=== PATIENT | female | born 1960 | race Caucasian/White ===

== ENCOUNTER 2017-03-15 13:16 | Observation (INO) | payer MEDICAID, SELFPAY ==
[2017-03-15 13:22] VITALS: BP 117/65; PULSE 110; RESP 16; TEMP 36.6; O2SAT 97; BMI 25.0
[2017-03-15 15:52] LABS: Amphetamine/Metha Screen,Urine Negative ng/mL (<1000); Barbiturates Screen,Urine Negative ng/mL (<200); Benzodiazepines Screen,Urine Positive ng/mL (200); Cannabinoid Screen,Urine Negative ng/mL (<50); Cocaine Screen,Urine Negative ng/g (<300); Methadone Screen,Urine Negative ng/mL (<300); Opiate Screen,Urine Negative ng/mL (<300); Phencyclidine Screen,Urine Negative ng/mL (<25)
--- NOTE | 2017-03-15 16:00 | HMH.EDAMS ---
ED Disposition Clinical Impression: Suicidal ideation Overdose Qualifiers: Encounter type: initial encounter Injury intent: intentional self-harm Qualified Code(s): T50.902A - Poisoning by unspecified drugs, medicaments and biological substances, intentional self-harm, initial encounter Disposition: Admitted As Inpatient Condition on Discharge: Fair Time of Disposition: 16:00 - Critical Care Critical Care Time: No Attestation: On 03/15/17, the high probability of a clinically significant, sudden or life threatening deterioration of the following system(s) required my full and direct attention, intervention and personal management. The time I documented below is in addition to time spent performing reported procedures but includes the following listed in this critical care notation. Medical Decision Making - Medical Records Medical records reviewed: Yes: I reviewed the patient's medical records. Vital Signs: 03/15/17 13:22 03/15/17 18:49 03/15/17 19:58 Temperature 97.9 F 97.9 F Temperature Source Oral Oral Pulse Rate 68 Pulse Rate [Right Radial] 110 H Respiratory Rate 16 16 Blood Pressure 118/72 Blood Pressure [Right Arm] 117/65 Blood Pressure Mean [Right Arm] 82 Blood Pressure Source Automatic Cuff Blood Pressure Source [Right Arm] Automatic Cuff Blood Pressure Position Supine Blood Pressure Position [Right Arm] Sitting 02 Sat by Pulse Oximetry 97 Oxygen Delivery Method Room Air Room Air 03/15/17 20:00 Temperature 97.7 F Temperature Source Oral Pulse Rate Pulse Rate [Right Radial] 82 Respiratory Rate 20 Blood Pressure Blood Pressure [Right Arm] 125/66 Blood Pressure Mean [Right Arm] 85 Blood Pressure Source Blood Pressure Source [Right Arm] Automatic Cuff Blood Pressure Position Blood Pressure Position [Right Arm] Sitting 02 Sat by Pulse Oximetry 99 Oxygen Delivery Method Room Air - Lab Data Lab results reviewed: Yes: I reviewed the patient's lab results. Lab Results 03/15/17 10:40: Urine Opiates Screen Negative, Ur Barbituates Screen Negative, Ur Phencyclidine Scrn Negative, Ur Amphetamines Screen Negative, U Methamphetamines Scrn Negative, U Benzodiazepines Scrn Positive H, Urine Cocaine Screen Negative, U Marijuana (THC) Screen Negative 03/15/17 13:40: WBC 8.2, RBC 4.66, Hgb 14.2, Hct 43.3, MCV 92.8, MCH 30.5, MCHC 32.8, RDW 13.1, Plt Count 228, MPV 8.9, Neut % (Auto) 58.1, Lymph % (Auto) 33.7, [place] % (Auto) 6.6, Eos % (Auto) 0.9, Baso % (Auto) 0.7, Neut # (Auto) 4.8, Lymph # (Auto) 2.8, [place] # (Auto) 0.6, Eos # (Auto) 0.1, Baso # (Auto) 0.1 03/15/17 13:40: Sodium 144, Potassium 3.8, Chloride 105, Carbon Dioxide 31, Anion Gap 11.8, BUN 18, Creatinine 0.83, Estimated Creat Clear 80, Estimated GFR 71, Est GFR ( Amer) 85, Glucose 98, Calcium 9.3, Total Bilirubin 0.5, AST 22, ALT 19, Alkaline Phosphatase 66, Total Protein 7.8, Albumin 3.6, Globulin 4.2 H, Albumin/Globulin Ratio 0.9 L, TSH 2.06, Salicylates 6.2, Acetaminophen 0 L Result diagrams: 03/15/17 13:40 03/15/17 13:40 Orders (Tests/Meds): ED MEDICATIONS Generic Name Dose Route Start Last Admin Trade Name Freq PRN Reason Stop Dose Admin Nicotine 21 mg 03/16/17 02:27 03/16/17 02:28 Nicoderm 21mg/24hr Patch TD 04/15/17 02:26 21 mg DAILYP PRN Administration Nicotine Cravings Discontinued Medications Generic Name Dose Route Start Last Admin Trade Name Freq PRN Reason Stop Dose Admin Diphenhydramine HCl 50 mg 03/15/17 16:42 03/15/17 16:42 Benadryl 50mg/1ml Vial IV 03/15/17 16:43 50 mg ONCE ONE Administration Sodium Chloride 1,000 mls @ 999 mls/hr 03/15/17 15:45 03/15/17 15:59 Sod Chloride 0.9% 1000ml Bag IV 03/15/17 16:45 999 mls/hr .Q1H1M JENNIFER Administration Lactated Ringer's 1,000 mls @ 125 mls/hr 03/15/17 17:30 Lactated Ringer's 1000 Ml Bag IV 04/14/17 17:29 .Q8H JENNIFER - Physician Consults Physician Consulted: Dr. Moreau Time:
[2017-03-15 16:24] LABS: Basophils # 0.1 K/mm3 (0-0.2); Basophils % 0.7 % (0.1-2.0); Eosinophils # 0.1 K/mm3 (0.0-0.4); Eosinophils % 0.9 % (0.1-12.0); Hematocrit 43.3 % (37.0-47.0); Hemoglobin 14.2 g/dL (12.2-16.2); Lymphocytes # 2.8 K/mm3 (0.7-4.5); Lymphocytes % 33.7 K/mm3 (10-50); Mean Corpuscular HGB Conc 32.8 g/dL (31.8-35.4); Mean Corpuscular Hemoglobin 30.5 pg (27.0-31.2); Mean Corpuscular Volume 92.8 fl (81-99); Mean Platelet Volume 8.9 fl (7.4-10.4); Monocytes # 0.6 K/mm3 (0.1-1.0); Monocytes % 6.6 % (1.7-9.3); Neutrophils # 4.8 K/mm3 (1.8-7.8); Neutrophils % 58.1 % (37.0-80.0); Platelet Count 228 K/mm3 (142-424); Red Blood Count 4.66 M/mm3 (4.20-5.40); Red Cell Distribution Width 13.1 % (11.5-17.5); White Blood Count 8.2 K/mm3 (4.8-10.8)
[2017-03-15 16:47] LABS: Alanine Aminotransferase 19 U/L (12-78); Albumin Level 3.6 gm/dL (3.4-5.0); Albumin/Globulin Ratio 0.9 (1.1-1.8); Alkaline Phosphatase 66 U/L (46-116); Anion Gap 11.8 mEq/L (5-15); Aspartate Amino Transferase 22 U/L (15-37); Bilirubin,Total 0.5 mg/dL (0.2-1.0); Blood Urea Nitrogen 18 mg/dL (7-18); Calcium 9.3 mg/dL (8.5-10.1); Carbon Dioxide 31 mmol/L (21.0-32.0); Chloride 105 mmol/L (98-107); Creatinine Clearance Estimated 80 mL/min (0-300); Creatinine,Serum 0.83 mg/dL (0.55-1.02); Estimated Glomerular Filt Rate 71 ml/min (>60); GFR (African American) 85 ML/MIN (>60); Globulin 4.2 gm/dl (1.3-3.2); Glucose 98 mg/dL (74-106); Potassium 3.8 mmoL/L (3.5-5.1); Salicylate 6.2 mg/dL (2.8-20.0); Sodium 144 mmol/L (136-145); Thyroid Stimulating Hormone 2.06 uIU/ml (0.358-3.740); Total Protein,Serum 7.8 gm/dL (6.4-8.2)
[2017-03-15 16:50] LABS: Acetaminophen 0 ug/mL (10-30)
[2017-03-15 18:49] VITALS: BP 118/72; PULSE 68; RESP 16; TEMP 36.6
--- NOTE | 2017-03-15 19:53 | PC.NURSE ---
Admitted for suicidal ideation and attempt. Currently states that she has no plan or want to harm herself at this moment.
[2017-03-15 20:00] VITALS: BP 125/66; PULSE 82; RESP 20; TEMP 36.5; O2SAT 99; BMI 23.6
[2017-03-15 20:36] VITALS: BMI 23.6
[2017-03-15 20:55] LABS: Microscopic, Urine URINE MICROSCOPIC (MICROSCOPIC)
[2017-03-15 21:31] LABS: Appearance,Urine CLEAR (Clear); Bilirubin,Urine Negative (Negative); Blood, Urine TRACE-I (Negative); Color,Urine YELLOW (Yellow); Glucose,Urine (UA) Negative (Negative); Ketones,Urine Negative (Negative); Leukocyte Esterase,Urine 3+ (Negative); Nitrate,Urine Negative (Negative); PH,Urine 6.5 (5.0-8.5); Protein,Urine Negative (Negative); Specific Gravity, Urine <= 1.005 (1.005-1.030); Urobilinogen,Urine 0.2 EU/dl (0.2)
[2017-03-15 21:55] LABS: Amphetamine/Metha Screen,Urine Negative ng/mL (<1000); Barbiturates Screen,Urine Negative ng/mL (<200); Benzodiazepines Screen,Urine Positive ng/mL (200); Cannabinoid Screen,Urine Negative ng/mL (<50); Cocaine Screen,Urine Negative ng/g (<300); Methadone Screen,Urine Negative ng/mL (<300); Opiate Screen,Urine Negative ng/mL (<300); Phencyclidine Screen,Urine Negative ng/mL (<25)
[2017-03-15 22:36] LABS: Bacteria,Urine Trace /lpf; Trichomonas,Urine 2+ /lpf; WBC,Urine 20-50 #/hpf (0-3)
[2017-03-16 03:53] VITALS: BP 109/68; PULSE 82; RESP 20; TEMP 36.5; O2SAT 98
--- NOTE | 2017-03-16 06:42 | PC.NURSE ---
Dr. Moreau up to see patient and requesting for one on one employee to step out of the room. Employee did so and Dr. Moreau shut the door to speak with patient and her daughter.
--- NOTE | 2017-03-16 07:29 | P.CONPHA_ITS ---
[facility] Pharmacy VTE Monitoring - Patient Demographics Admission date: 03/15/17 Report Date: 03/16/17 Time: 07:29 Allergies/Adverse Reactions: Patient Allergies No Known Allergies Allergy (Unverified 01/25/17 15:17) Height: 1.65 m Weight: 64.495 kg Patient Problems: Current Active Problems Overdose (Acute) Suicidal ideation (Acute) - VTE Risk Labs: VTE Related Lab Results Hgb 14.2 g/dL (12.2-16.2) 03/15/17 13:40 Hct 43.3 % (37.0-47.0) 03/15/17 13:40 Plt Count 228 K/mm3 (142-424) 03/15/17 13:40 BUN 18 mg/dL (7-18) 03/15/17 13:40 Creatinine 0.83 mg/dL (0.55-1.02) 03/15/17 13:40 Estimated Creat Clear 80 mL/min (0-300) 03/15/17 13:40 Was VTE Risk Assessment Performed: Yes VTE Risk Level: Very Low Risk Clinical Trial Participant: No - Prophylaxis VTE Prophylaxis Ordered?: Yes Types of VTE Prophylaxis: TEDS Knee High
--- NOTE | 2017-03-16 11:33 | CARE MANAGER ---
Spoke with patient, patient states that she has an appointment with her therapist at [facility] today at 1pm, she states that she in no way wants or intends to harm herself. Patient states that her medicines were being changed and she feels that is the cause of some of her feelings of wanting to harm herself. Her daughter is in the room as well and she feels that she is fine to go home and she has no problems with it as well. This information was forwarded to Dr. Moreau and he states that he will discharge the patient today.
--- NOTE | 2017-03-16 11:43 | CARE MANAGER ---
ADD: Called and spoke with Estela at [facility] and she verified that the patient does indeed have an appointment today. I also informed Estela that patient may be running a little late as she is waiting for discharge paperwork from Dr. Moreau.
--- NOTE | 2017-03-16 11:54 | HMH.HPDC ---
General - General Admission date: 03/15/17 Discharge date: 03/16/17 *Admission Date: 03/15/17 *Chief complaint: depression *History of present illness: this wf who is well known to me presents to ed with disease case manager rn with depression and mistaking her meds -his is a 56-year-old female patient brought to the emergency room by her social science teacher, Gisele, with concerns of her being suicidal and overdose. Patient is currently in a Suboxone clinic, and the social science teacher noticed large amounts of Suboxone missing from her pill container. Patient has told the social science teacher on 3 separate times earlier today that she wants to commit suicide, by taking the large overdose. Patient is known with multiple psychiatric conditions. MD complaint: altered mental status, confusion [facility] History I have reviewed the patient's past medical history: Yes Medical History: Reports:: Hyperlipidemia, Hypertension Denies:: Cancer, Diabetes Mellitus Type 1, Diabetes Mellitus Type 2, Internal Pacemaker, MRSA Other Surgeries: No: Pacemaker Amputation: No Fractures: No - *Social History Educational Level: Attended High School Smoking Status: Current every day smoker Tobacco Type: cigarettes Alcohol Intake: never Substance Use Type: denies use Occupational Status: disabled Housing: apartment - Psychiatric History Expresses thoughts of harming self/others: None Suicide Plan Description: No Plan Pschychiatric History:: Reports:: Suicide Attempt Review of Systems - Review of Systems Review of systems:: pertinent systems reviewed and negative unless documented below - Constitutional Denies fever(s) - Eyes Denies change in vision - ENT Denies throat swelling - *Cardiovascular Denies chest pain at rest - *Respiratory Denies chest congestion - *Gastrointestinal Denies abdominal pain - *Musculoskeletal Denies joint pain, Denies joint swelling - Integumentary/Breasts Denies rash - *Neurologic Denies dizziness, Denies seizure-like activity - Psychiatric Reports anxiety, Reports depression, Reports thoughts of hurting/killing yourself, Denies hearing things others do not hear, Denies sensing things others do not sense, Denies memory loss, Denies paranoia, Denies seeing things others do not see Exam Vital signs and Labs for Last 24 Hours: Temp Pulse Resp BP Pulse Ox 97.7 F 82 20 109/68 98 03/16/17 03:53 03/16/17 03:53 03/16/17 03:53 03/16/17 03:53 03/16/17 03:53 Laboratory Results - last 24 hr 03/15/17 20:45: Urine Color Yellow, Urine Appearance Clear, Urine pH 6.5, Ur Specific [place] <= 1.005, Urine Protein Negative, Urine Glucose (UA) Negative, Urine Ketones Negative, Urine Blood Trace-i, Urine Nitrate Negative, Urine Bilirubin Negative, Urine Urobilinogen 0.2, Ur Leukocyte Esterase 3+ A, Urine RBC None, Urine WBC 20-50, Ur Squamous Epith Cells 5-10, Urine Bacteria Trace, Urine Trichomonas 2+ 03/15/17 20:45: Urine Opiates Screen Negative, Ur Barbituates Screen Negative, Ur Phencyclidine Scrn Negative, Ur Amphetamines Screen Negative, U Methamphetamines Scrn Negative, U Benzodiazepines Scrn Positive H, Urine Cocaine Screen Negative, U Marijuana (THC) Screen Negative I & O for Last 24 hours: Intake & Output 03/13/17 03/14/17 03/15/17 03/16/17 11:59 11:59 11:59 11:59 Output Total 250 / 250 Balance -250 / -250 Weight 142 lb 3 oz - Constitutional no acute distress - *Routine HEENT Exam Head: Present: normocephalic Eye: Present: EOMI, PERRL. Absent: conjunctival icterus ENT: Present: mucous membranes dry - *Routine Neck Exam Present: supple. Absent: carotid bruit - *Routine Respiratory Exam Present: CTA bilaterally - *Routine Cardiovascular Exam Present: RRR, murmur. Absent: JVD - *Routine Abdominal Exam Present: soft - *Routine Extremities Exam Present: full ROM. Absent: calf tenderness - *Routine Skin Exam Present: intact - *Routine Neurological Exam Present: a
--- NOTE | 2017-03-16 12:50 | PC.NURSE ---
Pt has been stable this shift, no complaints voiced to nurse. Pt has had daughter at bedside entire shift and she drove patient home after discharge. Pt was emotional early this morning after speaking with Dr. Moreau regarding discharge, but stated that she was ready to go home. Pt was very anxious to leave, but discharge orders were just put in a few minutes ago. Pt was given all education/paperwork prior to discharge. Pt stated that she would follow up with [facility] care and with Dr. Moreau per her discussion with Dr. Moreau this morning. Both IV sites were discontinued and pt tolerated well.
== END 2017-03-16 12:48 | disposition home or self-care (01) ==
LOC: ER 16:15 → 2ND 20:43
PROVIDERS: Admitting Provider Emergency Medicine; Emergency Provider Emergency Medicine; Family Provider Emergency Medicine; PCP Emergency Medicine; Visit Provider Emergency Medicine
DX: T40.4X2A Poisoning by other synthetic narcotics, intentional self-harm, initial encounter (principal); R41.82 Altered mental status, unspecified; F32.9 Major depressive disorder, single episode, unspecified; N39.0 Urinary tract infection, site not specified; A59.09 Other urogenital trichomoniasis; F17.210 Nicotine dependence, cigarettes, uncomplicated; I10 Essential (primary) hypertension; Y92.9 Unspecified place or not applicable
CPT/HCPCS: 80053; 80305; 80329; 81001; 84443; 85025; 87086; 96365; 96375; 99281; G0378

== ENCOUNTER → 2017-12-19 17:56 | Outpatient (CLI) | payer MEDICAID, SELFPAY ==
[2017-12-26 11:13] LABS: Gabapentin,Urine 427.8 ug/mL (.)
== END ==
PROVIDERS: Visit Provider Nurse Practitioner Family
DX: Z02.83 Encounter for blood-alcohol and blood-drug test (principal)
CPT/HCPCS: 80307

== ENCOUNTER → 2018-06-09 09:16 | Outpatient (CLI) | payer MEDICAID, SELFPAY ==
--- NOTE | 2018-06-09 09:32 | XR_ITS ---
XR hip LT 2-3V w/pelvis HISTORY: ITS.REASON: left hip pain ORDERING PHYSICIAN: Fer Moreau MD PATIENT AGE: 58 years COMPARISON: None FINDINGS: No fracture or dislocation is evident. No significant degenerative change. No lytic or blastic change. Unremarkable soft tissues IMPRESSION: Negative hip
--- NOTE | 2018-06-09 09:32 | XR_ITS ---
XR knee RT 2V HISTORY: ITS.REASON: knee pain ORDERING PHYSICIAN: Fer Moreau MD PATIENT AGE: 58 years COMPARISON: None FINDINGS: There is slight decrease in the joint space medially and laterally with minimal chondrocalcinosis laterally. No fracture or dislocation. IMPRESSION: Minimal osteoarthritic change
--- NOTE | 2018-06-09 09:32 | XR_ITS ---
XR scoliosis survey CLINICAL INDICATION: ITS.REASON: back pain ORDERING PHYSICIAN: Fer Moreau MD PATIENT AGE: 58 years Comparison: None FINDINGS: There is mild lower thoracic curvature convex right measuring 9 degrees. Lumbar curvature convex left is present which measures 11 degrees. No obvious congenital anomalies. There is degenerative disc disease with facet arthritic change at L4-L5. IMPRESSION: Thoracic and lumbar scoliosis as described above
== END ==
PROVIDERS: PCP Emergency Medicine; Visit Provider Emergency Medicine
DX: M25.561 Pain in right knee (principal); M54.9 Dorsalgia, unspecified; M25.552 Pain in left hip
CPT/HCPCS: 72081; 73502; 73560

== ENCOUNTER → 2018-06-23 16:05 | Outpatient (CLI) | payer MEDICAID, SELFPAY ==
--- NOTE | 2018-06-23 16:17 | MR_ITS ---
MR lumbar spine wo con, MR 3-d myelogram/MRCP HISTORY: Low back pain X 1 year or longer. Bilateral leg pain, numbness, tingling and burning. Bilateral leg swelling as well. ITS.REASON: back pain ORDERING PHYSICIAN: Fer Moreau MD PATIENT AGE: 58 years Comparison: MRI 08/15/14. TECHNIQUE: Standard multiplanar multiecho sequences are performed without contrast. 3-D MIP and myelographic images are also rendered and reviewed FINDINGS: Mild lumbar scoliosis convex left. This is slightly increased compared to the previous exam with cough angle measuring 11 degrees previously measuring 6 degrees spinal cord ends at the L1 level. T11-T12: Mild degenerative disc disease T12-L1: Unremarkable. L1-L2: Unremarkable. L2-L3: Mild changes disease with mild disc desiccation. Mild facet and ligamentum flavum hypertrophy with mild bilateral lateral foraminal narrowing. Type II endplate changes. L3-L4: Minimal bulging disc with mild facet and ligamentum flavum hypertrophy with bilateral lateral recess and foraminal narrowing L4-L5: Mild anterolisthesis of L4 on L5 of 3 mm with mild bulging discs along with facet and ligamentum flavum hypertrophy with bilateral lateral recess and moderate bilateral foraminal narrowing At L5-S1: Bulging disc slightly eccentric to the left with facet and ligamentum flavum hypertrophy with moderate severe left foraminal narrowing. No extruded herniated disc. No canal stenosis and no significant change compared to the previous exam. IMPRESSION: 1. Multilevel lumbar spondylosis with degenerative disc disease, bulging disc, and facet and ligamentum flavum hypertrophy with bilateral lateral recess and foraminal narrowing. Please see above for detailed descriptions at each level. Overall not significantly changed . 3. No canal stenosis or disc herniation
== END ==
PROVIDERS: PCP Emergency Medicine; Visit Provider Emergency Medicine
DX: M54.9 Dorsalgia, unspecified (principal)
CPT/HCPCS: 72148; 76376

== ENCOUNTER → 2019-02-14 12:51 | Outpatient (CLI) | payer OTHER, SELFPAY ==
--- NOTE | 2019-02-14 12:51 | MR_ITS ---
PROCEDURE: MR LUMBAR SPINE WO CON CLINICAL INDICATION: back pain Low back pain with bilateral leg pain numbness and tingling left worse than right TECHNIQUE: Standard multiplanar multiecho sequences are performed without contrast. 3-D MIP and myelographic images are also rendered and reviewed FINDINGS: There is normal alignment. The spinal cord ends at the L1-L2 level. Multilevel degenerative disc disease with lumbar spondylosis with facet and ligamentum hypertrophy once again noted. T11-T12: Mild degenerative disc disease. T12-L1: Unremarkable L1-L2: Mild facet ligamentum hypertrophy. L2-L3: Minimal bulging disc with facet ligamentum hypertrophy. L3-L4: Bulging disc with mild facet ligamentum hypertrophy with mild bilateral foraminal narrowing. L4-5: Mild concentric bulging disc. Minimal anterolisthesis of L4. There is mild amount of fluid in the facet joints. Mild facet ligamentum hypertrophy with mild bilateral lateral recess and foraminal narrowing. L5-S1: Mild facet and ligamentum hypertrophy with mild bilateral foraminal narrowing left greater than right. No extruded herniated disc. No significant change compared to the previous exam. IMPRESSION: Mild multilevel lumbar spondylosis as detailed above. No disc herniation or canal stenosis and no significant change Dictated by: Amado Madrigal MD 02/15/2019 11:41 Electronically signed by Amado Madrigal MD in [place] 02/15/2019 11:41
== END ==
PROVIDERS: PCP Emergency Medicine; Visit Provider Emergency Medicine
DX: M54.16 Radiculopathy, lumbar region (principal)
CPT/HCPCS: 72148; 76376

== ENCOUNTER 2019-03-07 12:01 | Outpatient (RCR) | payer OTHER, SELFPAY | END 2019-03-07 13:00 | disposition home or self-care (01) | LOC: PT 12:01 | PROVIDERS: PCP Emergency Medicine; Visit Provider Emergency Medicine | DX: M54.16 Radiculopathy, lumbar region (principal); M41.9 Scoliosis, unspecified; M53.86 Other specified dorsopathies, lumbar region | CPT/HCPCS: 97542 ==

== ENCOUNTER → 2019-12-11 15:46 | Outpatient (CLI) | payer OTHER, SELFPAY ==
--- NOTE | 2019-12-11 15:46 | MM_ITS ---
PROCEDURE: MM DIG SCREENING MAMM BI W/CAD Digital Breast Tomosynthesis Included CLINICAL INDICATION: screening There is a history of breast cancer patient's mother diagnosed after menopause and the patient's maternal aunt. COMPARISON: MG DMSB DIG MAMM-SCREEN ALISHA from 01/02/2014 TECHNIQUE: Standard CC and MLO images and 3D Tomosynthesis was obtained. R2 CAD reviewed. FINDINGS: Mild to moderate scattered fibroglandular densities are seen throughout both breasts. There are few benign-appearing calcifications in each breast. There is no suspicious lesion in either breast and no suspicious microcalcifications. IMPRESSION: Fibrofatty parenchyma with no suspicious lesions seen BI-RAD Category: 2 Benign Finding(s) FOLLOW-UP: 1YR 1 Year Follow-up (A letter has been sent to the patient regarding results of the study.) Dictated by: Dr. Tevin Kelley MD 12/16/2019 08:56 Dr. Tevin Kelley MD in [place] 12/16/2019 08:56
== END ==
PROVIDERS: PCP Emergency Medicine; Visit Provider Emergency Medicine
DX: Z12.31 Encounter for screening mammogram for malignant neoplasm of breast (principal)
CPT/HCPCS: 77063; 77067

== ENCOUNTER 2020-09-12 12:02 | Emergency (ER) | payer OTHER, SELFPAY ==
[2020-09-12 12:03] VITALS: BP 143/83; PULSE 84; RESP 16; TEMP 37.3; O2SAT 98; BMI 24.3
--- NOTE | 2020-09-12 12:13 | HMH.EDGENADL ---
ED Disposition Clinical Impression: Disc disorder of cervical region, Cervical radiculopathy Disposition: Home, Self-Care Condition on Discharge: Good Instructions: DI for Neck Pain, DI for Herniated Disc, Degenerative Disc Disease, Herniated Disc Additional Instructions: Please take [id number] ibuprofen and/or acetaminophen as instructed on the medication packages. Follow-up with your primary care physician in about 5 to 7 days if your symptoms do not improve. I suspect that your symptoms are secondary to cervical radiculopathy and you may need an MRI to determine the cause of this. Please discuss this with your primary care physician. Return to the emergency department if you worsen in any way. Prescriptions: predniSONE [Prednisone 50mg Tab] 50 mg PO DAILY #5 tab Transmission Status: Pending to [facility] Referrals: Fer Moreau MD [Primary Care Provider] - - Critical Care Critical Care Time: No Attestation: On , the high probability of a clinically significant, sudden or life threatening deterioration of the following system(s) required my full and direct attention, intervention and personal management. The time I documented below is in addition to time spent performing reported procedures but includes the following listed in this critical care notation. Medical Decision Making - Medical Records Medical records reviewed: Yes: I reviewed the patient's medical records. - Pablo Inquiry Pt receiving controlled substance: No Medical Decision Narrative: As stated earlier, the patient presents to the emergency department with a several day history of neck pain associated with left-sided shoulder and back pain. On physical examination this pain is reproducible with palpation as well as movement of the neck. The patient denies any symptoms consistent with coronary artery related symptoms such as chest pain and or shortness of breath and or any other anginal equivalent. The patient left upper extremity is neurovascularly intact. There is no bony point tenderness. I do not feel that the patient requires laboratory and/or imaging work-up in the emergency department since her pain seems to be secondary to cervical radiculopathy. I have advised the patient to follow-up with her primary care physician to discuss the possibility of the need for an MRI. Meanwhile, the patient will be prescribed some steroids with instructions to take [id number] Tylenol and or ibuprofen. General Adult HPI - General Chief complaint: Neck Pain/Injury Stated complaint: shoulder and left arm pain, no accident Time Seen by Provider: 09/12/20 12:13 Source of Information: Patient - History of Present Illness HPI narrative: The patient presents to the emergency department complaining of neck pain associated with left shoulder and back pain. She states that this has been ongoing for several days but she does not recall the exact time of onset. She states that it is worse when she moves her neck and or arm. She also states that when she moves her neck she hears cracking and popping. Patient denies any neuro deficits. She denies any chest pain. She denies any shortness of breath. Severity scale (1-10): 6 Relieving factors: none Exacerbating factors: movement - Related Data Home Medications Medication Instructions Recorded Confirmed buprenorphine 8 mg-naloxone 2 mg 1 tab SUBLINGUAL BID tab 03/18/17 09/02/20 sublingual tablet Fluticasone Propionate [Flonase 2 spr NS DAILY 09/08/17 09/02/20 50mcg nasal spray 16gm] Previous Rx's Medication Instructions Recorded Nebulizer [Aeroeclipse] 1 each MC QID #1 each 10/31/18 fluticasone furoate 100 See Rx Instructions .ROUTE 01/10/20 mcg-vilanterol 25 mcg/dose .COMPLEX #60 each inhalation powder diclofenac sodium 1 % topical gel 4 g TOPICAL QID #100 g 02/05/20 ipratropium 20 mcg-albuterol 100 1 puff INHALATION Q4H PRN #4 g 04/02/20 mcg/actuation mist for inhalati
[2020-09-12 12:34] VITALS: BP 120/74; PULSE 68; RESP 16; TEMP 37.2; O2SAT 98
== END 2020-09-12 12:35 | disposition home or self-care (01) ==
LOC: ER 12:30
PROVIDERS: Emergency Provider Emergency Medicine; PCP Emergency Medicine
DX: M54.12 Radiculopathy, cervical region (principal); M50.90 Cervical disc disorder, unspecified, unspecified cervical region; F41.8 Other specified anxiety disorders; F17.210 Nicotine dependence, cigarettes, uncomplicated
CPT/HCPCS: 99281

== ENCOUNTER → 2020-10-01 10:27 | Outpatient (CLI) | payer OTHER, SELFPAY ==
--- NOTE | 2020-10-01 10:34 | XR_ITS ---
PROCEDURE: XR SHOULDER LT MIN 2V CLINICAL INDICATION: left shoulder pain COMPARISON: No exams were available for comparison FINDINGS: No fracture or dislocation. No lytic or blastic change. There is normal mineralization. There are minimal osteoarthritic changes of the glenohumeral joint. No significant subacromial stenosis Other findings:None. IMPRESSION: Minimal osteoarthritis of the glenohumeral joint. Dictated by: Amado Madrigal MD 10/01/2020 12:32 Amado Madrigal MD in [place] 10/01/2020 12:32
== END ==
PROVIDERS: PCP Emergency Medicine; Visit Provider Orthopaedic Surgery
DX: M25.512 Pain in left shoulder (principal)
CPT/HCPCS: 73030

== ENCOUNTER 2020-10-03 11:25 | Outpatient (RCR) | payer OTHER, SELFPAY | END 2020-10-03 12:47 | disposition home or self-care (01) | LOC: OT 11:25 | PROVIDERS: Visit Provider Orthopaedic Surgery | DX: M75.02 Adhesive capsulitis of left shoulder (principal) | CPT/HCPCS: 97763 ==

== ENCOUNTER → 2020-12-02 09:48 | Outpatient (CLI) | payer OTHER, SELFPAY ==
--- NOTE | 2020-12-02 09:50 | XR_ITS ---
PROCEDURE INFORMATION: Exam: XR Left Foot Complete; Alignment Exam date and time: 12/02/2020 9:50 AM Age: 60 years old Clinical indication: Pain; Foot; Left TECHNIQUE: Imaging protocol: XR Left foot. Views: 3 or more views. COMPARISON: CR (KNEE AP, KNEE, KNEE AP) 06/09/2018 9:57 AM FINDINGS: Bones/joints: Mild pes planus. Calcaneal spurs are present. Mild degenerative changes of the 1st 2nd and 3rd tarsometatarsal joints. Degenerative changes of the 1st metatarsophalangeal joint. There is no evidence of acute fracture. There is no evidence of joint malalignment or dislocation. Soft tissues: Normal. IMPRESSION: 1. Mild pes planus. 2. Calcaneal spurs are present. 3. Mild degenerative changes of the 1st 2nd and 3rd tarsometatarsal joints. 4. Degenerative changes of the 1st metatarsophalangeal joint. 5. No evidence of acute fracture. 6. No evidence of acute dislocation.
--- NOTE | 2020-12-02 09:50 | XR_ITS ---
PROCEDURE INFORMATION: Exam: XR Right Foot Complete; Alignment Exam date and time: 12/02/2020 9:50 AM Age: 60 years old Clinical indication: Pain; Foot; Right TECHNIQUE: Imaging protocol: XR Right foot. Views: 3 or more views. COMPARISON: CR XR KNEE RT 3V 03/30/2019 9:13 PM FINDINGS: Bones/joints: Mild pes planus. Calcaneal spurs are noted. There is no evidence of acute fracture. There is no evidence of joint malalignment or dislocation. Mild degenerative changes of the 1st 2nd and 3rd tarsometatarsal joints. Soft tissues: No soft tissue swelling. IMPRESSION: 1. Mild pes planus. 2. Calcaneal spurs are noted. 3. No evidence of acute fracture. 4. No evidence of acute dislocation. 5. Mild degenerative changes of the 1st 2nd and 3rd tarsometatarsal joints.
== END ==
PROVIDERS: PCP Emergency Medicine; Visit Provider Podiatrist
DX: M79.672 Pain in left foot (principal); M79.671 Pain in right foot
CPT/HCPCS: 73630

== ENCOUNTER 2020-12-08 14:00 | Outpatient (RCR) | payer OTHER, SELFPAY ==
--- NOTE | 2020-11-21 14:01 | HMH.OTOPEV ---
OT Inpatient Evaluation Rehab OT Outpatient Eval Start: 11/21/20 13:36 Freq: Status: Active Protocol: Document 11/21/20 13:37 LOVELYLUIS (Rec: 11/21/20 13:54 LOVELYLUIS [id number]) Electronically Signed By Nneka Beavers OT 11/21/20 13:37 Outpatient Therapy Subjective History Subjective History 60 year old female referred to skilled OP OT services for L shoulder pain from frozen shoulder. Patient verbalize having pain in the L shoulder for the past 6-8 months with minimal relief. Patient previously recieved her 2nd cortisone shot from ortho on . f/u with ortho in the next few weeks. Chief Complaint Pain,Weakness,Decreased [employer] Strength Symptom Type Ache Symptoms Relieved By Heat Symptoms Aggravated By Physical Activity Prior Functional Limitations None Current Functional Limitations Reaching,Lifting,Recreation Activity Symptom Description Constant and Continuous Level of pain today (0-10) 7 Pain scale - at its best (0-10) 7 Pain scale - at its worst (0-10) 9 Shoulder/Elbow Eval Shoulder Objective Measurements Shoulder ROM Left Shoulder Abduction Active Range of 85 Motion (degrees) Shoulder Flexion Active Range of Motion 80 (degrees) Query Text: Shoulder External Rotation Active Range 40 of Motion (degrees) Shoulder Internal Rotation Active Range 50 of Motion (degrees) pain with active ROM shoulder exam left standard Shoulder MMT Shoulder Abduction Strength Grade 3- Fair- Shoulder Extension Strength Grade 3- Fair- Shoulder Flexion Strength Grade 3- Fair- Shoulder Horizontal Abduction Strength 3- Fair- Grade Shoulder Horizontal Adduction Strength 3- Fair- Grade Infraspinatus/Teres Minor Strength Grade 3- Fair- Shoulder External Rotation Strength 3- Fair- Grade Shoulder Internal Rotation Strength 3- Fair- Grade Elbow Objective Measurements OT Outpatient Assessment Impairments Problems/Impairments Impaired Range of Motion, Impaired Strength,Impaired Endurance,Subjective C/O Pain Prognosis Rehab Potential Good Clinical Impression Consistent with Diagnosis Yes Short Term Goals Number of Weeks 2 Increase Ra
== END 2020-12-08 14:05 | disposition home or self-care (01) ==
LOC: OT 14:00
PROVIDERS: PCP Emergency Medicine; Visit Provider Orthopaedic Surgery
DX: M75.02 Adhesive capsulitis of left shoulder (principal)
CPT/HCPCS: 97014; 97110; 97140; 97165; 97530; G0283

== ENCOUNTER → 2021-02-03 11:51 | Outpatient (CLI) | payer OTHER, SELFPAY | PROVIDERS: PCP Emergency Medicine; Visit Provider Nurse Practitioner | DX: Z20.822 Contact with and (suspected) exposure to COVID-19 (principal) | CPT/HCPCS: C9803; U0003; U0005 ==

== ENCOUNTER 2021-02-03 11:56 | Emergency (ER) | payer OTHER, SELFPAY ==
[2021-02-03 12:24] VITALS: BP 121/67; PULSE 75; RESP 16; TEMP 37.1; O2SAT 97; BMI 25.3
[2021-02-03 13:21] VITALS: PULSE 75; RESP 16; TEMP 37.1; O2SAT 97; BMI 25.3
--- NOTE | 2021-02-03 13:28 | HMH.EDUTC ---
[facility] [place] Disposition Clinical Impression: COPD exacerbation Disposition: Home, Self-Care Condition on Discharge: Good Instructions: Preventing the Spread of Coronavirus Discharge Instructions, DI for COVID-19 (Suspected or Confirmed ), DI for Chronic Obstructive Pulmonary Disease Additional Instructions: Drink plenty of fluids. Take tylenol or ibuprofen for pain or fever. Take the medications as directed. Follow up with your regular doctor. GO TO THE ER FOR ANY WORSENING SYMPTOMS Quarantine until you know the results of your covid-19 test. If it is positive, the health department should call you and give you further instructions about your length of Quarantine and other things. Notify your school or workplace of your results and follow their instructions regarding return to work/school. The cough medication (promethazine dm) will make you drowsy, so don't drive or operate heavy machinery after taking it. Prescriptions: Promethazine/Dextromethorphan [Promethazine-Dm Syrup] 5 ml PO Q6HP PRN #240 ml PRN Reason: Cough Transmission Status: Pending to [facility] Amoxicillin/Potassium Clav [Augmentin 875-125 Tablet] 1 tab PO Q12H 10 Days #20 tab Transmission Status: Pending to [facility] predniSONE [Deltasone 10mg tablet] 10 mg PO DAILY 9 Days #21 tab Transmission Status: Pending to [facility] guaiFENesin [Mucinex 600mg tablet] 1 - 2 tab PO BIDP PRN #30 tab PRN Reason: Congestion Transmission Status: Pending to [facility] Referrals: Fer Moreau MD [Primary Care Provider] - Time of Disposition: 14:10 Medical Decision Making - Medical Records Medical records reviewed: No: I reviewed the patient's medical records. - Pablo Inquiry Pt receiving controlled substance: No Vital Signs: 02/03/21 12:24 02/03/21 13:21 Temperature 98.7 F 98.7 F Temperature Source Oral Oral Pulse Rate [Left Radial] 75 75 Respiratory Rate 16 16 Blood Pressure [Right Arm] 121/67 Blood Pressure Mean [Right Arm] 85 02 Sat by Pulse Oximetry 97 97 Oxygen Delivery Method Room Air - Lab Data Lab results reviewed: Yes: I reviewed the patient's lab results. Lab Results 02/03/21 13:22: Strep Scn Rapid Clinic Negative Orders (Tests/Meds): ORDERS Category Date Time Status Strep Screen Confirmation Routine Micro 02/03/21 13:22 Received - Radiology Data #1 Image(s): Chest Image Reviewed: Yes I reviewed the patient's radiology image, Yes I discussed the image results w/the radiologist Preliminary Findings: Normal/NAD, No Infiltrates Seen PROCEDURE: XR CHEST 2V CLINICAL HISTORY: cough, congestion COMPARISON: CR XR CHEST 2V from 07/16/2020 CR XR CHEST PORTABLE from 09/17/2020 FINDINGS: The cardiomediastinal silhouette and pulmonary vascularity are within normal limits. The lungs are clear without infiltrates, suspicious nodules, or pleural effusions. Subchondral cystic changes involve the distal clavicle on the left unchanged.. IMPRESSION: No acute findings. Dictated by: Amado Madrigal MD 02/03/2021 11:42 Amado Madrigal MD in [place] 02/03/2021 11:42 [facility] [place] HPI - General Stated complaint: congestion,vomiting,diarrhea Time Seen by Provider: 02/03/21 13:28 Mode of Arrival: Ambulatory Source of Information: Patient Limitations: No Limitations Description of Symptoms (Recalled from Triage Doc. by RN): pt tested this am at [facility] for covid. pt states she came here bc she wanted ABX. pt c/o RODRIGUEZ, n/v/d, fever and stomach ache. HEENT Symptoms (Recalled from RN notes): Yes (RODRIGUEZ) Resp Symptoms (Recalled from RN notes): No Skin Symptoms (Recalled from RN notes): No MS Symptoms (Recalled from RN notes): No Functional Status (Recalled from RN notes): wnl - History of Present Illness Provider Complaint: She states that for the past 3 days she has felt bad, had a cough and chest tightness and felt mildly short of breath. She has not been vaccinated against covid-19.
[2021-02-03 13:37] LABS: UTC Strep Screen (Rapid) Negative (Negative)
--- NOTE | 2021-02-03 13:41 | XR_ITS ---
PROCEDURE: XR CHEST 2V CLINICAL HISTORY: cough, congestion COMPARISON: CR XR CHEST 2V from 03/30/2019 FINDINGS: The cardiomediastinal silhouette and pulmonary vascularity are within normal limits. The lungs are clear without infiltrates, suspicious nodules, or pleural effusions. Lumbar scoliosis convex left. IMPRESSION: No acute findings. Dictated by: Amado Madrigal MD 02/03/2021 13:54 Amado Madrigal MD in [place] 02/03/2021 13:54
[2021-02-03 14:43] VITALS: BP 121/67; PULSE 75; RESP 16; TEMP 37.1
== END 2021-02-03 14:48 | disposition home or self-care (01) ==
PROVIDERS: Emergency Provider Nurse Practitioner Family; PCP Emergency Medicine
DX: J44.1 Chronic obstructive pulmonary disease with (acute) exacerbation (principal); F41.8 Other specified anxiety disorders; E78.5 Hyperlipidemia, unspecified; F17.210 Nicotine dependence, cigarettes, uncomplicated
CPT/HCPCS: 71046; 87880; 99202; G0463

== ENCOUNTER → 2021-03-30 16:00 | Outpatient (CLI) | payer OTHER, SELFPAY ==
[2021-03-30 18:56] LABS: Basophils # 0.1 K/mm3 (0-0.2); Basophils % 1.6 % (0.1-2.0); Eosinophils # 0.1 K/mm3 (0.0-0.4); Eosinophils % 1.1 % (0.1-12.0); Hematocrit 44.6 % (37.0-47.0); Hemoglobin 14.4 g/dL (12.2-16.2); Lymphocytes # 1.8 K/mm3 (0.7-4.5); Lymphocytes % 27.6 % (10-50); Mean Corpuscular HGB Conc 32.4 g/dL (31.8-35.4); Mean Corpuscular Hemoglobin 31.2 pg (27.0-31.2); Mean Corpuscular Volume 96.5 fl (81-99); Mean Platelet Volume 9.7 fl (7.4-10.4); Monocytes # 0.2 K/mm3 (0.1-1.0); Monocytes % 3.6 % (1.7-9.3); Neutrophils # 4.4 K/mm3 (1.8-7.8); Neutrophils % 66.1 % (37.0-80.0); Platelet Count 290 K/mm3 (142-424); Red Blood Count 4.62 M/mm3 (4.20-5.40); Red Cell Distribution Width 13.4 % (11.5-17.5); White Blood Count 6.7 K/mm3 (4.8-10.8)
[2021-03-30 19:47] LABS: Alanine Aminotransferase 19 U/L (12-78); Albumin Level 4.7 g/dl (3.5-5.0); Albumin/Globulin Ratio 1.7 (1.1-1.8); Alkaline Phosphatase 70 U/L (38-126); Anion Gap 10.9 mEq/L (5-15); Aspartate Amino Transferase 31 U/L (14-36); Bilirubin,Total 0.5 mg/dl (0.2-1.3); Blood Urea Nitrogen 16 mg/dl (7-17); Calcium 9.6 mg/dl (8.4-10.2); Carbon Dioxide 29 mmol/L (22.0-30.0); Chloride 103 mmol/L (98-107); Chol/HDL Ratio 3.3 (1-3.5); Cholesterol 194 mg/dl (140-200); Estimated Glomerular Filt Rate 73 ml/min (>60); GFR (African American) 88 ML/MIN (>60); Globulin 2.8 g/dL (1.3-3.2); Glucose 81 mg/dl (74-100); HDL Cholesterol 59 mg/dl (40-60); Potassium 4.9 mmoL/L (3.5-5.1); Sodium 138 mmol/L (136-145); Total Protein,Serum 7.5 g/dl (6.3-8.2); Triglycerides 99 mg/dl (30-150); VLDL Cholesterol 20 mg/dL (0-40)
[2021-03-30 19:50] LABS: Hemoglobin A1C 5.3 % (4.0-6.0)
[2021-03-30 19:57] LABS: Direct LDL Cholesterol 97.76 mg/dL (100-129)
[2021-03-30 20:17] LABS: Thyroid Stimulating Hormone 2.57 uIU/mL (0.465-4.68)
[2021-03-30 20:21] LABS: 25-OH Vitamin D, Total < 12.8 ng/mL (30-100)
[2021-03-30 20:36] LABS: Vitamin B12 468 pg/mL (239-931)
[2021-03-30 21:13] LABS: Erythrocyte Sedimentation Rate 15 mm/hr (0-30)
== END ==
PROVIDERS: Visit Provider Emergency Medicine
DX: Z00.00 Encounter for general adult medical examination without abnormal findings (principal); Z79.899 Other long term (current) drug therapy; E55.9 Vitamin D deficiency, unspecified
CPT/HCPCS: 80053; 80061; 82306; 82607; 83036; 84443; 85025; 85651

== ENCOUNTER → 2021-04-07 13:02 | Outpatient (CLI) | payer OTHER, SELFPAY ==
--- NOTE | 2021-04-07 13:24 | US_ITS ---
FINAL REPORT CLINICAL HISTORY: Skin changes, tobacco use, HTN, RIGHT SORE ON TOP OF FOOT X 4 MONTHS FINDINGS: ANKLE-BRACHIAL PRESSURE INDICES Pressure indices are as follows: RIGHT LOWER EXTREMITY: Ankle-brachial pressure index: 0.93 Comments: Borderline LEFT LOWER EXTREMITY: Ankle-brachial pressure index: 0.90 Comments: Borderline CONCLUSION: Borderline bilateral ABIs. Reviewed, Interpreted and Dictated by Albino Key III, MD Transcribed by Jen Ernandez Authenticated by Albino Key III, MD on 04/07/2021 04:09:17 [facility]
== END ==
PROVIDERS: PCP Emergency Medicine; Visit Provider Podiatrist
DX: R09.89 Other specified symptoms and signs involving the circulatory and respiratory systems (principal)
CPT/HCPCS: 93923

== ENCOUNTER 2021-07-10 22:31 | Outpatient (CLI) | payer OTHER, SELFPAY ==
[2021-07-10 22:39] VITALS: BMI 26.6
== END 2021-07-10 22:41 | disposition home or self-care (01) ==
LOC: COVID.OUT 22:32
PROVIDERS: PCP Emergency Medicine; Visit Provider Emergency Medicine
DX: Z20.822 Contact with and (suspected) exposure to COVID-19 (principal)
CPT/HCPCS: C9803; U0003; U0005

== ENCOUNTER → 2021-07-13 14:03 | Outpatient (CLI) | payer OTHER, SELFPAY ==
[2021-07-13 13:26] LABS: Coronavirus 19, PCR Not Detected (NotDetected); Influenza A, PCR Not Detected (NotDetected); Influenza B, PCR Not Detected (NotDetected)
== END ==
PROVIDERS: PCP Emergency Medicine; Visit Provider Emergency Medicine
DX: Z20.822 Contact with and (suspected) exposure to COVID-19 (principal); R51.9 Headache, unspecified
CPT/HCPCS: C9803; U0003; U0005

== ENCOUNTER → 2021-09-29 14:29 | Outpatient (CLI) | payer OTHER, SELFPAY ==
--- NOTE | 2021-09-29 14:30 | MR_ITS ---
FINAL REPORT CLINICAL HISTORY: Lower Back Pain lower back pain painful when standing/walking / and laying pt stated bilateral feet numbness and pain x 2 years no recent injury /truama COMPARISON: February 14, 2019 FINDINGS: Multiplanar MR imaging of the lumbar spine was performed without contrast. On the sagittal T2-weighted images, there is abnormal decreased signal throughout the lumbar discs. There is a grade 1 spondylolisthesis of L4 on L5 that is probably degenerative. L1-2: There is no significant canal stenosis or neural foraminal narrowing. L2-3: There is a mild diffuse disc bulge. There is mild bilateral neural foraminal narrowing. L3-4: There is a moderate diffuse disc bulge. There is bilateral facet hypertrophy. There is moderate to high-grade bilateral neural foraminal narrowing. L4-5: There is a moderate diffuse disc bulge. There is bilateral facet hypertrophy. There is right a posterolateral disc protrusion. There is moderate to high-grade right neural foraminal narrowing L5-S1: There is a mild diffuse disc bulge. There is mild bilateral neural foraminal narrowing. IMPRESSION: Multilevel changes of degenerative disc disease with neural foraminal compromise most evident bilateral L3-4 in on the right at L4-5. Reviewed, Interpreted and Dictated by Tyson Douglas MD Transcribed by Gita Ventura Authenticated and [facility]
== END ==
PROVIDERS: PCP Emergency Medicine; Visit Provider Emergency Medicine
DX: M54.50 Low back pain, unspecified (principal)
CPT/HCPCS: 72148; 76376

== ENCOUNTER → 2021-10-07 10:52 | Outpatient (POV) | payer OTHER, SELFPAY ==
[2021-10-07 11:08] VITALS: BP 135/76; PULSE 89; RESP 20; TEMP 36.4; O2SAT 99; BMI 25.0
--- NOTE | 2021-10-07 14:02 | EXP.PAIN.SOA ---
PFSH PFSH Medical History COPD (chronic obstructive pulmonary disease) History of back pain Hypertension Osteoarthritis Skin cancer Social History Smoking Status: Current every day smoker tobacco type: cigarettes packs per day: 1 quit status: considering quitting second hand exposure: No alcohol intake: never substance use type: former substance user current occupational status: other housing: apartment current occupational exposures/hazards: No caffeine: Yes
--- NOTE | 2021-10-07 17:19 | EXP.PAIN.OV ---
HPI Data of Consult Patient: new to practice Consult date: 10/07/21 Requesting Physician: Sandi Posada APRN Primary Care Provider: Fer Moreau MD Consult Narrative Reason for consult: Low back pain, bilateral leg pain, neck pain History of present illness: Ms. Pineda is a 61 year old female who presents today as a new patient. She is a referral from Daniel levin. Patient states she has 10 out of 10 pain in her low back that radiates into her bilateral extremities as well as neck pain and neuropathy in her feet. Patient describes this as a aching, throbbing sensation that is worse with increased activity. Patient denies any trauma or injury to the site. She states this has been an issue for years. Patient states she is in constant pain that is affecting her activities of daily living. She has been seeing Dr. Crews for her neuropathy of her feet. Patient has saw physical therapy which provides minimal relief of her symptoms. Patient continues to do at home exercises and stretching for longer than 6 weeks with minimal improvement of her symptoms. She has already consulted with a neuro surgeon who stated she was not a candidate for surgery. She is currently prescribed gabapentin 800 mg 4 times a day and clonazepam 1 mg twice a day by Dr. Moreau. Patient denies any side effects from this medications. She states these medications do help manage her pain. She is also on Suboxone therapy by Rianna Tovar. And she is prescribed phentermine 37.5 mg daily by Daniel levin. Her Pablo is [phone]. Its been reviewed and appropriate. CC: Sandi Posada APRN [facility] Medical History COPD (chronic obstructive pulmonary disease) History of back pain Hypertension Osteoarthritis Skin cancer Social History Smoking Status: Current every day smoker tobacco type: cigarettes packs per day: 1 quit status: considering quitting second hand exposure: No alcohol intake: never substance use type: former substance user current occupational status: other housing: apartment current occupational exposures/hazards: No caffeine: Yes Review of Systems Review of Systems Review of systems:: pertinent systems reviewed and negative unless documented below Review of systems (narrative): Review of Systems: General: No recent weight changes, no fever, no sleep disturbances Respiratory: No cough, no shortness of air, no recurring pulmonary infections Cardiovascular/peripheral vascular: No chest pain, no palpitations, no edema, no shortness of breath Gastrointestinal: No new onset incontinence, normal bowel movements reported Genitourinary: No new onset incontinence Musculoskeletal: Low back pain, bilateral leg pain, neck pain Psychiatric: [Normal mood/affect] Neurological: [Denies weakness in extremities], [denies balance issues] Meds Home Medications and Allergies Home Medications Medication Instructions Recorded Confirmed Type buprenorphine 8 mg-naloxone 2 mg 1 tab sublingual BID Supplement 03/18/17 10/07/21 History sublingual tablet gabapentin 800 mg tablet 800 mg PO QID Pain #120 tabs 07/13/21 10/07/21 Rx carvedilol 3.125 mg tablet See Rx Instructions .Route 10/07/21 10/07/21 History .COMPLEX htn cholecalciferol (vitamin D3) 25 25 mcg PO DAILY . 10/07/21 10/07/21 History mcg (1,000 unit) capsule clonazepam 1 mg tablet 1 mg PO DAILY . 10/07/21 10/07/21 History ergocalciferol (vitamin D2) 1,250 1,250 mcg PO WEEKLY . 10/07/21 10/07/21 History mcg (50,000 unit) capsule ipratropium 20 mcg-albuterol 100 See Rx Instructions .Route 10/07/21 10/07/21 History mcg/actuation mist for inhalation .COMPLEX . (Combivent Respimat) lisinopril 20 See Rx Instructions .Route 10/07/21 10/07/21 History mg-hydrochlorothiazide 25 mg tablet .COMPLEX htn phentermine 37.5 mg tablet 37.5 mg PO DAILY . 10/07/21 10/07/21 H
== END ==
PROVIDERS: PCP Emergency Medicine; Visit Provider Nurse Practitioner Family
DX: M51.16 Intervertebral disc disorders with radiculopathy, lumbar region (principal); M24.28 Disorder of ligament, vertebrae; M48.00 Spinal stenosis, site unspecified; G95.19 Other vascular myelopathies
CPT/HCPCS: 99202; G0463

== ENCOUNTER → 2021-11-04 11:07 | Outpatient (POV) | payer OTHER, SELFPAY ==
[2021-11-04 11:53] VITALS: BP 152/74; PULSE 92; RESP 18; TEMP 35.6; O2SAT 95; BMI 25.1
--- NOTE | 2021-11-04 13:11 | EXP.PAIN.SOA ---
[facility] Pain Management SOAP Note Subjective:: Patient is a pleasant 61-year-old female who presents today for follow-up of insurance denial for epidural injection. We are currently treating the patient for degenerative disc disease of lumbar spine with lumbar radiculopathy symptoms, neurogenic claudication, facet hypertrophy lumbar spine, lumbar spondylosis. Today the patient rates her pain a 10 out of 10. She states the pain is all in her low back that radiates into her bilateral lower extremities and feet. Patient describes this as a aching, throbbing sensation that is worse with increased activity. Patient has not had any trauma or injury to the site she states this has been going on for years. Patient describes this as a constant pain that affects her activities of daily living. She states she cannot sleep, walk, work due to the pain. She has been seeing Dr. Crews for her neuropathy in her feet however she is not had significant improvement. Patient has saw physical therapy with some relief. She continues to do at home exercises and stretching techniques for more than 6 weeks with minimal improvement of her symptoms. Patient has tried [id number] medications of Tylenol and ibuprofen with no improvement of her symptoms. She is also used ice and heat and topical medications with minimal improvement. She was deemed a nonsurgical candidate by a neurosurgeon in the past. She is currently managed with gabapentin 800 mg 4 times a day and clonazepam 1 mg twice a day by Dr. Moreau. Patient denies any side effects from this medication. She states these medications do help take the edge off of her pain symptoms. She is also on Suboxone therapy by Rianna Tovar. She also takes phentermine 37.[address] Daniel Contreras. Her Pablo is [phone]. It has been reviewed and appropriate. Review of Systems: General: No recent weight changes, no fever, no sleep disturbances Respiratory: No cough, no shortness of air, no recurring pulmonary infections Cardiovascular/peripheral vascular: No chest pain, no palpitations, no edema, no shortness of breath Gastrointestinal: No new onset incontinence, normal bowel movements reported Genitourinary: No new onset incontinence Musculoskeletal: Low back pain, bilateral leg pain, bilateral feet pain Psychiatric: [Normal mood/affect] Neurological: [Denies weakness in extremities], [denies balance issues] Objective:: Physical Exam: General: Alert and oriented x3, no acute distress, pleasant and cooperative Lungs: Respirations even and unlabored, symmetrical chest expansion Eyes: PERRL Musculoskeletal: Flexion and extension of lumbar [spine] somewhat guarded secondary to pain, [antalgic gait noted] Neurological: Speech clear, no gross sensory deficit Assessment:: Degenerative disc disease of lumbar spine with lumbar radiculopathy symptoms, neurogenic claudication, lumbar facet hypertrophy, lumbar spondylosis, chronic pain Plan:: Patient continues to have significant pain in her low back that radiates into her bilateral legs and feet. Patient had limited range of motion of her lumbar spine during today's visit. Patient has tried and failed conservative therapy such as oral medications, heat and ice, topical medications, physical therapy, at home exercising and stretching for longer than 6 weeks. Patient had limited flexion and extension of her lumbar spine. Imaging showed multi level ligamentum flavum hypertrophy, multilevel degenerative disc disease with neuroforaminal compromise. Patient has symptoms consistent with neurogenic claudication. With the patient's radiculopathy symptoms an epidural injection would be medically necessary for improvement of her symptoms. I have discussed with the patient that she would benefit from a lumbar epidural. Risk and benefits were discussed with the patient. She would like to proceed forward with this injection. She is not currently on any blood thinners. He we will schedule her for a moreno
== END ==
PROVIDERS: PCP Emergency Medicine; Visit Provider Nurse Practitioner Family
DX: M51.16 Intervertebral disc disorders with radiculopathy, lumbar region (principal); M47.26 Other spondylosis with radiculopathy, lumbar region; I73.9 Peripheral vascular disease, unspecified; G89.29 Other chronic pain
CPT/HCPCS: 99212; G0463

== ENCOUNTER 2021-11-24 13:03 | Day surgery (SDC) | payer OTHER, SELFPAY ==
[2021-11-24 13:15] VITALS: BP 115/72; PULSE 109; RESP 18; TEMP 36.6; O2SAT 96; BMI 26.6
[2021-11-24 13:31] VITALS: BP 138/95; PULSE 106; RESP 18; O2SAT 98
[2021-11-24 13:33] VITALS: BP 138/95; PULSE 106; RESP 18; O2SAT 98
[2021-11-24 13:40] VITALS: BP 132/64; PULSE 95; RESP 18; O2SAT 95
--- NOTE | 2021-11-24 14:04 | EXP.PAIN.PRO ---
Procedure Date: 11/24/21 Time: 13:50 Anesthesiologist:: Salbador Fernandez CRNA Complications:: None Pre-procedure Diagnosis:: Degenerative disc disease lumbar spine multilevels. Lumbar radiculopathy. Lumbar spinal stenosis Post-procedure Diagnosis:: Same. Indications for Procedure:: Very pleasant 61-year-old female that comes our clinic today for lumbar epidural steroid injection at L4-5 and diagnostic epidurogram. Patient has low back pain as well as bilateral hip and leg radicular symptoms. She rates her pain 7/10. Procedure Details:: Procedure: Lumbar epidural steroid injection under fluoroscopy Informed consent was obtained and the risks and benefits of the procedure were explained to the patient. The patient was taken to the procedure room and noninvasive monitors placed, including noninvasive blood pressure cuff and pulse oximeter. The back was viewed using C-arm Fluoroscopy and prepped using Chloraprep as a cleansing solution and the L4-L5 interspace was palpated. Skin and subcutaneous tissues were anesthetized using lidocaine 1.5% and a 25-gauge needle. After this, an 18-gauge Touhy epidural needle was placed into the L4-L5 interspace and advanced using fluoroscopic guidance and loss of resistance to air until the epidural space was encountered. After confirmation of needle placement in the epidural space, with dye, a solution containing normal saline, 3 mL and Depo-Medrol 80 mg were incrementally injected into the lumbar epidural space. The patient tolerated the procedure well with no complications. The patient was observed in the Pain Clinic and then discharged home neurologically intact. Plan and Disposition:: Patient was discharged without incident.
== END 2021-11-24 13:40 | disposition home or self-care (01) ==
LOC: SC.PAINP 13:04
PROVIDERS: PCP Emergency Medicine; Visit Provider Nurse Anesthetist, Certified Registered
DX: M51.16 Intervertebral disc disorders with radiculopathy, lumbar region (principal); M48.061 Spinal stenosis, lumbar region without neurogenic claudication
CPT/HCPCS: 62323; J1040; Q9966

== ENCOUNTER → 2021-12-14 10:15 | Outpatient (POV) | payer OTHER, SELFPAY ==
[2021-12-14 10:36] VITALS: BP 125/57; PULSE 80; RESP 18; O2SAT 96; BMI 24.7
--- NOTE | 2021-12-14 11:49 | EXP.PAIN.SOA ---
[facility] Pain Management SOAP Note Subjective:: Patient is a pleasant 61-year-old female who presents today for follow-up of lumbar epidural steroid injection at L4-L5 on 11/24/2021. We are currently treating the patient for degenerative disc disease of lumbar spine with lumbar radiculopathy symptoms, and neurogenic claudication, facet hypertrophy lumbar spine with lumbar spondylosis. Patient states she did not notice significant improvement following this injection. Today the patient rates her pain a 8 out of 10. She states the pain is in her low back that radiates into her bilateral lower extremities. Patient states it does affect both her hips and goes down into her thighs. Patient describes this as a aching, throbbing sensation that is worse with increased activity. Patient denies any new trauma or injury. Patient denies any change to the location or type of pain she experiences. Patient does currently see Dr. Crews for neuropathy in her feet. Patient has saw physical therapy with some relief and she continues to do at home exercises and stretching techniques for longer than 6 weeks with minimal improvement. Patient does use [id number]-nlaeyry Tylenol and ibuprofen with no improvement of her symptoms. She is also tried heat and ice and topical medications. Patient was deemed a nonsurgical candidate by a neurosurgeon in the past. She is currently managed with gabapentin 800 mg 4 times a day and clonazepam 1 mg twice a day by Dr. Moreau's office. Patient denies any side effects from this medication. She states these medications do help take the edge off her for her pain symptoms. She is currently on Suboxone therapy by Rianna Tovar. Her Apblo is [phone]. It has been reviewed and appropriate. Review of Systems: General: No recent weight changes, no fever, no sleep disturbances Respiratory: No cough, no shortness of air, no recurring pulmonary infections Cardiovascular/peripheral vascular: No chest pain, no palpitations, no edema, no shortness of breath Gastrointestinal: No new onset incontinence, normal bowel movements reported Genitourinary: No new onset incontinence Musculoskeletal: Low back pain, bilateral leg pain Psychiatric: [Normal mood/affect] Neurological: [Denies weakness in extremities], [denies balance issues] Objective:: Physical Exam: General: Alert and oriented x3, no acute distress, pleasant and cooperative Lungs: Respirations even and unlabored, symmetrical chest expansion Eyes: PERRL Musculoskeletal: Flexion and extension of lumbar [spine] somewhat guarded secondary to pain, [antalgic gait noted]. Extreme point tenderness along bilateral SI's and positive bilateral Vickey's, Manju's, Gaenslen's, compression and distraction exam Neurological: Speech clear, no gross sensory deficit Assessment:: Degenerative disc disease of lumbar spine with lumbar radiculopathy symptoms, neurogenic claudication, facet arthropathy, lumbar spondylosis, sacroiliitis Plan:: Patient is experiencing significant pain in her low back that radiates into her bilateral lower extremities and stops at her knee. Patient did have limited range of motion of her lumbar spine during today's visit as well as positive point tenderness at bilateral SI's and positive bilateral Vickey's, Manju's, Gaenslen's, compression and distraction exam. I have discussed with the patient that she may benefit from bilateral SI injections. Risk and benefits were discussed with the patient. She would like to proceed forward with this plan of care. We will schedule the patient for bilateral SI injections. Patient has been instructed to contact the clinic with any concerns before the next appointment. Dr. Esquivel has reviewed this note and agrees with this plan of care. This note was dictated using voice recognition software and make contain errors or omissions. [facility] Medical History COPD (chronic obstructive pulmonary disease) History
== END ==
PROVIDERS: PCP Emergency Medicine; Visit Provider Nurse Practitioner Family
DX: M51.16 Intervertebral disc disorders with radiculopathy, lumbar region (principal); M46.1 Sacroiliitis, not elsewhere classified; M47.26 Other spondylosis with radiculopathy, lumbar region; M48.062 Spinal stenosis, lumbar region with neurogenic claudication; Z72.0 Tobacco use; Z79.899 Other long term (current) drug therapy
CPT/HCPCS: 99212; G0463

== ENCOUNTER 2021-12-25 09:31 | Day surgery (SDC) | payer OTHER, SELFPAY ==
[2021-12-25 09:40] VITALS: BP 124/73; PULSE 89; RESP 18; O2SAT 97; BMI 26.6
[2021-12-25 09:51] VITALS: BP 122/72; PULSE 84; RESP 18; O2SAT 98
[2021-12-25 09:52] VITALS: BP 122/72; PULSE 84; RESP 18; O2SAT 98
--- NOTE | 2021-12-25 09:56 | P.PCN_ITS ---
Procedure Date: 12/25/21 Time: 09:56 Anesthesiologist:: Salbador Fernandez CRNA Complications:: None Pre-procedure Diagnosis:: Degenerative disc disease of lumbar spine with lumbar radiculopathy symptoms, neurogenic claudication, facet hypertrophy, lumbar spondylosis, sacroiliitis Post-procedure Diagnosis:: Same Indications for Procedure:: Patient is a pleasant 61-year-old female who presents today for bilateral SI injections. We are currently treating the patient for degenerative disc disease of lumbar spine with lumbar radiculopathy symptoms, neurogenic claudication, facet hypertrophy, lumbar spondylosis, sacroiliitis. Today she rates her pain an 8 out of 10. Patient denies any new trauma or injury. Patient denies any change of location or type of pain she experiences. Patient does state this is an aching, throbbing sensation that is worse with increased activity. Patient cannot tolerate prolonged sitting, standing, walking due to the pain. Patient is currently managed with gabapentin 800 mg 4 times a day from an outside provider. We will proceed forward with her bilateral SI injections. General: Alert and oriented x3, no acute distress, pleasant and cooperative Lungs: Respiration even unlabored, symmetrical chest expansion Eyes: PERRL Musculoskeletal: Flexion and extension of lumbar spine somewhat guarded secondary to pain, antalgic gait noted. Extreme point tenderness of bilateral SI's and positive bilateral Vickey's, Manju's, Gaenslen's, compression and dis traction exam Neurological: Speech clear, no gross sensory deficit Procedure Details:: Informed consent was obtained and the risks and benefits of the procedure were explained to the patient.~ The patient was taken to the procedure room and noninvasive monitors were placed including a noninvasive blood pressure cuff and pulse oximeter.~ The patient was placed prone on the procedure table. Both hips were cleansed using Betadine as a cleansing solution. C-arm fluoroscopy was used to view the right sacroiliac joint.~ The skin and subcutaneous tissues were anesthetized using lidocaine 1.5% and a 25-gauge needle.~ After this, a 22-gauge spinal needle was inserted under fluoroscopic guidance into the inferior aspect of the right sacroiliac joint.~ Omnipaque dye was injected and good spread was seen throughout the joint.~ After this, approximately 5 mL of bupivacaine, 0.25% and Depo-Medrol, 40 mg was incrementally injected into the right sacroiliac joint. We then moved to the left sacroiliac joint.~ The skin and subcutaneous tissues were anesthetized using lidocaine 1.5% and a 25-gauge needle.~ After this, a 22- gauge spinal needle was inserted under fluoroscopic guidance into the inferior aspect of the left sacroiliac joint.~ Omnipaque dye was injected and good spread was seen throughout the joint. After this, approximately 5 mL of bupivacaine, 0.25% and Depo-Medrol, 40 mg was incrementally injected into the left sacroiliac joint.~ The patient tolerated the procedure well with no complications. The patient was observed in the Pain Clinic and then was discharged home neurologically intact. Plan and Disposition:: Patient was monitored in the clinic setting for short period of time following these injections in discharged neurologically intact. We will follow-up with the patient in 2 weeks. Patient has been counseled to contact the office with any questions or concerns before the next appointment date. Dr. Esquivel is read this note and agrees with this plan of care. This note was dictated using voice recognition software and may contain errors or omissions.
[2021-12-25 09:58] VITALS: BP 137/74; PULSE 81; RESP 18; O2SAT 96
== END 2021-12-25 09:58 | disposition home or self-care (01) ==
PROVIDERS: PCP Emergency Medicine; Visit Provider Nurse Anesthetist, Certified Registered
DX: M51.16 Intervertebral disc disorders with radiculopathy, lumbar region (principal); M48.062 Spinal stenosis, lumbar region with neurogenic claudication; M46.1 Sacroiliitis, not elsewhere classified; M47.26 Other spondylosis with radiculopathy, lumbar region
CPT/HCPCS: 27096; G0260; J1030

== ENCOUNTER → 2022-01-12 10:10 | Outpatient (CLI) | payer OTHER, SELFPAY ==
[2022-01-12 10:20] VITALS: BP 121/75; PULSE 89; RESP 20; O2SAT 96; BMI 26.6
--- NOTE | 2022-01-12 10:29 | EXP.PAIN.SOA ---
[facility] Pain Management SOAP Note Subjective:: Patient is a pleasant 61-year-old female who presents today for follow-up of bilateral SI injection on 12/25/2021. We are currently treating the patient for degenerative disc disease of lumbar spine with lumbar radiculopathy symptoms, neurogenic claudication, facet hypertrophy, lumbar spondylosis, sacroiliitis. Today the patient rates her pain a 7 out of 10. Patient states that she has had significant improvement following this last injections however she is back to her baseline today. Patient states at least 50% improvement. Patient states she was able to get up and down much easier as well as increase her time standing and walking and increase her activities of daily living following this injection. Patient denies any new trauma or injury. Patient denies any change location or type of pain she experiences. Patient has had a lumbar epidural steroid injection on 11/24/2021 at L4-L5 that did not provide significant improvement. Patient is seeing Dr. Solitario for her feet neuropathy. Patient has been seen by a neurosurgeon in the past that stated she was not a surgical candidate. Patient has had physical therapy in the past that provided some relief. Patient has used yqey-pyz-gbsoyib Tylenol and ibuprofen with minimal improvement. Patient has also continue to use abhg-fdp-gqxzjmh creams and heat and ice with no relief of symptoms. Patient continues to try at home exercising and stretching however it is limited due to aggravating pain symptoms. Patient is currently managed with gabapentin 800 mg 4 times a day and clonazepam 1 mg twice a day by Dr. Moreau's office. Patient is on Suboxone therapy by Rianna Tovar. Her Pablo is [phone]. It has been reviewed and appropriate. Review of Systems: General: No recent weight changes, no fever, no sleep disturbances Respiratory: No cough, no shortness of air, no recurring pulmonary infections Cardiovascular/peripheral vascular: No chest pain, no palpitations, no edema, no shortness of breath Gastrointestinal: No new onset incontinence, normal bowel movements reported Genitourinary: No new onset incontinence Musculoskeletal: Low back pain Psychiatric: [Normal mood/affect] Neurological: [Denies weakness in extremities], [denies balance issues] Objective:: Physical Exam: General: Alert and oriented x3, no acute distress, pleasant and cooperative Lungs: Respirations even and unlabored, symmetrical chest expansion Eyes: PERRL Musculoskeletal: Flexion and extension of lumbar [spine] somewhat guarded secondary to pain, [antalgic gait noted] extreme point tenderness over bilateral SI's and positive bilateral Vickey's, Manju's, Gaenslen's, compression and distraction exam Neurological: Speech clear, no gross sensory deficit Assessment:: Degenerative disc disease of lumbar spine with lumbar radiculopathy symptoms, neurogenic claudication, facet hypertrophy, lumbar spondylosis, sacroiliitis Plan:: Patient is experiencing significant pain in her low back with radiating symptoms into her bilateral lower extremities. Patient had limited range of motion of her lumbar spine and extreme point tenderness along bilateral SI's and positive bilateral Vickey's, Manju's, Gaenslen's, compression and distraction exam at today's visit. I have discussed with the patient that she may benefit from repeat SI injections. Risk and benefits were discussed with the patient. She would like to proceed forward with this plan of care. Patient has tried and failed conservative therapy such as oral medications, heat and ice, topicals, physical therapy, at home stretching and exercise for longer than 6 weeks. I have also discussed with the patient that she may benefit in the future for a SI RFA. We will schedule the patient for bilateral SI injections. Patient has been instructed to contact the clinic with any concerns before the next appointment. Dr. Esquivel has reviewed this note and agrees with this plan of care.
== END ==
PROVIDERS: PCP Emergency Medicine; Visit Provider Anesthesiology
DX: M51.16 Intervertebral disc disorders with radiculopathy, lumbar region (principal); M47.26 Other spondylosis with radiculopathy, lumbar region; M46.1 Sacroiliitis, not elsewhere classified; M48.062 Spinal stenosis, lumbar region with neurogenic claudication; Z72.0 Tobacco use
CPT/HCPCS: 99212; G0463

== ENCOUNTER 2022-01-19 09:22 | Day surgery (SDC) | payer OTHER, SELFPAY ==
[2022-01-19 09:37] VITALS: BP 148/77; PULSE 89; RESP 18; TEMP 36.6; O2SAT 99; BMI 26.6
[2022-01-19 09:43] VITALS: BP 143/79; PULSE 83; RESP 18; O2SAT 97
[2022-01-19 09:44] VITALS: BP 143/79; PULSE 83; RESP 18; O2SAT 97
[2022-01-19 09:49] VITALS: BP 119/73; PULSE 75; RESP 18; O2SAT 99
--- NOTE | 2022-01-19 10:13 | P.PCN_ITS ---
Procedure Date: 01/19/22 Time: 09:45 Anesthesiologist:: Salbador Fernandez CRNA Complications:: None Pre-procedure Diagnosis:: Degenerative disc disease lumbar spine multilevels. Lumbar radiculopathy. Bilateral sacroiliitis Post-procedure Diagnosis:: Same. Indications for Procedure:: Very pleasant 61-year-old female that comes our clinic today for bilateral sacroiliac joint injections. Patient has extreme point tenderness over the bilateral sacroiliac joints. Patient describes difficulty transitioning from sitting to standing position. Patient rates her pain 7/10. Procedure Details:: Procedure: Bilateral sacroiliac joint injections under fluoroscopy Informed consent was obtained and the risks and benefits of the procedure were explained to the patient.~ The patient was taken to the procedure room and noninvasive monitors were placed including a noninvasive blood pressure cuff and pulse oximeter.~ The patient was placed prone on the procedure table. Both hips were cleansed using Betadine as a cleansing solution. C-arm fluoroscopy was used to view the right sacroiliac joint.~ The skin and subcutaneous tissues were anesthetized using lidocaine 1.5% and a 25-gauge needle.~ After this, a 22-gauge spinal needle was inserted under fluoroscopic guidance into the inferior aspect of the right sacroiliac joint.~ Omnipaque dye was injected and good spread was seen throughout the joint.~ After this, approximately 5 mL of bupivacaine, 0.25% and Depo-Medrol, 40 mg was incrementally injected into the right sacroiliac joint. We then moved to the left sacroiliac joint.~ The skin and subcutaneous tissues were anesthetized using lidocaine 1.5% and a 25-gauge needle.~ After this, a 22- gauge spinal needle was inserted under fluoroscopic guidance into the inferior aspect of the left sacroiliac joint.~ Omnipaque dye was injected and good spread was seen throughout the joint. After this, approximately 5 mL of bupivacaine, 0.25% and Depo-Medrol, 40 mg was incrementally injected into the left sacroiliac joint.~ The patient tolerated the procedure well with no complications. The patient was observed in the Pain Clinic and then was discharged home neurologically intact. Plan and Disposition:: Patient was discharged without incident. Patient not having any pain ambulating.
== END 2022-01-19 09:49 | disposition home or self-care (01) ==
LOC: SC.PAINP 09:22
PROVIDERS: PCP Emergency Medicine; Visit Provider Nurse Anesthetist, Certified Registered
DX: M51.16 Intervertebral disc disorders with radiculopathy, lumbar region (principal); M46.1 Sacroiliitis, not elsewhere classified
CPT/HCPCS: 27096; G0260; J1040

== ENCOUNTER → 2022-02-24 08:38 | Outpatient (POV) | payer OTHER, SELFPAY ==
[2022-02-24 09:30] VITALS: BP 138/50; PULSE 78; RESP 18; O2SAT 98; BMI 26.6
--- NOTE | 2022-02-24 10:06 | EXP.PAIN.SOA ---
[facility] Pain Management SOAP Note Subjective:: Patient is a pleasant 61-year-old female who presents today for follow-up of bilateral SI injections on 01/19/2022. We are currently treating the patient for degenerative disc disease of lumbar spine with lumbar radiculopathy symptoms, neurogenic claudication, facet hypertrophy, lumbar spondylosis and sacroiliitis. Today the patient states that she had at least 40% improvement following these injections however they only lasted a couple weeks. Patient does rate her pain today a 8 out of 10. Patient denies any new trauma or injury. Patient denies any change location or type of pain she experiences. Patient does state that this is a constant aching, throbbing sensation that is worse with increased activity. Patient states that it does affect her ability to perform ADLs. Patient states she cannot even cook or clean and that sleeping is even an issue. Patient states she constantly has to move or change positions to decrease her pain. Patient continues to state that the pain and neuropathy in her feet is unbearable. Patient has been seen by a neurosurgeon in the past who stated she was not a surgical candidate. Patient has been talked to previously about a spinal cord stimulator and she is interested in proceeding forward with this plan of care. Patient has used tnca-tvu-nhtlyzb Tylenol and ibuprofen along with heat and ice with minimal relief. Patient has tried rlim-bqc-aqddvsu topicals such as icy hot and Biofreeze with no additional improvement. Patient is currently managed with gabapentin 800 mg 4 times a day and clonazepam 1 mg twice a day by Dr. Moreau's office. Patient is also on Suboxone therapy by Rianna Tovar. Her Pablo is [id number]. Its been reviewed and appropriate. Review of Systems: General: No recent weight changes, no fever, no sleep disturbances Respiratory: No cough, no shortness of air, no recurring pulmonary infections Cardiovascular/peripheral vascular: No chest pain, no palpitations, no edema, no shortness of breath Gastrointestinal: No new onset incontinence, normal bowel movements reported Genitourinary: No new onset incontinence Musculoskeletal: Low back pain, bilateral leg pain, feet pain Psychiatric: [Normal mood/affect] Neurological: [Denies weakness in extremities], [denies balance issues] Objective:: Physical Exam: General: Alert and oriented x3, no acute distress, pleasant and cooperative Lungs: Respirations even and unlabored, symmetrical chest expansion Eyes: PERRL Musculoskeletal: Flexion and extension of lumbar [spine] somewhat guarded secondary to pain, [antalgic gait noted] Neurological: Speech clear, no gross sensory deficit ORT score updated with high risk Family history of alcohol abuse, illegal drug use and prescription drug use Personal history of alcohol abuse, illegal drug use, prescription drug use Personal history of ADHD, OCD, bipolar and schizophrenia Assessment:: Degenerative disc disease of lumbar spine with lumbar radiculopathy symptoms, neurogenic claudication, facet hypertrophy, lumbar spondylosis and sacroiliitis Plan:: Patient continues to experience significant pain in her low back with radiating symptoms into her legs and feet. Patient did have limited range of motion of her lumbar spine during today's visit. I have discussed with the patient that she may benefit from a spinal cord stimulator implant. Risk and benefits were explained to the patient. She would like to proceed forward with this plan of care. We will schedule her for a psychiatric evaluation with the plan to proceed forward with a spinal cord stimulator trial if she is deemed an appropriate candidate. Patient will return to clinic in 1 month for reevaluation of symptoms and follow-up. Patient has been instructed to contact the clinic with any concerns before the next appointment. Dr. Esquivel has reviewed this note and agrees with this plan of care. This note was dictated using voice recognitio
== END ==
PROVIDERS: PCP Emergency Medicine; Visit Provider Nurse Practitioner Family
DX: M51.16 Intervertebral disc disorders with radiculopathy, lumbar region (principal); M47.26 Other spondylosis with radiculopathy, lumbar region; M48.062 Spinal stenosis, lumbar region with neurogenic claudication; M46.1 Sacroiliitis, not elsewhere classified
CPT/HCPCS: 99212; G0463

== ENCOUNTER → 2022-03-29 14:36 | Outpatient (POV) | payer OTHER, SELFPAY ==
--- NOTE | 2022-03-29 15:07 | EXP.PAIN.SOA ---
[facility] Pain Management SOAP Note Subjective:: Patient is a pleasant 61-year-old female who presents today for follow-up. We are currently treating the patient for degenerative disc disease of lumbar spine with lumbar radiculopathy symptoms, neurogenic claudication, facet hypertrophy, lumbar spondylosis and sacroiliitis. Today she rates her pain a 10 out of 10. Patient denies any new trauma or injury. Patient denies any change location or type of pain she experiences. Patient states she continues to have significant pain in her low back with radiating symptoms into her lower extremities. Patient also has some edema to her bilateral feet as well as color change. Patient states this has been going on for months. Patient does describe this as a constant aching, throbbing sensation that is worse with increased activity. Patient does state her functionality is affected. Patient states she is unable to perform activities of daily living such as cooking and cleaning. Patient has to frequently change positions in order to decrease her pain. Patient does have neuropathy in her feet that she states is unbearable. Patient has been to a neurosurgeon in the past who states she was not a surgical candidate. Patient has been to her psychiatric evaluation with the plan to proceed forward with the spinal cord stimulator trial however it is not in the computer at this time. Patient does use tohq-gst-mcaqnet Tylenol and ibuprofen along with heat and ice however only gets minimal relief. Patient has also used topicals with no additional relief. Patient is currently managed with gabapentin 800 mg 4 times a day and clonazepam 1 mg twice a day by Dr. Moreau's office. Patient is also on Suboxone therapy by Rianna Tovar. Patient states she is on tizanidine however she does not notice any improvement with this medication. Her Pablo is [phone]. Its been reviewed and appropriate. Review of Systems: General: No recent weight changes, no fever, no sleep disturbances Respiratory: No cough, no shortness of air, no recurring pulmonary infections Cardiovascular/peripheral vascular: No chest pain, no palpitations, no edema, no shortness of breath Gastrointestinal: No new onset incontinence, normal bowel movements reported Genitourinary: No new onset incontinence Musculoskeletal: Low back pain, leg pain Psychiatric: [Normal mood/affect] Neurological: [Denies weakness in extremities], [denies balance issues] Objective:: Physical Exam: General: Alert and oriented x3, no acute distress, pleasant and cooperative Lungs: Respirations even and unlabored, symmetrical chest expansion Eyes: PERRL Musculoskeletal: Flexion and extension of lumbar [spine] somewhat guarded secondary to pain, [antalgic gait noted] Neurological: Speech clear, no gross sensory deficit Assessment:: Degenerative disc disease of lumbar spine with lumbar radiculopathy symptoms, neurogenic claudication, facet hypertrophy, lumbar spondylosis and sacroiliitis Plan:: Patient continues to experience significant pain in her low back and legs with limited range of motion. I will order the patient diclofenac 75 mg twice daily and methocarbamol 750 mg twice daily and provide a 1 month supply of these medications. Patient has been counseled to take the diclofenac with food to minimize GI upset and discontinue all other NSAIDs while taking this medication. Patient was also told to stop taking her tizanidine while taking the methocarbamol. Patient denies any cardiac or kidney issues. I have counseled the patient that once we have the psychiatric evaluation in our system and she is deemed an appropriate candidate we will submit to insurance for approval for the spinal cord stimulator trial. Patient has tried and failed conservative therapy such as oral medications, heat and ice, topicals, injection therapy, physical therapy, at home exercising and stretching for longer than 6 weeks. Patient will return to clinic in 1 month for reevaluat
[2022-03-29 15:53] VITALS: BP 173/94; PULSE 94; RESP 18; O2SAT 97; BMI 26.6
== END | disposition home or self-care (01) ==
PROVIDERS: PCP Emergency Medicine; Visit Provider Nurse Practitioner Family
DX: M51.16 Intervertebral disc disorders with radiculopathy, lumbar region (principal); M48.061 Spinal stenosis, lumbar region without neurogenic claudication; M47.26 Other spondylosis with radiculopathy, lumbar region; M46.1 Sacroiliitis, not elsewhere classified
CPT/HCPCS: 99212; G0463

== ENCOUNTER → 2022-04-29 13:23 | Outpatient (CLI) | payer OTHER, SELFPAY ==
[2022-04-29 14:35] LABS: Basophils # 0.2 K/mm3 (0-0.2); Basophils % 2.9 % (0.1-2.0); Eosinophils # 0.2 K/mm3 (0.0-0.4); Eosinophils % 2.1 % (0.1-12.0); Hematocrit 44.8 % (37.0-47.0); Hemoglobin 14.2 g/dL (12.2-16.2); Lymphocytes # 3.3 K/mm3 (0.7-4.5); Mean Corpuscular HGB Conc 31.7 g/dL (31.8-35.4); Mean Corpuscular Hemoglobin 31.2 pg (27.0-31.2); Mean Corpuscular Volume 98.5 fl (81-99); Mean Platelet Volume 8.6 fl (7.4-10.4); Monocytes # 0.7 K/mm3 (0.1-1.0); Monocytes % 8.1 % (1.7-9.3); Neutrophils # 3.7 K/mm3 (1.8-7.8); Neutrophils % 45.9 % (37.0-80.0); Platelet Count 275 K/mm3 (142-424); Red Blood Count 4.55 M/mm3 (4.20-5.40); Red Cell Distribution Width 12.4 % (11.5-17.5)
[2022-04-29 14:49] LABS: Chloride 102 mmol/L (98-107); Potassium 4.6 mmoL/L (3.5-5.1); Sodium 139 mmol/L (136-145)
[2022-04-29 14:52] LABS: Anion Gap 11.6 mEq/L (5-15); Blood Urea Nitrogen 22 mg/dl (7-17); Calcium 9.8 mg/dl (8.4-10.2); Carbon Dioxide 30 mmol/L (22.0-30.0); Estimated Glomerular Filt Rate 63 ml/min (>60); GFR (African American) 77 ML/MIN (>60); Glucose 86 mg/dl (74-100)
== END ==
PROVIDERS: PCP Emergency Medicine; Visit Provider Anesthesiology
DX: Z01.812 Encounter for preprocedural laboratory examination (principal); M51.36 Other intervertebral disc degeneration, lumbar region
CPT/HCPCS: 36415; 80048; 85025

== ENCOUNTER 2022-04-30 09:41 | Day surgery (SDC) | payer OTHER, SELFPAY ==
[2022-04-29 13:37] VITALS: BMI 29.2
[2022-04-30] VITALS (13 sets, daily range): BP systolic 110–137; BP diastolic 51–92; PULSE 68–84; RESP 16–18; TEMP 36.1–43; O2SAT 94–99
--- NOTE | 2022-04-30 14:51 | P.PN_ITS ---
[facility] Disclaimer: The information contained in this section may have been updated after the patient was seen, as this information can be updated by other users. Medical History COPD (chronic obstructive pulmonary disease) History of back pain History of cancer Hypertension Migraine Osteoarthritis Skin cancer Surgical History Hx of tubal ligation Family History Other Family history of cancer Social History Smoking Status: Current every day smoker tobacco type: cigarettes packs per day: 1 quit status: considering quitting second hand exposure: No alcohol intake: never substance use type: former substance user current occupational status: retired Travel in the last 8 weeks: None housing: apartment current occupational exposures/hazards: No caffeine: Yes [facility] Anesthesia Checklist Patient Identification Patient Identification: Arm Band and Family Structural Data Admitted From: Home Planned Operative Procedure/s: Spinal cord trial stimulator Consent for Planned Operative Procedure(s) Verified: Yes Verified Documents: Surgical Consent and History and Physical NPO Status Verified Time NPO: 00:00 Additional verifications Patient : No Anesthesia Reactions: No Hx Blood Transfusions: No Blood Transfusion Reaction: No Cephalosporin Allergy: No Previous Colonoscopy: No Airway Assessment C-Spine Mobility Assessed: Yes TMJ Mobility Assessed: Yes Dentition: Edentulous Neurological Assessment Level of Consciousness: Awake, Alert, Appropriate and Follows Commands Hx Seizures: No Numbness or tingling in extremities: No Genitourinary Assessment 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 Smoker.
--- NOTE | 2022-04-30 15:10 | EXP.OP.NOTE ---
Date of procedure: 04/30/22 Pre-op Diagnosis:: Degenerative disc disease of lumbar spine with lumbar radiculopathy symptoms and scoliosis Post-op Diagnosis:: Same Procedure performed:: Spinal cord stimulator trial with epidural lead placement x2 Surgeon:: Juan Miguel Esquivel MD STEAM ENGINEER:: Quoc Null Anesthesia: MAC Estimated blood loss (mL): 5 Clinical Note:: This patient is a pleasant 61-year-old white female who we are treating for low back pain with lumbar radiculopathy symptoms and scoliosis. She has failed all previous conservative treatments including injections, oral medications, physical therapy and she is not a candidate for any surgery. She has had a successful psychological evaluation. She presents for spinal cord stimulator trial today. Operative findings:: None Operative note:: Informed consent was obtained the risk and benefits of the procedure were explained to the patient. Patient was taken the operating room placed prone on the second needle was inserted advanced again into the L2-L3 interspace. Again after confirmation of needle placement in the epidural space a second stimulator was inserted and advanced very easily to the T8-T9-T10 vertebral body. Procedure table. She was prepped and draped in sterile fashion. C-arm fluoroscopy was used to view the lumbar spine. The skin and subcutaneous tissues were anesthetized using lidocaine. A 17-gauge epidural needle was inserted and advanced into the L2-L3 interspace. After, patient needle placement in the epidural space stimulator lead was inserted and advanced very easily to the T8-T9-T10 vertebral body. Lead placement was checked in AP and lateral views. The stylets and needles were removed. The leads were secured in place. The patient was taken recovery in stable condition. The patient was programmed by the [employer] telephone service representative with good stimulation in all areas of pain. Plan and disposition: Patient was discharged home neurologic intact with good relief of pain symptoms. We will follow-up with him in 1 week for lead pull. Condition: stable Disposition: PACU Complications:: None
--- NOTE | 2022-04-30 16:38 | SUR.PHASEII ---
Reviewed DC instructions w/ pt and daughter using VRI d/t daughter's using ASL.
== END 2022-04-30 16:25 | disposition home or self-care (01) ==
PROVIDERS: PCP Emergency Medicine; Visit Provider Anesthesiology
PROC: (CPT 63650; principal; 2022-04-30 11:30)
DX: M51.16 Intervertebral disc disorders with radiculopathy, lumbar region (principal); M41.9 Scoliosis, unspecified; F17.210 Nicotine dependence, cigarettes, uncomplicated; Z79.899 Other long term (current) drug therapy
CPT/HCPCS: 63650 ×2; 96374; C1778

== ENCOUNTER → 2022-05-07 10:32 | Outpatient (POV) | payer OTHER, SELFPAY ==
--- NOTE | 2022-05-07 11:02 | EXP.PAIN.SOA ---
[facility] Pain Management SOAP Note Subjective:: Patient is a pleasant 71-year-old female who presents today for follow-up of spinal cord stimulator trial on 04/30/2022. We are currently treating the patient for degenerative disc disease of lumbar spine with lumbar radiculopathy symptoms, neurogenic claudication, facet hypertrophy, lumbar spondylosis and sacroiliitis. Today she rates her pain a 7 out of 10. Patient states she only feels like the device gave about 30% improvement. She states that she did try multiple programs and talk to the [employer] associate sales representative multiple times however she saw no additional benefit. Patient denies any new trauma or injury. Patient denies any change location or type of pain she experiences. She does have significant low back pain with radiating symptoms into her legs. She does describe this as a constant aching, throbbing sensation that is worse with increased activity. She does state it affects her ability to function and perform activities of daily living such as cooking and cleaning. Patient does have significant neuropathy in her feet as well. Patient has been to neurosurgery who deemed her a nonsurgical candidate. Patient was deemed an appropriate candidate for implanted device by her psychiatric evaluation. Patient does take jyqx-ldf-[id number] Tylenol and ibuprofen along with heat and ice however only achieves minimal relief. Patient is currently managed with gabapentin 800 mg 4 times a day and clonazepam 1 mg twice a day from Dr. Moreau's office. She is also on Suboxone therapy by Kalli Tovar. At our last visit we did change her tizanidine to methocarbamol 750 mg daily and add diclofenac 75 mg twice a day however she states she did not notice any significant change. Patient does state that she felt like she gained approximately 15 to 16 pounds over the last few weeks and feels like the medications may be what caused this. She does state that she discontinued both of these medications last week when she saw her primary care doctor. Her Pablo is [id number]. Its been reviewed and appropriate. Review of Systems: General: No recent weight changes, no fever, no sleep disturbances Respiratory: No cough, no shortness of air, no recurring pulmonary infections Cardiovascular/peripheral vascular: No chest pain, no palpitations, no edema, no shortness of breath Gastrointestinal: No new onset incontinence, normal bowel movements reported Genitourinary: No new onset incontinence Musculoskeletal: Low back pain Psychiatric: [Normal mood/affect] Neurological: [Denies weakness in extremities], [denies balance issues] Objective:: Physical Exam: General: Alert and oriented x3, no acute distress, pleasant and cooperative Lungs: Respirations even and unlabored, symmetrical chest expansion Eyes: PERRL Musculoskeletal: Flexion and extension of lumbar [spine] somewhat guarded secondary to pain, [antalgic gait noted] Neurological: Speech clear, no gross sensory deficit Assessment:: Degenerative disc disease of lumbar spine with lumbar radiculopathy symptoms, neurogenic claudication, facet hypertrophy, lumbar spondylosis, sacroiliitis Plan:: Patient continues to experience significant pain in her low back and legs with limited range of motion. I have discussed with the patient that over the next few days as the spinal cord stimulator trial does a period of washout she may notice additional improvement that it was providing. Patient will return to clinic in 1 month for reevaluation of her symptoms and plan of care. Patient has been instructed to contact the clinic with any concerns before the next appointment. Dr. Esquivel has reviewed this note and agrees with this plan of care. This note was dictated using voice recognition software and make contain errors or omissions. [facility] Disclaimer: The information contained in this section may have been updated after the patient was seen, as this information can be updated by other users.
[2022-05-07 13:54] VITALS: BP 144/91; PULSE 106; RESP 18; O2SAT 98; BMI 29.1
== END ==
PROVIDERS: PCP Emergency Medicine; Visit Provider Nurse Practitioner Family
DX: M51.16 Intervertebral disc disorders with radiculopathy, lumbar region (principal); M47.26 Other spondylosis with radiculopathy, lumbar region; M46.1 Sacroiliitis, not elsewhere classified
CPT/HCPCS: 99213; G0463

== ENCOUNTER → 2022-06-03 10:36 | Outpatient (POV) | payer OTHER, SELFPAY ==
[2022-06-03 10:37] VITALS: BP 146/72; PULSE 100; RESP 16; O2SAT 98; BMI 30.2
--- NOTE | 2022-06-03 11:11 | EXP.PAIN.SOA ---
[facility] Pain Management SOAP Note Subjective:: Patient is a pleasant 62-year-old female who presents today for follow-up. We are currently treating the patient for degenerative disc disease of lumbar spine with lumbar radiculopathy symptoms, spinal stenosis with neurogenic claudication symptoms, lumbar facet arthropathy, lumbar spondylosis, sacroiliitis. Today she rates her pain an 8 out of 10. She states that she continues to have significant neuropathy and pain symptoms in her bilateral feet as well as experiencing a constant pain in her bilateral shoulders with numbness and tingling into her arms and fingers. Patient denies any new trauma or injury. Patient denies any change in location or type of pain she experiences. She states that this is a constant throbbing, pounding sensation that is worse as the day goes on. Patient has tried lesu-wvj-dofhxxb Tylenol and ice with minimal improvement. Patient has been to Dr. Solitario who did prescribe compounding cream however she did not get significant relief with this. Patient does state that this interferes with her activities of daily living such as cooking and cleaning. She states she cannot even do simple things such as getting ready or ambulating without having significant pain. Patient does state that overall her bilateral feet pain is the most bothersome. Patient does have complaints of constant cold sensations with edema. She is currently managed with gabapentin 800 mg 4 times a day and clonazepam 1 mg twice a day from Dr. Moreau's office. She is also on Suboxone therapy by Kalli Tovar. Patient has been on methocarbamol 750 mg daily however she states that the tizanidine did seem to work better. Patient was previously on diclofenac however her primary care discontinued this medication due to lower kidney function. Patient did try a [employer] spinal cord stimulator trial however it did not provide significant relief. Her Pablo is [id number] with a morphine equivalent of 0. Its been reviewed and appropriate. Review of Systems: General: No recent weight changes, no fever, no sleep disturbances Respiratory: No cough, no shortness of air, no recurring pulmonary infections Cardiovascular/peripheral vascular: No chest pain, no palpitations, no edema, no shortness of breath Gastrointestinal: No new onset incontinence, normal bowel movements reported Genitourinary: No new onset incontinence Musculoskeletal: Bilateral feet pain, shoulder pain Psychiatric: [Normal mood/affect] Neurological: [Denies weakness in extremities], [denies balance issues] Objective:: Physical Exam: General: Alert and oriented x3, no acute distress, pleasant and cooperative Lungs: Respirations even and unlabored, symmetrical chest expansion Eyes: PERRL Musculoskeletal: Flexion and extension of bilateral feet, cervical [spine] somewhat guarded secondary to pain, [antalgic gait noted] diminished reflexes in bilateral feet as well as decreased sensation. Bilateral feet significant erythema noted in comparison to her lower calves; mild edema noted bilaterally; extreme point tenderness noted at bilateral trapezius muscles Neurological: Speech clear, no gross sensory deficit Assessment:: Degenerative disc disease of lumbar spine with lumbar radiculopathy symptoms, spinal stenosis with neurogenic claudication symptoms, lumbar facet arthropathy, lumbar spondylosis, sacroiliitis, bilateral shoulder pain, bilateral feet pain Plan:: Patient is experiencing significant pain in her bilateral feet with altered sensation and diminished reflexes. Patient had limited range of motion and significant color discoloration with mild edema noted. Patient does have findings suggestive of CRPS. I have discussed with the patient that she may benefit from a bilateral sympathetic nerve block. Risk and benefits were discussed with the patient and she would like to proceed forward with this plan of care. Patient is not on any blood thinners. I will refill her ti
== END | disposition home or self-care (01) ==
PROVIDERS: PCP Emergency Medicine; Visit Provider Nurse Practitioner Family
DX: M51.16 Intervertebral disc disorders with radiculopathy, lumbar region (principal); M47.26 Other spondylosis with radiculopathy, lumbar region; M48.062 Spinal stenosis, lumbar region with neurogenic claudication; M46.1 Sacroiliitis, not elsewhere classified; M25.551 Pain in right hip; M25.552 Pain in left hip; M79.671 Pain in right foot; M79.672 Pain in left foot
CPT/HCPCS: 99212; G0463

== ENCOUNTER → 2022-06-30 10:59 | Outpatient (POV) | payer OTHER, SELFPAY ==
[2022-06-30 11:42] VITALS: BP 155/81; PULSE 94; RESP 18; O2SAT 97; BMI 26.9
--- NOTE | 2022-06-30 11:53 | EXP.PAIN.SOA ---
[facility] Pain Management SOAP Note Subjective:: Patient is a pleasant 62-year-old female who presents today for injection denial. We are currently treating the patient for degenerative disc disease of lumbar spine with lumbar radiculopathy symptoms, spinal stenosis with neurogenic claudication, lumbar facet arthropathy, lumbar spondylosis, sacroiliitis, chronic pain. Today she rates her pain a 10 out of 10. Patient denies any new trauma or injury. Patient denies any change location or type of pain she is experiencing. She states she is currently on a Z-Blayne and prednisone for pneumonia. She states she is having debilitating constant throbbing pain that is worse with increased activity. Patient has tried ztac-pos-plglyxw medications with minimal relief. Patient has been to a neurosurgeon in the past including Dr. Herrera and Dr. Bautista who stated that she was a nonsurgical candidate. Patient has tried heat and ice along with topicals with minimal relief. Patient is currently prescribed gabapentin 800 mg 4 times a day and clonazepam 1 mg twice a day from Dr. Moreau's office. She is also on Suboxone therapy. Patient is currently prescribed tizanidine 4 mg 3 times daily from our office. Patient denies any side effects from this medication. Patient has tried a spinal cord stimulator trial in the past however she did not get significant relief. Patient has had physical therapy in the past however it caused significant pain and she was unable to complete her sessions due to the aggravated symptoms. Her Pablo is [id number]. Its been reviewed and appropriate. Review of Systems: General: No recent weight changes, no fever, no sleep disturbances Respiratory: No cough, no shortness of air, no recurring pulmonary infections Cardiovascular/peripheral vascular: No chest pain, no palpitations, no edema, no shortness of breath Gastrointestinal: No new onset incontinence, normal bowel movements reported Genitourinary: No new onset incontinence Musculoskeletal: Low back pain Psychiatric: [Normal mood/affect] Neurological: [Denies weakness in extremities], [denies balance issues] Objective:: Physical Exam: General: Alert and oriented x3, no acute distress, pleasant and cooperative Lungs: Respirations even and unlabored, symmetrical chest expansion Eyes: PERRL Musculoskeletal: Flexion and extension of lumbar [spine] somewhat guarded secondary to pain, [antalgic gait noted] Neurological: Speech clear, no gross sensory deficit Assessment:: Degenerative disc disease of lumbar spine with lumbar radiculopathy symptoms, spinal stenosis with neurogenic claudication, lumbar facet arthropathy, lumbar spondylosis, sacroiliitis, chronic pain syndrome Plan:: Patient is experiencing severe pain in her low back with limited range of motion. I have discussed with the patient that she may benefit from a intrathecal pain pump trial. Risk and benefits were discussed with the patient and she would like to proceed forward with this plan of care. Patient has already had a psychological evaluation in March and was deemed an appropriate candidate for a device. We will proceed forward with ordering the intrathecal pain pump trial and contact the patient once we have insurance approval. Patient has tried and failed conservative therapy such as oral medications, heat and ice, topicals, physical therapy, at home stretching and exercise for longer than 6 weeks. She is also seeing a neurosurgeon who deemed her a 9 appropriate surgical candidate. I will refill the patient's tizanidine 4 mg and change it to 4 times a day. In the future if we do proceed forward with the intrathecal implant it will be under the assumption that we will be using a nonopioid medication. Patient has been instructed to contact the clinic with any concerns before the next appointment. Dr. Esquivel has reviewed this note and agrees with this plan of care. This note was dictated using voice recognition software and make contain err
== END | disposition home or self-care (01) ==
PROVIDERS: PCP Emergency Medicine; Visit Provider Nurse Practitioner Family
DX: M51.16 Intervertebral disc disorders with radiculopathy, lumbar region (principal); M48.062 Spinal stenosis, lumbar region with neurogenic claudication; M47.26 Other spondylosis with radiculopathy, lumbar region; M46.1 Sacroiliitis, not elsewhere classified; G89.4 Chronic pain syndrome
CPT/HCPCS: 99212; G0463

== ENCOUNTER → 2022-09-15 13:24 | Outpatient (POV) | payer OTHER, SELFPAY ==
[2022-09-15 13:29] VITALS: BP 151/80; PULSE 98; RESP 20; BMI 26.2
--- NOTE | 2022-09-15 14:11 | EXP.PAIN.SOA ---
[facility] Pain Management SOAP Note Subjective:: Patient is a pleasant 62-year-old female who presents today for intrathecal pump implant denial. We are currently treating the patient for degenerative disc disease of lumbar spine with lumbar radiculopathy symptoms, spinal stenosis with neurogenic claudication, lumbar facet arthropathy, lumbar spondylosis, sacroiliitis, chronic pain. Today she rates her pain a 9 out of 10. She denies any new trauma or injury or any change to the location of her pain that she experiences. Patient continues to experience a constant throbbing, aching pain in her low back and legs that is worse with increased activity. Patient has tried gkjt-cjn-oxbzcng medications with minimal relief. She has been to a neurosurgeon in the past including Dr. Herrera and Dr. Bautista who stated that she was a nonsurgical candidate. Patient has tried heat and ice along with topicals with minimal relief. Patient is currently prescribed gabapentin 800 mg 4 times a day and clonazepam 1 mg twice a day from Dr. Moreau's office. She is also on Suboxone therapy. Patient is currently prescribed tizanidine 4 mg 3 times daily from our office. Patient denies any side effects from this medication. Patient has tried a spinal cord stimulator trial in the past however she did not get significant relief. Patient has had physical therapy in the past however it caused significant pain and she was unable to complete her sessions due to the aggravated symptoms. Patient has also tried multiple injections with minimal relief. Her Pablo is [id number]. Its been reviewed and appropriate. Review of Systems: General: No recent weight changes, no fever, no sleep disturbances Respiratory: No cough, no shortness of air, no recurring pulmonary infections Cardiovascular/peripheral vascular: No chest pain, no palpitations, no edema, no shortness of breath Gastrointestinal: No new onset incontinence, normal bowel movements reported Genitourinary: No new onset incontinence Musculoskeletal: Low back pain Psychiatric: [Normal mood/affect] Neurological: [Denies weakness in extremities], [denies balance issues] Objective:: Physical Exam: General: Alert and oriented x3, no acute distress, pleasant and cooperative Lungs: Respirations even and unlabored, symmetrical chest expansion Eyes: PERRL Musculoskeletal: Flexion and extension of lumbar [spine] somewhat guarded secondary to pain, [antalgic gait noted] Neurological: Speech clear, no gross sensory deficit Assessment:: Degenerative disc disease of lumbar spine with lumbar radiculopathy symptoms, spinal stenosis with neurogenic claudication symptoms, lumbar facet arthropathy, lumbar spondylosis, sacroiliitis, chronic pain syndrome Plan:: Patient continues to experience severe pain in her low back with limited range of motion. Patient would like to proceed forward with the pain pump trial that we have discussed at previous visits. Again I have reviewed the risk and benefits and she would like to proceed forward with this plan of care. She has already had a psychological evaluation in March and was deemed an appropriate candidate for a device. Patient has tried failed conservative therapy such as oral medications, heat and ice, topicals, injection therapy, physical therapy, at home stretching and exercise for longer than 12 weeks. She has seen a neurosurgeon who stated she was not a candidate for surgical intervention. Patient's previous denial by insurance states because the medication in her pump needs to be a FDA approved intrathecal medicine. We will plan on proceeding forward with the implant with Prialt which is an FDA approved medication and we will resubmit to insurance for approval of the implant and contact the patient once we have this for specific surgery date and time. Patient has been instructed to contact the clinic with any concerns before the next appointment. Dr. Esquivel has reviewed this note and agrees with this plan of
== END ==
PROVIDERS: PCP Emergency Medicine; Visit Provider Nurse Practitioner Family
DX: M51.16 Intervertebral disc disorders with radiculopathy, lumbar region (principal); M48.062 Spinal stenosis, lumbar region with neurogenic claudication; M47.26 Other spondylosis with radiculopathy, lumbar region; M46.1 Sacroiliitis, not elsewhere classified; G89.29 Other chronic pain
CPT/HCPCS: 99212; G0463

== ENCOUNTER 2022-10-17 17:18 | Emergency (ER) | payer OTHER, SELFPAY ==
[2022-10-17 17:20] VITALS: BP 165/94; PULSE 98; RESP 18; TEMP 36.7; O2SAT 95; BMI 27.4
[2022-10-17 18:01] VITALS: BP 137/74; PULSE 75; O2SAT 95
--- NOTE | 2022-10-17 18:17 | PC.NURSE ---
Dr. Moreland at bedside
--- NOTE | 2022-10-17 18:31 | HMH.EDGENADL ---
Discharge Plan Disposition Patient Disposition: Home, Self-Care Prescriptions Prescriptions: No Action buprenorphine-naloxone 8-2 mg tablet, sublingual 1 tab SUBLINGUAL BID gabapentin 800 mg tablet 800 mg PO QID Qty: 120 2RF clonazepam 1 mg tablet 1 mg PO BID Qty: 60 2RF amlodipine 5 mg tablet See Rx Instructions .ROUTE .COMPLEX Qty: 30 2RF Dose Instruction: TAKE 1 TABLET BY MOUTH AT BEDTIME Rx Instructions: TAKE 1 TABLET BY MOUTH AT BEDTIME lisinopril-hydrochlorothiazide 20-25 mg tablet See Rx Instructions .ROUTE .COMPLEX Qty: 90 0RF Dose Instruction: TAKE 1 TABLET BY MOUTH DAILY FOR HYPERTENSION Rx Instructions: TAKE 1 TABLET BY MOUTH DAILY FOR HYPERTENSION diclofenac sodium [Voltaren Arthritis Pain] 1 % gel 2 g topical QID Qty: 100 2RF Rx Instructions: apply to single elbow, wrist or hand; for hand includes palm/fingers/back of hand Combivent Respimat 20-100 mcg/actuation mist See Rx Instructions .ROUTE .COMPLEX Qty: 4 1RF Dose Instruction: INHALE 1 PUFF EVERY 4 HOURS NEEDED FOR SHORTNESS OF BREATH OR WHEEZING Rx Instructions: INHALE 1 PUFF EVERY 4 HOURS NEEDED FOR SHORTNESS OF BREATH OR WHEEZING phentermine [Adipex-P] 37.5 mg tablet 37.5 mg PO DAILY Qty: 30 0RF Rx Instructions: must administer 30 minutes before or 1-2 hours after breakfast ipratropium-albuterol 0.5 mg-3 mg(2.5 mg base)/3 mL solution for nebulization 3 ml inhalation QID PRN (Reason: shortness of breath or wheezing) Qty: 180 2RF cholecalciferol (vitamin D3) 25 mcg (1,000 unit) capsule See Rx Instructions .ROUTE .COMPLEX Rx Instructions: TAKE 1 CAPSULE BY MOUTH ONCE DAILY tizanidine 4 mg tablet 4 mg PO QID Qty: 120 0RF carvedilol 3.125 mg tablet See Rx Instructions .ROUTE .COMPLEX Rx Instructions: TAKE 1 TABLET BY MOUTH TWICE DAILY FOR BLOOD PRESSURE ergocalciferol (vitamin D2) 1,250 mcg (50,000 unit) capsule 1,250 mcg PO WEEKLY Referrals Follow up/Referrals: Fer Moreau MD [Primary Care Provider] - See instructions Activity Restrictions/Add. Instructions Additional Instructions/Restrictions: Call your family doctor to establish care for this visit to the emergency department and schedule follow-up within 48 hours to ensure improvement. If you have any worsening of your condition or any other concerning signs or symptoms, return to the emergency department or your primary care doctor for further evaluation. MiraLAX and senna can be purchased [id number], bowel regimen has been provided here. Clinical Impressions Clinical Impression: Constipation, Chronic abdominal pain Instructions Patient Instructions: DI for Acute Abdominal Pain Discharge ED Provider: Zheng Moreland General Adult HPI General Chief complaint: Abdominal Pain Stated complaint: pelvic pain, r arm pain, trouble urinating Time Seen by Provider: 10/17/22 18:01 Mode of Arrival: Wheelchair Source of Information: Patient Limitations: No Limitations Description of Symptoms (Recalled from ER Triage Doc. by RN): pt cc today is right shoulder pain for 7 months, nothing makes it better and pt says she has tried ice hot, massage, and nsaids. her other cc is right groin pain for the last two years.pt denies n/v/d/ and denies any problems pooping or peeing History of Present Illness HPI narrative: 62-year-old female with history of hypertension, hyperlipidemia, CKD presenting with abdominal pain. Patient states that she is having right abdominal pain going on for the last 6 months. Still having bowel movements, passing gas, tolerating p.o. intake without issue. No vomiting, diarrhea, blood in her stool, weight loss, dysuria, hematuria, abnormal vaginal discharge or bleeding. Related Data Home Medications Medication Instructions Recorded Confirmed buprenorphine 8 mg-naloxone 2 mg 1 tab sublingual BID Supplement 03/18/17 09/17/22 trotter
[2022-10-17 18:38] LABS: Microscopic, Urine URINE MICROSCOPIC (MICROSCOPIC)
[2022-10-17 18:51] LABS: Appearance,Urine CLEAR (Clear); Bilirubin,Urine Negative (Negative); Blood, Urine TRACE-I (Negative); Color,Urine YELLOW (Yellow); Glucose,Urine (UA) Negative (Negative); Ketones,Urine Negative (Negative); Leukocyte Esterase,Urine TRACE (Negative); Nitrate,Urine Negative (Negative); Protein,Urine Negative (Negative); Specific Gravity, Urine 1.015 (1.005-1.030); Urobilinogen,Urine 0.2 EU/dl (0.2)
[2022-10-17 19:02] LABS: Basophils # 0.1 K/mm3 (0-0.2); Eosinophils # 0.1 K/mm3 (0.0-0.4); Eosinophils % 1.7 % (0.1-12.0); Hematocrit 45.4 % (37.0-47.0); Hemoglobin 14.1 g/dL (12.2-16.2); Lymphocytes # 3.1 K/mm3 (0.7-4.5); Lymphocytes % 37.5 % (10-50); Mean Corpuscular Hemoglobin 30.1 pg (27.0-31.2); Mean Platelet Volume 8.1 fl (7.4-10.4); Monocytes # 0.4 K/mm3 (0.1-1.0); Monocytes % 4.6 % (1.7-9.3); Neutrophils # 4.5 K/mm3 (1.8-7.8); Neutrophils % 55.2 % (37.0-80.0); Platelet Count 288 K/mm3 (142-424); Red Blood Count 4.67 M/mm3 (4.20-5.40); Red Cell Distribution Width 12.7 % (11.5-17.5); White Blood Count 8.2 K/mm3 (4.8-10.8)
[2022-10-17 19:03] LABS: Chloride 100 mmol/L (98-107); Potassium 5.2 mmoL/L (3.5-5.1); Sodium 138 mmol/L (136-145)
[2022-10-17 19:06] LABS: Alanine Aminotransferase 18 U/L (12-78); Alkaline Phosphatase 76 U/L (38-126); Anion Gap 14.2 mEq/L (5-15); Aspartate Amino Transferase 30 U/L (14-36); Bilirubin,Total 0.3 mg/dl (0.2-1.3); Blood Urea Nitrogen 30 mg/dl (7-17); Calcium 10.8 mg/dl (8.4-10.2); Carbon Dioxide 29 mmol/L (22.0-30.0); Creatinine Clearance Estimated 67 mL/min (50-200); Estimated Glomerular Filt Rate 56 ml/min (>60); GFR (African American) 68 ML/MIN (>60); Glucose 86 mg/dl (74-100); Lipase 32 U/L (23-300)
[2022-10-17 19:07] LABS: Albumin Level 4.5 g/dl (3.5-5.0); Albumin/Globulin Ratio 1.1 (1.1-1.8); Globulin 4.1 g/dL (1.3-3.2); Lactic Acid 0.8 mmol/L (0.7-2.1); Total Protein,Serum 8.6 g/dl (6.3-8.2)
[2022-10-17 19:13] LABS: Bacteria,Urine Trace /lpf; RBC,Urine Occasional #/hpf (0-3); WBC,Urine Occasional #/hpf (0-3)
--- NOTE | 2022-10-17 20:11 | PC.NURSE ---
rounded on patient, given warm blankets and praful crackers, call light within reach. No other needs at this time
[2022-10-17 20:21] VITALS: BP 153/81; PULSE 71; RESP 18; TEMP 36.6
== END 2022-10-17 20:30 | disposition home or self-care (01) ==
PROVIDERS: Emergency Provider Emergency Medicine; PCP Emergency Medicine
DX: R10.2 Pelvic and perineal pain (principal); K59.00 Constipation, unspecified; M25.511 Pain in right shoulder; I12.9 Hypertensive chronic kidney disease with stage 1 through stage 4 chronic kidney disease, or unspecified chronic kidney disease; N18.9 Chronic kidney disease, unspecified; E78.5 Hyperlipidemia, unspecified; J44.9 Chronic obstructive pulmonary disease, unspecified; F17.210 Nicotine dependence, cigarettes, uncomplicated
CPT/HCPCS: 80053; 81001; 83605; 83690; 85025; 96360; 99285

== ENCOUNTER → 2022-11-09 07:46 | Outpatient (CLI) | payer OTHER, SELFPAY ==
--- NOTE | 2022-11-09 07:46 | CT_ITS ---
FINAL REPORT TECHNIQUE: Axial images were obtained from the lung bases through the pubic symphysis before and after the administration of intravenous contrast. This study was performed with techniques to keep radiation doses as low as reasonably achievable (ALARA). Individualized dose reduction techniques using automated exposure control or adjustment of mA and/or kV according to the patient's size were employed. CLINICAL HISTORY: abdominal pain FINDINGS: Precontrast images demonstrate no evidence of nephrolithiasis or hydronephrosis. There is moderate vascular calcification. Abdomen: The lung bases are clear. The liver parenchyma is homogeneous. The gallbladder is present. The spleen, pancreas and adrenal glands are unremarkable. There is mild right renal scarring. There is a small left renal cyst. There is no mass or adenopathy identified. There is no evidence of bowel obstruction. Pelvis: The appendix is normal. The urinary bladder is unremarkable. There is no mass, free fluid or adenopathy. IMPRESSION: No acute process. Reviewed, Interpreted and Dictated by Albino Key III, MD Transcribed by Tigre Knox Authenticated and [facility]
== END ==
PROVIDERS: PCP Emergency Medicine; Visit Provider Emergency Medicine
DX: R10.9 Unspecified abdominal pain (principal)
CPT/HCPCS: 74178; Q9967

== ENCOUNTER → 2022-11-25 08:52 | Outpatient (CLI) | payer OTHER, SELFPAY ==
--- NOTE | 2022-11-25 08:53 | US_ITS ---
PROCEDURE: US TRANSVAGINAL CLINICAL INDICATION: pelvic pain COMPARISON: No exams were available for comparison FINDINGS: Transabdominal and transvaginal sonographic images of the pelvis were obtained. UTERUS: 6.2 cm x 4.0 cmx 2.5 cm with a combined endometrial thickness of 5.8mm. Uterus appears small and degenerative. The endometrium appears thin. Uterus is anteverted. There are several small nabothian cysts in the cervix. LEFT OVARY: Not visualized RIGHT OVARY: Not visualized Both ovaries are not visualized. There is no fluid in the cul-de-sac. IMPRESSION: 1. Anteverted small uterus with degenerative changes. The endometrium is thin. 2. The ovaries were not visualized likely secondary to atrophy. 3. No fluid in the cul-de-sac. Dictated by: Sunil Swanson MD 11/25/2022 11:46 Sunil Swanson MD in OV 11/25/2022 11:46
== END ==
PROVIDERS: PCP Emergency Medicine; Visit Provider Obstetrics & Gynecology
DX: R10.2 Pelvic and perineal pain (principal)
CPT/HCPCS: 76830

== ENCOUNTER → 2022-12-02 15:02 | Outpatient (CLI) | payer OTHER, SELFPAY ==
--- NOTE | 2022-12-02 15:02 | CA_ITS ---
APPROVED REPORT EXAM: Comprehensive 2D, Doppler, and color-flow Echocardiogram Housekeeping Worker: Lisa Dangelo, RT(R) Ht: 5 ft 5 in Wt: 166lbs BSA: 1.83 BP: 133/66 mmHg Indications: cp, dyspnea, COPD, Abn CT calcium test, Abn EKG, PVD, claudication, smoker 2D Dimensions LVOT 1.89 cm (M/F) 1.5-2.5 LA Volume 24.60 mL LA Volume Index 13.44 mL/m2 (M/F) 16-34 M-Mode Dimensions RVDd 2.34 cm (0.9-2.6) LA Diam 4.00 cm (1.9-4.0) LVDd 4.05 cm (3.5-5.7) Ao Diam 2.99 cm (2.0-3.7) LVDs 3.05 cm (3.5-5.7) IVSd 1.14 cm (0.6-1.1) PWd 0.84 cm (0.6-1.1) EF (Teich) 49.50% FS 24.70% EDV (Teich) 72.10 mL ESV (Teich) 36.40 mL LV Diastology E Decel Time 230.00 (160-240 msec) E/A Ratio 0.7 MED E' 7.30 (< 7 cm/sec) E'/MED E' Ratio 13.88 (>14) LAT E' 8.90 (<10 cm/sec) E/LAT E' Ratio 11.38 (>14) Mitral Valve MV E Max John. 101.00 (40-130 cm/s) MV A Velocity 151.00 (40-130 cm/s) E/A Ratio 0.67 MV Decel. Time 230.00 (160-240 ms) MV PHT 67.00 ms Left Ventricle The left ventricle is normal size. The left ventricular systolic function is normal. The left ventricular ejection fraction is within the normal range. There is increased left ventricular wall thickness. There is normal LV segmental wall motion. Transmitral Doppler flow pattern suggests impaired LV relaxation. LVEF is 55%. Right Ventricle The right ventricle is normal size. The right ventricular systolic function is normal. Atria The left atrium size is normal. The right atrium size is normal. There is no Doppler evidence of interatrial shunt. Aortic Valve The aortic valve is mildly thickened. There is no aortic valvular stenosis. Trace aortic regurgitation. Mitral Valve The mitral valve is normal in structure. No evidence of mitral valve stenosis. Trace mitral regurgitation. Tricuspid Valve The tricuspid valve leaflets are thin and pliable. Trace tricuspid regurgitation. RVSP is normal. Pulmonic Valve The pulmonary valve is normal in structure. Trace pulmonic regurgitation. Great Vessels The aortic root is normal in size. The ascending aorta is normal in size. IVC is normal in size and collapses >50% with inspiration. Pericardium There is no pericardial effusion. Other Information Study Quality: Fair Conclusion Normal biventricular systolic function. No significant valvular stenosis or regurgitation. Electronically signed by : Sandy Finley MD 12/04/2022 22:38:56
== END ==
PROVIDERS: PCP Emergency Medicine; Visit Provider Physician Assistant
DX: R06.00 Dyspnea, unspecified (principal); R07.89 Other chest pain; R94.31 Abnormal electrocardiogram [ECG] [EKG]; I73.9 Peripheral vascular disease, unspecified; I99.8 Other disorder of circulatory system; J44.9 Chronic obstructive pulmonary disease, unspecified; Z72.0 Tobacco use
CPT/HCPCS: 93306

== ENCOUNTER → 2022-12-08 16:16 | Outpatient (CLI) | payer OTHER, SELFPAY ==
--- NOTE | 2022-12-08 16:17 | MM_ITS ---
PROCEDURE INFORMATION: Exam: MG Bilateral Screening 3D Mammography Exam date and time: 12/08/2022 4:08 PM Age: 62 years old Clinical indication: Screening examination TECHNIQUE: Imaging protocol: Bilateral Screening tomosynthesis and 2D mammography including computer-aided detection (CAD) when performed. COMPARISON: 1. MG MM DIG SCREENING MAMM BI W/CAD 12/11/2019 4:08 PM 2. MG DMSB DIG MAMM-SCREEN ALISHA 01/02/2014 4:04 PM FINDINGS: MAMMOGRAPHY: Breast composition: The breasts are almost entirely fatty. Mass: None. Architectural distortion: None. Calcifications: No suspicious calcifications. Asymmetric density: None. Skin thickening: None. Axillary adenopathy: None. IMPRESSION: No mammographic evidence of malignancy. Annual screening is recommended unless otherwise clinically indicated. ASSESSMENT: BI-RADS Category 1: Negative
== END ==
PROVIDERS: PCP Obstetrics & Gynecology; Visit Provider Obstetrics & Gynecology
DX: Z12.31 Encounter for screening mammogram for malignant neoplasm of breast (principal)
CPT/HCPCS: 77063; 77067

== ENCOUNTER → 2022-12-21 15:08 | Outpatient (CLI) | payer OTHER, SELFPAY ==
[2022-12-21 14:00] LABS: Amphetamine/Metha Screen,Urine Negative ng/ml (<1000); Barbiturates Screen,Urine Negative ng/ml (<200)
[2022-12-21 14:01] LABS: Benzodiazepines Screen,Urine Negative ng/ml (<200)
[2022-12-21 14:02] LABS: Cannabinoid Screen,Urine Negative ng/ml (<50); Cocaine Screen,Urine Negative ng/ml (<300)
[2022-12-21 14:03] LABS: Methadone Screen,Urine Negative ng/ml (<300)
[2022-12-21 14:04] LABS: Opiate Screen,Urine Negative ng/ml (<300); Phencyclidine Screen,Urine Negative ng/ml (<25)
== END ==
PROVIDERS: PCP Emergency Medicine; Visit Provider Emergency Medicine
DX: Z79.899 Other long term (current) drug therapy (principal)
CPT/HCPCS: 80305

== ENCOUNTER 2022-12-23 12:03 | Outpatient (CLI) | payer OTHER, SELFPAY ==
--- NOTE | 2022-12-23 12:09 | CT_ITS ---
APPROVED REPORT Weeder Thinner: CLINICAL INDICATION Chest Pain TECHNIQUE Image Acquisition: A 128 slice MDCT scanner ([employer] View) was used for data acquisition. A noncontrast coronary calcium scan was performed. A CT attenuation threshold of 130 Hounsfield units (HU) was used for the detection of calcium in contiguous voxels of 1 sq mm in area to be counted as individual lesions. Bolus tracking in the ascending aorta with a threshold of 180 HU was performed. Immediately afterwards, ECG synchronized cardiac CT was then performed from the cardiac base to apex using retrospective gating with ECG tube current modulation. A total of 85 mL of Isovue 370 mg/mL contrast medium was administered at 5 mL/sec followed by a saline flush using a biphasic injection protocol. A tube voltage of 120 KVp was used. The patient received the following medications prior to the cardiac CT. 50 mg of oral metoprolol 0.8 mg of sublingual nitroglycerin The average heart rate at the time of acquisition was 68 bpm and regular. Image Reconstruction Transaxial images were reconstructed at 0.67 mm slide thickness. Data was reviewed interactively on an advanced workstation capable of 2 and 3-dimensional displays in all conventional reconstruction formats, including multiplanar reformations, maximum intensity projections, curved multiplanar reformations, and volume rendered reconstructions. When applicable, selected routine images describing the relevant coronary anatomy and pathology were saved and sent to PACS. Complications None Technical Quality Overall image quality was good. Coronary artery opacification was adequate. Total DLP (Dose-Length Product) is 1005.5 mGy-cm. The reported value represents the total of one or more individual components during the CT acquisition of this date and at this time, and as such, the same value may appear in more than one CT report depending on the interpreting/reporting physicians. COMPARISON None FINDINGS CT Coronary Calcium Scoring LMA (Left Main Artery) = 0 LAD (Left Anterior Descending) = 0 LCX (Left Coronary Circumflex) = 0 RCA (Right Coronary Artery) = 0 Total Calcium Score = 0 using the AJ-130 method. The interpretation of the calcium heart score is based on the following continuum*: 0 = no calcified plaque detected (risk of coronary artery disease is very low ??? less than 5%) 1-10 = calcium detected in extremely minimal levels (risk of coronary diseases is still low ??? less than 10%) 11-100 = mild levels of plaque detected with certainty (mild or minimal narrowing of heart arteries is likely) 101-400 = definite,at least moderate levels of plaque detected (relatively high risk of a heart attack within 3-5 years) >401-999 = extensive levels of plaque detected (high risk of heart attack, high levels of vascular disease are present, high likelihood of at least one significant coronary narrowing) *The calcium heart score quantifies the burden of coronary calcification/plaque in the coronary arteries. The calcium heart score is not able to evaluate the presence or burden of non-calcified (i.e. soft) plaque. There is calcification in the descending aorta, but no identifiable calcification in the aortic valve, mitral annulus or mitral valve, pericardium, or myocardium. Coronary CT Angiography Coronaries have normal origin and proximal course. The coronary arterial system is left dominant. Note: Stenosis is reported as maximum percentage diameter stenosis. Quantitative Stenosis Grading: Left Main (LM): The left main originates normally from the left sinus of Valsalva. The LM bifurcates into the left anterior descending artery and left circumflex artery. The LM is patent with no evidence of atheroscleros
[2022-12-23 12:50] VITALS: BMI 26.1
[2022-12-23 12:54] VITALS: BP 143/86; PULSE 70; RESP 18; TEMP 36.7; O2SAT 97
[2022-12-23 12:59] LABS: Chloride 102 mmol/L (98-107); Potassium 4.4 mmoL/L (3.5-5.1); Sodium 138 mmol/L (136-145)
[2022-12-23 13:02] LABS: Anion Gap 9.4 mEq/L (5-15); Blood Urea Nitrogen 23 mg/dl (7-17); Calcium 9.2 mg/dl (8.4-10.2); Carbon Dioxide 31 mmol/L (22.0-30.0); Creatinine Clearance Estimated 64 mL/min (50-200); Estimated Glomerular Filt Rate 72 ml/min (>60); GFR (African American) 87 ML/MIN (>60); Glucose 95 mg/dl (74-100)
[2022-12-23 13:13] VITALS: BP 147/65; PULSE 61; RESP 18
[2022-12-23 13:18] VITALS: BP 145/82; PULSE 61
[2022-12-23 13:23] VITALS: BP 107/76; PULSE 72
[2022-12-23 13:25] VITALS: BP 162/78; PULSE 65; RESP 18; O2SAT 97
--- NOTE | 2022-12-23 13:32 | PC.NURSE ---
1313-arrived to CT room, VSS, 0.8mg Nitro SL given per protocol 1318-145/82 post Nitro vital 1323 Scan complete, pt without C/O, vss, taken to post op for recovery, report given to reza Murphy RN.
== END 2022-12-23 14:00 | disposition home or self-care (01) ==
PROVIDERS: PCP Obstetrics & Gynecology; Visit Provider Physician Assistant
DX: R06.00 Dyspnea, unspecified (principal); R07.89 Other chest pain; I73.9 Peripheral vascular disease, unspecified; I99.8 Other disorder of circulatory system; J44.9 Chronic obstructive pulmonary disease, unspecified; R94.31 Abnormal electrocardiogram [ECG] [EKG]; Z72.0 Tobacco use
CPT/HCPCS: 75571; 75574; 80048; Q9967

== ENCOUNTER 2023-03-12 18:49 | Emergency (ER) | payer OTHER, SELFPAY ==
[2023-03-12 18:58] VITALS: BP 140/77; PULSE 82; RESP 18; TEMP 36.8; O2SAT 95; BMI 27.4
--- NOTE | 2023-03-12 19:14 | CT_ITS ---
PROCEDURE INFORMATION: Exam: CTA Abdomen and Pelvis With Contrast Exam date and time: 03/12/2023 8:11 PM Age: 62 years old Clinical indication: Abdominal pain; Generalized; Additional info: Diffuse pain out of proportion, worse into back TECHNIQUE: Imaging protocol: Computed tomographic angiography of the abdomen and pelvis with contrast. Exam focused on the arteries. 3D rendering (Not supervised by radiologist): MIP and/or 3D reconstructed images were created by the technologist. Radiation optimization: All CT scans at this facility use at least one of these dose optimization techniques: automated exposure control; mA and/or kV adjustment per patient size (includes targeted exams where dose is matched to clinical indication); or iterative reconstruction. Contrast material: ISOVUE 370; Contrast volume: 100 ml; Contrast route: INTRAVENOUS (IV); COMPARISON: 1. CT ABDOMEN PELVIS WO/W CON 11/09/2022 8:00 AM 2. CR XR PELVIS 1-2V 03/30/2019 9:[address] ANGIO CHEST 03/12/2023 8:11 PM FINDINGS: Aorta: There is atherosclerotic disease of the visualized aorta and its major branch vessels. There is ectasia of the infrarenal abdominal aorta without aneurysm. There is a small penetrating ulcer of the infrarenal abdominal aorta (image 80 series 5). Celiac trunk and mesenteric arteries: No occlusion or significant stenosis. Renal arteries: Moderate atherosclerotic stenosis of the left renal artery ostium with patent distal flow. Right iliac arteries: No occlusion or significant stenosis. Left iliac arteries: No occlusion or significant stenosis. Liver: No mass. Gallbladder and bile ducts: Unremarkable. No calcified stones. No ductal dilation. Pancreas: Unremarkable. No mass. No ductal dilation. Spleen: Unremarkable. No splenomegaly. Adrenal glands: Unremarkable. No mass. Kidneys and ureters: Unremarkable. No solid mass. No hydronephrosis. Stomach and bowel: There is large volume stool throughout the colon. Appendix: No evidence of appendicitis. Intraperitoneal space: Unremarkable. No free air. No significant fluid collection. Lymph nodes: Unremarkable. No enlarged lymph nodes. Urinary bladder: There is moderate distention of the urinary bladder. Reproductive: Unremarkable as visualized. Bones/joints: There is diffuse degenerative disease of the visualized osseous structures. Soft tissues: Unremarkable. Other findings: Please see the dedicated interpretation of the thorax for findings in that region. IMPRESSION: 1. Ectatic but nonaneurysmal abdominal aorta. 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 2. Please see the dedicated interpretation of the thorax for findings in that region.
[2023-03-12 19:20] LABS: Microscopic, Urine URINE MICROSCOPIC (MICROSCOPIC)
[2023-03-12 19:22] LABS: Appearance,Urine CLEAR (Clear); Bilirubin,Urine Negative (Negative); Blood, Urine 1+ (Negative); Color,Urine YELLOW (Yellow); Glucose,Urine (UA) Negative (Negative); Ketones,Urine Negative (Negative); Leukocyte Esterase,Urine Negative (Negative); Nitrate,Urine Negative (Negative); Protein,Urine Negative (Negative); Specific Gravity, Urine 1.015 (1.005-1.030); Urobilinogen,Urine 0.2 EU/dl (0.2)
--- NOTE | 2023-03-12 19:24 | ED_ITS ---
Discharge Plan Disposition Patient Disposition: Home, Self-Care Prescriptions Prescriptions: New omeprazole magnesium 20 mg capsule,delayed release(DR/EC) 20 mg PO DAILY 28 Days Qty: 28 0RF prednisone 20 mg tablet 40 mg PO DAILY 5 Days Qty: 10 0RF No Action diclofenac sodium 1 % gel 2 g topical QID Qty: 100 0RF Rx Instructions: apply to single elbow, wrist or hand; for hand includes palm/fingers/back of hand tizanidine 4 mg tablet 4 mg PO BID Qty: 60 1RF clonazepam 1 mg tablet 1 mg PO BID Qty: 60 1RF atorvastatin [Lipitor] 40 mg tablet 40 mg PO DAILY Qty: 30 2RF prednisone 20 mg tablet 20 mg PO BID 5 Days Qty: 10 0RF ipratropium-albuterol 0.5 mg-3 mg(2.5 mg base)/3 mL solution for nebulization 3 ml inhalation QID PRN (Reason: shortness of breath or wheezing) Qty: 180 2RF cholecalciferol (vitamin D3) 25 mcg (1,000 unit) capsule See Rx Instructions .ROUTE .COMPLEX Qty: 90 1RF Dose Instruction: TAKE 1 CAPSULE BY MOUTH ONCE DAILY Rx Instructions: TAKE 1 CAPSULE BY MOUTH ONCE DAILY lisinopril-hydrochlorothiazide 20-25 mg tablet See Rx Instructions .ROUTE .COMPLEX Qty: 30 0RF Dose Instruction: TAKE 1 TABLET BY MOUTH DAILY FOR HYPERTENSION Rx Instructions: TAKE 1 TABLET BY MOUTH DAILY FOR HYPERTENSION Combivent Respimat 20-100 mcg/actuation mist See Rx Instructions .ROUTE .COMPLEX Qty: 4 0RF Dose Instruction: INHALE 1 PUFF EVERY 4 HOURS NEEDED FOR SHORTNESS OF BREATH OR WHEEZING Rx Instructions: INHALE 1 PUFF EVERY 4 HOURS NEEDED FOR SHORTNESS OF BREATH OR WHEEZING amlodipine 5 mg tablet See Rx Instructions .ROUTE .COMPLEX Qty: 30 0RF Dose Instruction: TAKE 1 TABLET BY MOUTH AT BEDTIME Rx Instructions: TAKE 1 TABLET BY MOUTH AT BEDTIME aspirin 81 mg tablet,delayed release (DR/EC) See Rx Instructions .ROUTE .COMPLEX Qty: 30 5RF Dose Instruction: TAKE 1 TABLET BY MOUTH ONCE DAILY Rx Instructions: TAKE 1 TABLET BY MOUTH ONCE DAILY carvedilol 3.125 mg tablet See Rx Instructions .ROUTE .COMPLEX Rx Instructions: TAKE 1 TABLET BY MOUTH TWICE DAILY FOR BLOOD PRESSURE Referrals Follow up/Referrals: Wolf Paz MD [Primary Care Provider] - See instructions Activity Restrictions/Add. Instructions Additional Instructions/Restrictions: Take ibuprofen 400 mg every 6 hours (4 times daily) as needed with food and water to prevent GI upset and kidney damage. Prednisone sent to pharmacy, take this daily for 5 days. Acid medication (omeprazole) sent to pharmacy as well. Take this every day for 2 weeks to see if it makes a difference in your abdominal and flank pain. Call your family doctor to establish care for this visit to the emergency department and schedule follow-up within 48 hours to ensure improvement. If you have any worsening of your condition or any other concerning signs or symptoms, return to the emergency department or your primary care doctor for further evaluation. Clinical Impressions Clinical Impression: Acute right flank pain, Right lateral abdominal pain Discharge ED Provider: Zheng Moreland General Adult HPI General Chief complaint: PAIN Stated complaint: back pain Time Seen by Provider: 03/12/23 18:57 Mode of Arrival: Wheelchair Source of Information: Patient Limitations: No Limitations Description of Symptoms (Recalled from ER Triage Doc. by RN): pt c/o R should blad pain that radiates down her back and into her RUQ and RLQ. pt denies N/V/D or any urinary symptoms. pt states she does not have any other symptoms. the pain started today. History of Present Illness HPI narrative: 62 female with history of neurogenic claudication, PAD, CAD, hypertension, hyperlipidemia, COPD still currently smoking and not on home oxygen presenting with abdominal/back pain. Patient states that she woke up from just before coming to the emergency department with severe midline/right-sided abdominal pain that radiates to her bilateral flanks and up into her back. Had pain like this previous, but self aborted. This is 9 out of 10, sharp, stabbing, not made better or worse by anything and is waxing and waning. Does not have a history of any abdominal surgeries, takes no blood thinners. It is not associated with p.o. intake Related Data Home Medications Medication Instructions Recorded Confirmed carvedilol 3.125 mg tablet See Rx Instructions .Route 06/30/22 01/05/23 .COMPLEX BLOOD PRESSURE Previous Rx's Medication Instructions Recorded ipratropium 0.5 mg-albuterol 3 mg 3 ml inhalation QID PRN shortness 10/14/22 (2.5 mg base)/3 mL nebulization of breath or wheezing #180 mL soln atorvastatin 40 mg tablet (Lipitor) 40 mg PO DAILY #30 tabs 11/25/22 clonazepam 1 mg tablet 1 mg PO BID . #60 tabs 12/21/22 diclofenac sodium 1 % topical gel 2 g topical QID #100 grams 12/21/22 tizanidine 4 mg tablet 4 mg PO BID MUSCLES #60 tabs 12/21/22 prednisone 20 mg tablet 20 mg PO BID 5 days #10 tabs 01/05/23 cholecalciferol (vitamin D3) 25 See Rx Instructions .Route 01/10/23 mcg (1,000 unit) capsule .COMPLEX #90 caps lisinopril 20 See Rx Instructions .Route 01/14/23 mg-hydrochlorothiazide 25 mg tablet .COMPLEX #30 tabs amlodipine 5 mg tablet See Rx Instructions .Route 02/03/23 .COMPLEX #30 tabs ipratropium 20 mcg-albuterol 100 See Rx Instructions .Route 02/03/23 mcg/actuation mist for inhalation .COMPLEX #4 grams (Combivent Respimat) aspirin 81 mg tablet,delayed See Rx Instructions .Route 03/04/23 release .COMPLEX #30 tabs omeprazole magnesium 20 mg 20 mg PO DAILY 4 weeks #28 caps 03/12/23 capsule,delayed release prednisone 20 mg tablet 40 mg PO DAILY 5 days #10 tabs 03/12/23 Allergies Allergy/AdvReac Type Severity Reaction Status Date / Time No Known Allergies Allergy Verified 03/12/23 19:02 [facility] Disclaimer: The information contained in this section may have been updated after the patient was seen, as this information can be updated by other users. Medical History ASCUS with positive high risk HPV cervical COPD (chronic obstructive pulmonary disease) History of back pain History of cancer voice box, tonsils, melanoma,sinus Hypertension Migraine Osteoarthritis Postmenopausal atrophic vaginitis Skin cancer Surgical History Hx of tubal ligation Family History Other Family history of cancer Social History Smoking Status: Current every day smoker tobacco type: cigarettes packs per day: 1 quit status: considering quitting second hand exposure: No alcohol intake: never substance use type: former substance user current occupational status: other Travel in the last 8 weeks: None housing: apartment current occupational exposures/hazards: No caffeine: Yes ROS Obtained: Yes All systems reviewed & no additional complaints except as documented Physical Exam General General appearance: alert and in distress (secondary to pain) Head Head exam: atraumatic and normocephalic Eye Eye exam: Present normal appearance, PERRL and EOMI ENT ENT exam: Present mucous membranes moist Neck Neck exam: Present normal inspection, full ROM and trachea midline Respiratory Respiratory exam: Absent respiratory distress, wheezes, stridor, accessory muscle use or prolonged expiratory phase Cardiovascular Cardiovascular exam: Present normal rhythm Abdominal Exam Abdominal exam: Present soft and guarding; Absent distention, tenderness, rebo und or rigidity Abdominal tenderness: Present diffuse and severe Extremities Exam Extremities exam: Absent edema Neurological Exam Neurological exam: Present alert, oriented X3, CN II-XII intact and normal gait; Absent motor sensory deficit Skin Skin exam: Present warm and dry; Absent diaphoresis or erythema Medical Decision Making Medical Records Medical records reviewed: Yes I reviewed the patient's medical records. Pablo Inquiry Pt receiving controlled substance: No Pablo was queried for this patient: No Vital Signs: 03/12/23 18:58 Temperature 98.3 F Temperature Source Oral Pulse Rate [Left] 82 Respiratory Rate 18 Blood Pressure [Right Arm] 140/77 Blood Pressure Mean [Right Arm] 98 Blood Pressure Source [Right Arm] Automatic Cuff Blood Pressure Position [Right Arm] Sitting 02 Sat by Pulse Oximetry 95 Oxygen Delivery Method Room Air Lab Data Lab Results 03/12/23 19:18: Urine Color Yellow, Urine Appearance Clear, Urine pH 6.0, Ur Specific [place] 1.015, Urine Protein Negative, Urine Glucose (UA) Negative, U rine Ketones Negative, Urine Blood 1+, Urine Nitrate Negative, Urine Bilirubin Negative, Urine Urobilinogen 0.2, Ur Leukocyte Esterase Negative, Urine RBC Occasional, Urine WBC None, Ur Squamous Epith Cells None, Urine Bacteria None 03/12/23 19:37: WBC 6.2, RBC 4.63, Hgb 14.0, Hct 42.2, MCV 91.1, MCH 30.2, MCHC 33.2, RDW 13.3, Plt Count 218, MPV 8.4, Neut % (Auto) 64.5, Lymph % (Auto) 27.0, [place] % (Auto) 4.8, Eos % (Auto) 2.2, Baso % (Auto) 1.5, Neut # (Auto) 4.0, Lymph # (Auto) 1.7, [place] # (Auto) 0.3, Eos # (Auto) 0.1, Baso # (Auto) 0.1, Sodium 137, Potassium 4.6, Chloride 104, Carbon Dioxide 31 H, Anion Gap 6.6, BUN 18 H, Creatinine 0.90, Estimated Creat Clear 67, Estimated GFR 63, Est GFR ( Amer) 76, Glucose 85, Calcium 9.4, Total Bilirubin 0.4, AST 31, ALT 19, Alkaline Phosphatase 72, Troponin I < 0.01, Total Protein 7.8, Albumin 4.3, Globulin 3.5 H, Albumin/Globulin Ratio 1.2, Lipase 32 03/12/23 20:25: Lactate 0.8 03/12/23 19:37 03/12/23 19:37 Orders (Tests/Meds): ED MEDICATIONS Discontinued Medications Generic Name Dose Route Start Last Admin Trade Name Freq PRN Reason Stop Dose Admin Iopamidol 100 ml 03/12/23 20:15 03/12/23 20:17 Iopamidol-370 (76%);100ml Bottle IV 03/12/23 20:16 100 ml ONCE ONE Administration Ketorolac Tromethamine 15 mg 03/12/23 19:15 03/12/23 19:29 Ketorolac 30mg/Ml Vial IV 03/12/23 19:16 15 mg ONCE ONE Administration Morphine Sulfate 4 mg 03/12/23 19:15 03/12/23 19:28 Morphine 4mg/Ml Syringe IV 03/12/23 19:16 4 mg ONCE ONE Administration Ondansetron HCl 4 mg 03/12/23 19:15 03/12/23 19:28 Ondansetron 4mg/2ml Vial IV 03/12/23 19:16 4 mg ONCE ONE Administration Sodium Chloride 50 ml 03/12/23 20:15 03/12/23 20:16 0.9 % Sodium Chloride 50 Ml Vial IV 03/12/23 20:16 50 ml ONCE ONE Administration Sodium Chloride 10 ml 03/12/23 20:15 03/12/23 20:16 Sodium Chloride 0.9% 10ml Syr (Rad Only) IV 03/12/23 20:16 10 ml ONCE ONE Administration ORDERS Category Date Time Status CT angio abdomen pelvis Stat Cat Scan 03/12/23 19:14 Completed CTA Chest [CT angio chest - dissection] Stat Cat Scan 03/12/23 19:25 Completed POCUS Point of Care (ER Only) Stat Exams 03/12/23 21:08 Ordered CBC w/Auto Diff [Complete Blood Count Auto Diff] Stat Lab 03/12/23 19:37 Completed CMP [Comprehensive Metabolic Panel] Stat Lab 03/12/23 19:37 Completed Lactic Acid Stat Lab 03/12/23 20:25 Completed Lipase Stat Lab 03/12/23 19:37 Completed Trop I [Troponin I] Stat Lab 03/12/23 19:37 Completed Troponin I Q3H Lab 03/12/23 22:30 Ordered Troponin I Q3H Lab 03/13/23 01:30 Ordered UA [Urinalysis and Microscopic] Stat Lab 03/12/23 19:18 Completed Medical Decision Narrative: 62 female with history of neurogenic claudication, PAD, CAD, hypertension, hyperlipidemia, COPD still currently smoking and not on home oxygen presenting with abdominal/back pain. Patient states that she woke up from just before coming to the emergency department with severe midline/right-sided abdominal pain that radiates to her bilateral flanks and up into her back. Had pain like this previous, but self aborted. This is 9 out of 10, sharp, stabbing, not made better or worse by anything and is waxing and waning. Does not have a history of any abdominal surgeries, takes no blood thinners. It is not associated with p.o. intak. Patient be noted the patient is still some this is complicating care. History was obtained via conversation with patient. On arrival, patient hemodynamically stable, alert, oriented x4, appropriate, GCS 15, moving all extremities spontaneously, pupils equal and reactive to light. Full physical exam performed and significant for anxious appearing woman who is in mild distress secondary to pain. Cannot get comfortable. Diffuse abdominal tenderness which is out of proportion to physical exam. No overlying skin changes. Patient does have bilateral flank pain. No obvious pulsatile abdominal mass. Cardiopulmonary exam within normal limits. Differential includes PUD, gastritis, enteritis, gastroenteritis, pancreatitis, SBO, colitis, diverticulitis, nephrolithiasis, UTI, aortic pathology, mesenteric ischemia, cholecystitis, appendicitis, hepatitis, among others. Patient was given Toradol, morphine IV for symptomatic management and correction of underlying abnormalities. Workup independently interpreted and significant for no leukocytosis, nonactionable CBC. Chemistry with normal kidney function, normal LFTs. Lipase normal. Urinalysis negative. CTA of the chest without acute abnormality. CTA of the abdomen with small ulcer and infrarenal aorta, but no acute pathology. See radiology read for full review of final results. Independent interpretation of EKG shows sinus rhythm 65 beats a minute with first-degree AV block. QRS and QT intervals within normal limits. No ST or T wave changes concerning for acute ischemia. [place] normal. Right upper quadrant ultrasound without any acute findings. On reevaluation, patient feeling a lot better, but pain intermittently recurring. Given patient presentation, workup, history, this most likely r epresents neuropathic pain in the setting of severe scoliosis versus GERD. Less likely aortic pathology given negative workup and neurologically intact patient. because patient at baseline without signs or symptoms of clinical decompensation, deemed appropriate for discharge. Results were relayed to patient who voiced understanding and were agreeable to outpatient management and follow up. At the time of discharge the patient was hemodynamically stable, tolerating PO, and mobilizing appropriately. Critical Care Critical Care Time Critical Care Time: No
--- NOTE | 2023-03-12 19:25 | CT_ITS ---
PROCEDURE INFORMATION: Exam: CTA Chest With Contrast Exam date and time: 03/12/2023 8:11 PM Age: 62 years old Clinical indication: Chest wall pain; Additional info: Abdominal and chst pain radiating to spine TECHNIQUE: Imaging protocol: Computed tomographic angiography of the chest with contrast. Exam focused on the arteries. 3D rendering (Not supervised by radiologist): MIP and/or 3D reconstructed images were created by the technologist. Radiation optimization: All CT scans at this facility use at least one of these dose optimization techniques: automated exposure control; mA and/or kV adjustment per patient size (includes targeted exams where dose is matched to clinical indication); or iterative reconstruction. Contrast material: ISOVUE 370; Contrast volume: 100 ml; Contrast route: INTRAVENOUS (IV); COMPARISON: 1. CR XR CHEST 2V 02/03/2021 1:41 PM 2. CR XR CHEST 2V 03/30/2019 9:19 PM 3. CR XR CHEST 2V 10/31/2018 4:55 PM FINDINGS: Pulmonary arteries: Normal. No pulmonary emboli. Aorta: The aorta is normal caliber without focal abnormality. No dissection or aneurysm. There is atherosclerotic disease of the visualized aorta and its major branch vessels. Lungs: Calcified granuloma in the right mid lung. Scattered areas of bronchial wall thickening which are likely chronic inflammatory. A few areas of subpleural reticulation are noted, nonspecific. Ground-glass Pleural spaces: Unremarkable. No pneumothorax. No pleural effusion. Heart: Unremarkable. No cardiomegaly. No pericardial effusion. Lymph nodes: Unremarkable. No enlarged lymph nodes. Intraperitoneal space: Please see the dedicated interpretation of abdomen and pelvis for findings in that region. Bones/joints: There is diffuse degenerative disease of the visualized osseous structures. Soft tissues: Unremarkable. Other findings: Motion artifact mildly limits evaluation. IMPRESSION: 1. The aorta is normal caliber without focal abnormality. No dissection or aneurysm. 2. No dense parenchymal consolidation, pleural effusion, or pneumothorax. 3. Please see the dedicated interpretation of abdomen and pelvis for findings in that region.
--- NOTE | 2023-03-12 19:26 | ECG_ITS ---
APPROVED REPORT Exam: Resting ECG HR:65 bpm ECG Measurements Heart Rate 65 AXES SC 188 P 37 QRSd 76 QRS 63 QT 368 T 49 QTc 380 Conclusion SINUS RHYTHM LOW QRS VOLTAGE IN PRECORDIAL LEADS [QRS DEFLECTION < 1.0 mV IN CHEST LEADS] BORDERLINE ECG UNCONFIRMED REPORT Electronically signed by : Carlos Rice MD 03/13/2023 14:33:55
[2023-03-12] MEDS: ONDANSETRON 4MG/2ML VIAL 4 MG IV (19:28)
[2023-03-12] MEDS: MORPHINE 4MG/ML SYRINGE 4 MG IV (19:28)
[2023-03-12] MEDS: KETOROLAC 30MG/ML VIAL 15 MG IV (19:29)
[2023-03-12 19:37] LABS: RBC,Urine Occasional #/hpf (0-3)
[2023-03-12 19:47] LABS: Basophils # 0.1 K/mm3 (0-0.2); Basophils % 1.5 % (0.1-2.0); Eosinophils # 0.1 K/mm3 (0.0-0.4); Eosinophils % 2.2 % (0.1-12.0); Hematocrit 42.2 % (37.0-47.0); Lymphocytes # 1.7 K/mm3 (0.7-4.5); Mean Corpuscular HGB Conc 33.2 g/dL (31.8-35.4); Mean Corpuscular Hemoglobin 30.2 pg (27.0-31.2); Mean Corpuscular Volume 91.1 fl (81-99); Mean Platelet Volume 8.4 fl (7.4-10.4); Monocytes # 0.3 K/mm3 (0.1-1.0); Monocytes % 4.8 % (1.7-9.3); Neutrophils % 64.5 % (37.0-80.0); Platelet Count 218 K/mm3 (142-424); Red Blood Count 4.63 M/mm3 (4.20-5.40); Red Cell Distribution Width 13.3 % (11.5-17.5); White Blood Count 6.2 K/mm3 (4.8-10.8)
[2023-03-12 19:57] LABS: Chloride 104 mmol/L (98-107); Potassium 4.6 mmoL/L (3.5-5.1); Sodium 137 mmol/L (136-145)
[2023-03-12 19:59] LABS: Alanine Aminotransferase 19 U/L (12-78); Alkaline Phosphatase 72 U/L (38-126); Aspartate Amino Transferase 31 U/L (14-36); Bilirubin,Total 0.4 mg/dl (0.2-1.3); Blood Urea Nitrogen 18 mg/dl (7-17); Creatinine Clearance Estimated 67 mL/min (50-200); Estimated Glomerular Filt Rate 63 ml/min (>60); GFR (African American) 76 ML/MIN (>60)
[2023-03-12 20:00] LABS: Albumin Level 4.3 g/dl (3.5-5.0); Albumin/Globulin Ratio 1.2 (1.1-1.8); Anion Gap 6.6 mEq/L (5-15); Calcium 9.4 mg/dl (8.4-10.2); Carbon Dioxide 31 mmol/L (22.0-30.0); Globulin 3.5 g/dL (1.3-3.2); Glucose 85 mg/dl (74-100); Lipase 32 U/L (23-300); Total Protein,Serum 7.8 g/dl (6.3-8.2)
[2023-03-12] MEDS: SODIUM CHLORIDE 0.9% 10ML SYR (RAD ONLY) 10 ML IV (20:16)
[2023-03-12] MEDS: 0.9 % SODIUM CHLORIDE 50 ML VIAL IV (20:16)
[2023-03-12] MEDS: IOPAMIDOL-370 (76%);100ML BOTTLE 100 ML IV (20:17)
[2023-03-12 20:30] LABS: Troponin I < 0.01 ng/ml (0.00-0.034)
[2023-03-12 20:40] LABS: Lactic Acid 0.8 mmol/L (0.7-2.1)
--- NOTE | 2023-03-12 21:34 | PC.NURSE ---
@ bedside for ultrasound
[2023-03-12 21:40] VITALS: BP 114/74; PULSE 68; RESP 20; TEMP 37; O2SAT 94
== END 2023-03-12 21:47 | disposition home or self-care (01) ==
PROVIDERS: Emergency Provider Emergency Medicine; PCP Family Medicine
DX: R10.11 Right upper quadrant pain (principal); R10.31 Right lower quadrant pain; M54.6 Pain in thoracic spine; J44.9 Chronic obstructive pulmonary disease, unspecified; I10 Essential (primary) hypertension; E78.5 Hyperlipidemia, unspecified; I25.10 Atherosclerotic heart disease of native coronary artery without angina pectoris; I73.9 Peripheral vascular disease, unspecified; F17.210 Nicotine dependence, cigarettes, uncomplicated
CPT/HCPCS: 71275; 74174; 80053; 81001; 83605; 83690; 84484; 85025; 93005; 96374; 96375; 99285; J2405; Q9967

== ENCOUNTER → 2023-03-21 12:48 | Outpatient (POV) | payer OTHER, SELFPAY ==
[2023-03-21 14:13] VITALS: BP 194/87; PULSE 94; RESP 18; O2SAT 95; BMI 31.6
--- NOTE | 2023-03-21 14:30 | EXP.PAIN.SOA ---
[facility] Pain Management SOAP Note Subjective:: Patient is a pleasant 62-year-old female who presents today for follow-up. We are currently treating the patient for degenerative disc disease of lumbar spine with lumbar radiculopathy symptoms, lumbar spinal stenosis with neurogenic claudication symptoms, lumbar facet arthropathy, lumbar spondylosis, sacroiliitis, chronic pain syndrome, peripheral neuropathy. Today she rates her pain a 9 out of 10. Patient denies any new trauma or injury. She states she continues to have chronic pain in her low back and legs and states that she has constant burning sensation into her bilateral feet. She states she has no quality of life and can even walk without having worsening pain. Patient was found an appropriate candidate for the spinal cord stimulator trial or pain pump trial however she did not get significant relief with the stimulator trial in the past and that insurance denied her intrathecal pain pump trial with bupivacaine and that the patient cannot afford Prialt in her pump. Patient has been to see 2 different neurosurgeons who stated she was not a surgical candidate. Patient is currently managed with gabapentin 800 mg 4 times a day and clonazepam 1 mg twice a day from her PCP. Patient is also on Suboxone therapy from an outside provider and tizanidine 4 mg 3 times a day from our office. Patient states that this medicine does not do anything to help her feet related symptoms. Patient has had 3 injections into her feet from Dr. Solitario's office with minimal improvement. She does state that she is going to try and get inserts for her shoes to see if that would help with some of the pain. Patient is interested in any help we may be able to provide. Her Pablo has been reviewed and is appropriate. Review of Systems: General: No recent weight changes, no fever, no sleep disturbances Respiratory: No cough, no shortness of air, no recurring pulmonary infections Cardiovascular/peripheral vascular: No chest pain, no palpitations, no edema, no shortness of breath Gastrointestinal: No new onset incontinence, normal bowel movements reported Genitourinary: No new onset incontinence Musculoskeletal: Bilateral feet pain, low back pain Psychiatric: [Normal mood/affect] Neurological: [Denies weakness in extremities], [denies balance issues] Objective:: physical Exam: General: Alert and oriented x3, no acute distress, pleasant and cooperative Lungs: Respirations even and unlabored, symmetrical chest expansion Eyes: PERRL Musculoskeletal: Flexion and extension of lumbar [spine] somewhat guarded secondary to pain, [antalgic gait noted] Neurological: Speech clear, no gross sensory deficit Assessment:: Degenerative disc disease of lumbar spine with lumbar radiculopathy symptoms, lumbar spinal stenosis with neurogenic claudication symptoms, lumbar facet arthropathy, lumbar spondylosis, sacroiliitis, chronic pain syndrome, peripheral neuropathy Plan:: I have discussed with the patient that we will reach out to the pharmacy out [facility] for a stronger compounded cream and that I will schedule her for a follow-up with Dr. Esquivel for any additional options she may be able to try. I have discussed with the patient that it may be a possibility to start her with Prialt and at a later date to try bupivacaine or trying a different spinal cord stimulator trial such as saLuda. Patient will be scheduled for follow-up with Dr. Esquivel for reevaluation of symptoms and plan of care. Patient has been instructed to contact the clinic with any concerns before the next appointment. Dr. Esquivel has reviewed this note and agrees with this plan of care. This note was dictated using voice recognition software and make contain errors or omissions. [facility] Disclaimer: The information contained in this section may have been updated after the patient was seen, as this information can be updated by other users. Medical History ASCUS with positive high risk HPV cervical COPD (chronic obstructive pulmonary disease) History of back pain History of cancer voice box, tonsils, melanoma,sinus Hypertension Migraine Osteoarthritis Postmenopausal atrophic vaginitis Skin cancer Surgical History Hx of tubal ligation Family History Other Family history of cancer Social History Smoking Status: Current every day smoker tobacco type: cigarettes packs per day: 1 quit status: considering quitting second hand exposure: No alcohol intake: never substance use type: former substance user current occupational status: other Travel in the last 8 weeks: None housing: apartment current occupational exposures/hazards: No caffeine: Yes
== END ==
LOC: SC.PAIN 12:49
PROVIDERS: Visit Provider Nurse Practitioner Family
DX: M51.16 Intervertebral disc disorders with radiculopathy, lumbar region (principal); M48.062 Spinal stenosis, lumbar region with neurogenic claudication; M47.26 Other spondylosis with radiculopathy, lumbar region; M46.1 Sacroiliitis, not elsewhere classified; G89.4 Chronic pain syndrome; G62.9 Polyneuropathy, unspecified
CPT/HCPCS: 99212; G0463

== ENCOUNTER 2023-07-08 07:09 | Outpatient (CLI) | payer MEDICARE, OTHER, SELFPAY ==
--- NOTE | 2023-07-08 07:17 | US_ITS ---
FINAL REPORT TECHNIQUE: Multiple transverse and longitudinal images CLINICAL HISTORY: ABD PAIN COMPARISON: None FINDINGS: The gallbladder shows no wall thickening, distention or stone disease. No fluid collections are seen. There is moderate extra hepatic ductal dilatation present, with the common bile duct measuring up to 8 mm in diameter. Limited portions of the right liver are unremarkable. Limited portions of the right kidney are unremarkable. IMPRESSION: 1. No evidence of cholelithiasis 2. Moderate extrahepatic ductal dilatation, with the common bile duct measuring up to 8 mm in diameter. Would consider MRCP for further evaluation. Reviewed, Interpreted and Dictated by Raffaele Rodríguez MD Transcribed by Haritha Verde Authenticated and [facility]
== END 2023-07-08 23:59 | disposition home or self-care (01) ==
LOC: RAD 07:09
PROVIDERS: PCP Nurse Practitioner; Visit Provider Nurse Practitioner
DX: R10.11 Right upper quadrant pain (principal)
CPT/HCPCS: 76705

== ENCOUNTER 2023-08-17 11:02 | Emergency (ER) | payer MEDICARE, OTHER, SELFPAY ==
[2023-08-17] VITALS (8 sets, daily range): BP systolic 130–160; BP diastolic 69–99; PULSE 66–105; RESP 16–96; TEMP 36.6–36.9; O2SAT 92–100; BMI 29.7
--- NOTE | 2023-08-17 11:20 | ECG_ITS ---
APPROVED REPORT Exam: Resting ECG HR:95 bpm ECG Measurements Heart Rate 95 AXES DC 202 P 41 QRSd 83 QRS 47 QT 336 T 55 QTc 389 Conclusion SINUS RHYTHM NORMAL ECG UNCONFIRMED REPORT Electronically signed by : Dolores Ridley, 08/17/2023 12:00:08
--- NOTE | 2023-08-17 11:33 | HMH.EDGENADL ---
Discharge Plan Disposition Patient Disposition: Home, Self-Care Condition: Good Chief Complaint: Headache Prescriptions Prescriptions: No Action tizanidine 4 mg tablet 4 mg PO BID Qty: 60 1RF clonazepam 1 mg tablet 1 mg PO BID Qty: 60 1RF atorvastatin [Lipitor] 40 mg tablet 40 mg PO DAILY Qty: 30 2RF magnesium citrate [Citrate of Magnesia] Solution 150 ml PO DAILY 1 Days Qty: 296 0RF Rx Instructions: Take full bottle with 4 Colace tabs 2 days before colonoscopy around 3:00 in the afternoon. Followed by full glass of water -14 oz docusate sodium [Colace] 100 mg capsule 400 mg PO DAILY Qty: 4 0RF Rx Instructions: Elongated prep for colonoscopy secondary to constipation history. Take 4 pills with 1 bottle of mag citrate 2 days before scheduled colonoscopy in the evening. ipratropium-albuterol 0.5 mg-3 mg(2.5 mg base)/3 mL solution for nebulization 3 ml inhalation QID PRN (Reason: shortness of breath or wheezing) Qty: 180 2RF lisinopril-hydrochlorothiazide 20-25 mg tablet See Rx Instructions .ROUTE .COMPLEX Qty: 30 0RF Dose Instruction: TAKE 1 TABLET BY MOUTH DAILY FOR HYPERTENSION Rx Instructions: TAKE 1 TABLET BY MOUTH DAILY FOR HYPERTENSION Combivent Respimat 20-100 mcg/actuation mist See Rx Instructions .ROUTE .COMPLEX Qty: 4 0RF Dose Instruction: INHALE 1 PUFF EVERY 4 HOURS NEEDED FOR SHORTNESS OF BREATH OR WHEEZING Rx Instructions: INHALE 1 PUFF EVERY 4 HOURS NEEDED FOR SHORTNESS OF BREATH OR WHEEZING amlodipine 5 mg tablet See Rx Instructions .ROUTE .COMPLEX Qty: 30 0RF Dose Instruction: TAKE 1 TABLET BY MOUTH AT BEDTIME Rx Instructions: TAKE 1 TABLET BY MOUTH AT BEDTIME aspirin 81 mg tablet,delayed release (DR/EC) See Rx Instructions .ROUTE .COMPLEX Qty: 30 5RF Dose Instruction: TAKE 1 TABLET BY MOUTH ONCE DAILY Rx Instructions: TAKE 1 TABLET BY MOUTH ONCE DAILY peg 3350-electrolytes [GaviLyte-G] 236-22.74-6.74 -5.86 gram recon soln 240 ml PO Q10M Qty: 4000 0RF Rx Instructions: follow mailed instructions. pharmacy may change prep if needed. cholecalciferol (vitamin D3) 25 mcg (1,000 unit) capsule See Rx Instructions .ROUTE .COMPLEX Qty: 90 0RF Dose Instruction: TAKE 1 CAPSULE BY MOUTH ONCE DAILY Rx Instructions: TAKE 1 CAPSULE BY MOUTH ONCE DAILY Movantik 25 mg tablet 25 mg PO DAILY Qty: 30 3RF Rx Instructions: must be taken on empty stomach; no food 1 hr after or 2-3 hrs before dose carvedilol 3.125 mg tablet See Rx Instructions .ROUTE .COMPLEX Rx Instructions: TAKE 1 TABLET BY MOUTH TWICE DAILY FOR BLOOD PRESSURE omeprazole magnesium 20 mg capsule,delayed release(DR/EC) 20 mg PO DAILY 28 Days Qty: 28 0RF Referrals Follow up/Referrals: Tala Kay APRN [Primary Care Provider] - See instructions Activity Restrictions/Add. Instructions Additional Instructions/Restrictions: Continue to use your incentive spirometer 10 times every hour for the next 5 days to prevent pneumonia. Return to the emergency department for new or worsening symptoms including worsening headache, fever productive cough with sputum or any worsening symptoms. Clinical Impressions Clinical Impression: Pain in rib, Headache Discharge ED Provider: Dolores Ridley General Adult HPI General Chief complaint: Headache Stated complaint: left side rib pain, h/a, elevated bp Time Seen by Provider: 08/17/23 11:33 Mode of Arrival: Ambulatory Source of Information: Patient Limitations: No Limitations Description of Symptoms (Recalled from ER Triage Doc. by RN): pt states when she woke up around 0400 she had a 10/10 throbbing RODRIGUEZ. pt states she took 1gram of tylenol around 0800 without any relief. pt reports her BP has been high this am 154/109 and HR 120, via wrist cuff. pt also c/o heart palpitations and the feeling of her heart racing. pt states she choked on a piece of meat on Tuesday and had the heimlich manuever preformed on her. pt states she has had severe 10/10 sharp L rib pain since. History of Present Illness HPI narrative: Patient is a 63-year-old with past medical history significant for COPD who presents to the emergency department with headache. Patient says that she has a history of multiple headaches and this headache is only moderate compared to prior no similar nature with a band across her head. No visual changes some nausea without vomiting. Headache started this morning. No pain in her neck or fevers. Patient also notes that earlier this week patient was eating and choked on food and someone perform the Heimlich maneuver on her with resolution of symptoms but now she has had residual left lower chest pain. Pain is worse whenever taking a deep breath. Denies cough congestion shortness of breath or productive and sputum. Related Data Home Medications Medication Instructions Recorded Confirmed carvedilol 3.125 mg tablet See Rx Instructions .Route 06/30/22 08/01/23 .COMPLEX BLOOD PRESSURE Previous Rx's Medication Instructions Recorded ipratropium 0.5 mg-albuterol 3 mg 3 ml inhalation QID PRN shortness 10/14/22 (2.5 mg base)/3 mL nebulization of breath or wheezing #180 mL soln atorvastatin 40 mg tablet (Lipitor) 40 mg PO DAILY #30 tabs 11/25/22 clonazepam 1 mg tablet 1 mg PO BID . #60 tabs 12/21/22 tizanidine 4 mg tablet 4 mg PO BID MUSCLES #60 tabs 12/21/22 lisinopril 20 See Rx Instructions .Route 01/14/23 mg-hydrochlorothiazide 25 mg tablet .COMPLEX #30 tabs amlodipine 5 mg tablet See Rx Instructions .Route 02/03/23 .COMPLEX #30 tabs ipratropium 20 mcg-albuterol 100 See Rx Instructions .Route 02/03/23 mcg/actuation mist for inhalation .COMPLEX #4 grams (Combivent Respimat) aspirin 81 mg tablet,delayed See Rx Instructions .Route 03/04/23 release .COMPLEX #30 tabs omeprazole magnesium 20 mg 20 mg PO DAILY 4 weeks #28 caps 03/12/23 capsule,delayed release docusate sodium 100 mg capsule 400 mg (4 x 100 mg) PO DAILY #4 06/16/23 (Colace) caps magnesium citrate (Citrate of 150 ml PO DAILY Elongated prep for 06/16/23 Magnesia oral) colonoscopy 1 day #296 mL peg 3350-electrolytes 236 240 ml PO Q10M bowel prep #4,000 mL 07/01/23 gram-22.74 gram-6.74 gram-5.86 gram solution (GaviLyte-G) cholecalciferol (vitamin D3) 25 See Rx Instructions .Route 07/13/23 mcg (1,000 unit) capsule .COMPLEX #90 caps naloxegol 25 mg tablet (Movantik) 25 mg PO DAILY #30 tabs 07/25/23 Allergies Allergy/AdvReac Type Severity Reaction Status Date / Time No Known Allergies Allergy Verified 08/17/23 11:24 [facility] Disclaimer: The information contained in this section may have been updated after the patient was seen, as this information can be updated by other users. Medical History Pain with bowel movements Right lower quadrant abdominal pain Constipation ASCUS with positive high risk HPV cervical Postmenopausal atrophic vaginitis History of cancer voice box, tonsils, melanoma,sinus Migraine COPD (chronic obstructive pulmonary disease) Osteoarthritis History of back pain Hypertension Skin cancer Surgical History Hx of tubal ligation Family History Mother Alcoholism Cancer Father Cancer Diabetes Grandfather Cancer Grandmother Cancer Family/Other Cancer Sister Diabetes Brother Diabetes Other Family history of cancer Social History Smoking Status: Current every day smoker tobacco type: cigarettes packs per day: 1 quit status: considering quitting second hand exposure: No alcohol intake: never substance use type: former substance user current occupational status: other Travel in the last 8 weeks: None housing: apartment current occupational exposures/hazards: No caffeine: Yes ROS Obtained: Yes All systems reviewed & no additional complaints except as documented Physical Exam General General appearance: alert and in no apparent distress Head Head exam: atraumatic and normocephalic Eye Eye exam: Present PERRL and EOMI ENT ENT exam: Present normal oropharynx and mucous membranes moist Neck Neck exam: Present normal inspection and trachea midline Chest Chest inspection: Present tenderness (Left anterior lateral chest wall tenderness) Respiratory Respiratory exam: Present wheezes; Absent respiratory distress Cardiovascular Cardiovascular exam: Present regular rate Abdominal Exam Abdominal exam: Present soft; Absent distention or tenderness Neurological Exam Neurological exam: Present alert, oriented X3, CN II-XII intact, normal gait and motor sensory deficit Medical Decision Making Pablo Inquiry Pt receiving controlled substance: No Vital Signs: 08/17/23 11:15 08/17/23 11:30 Temperature 98.4 F Temperature Source Oral Pulse Rate 94 H Pulse Rate [Left] 105 H Respiratory Rate 16 Blood Pressure 160/99 H Blood Pressure [Right Arm] 158/95 H Blood Pressure Mean 107 Blood Pressure Mean [Right Arm] 116 Blood Pressure Source [Right Arm] Automatic Cuff Blood Pressure Position [Right Arm] Sitting 02 Sat by Pulse Oximetry 92 L 95 Oxygen Delivery Method Room Air Orders (Tests/Meds): ED MEDICATIONS Discontinued Medications Generic Name Dose Route Start Last Admin Trade Name Primitivoq PRN Reason Stop Dose Admin Albuterol/Ipratropium 9 ml 08/17/23 11:45 Ipratropium/Albuterol 3 Ml Neb IH 09/16/23 11:44 Q1H JENNIFER Albuterol/Ipratropium 9 ml 08/17/23 11:45 08/17/23 11:47 Ipratropium/Albuterol 3 Ml Neb 08/17/23 11:46 9 ml ONCE ONE Administration Diphenhydramine HCl 25 mg 08/17/23 11:34 08/17/23 11:46 Diphenhydramine 50mg/Ml Vial IV 08/17/23 11:35 25 mg ONCE ONE Administration Lactated Ringer's 500 mls @ 999 mls/hr 08/17/23 11:34 08/17/23 11:49 Lactated Ringer's 1000 Ml Bag IV 08/17/23 12:04 Not Given .Q31M ONE Lactated Ringer's 1,000 mls @ 999 mls/hr 08/17/23 11:48 08/17/23 11:49 Lactated Ringer's 1000 Ml Bag IV 08/17/23 12:48 999 mls/hr .Q1H1M ONE Administration Ketorolac Tromethamine 15 mg 08/17/23 11:34 08/17/23 11:47 Ketorolac 30mg/Ml Vial IV 08/17/23 11:35 15 mg ONCE ONE Administration Lidocaine 1 each 08/17/23 11:34 08/17/23 11:46 Lidocaine 5% Transdermal Patch TP 08/17/23 11:35 1 each ONCE ONE Administration Methocarbamol 500 mg 08/17/23 11:36 08/17/23 11:47 Methocarbamol 500mg Tablet PO 08/17/23 11:37 500 mg ONCE ONE Administration Metoclopramide HCl 10 mg 08/17/23 11:34 08/17/23 11:47 Metoclopramide Hcl 10mg/2ml Vial IVP 07/10/24 11:35 10 mg ONCE ONE Administration Medical Decision Narrative: Patient is a 63-year-old with past medical history significant for hypertension, COPD who presents with headache and left lateral chest wall tenderness. Differential diagnosis includes migraine tension headache temporal arteritis intracranial hemorrhage, pneumothorax hemothorax rib fractures pneumonia. Upon presentation patient is hemodynamically stable saturating appropriately on room air afebrile no acute distress. As headache is similar and less severe than prior and resolved in the past with migraine cocktail patient would like to pursue a migraine cocktail. Further workup not indicated at this time for headache. After migraine cocktail patient has resolution in headache. Patient is saturating appropriately on room air with no respiratory distress able to pull 1000 on incentive spirometry. Even if patient did have a rib fracture then would not warrant admission at this time so further workup not indicated. Pain is well-controlled with home tizanidine. Patient was administered a lidocaine patch and continues to tolerate appropriately on room air. Due to significant wheezing on exam patient was given 3 DuoNebs in the setting of COPD. Patient notes that she does have inhalers at home but does not use any of them. Recommended outpatient follow-up with primary care provider on utilization of inhalers for COPD and also cessation and smoking. On final evaluation patient had resolution of headache agreeable with discharge at this time with strict return return precautions including fever productive cough with sputum as this could be a sign of COPD exacerbation versus pneumonia. Critical Care Critical Care Time Critical Care Time: No
[2023-08-17] MEDS: diphenhydrAMINE 50MG/ML VIAL 25 MG IV (11:46)
[2023-08-17] MEDS: LIDOCAINE 5% TRANSDERMAL PATCH 1 EACH TP (11:46)
[2023-08-17] MEDS: METOCLOPRAMIDE HCL 10MG/2ML VIAL 10 MG IVP (11:47)
[2023-08-17] MEDS: METHOCARBAMOL 500MG TABLET 500 MG PO (11:47)
[2023-08-17] MEDS: IPRATROPIUM/ALBUTEROL 3 ML NEB 9 ML IH (11:47)
[2023-08-17] MEDS: KETOROLAC 30MG/ML VIAL 15 MG IV (11:47)
[2023-08-17] MEDS: LACTATED RINGERS 1000ML 1,000 ML 999 ML IV (11:49)
--- NOTE | 2023-08-17 14:13 | ED_ITS ---
Discharge Plan Disposition Patient Disposition: Home, Self-Care Condition: Good Prescriptions Prescriptions: New lidocaine 5 % adhesive patch,medicated 1 patch topical DAILY Qty: 10 0RF Rx Instructions: leave on most painful area for up to 12 hrs No Action tizanidine 4 mg tablet 4 mg PO BID Qty: 60 1RF clonazepam 1 mg tablet 1 mg PO BID Qty: 60 1RF atorvastatin [Lipitor] 40 mg tablet 40 mg PO DAILY Qty: 30 2RF magnesium citrate [Citrate of Magnesia] Solution 150 ml PO DAILY 1 Days Qty: 296 0RF Rx Instructions: Take full bottle with 4 Colace tabs 2 days before colonoscopy around 3:00 in the afternoon. Followed by full glass of water -14 oz docusate sodium [Colace] 100 mg capsule 400 mg PO DAILY Qty: 4 0RF Rx Instructions: Elongated prep for colonoscopy secondary to constipation history. Take 4 pills with 1 bottle of mag citrate 2 days before scheduled colonoscopy in the evening. ipratropium-albuterol 0.5 mg-3 mg(2.5 mg base)/3 mL solution for nebulization 3 ml inhalation QID PRN (Reason: shortness of breath or wheezing) Qty: 180 2RF lisinopril-hydrochlorothiazide 20-25 mg tablet See Rx Instructions .ROUTE .COMPLEX Qty: 30 0RF Dose Instruction: TAKE 1 TABLET BY MOUTH DAILY FOR HYPERTENSION Rx Instructions: TAKE 1 TABLET BY MOUTH DAILY FOR HYPERTENSION Combivent Respimat 20-100 mcg/actuation mist See Rx Instructions .ROUTE .COMPLEX Qty: 4 0RF Dose Instruction: INHALE 1 PUFF EVERY 4 HOURS NEEDED FOR SHORTNESS OF BREATH OR WHEEZING Rx Instructions: INHALE 1 PUFF EVERY 4 HOURS NEEDED FOR SHORTNESS OF BREATH OR WHEEZING amlodipine 5 mg tablet See Rx Instructions .ROUTE .COMPLEX Qty: 30 0RF Dose Instruction: TAKE 1 TABLET BY MOUTH AT BEDTIME Rx Instructions: TAKE 1 TABLET BY MOUTH AT BEDTIME aspirin 81 mg tablet,delayed release (DR/EC) See Rx Instructions .ROUTE .COMPLEX Qty: 30 5RF Dose Instruction: TAKE 1 TABLET BY MOUTH ONCE DAILY Rx Instructions: TAKE 1 TABLET BY MOUTH ONCE DAILY peg 3350-electrolytes [GaviLyte-G] 236-22.74-6.74 -5.86 gram recon soln 240 ml PO Q10M Qty: 4000 0RF Rx Instructions: follow mailed instructions. pharmacy may change prep if needed. cholecalciferol (vitamin D3) 25 mcg (1,000 unit) capsule See Rx Instructions .ROUTE .COMPLEX Qty: 90 0RF Dose Instruction: TAKE 1 CAPSULE BY MOUTH ONCE DAILY Rx Instructions: TAKE 1 CAPSULE BY MOUTH ONCE DAILY Movantik 25 mg tablet 25 mg PO DAILY Qty: 30 3RF Rx Instructions: must be taken on empty stomach; no food 1 hr after or 2-3 hrs before dose carvedilol 3.125 mg tablet See Rx Instructions .ROUTE .COMPLEX Rx Instructions: TAKE 1 TABLET BY MOUTH TWICE DAILY FOR BLOOD PRESSURE omeprazole magnesium 20 mg capsule,delayed release(DR/EC) 20 mg PO DAILY 28 Days Qty: 28 0RF Referrals Follow up/Referrals: Tala Kay APRN [Primary Care Provider] - See instructions Activity Restrictions/Add. Instructions Additional Instructions/Restrictions: Continue to use your incentive spirometer 10 times every hour for the next 5 days to prevent pneumonia. Return to the emergency department for new or worsening symptoms including worsening headache, fever productive cough with sputum or any worsening symptoms. Clinical Impressions Clinical Impression: Pain in rib, Headache Discharge ED Provider: Dolores Ridley General Adult HPI General Chief complaint: Headache Stated complaint: left side rib pain, h/a, elevated bp Time Seen by Provider: 08/17/23 11:33 Mode of Arrival: Ambulatory Source of Information: Patient Limitations: No Limitations Description of Symptoms (Recalled from ER Triage Doc. by RN): pt states when she woke up around 0400 she had a 10/10 throbbing RODRIGUEZ. pt states she took 1gram of tylenol around 0800 without any relief. pt reports her BP has been high this am 154/109 and HR 120, via wrist cuff. pt also c/o heart palpitations and the feeling of her heart racing. pt states she choked on a piece of meat on Tuesday and had the heimlich manuever preformed on her. pt states she has had severe 10/10 sharp L rib pain since. Related Data Home Medications Medication Instructions Recorded Confirmed carvedilol 3.125 mg tablet See Rx Instructions .Route 06/30/22 08/01/23 .COMPLEX BLOOD PRESSURE Previous Rx's Medication Instructions Recorded ipratropium 0.5 mg-albuterol 3 mg 3 ml inhalation QID PRN shortness 10/14/22 (2.5 mg base)/3 mL nebulization of breath or wheezing #180 mL soln atorvastatin 40 mg tablet (Lipitor) 40 mg PO DAILY #30 tabs 11/25/22 clonazepam 1 mg tablet 1 mg PO BID . #60 tabs 12/21/22 tizanidine 4 mg tablet 4 mg PO BID MUSCLES #60 tabs 12/21/22 lisinopril 20 See Rx Instructions .Route 01/14/23 mg-hydrochlorothiazide 25 mg tablet .COMPLEX #30 tabs amlodipine 5 mg tablet See Rx Instructions .Route 02/03/23 .COMPLEX #30 tabs ipratropium 20 mcg-albuterol 100 See Rx Instructions .Route 02/03/23 mcg/actuation mist for inhalation .COMPLEX #4 grams (Combivent Respimat) aspirin 81 mg tablet,delayed See Rx Instructions .Route 03/04/23 release .COMPLEX #30 tabs omeprazole magnesium 20 mg 20 mg PO DAILY 4 weeks #28 caps 03/12/23 capsule,delayed release docusate sodium 100 mg capsule 400 mg (4 x 100 mg) PO DAILY #4 06/16/23 (Colace) caps magnesium citrate (Citrate of 150 ml PO DAILY Elongated prep for 06/16/23 Magnesia oral) colonoscopy 1 day #296 mL peg 3350-electrolytes 236 240 ml PO Q10M bowel prep #4,000 mL 07/01/23 gram-22.74 gram-6.74 gram-5.86 gram solution (GaviLyte-G) cholecalciferol (vitamin D3) 25 See Rx Instructions .Route 07/13/23 mcg (1,000 unit) capsule .COMPLEX #90 caps naloxegol 25 mg tablet (Movantik) 25 mg PO DAILY #30 tabs 07/25/23 lidocaine 5 % topical patch 1 patch topical DAILY #10 ea 08/17/23 Allergies Allergy/AdvReac Type Severity Reaction Status Date / Time No Known Allergies Allergy Verified 08/17/23 11:24 [facility] Disclaimer: The information contained in this section may have been updated after the patient was seen, as this information can be updated by other users. Medical History Pain with bowel movements Right lower quadrant abdominal pain Constipation ASCUS with positive high risk HPV cervical Postmenopausal atrophic vaginitis History of cancer voice box, tonsils, melanoma,sinus Migraine COPD (chronic obstructive pulmonary disease) Osteoarthritis History of back pain Hypertension Skin cancer Surgical History Hx of tubal ligation Family History Mother Alcoholism Cancer Father Cancer Diabetes Grandfather Cancer Grandmother Cancer Family/Other Cancer Sister Diabetes Brother Diabetes Other Family history of cancer Social History Smoking Status: Current every day smoker tobacco type: cigarettes packs per day: 1 quit status: considering quitting second hand exposure: No alcohol intake: never substance use type: former substance user current occupational status: other Travel in the last 8 weeks: None housing: apartment current occupational exposures/hazards: No caffeine: Yes ROS Obtained: Yes All systems reviewed & no additional complaints except as documented Physical Exam General General appearance: alert and in no apparent distress Respiratory Respiratory exam: Present wheezes Cardiovascular Cardiovascular exam: Present regular rate and normal rhythm Neurological Exam Neurological exam: Present alert and oriented X3 Medical Decision Making Pablo Inquiry Pt receiving controlled substance: No Vital Signs: 08/17/23 11:15 08/17/23 11:30 08/17/23 12:00 Temperature 98.4 F Temperature Source Oral Pulse Rate 94 H 83 Pulse Rate [Left] 105 H Respiratory Rate 16 Blood Pressure 160/99 H 130/77 Blood Pressure [Right Arm] 158/95 H Blood Pressure Mean 107 Blood Pressure Mean [Right Arm] 116 Blood Pressure Source [Right Arm] Automatic Cuff Blood Pressure Position [Right Arm] Sitting 02 Sat by Pulse Oximetry 92 L 95 100 Oxygen Delivery Method Room Air Room Air 08/17/23 12:30 08/17/23 13:00 08/17/23 13:30 Temperature Temperature Source Pulse Rate 68 66 78 Pulse Rate [Left] Respiratory Rate Blood Pressure 139/77 144/69 H 140/76 Blood Pressure [Right Arm] Blood Pressure Mean Blood Pressure Mean [Right Arm] Blood Pressure Source [Right Arm] Blood Pressure Position [Right Arm] 02 Sat by Pulse Oximetry 99 93 L 96 Oxygen Delivery Method Room Air Room Air 08/17/23 14:00 08/17/23 14:15 Temperature 98 F Temperature Source Pulse Rate 69 73 Pulse Rate [Left] Respiratory Rate 96 H Blood Pressure 158/79 H 158/79 H Blood Pressure [Right Arm] Blood Pressure Mean Blood Pressure Mean [Right Arm] Blood Pressure Source [Right Arm] Blood Pressure Position [Right Arm] 02 Sat by Pulse Oximetry 96 Oxygen Delivery Method Room Air Orders (Tests/Meds): ED MEDICATIONS Discontinued Medications Generic Name Dose Route Start Last Admin Trade Name Primitivoq PRN Reason Stop Dose Admin Albuterol/Ipratropium 9 ml 08/17/23 11:45 Ipratropium/Albuterol 3 Ml [facility] 09/16/23 11:44 Q1H JENNIFER Albuterol/Ipratropium 9 ml 08/17/23 11:45 08/17/23 11:47 Ipratropium/Albuterol 3 Ml [facility] 08/17/23 11:46 9 ml ONCE ONE Administration Diphenhydramine HCl 25 mg 08/17/23 11:34 08/17/23 11:46 Diphenhydramine 50mg/Ml Vial IV 08/17/23 11:35 25 mg ONCE ONE Administration Lactated Ringer's 500 mls @ 999 mls/hr 08/17/23 11:34 08/17/23 11:49 Lactated Ringer's 1000 Ml Bag IV 08/17/23 12:04 Not Given .Q31M ONE Lactated Ringer's 1,000 mls @ 999 mls/hr 08/17/23 11:48 08/17/23 11:49 Lactated Ringer's 1000 Ml Bag IV 08/17/23 12:48 999 mls/hr .Q1H1M ONE Administration Ketorolac Tromethamine 15 mg 08/17/23 11:34 08/17/23 11:47 Ketorolac 30mg/Ml Vial IV 08/17/23 11:35 15 mg ONCE ONE Administration Lidocaine 1 each 08/17/23 11:34 08/17/23 11:46 Lidocaine 5% Transdermal Patch TP 08/17/23 11:35 1 each ONCE ONE Administration Methocarbamol 500 mg 08/17/23 11:36 08/17/23 11:47 Methocarbamol 500mg Tablet PO 08/17/23 11:37 500 mg ONCE ONE Administration Metoclopramide HCl 10 mg 08/17/23 11:34 08/17/23 11:47 Metoclopramide Hcl 10mg/2ml Vial IVP 08/17/23 11:35 10 mg ONCE ONE Administration Critical Care Critical Care Time Critical Care Time: No
== END 2023-08-17 14:44 | disposition home or self-care (01) ==
PROVIDERS: Emergency Provider Student in an Organized Health Care Education/Training Program; PCP Nurse Practitioner
DX: R07.81 Pleurodynia (principal); R51.9 Headache, unspecified; J44.9 Chronic obstructive pulmonary disease, unspecified; F17.210 Nicotine dependence, cigarettes, uncomplicated; I10 Essential (primary) hypertension
CPT/HCPCS: 93005; 96361; 96374; 96375; 99284; J1885; J2765; J7120; J7620

== ENCOUNTER 2023-11-30 09:29 | Outpatient (CLI) | payer MEDICARE, OTHER, SELFPAY ==
--- NOTE | 2023-11-30 09:33 | MR_ITS ---
PROCEDURE INFORMATION: Exam: MR Lumbar Spine Without Contrast Exam date and time: 11/30/2023 9:42 AM Age: 63 years old Clinical indication: Low back pain; Additional info: Intervertebral disc degeneration TECHNIQUE: Imaging protocol: Magnetic resonance imaging of the lumbar spine without contrast. COMPARISON: MR LUMBAR SPINE WO CON 09/29/2021 2:37 PM FINDINGS: Bones/joints: The vertebral body heights are maintained. There is new grade 1 anterolisthesis of L3 on L4 with significantly progressive interval loss disc height at L3-L4. New erosive changes are also identified along the endplates. There is mild edema seen along the L3-L4 endplates without significant disc space edema. There is mild additional multilevel degenerative disc disease. There is grade 1 anterolisthesis of L4 on L5 again seen. Spinal cord: Visualized cord, conus medullaris and cauda equina are unremarkable without compression. L1-L2: There is mild diffuse disc osteophyte bulging without significant spinal canal stenosis. The right neural foramen appears patent. There is mild left neural foraminal stenosis secondary to foraminal disc bulging. L2-L3: There is mild diffuse disc bulging without significant spinal canal stenosis. There is bilateral foraminal disc bulging without significant neural foraminal stenosis. L3-L4: There is moderate spinal canal stenosis which has increased secondary to [id number] diffuse disc osteophyte bulging and ligamentum flavum/facet hypertrophy. There is severe worsening right neural foraminal stenosis secondary to a large right foraminal disc protrusion and facet hypertrophy with impingement of the exiting right L3 nerve root. There is [id number] left neural foraminal stenosis secondary to foraminal disc bulging and facet hypertrophy without significant change. L4-L5: There is mild diffuse disc bulging without significant spinal canal stenosis. There is [id number] bilateral neural foraminal stenosis secondary to foraminal disc bulging and facet hypertrophy. L5-S1: No significant disc bulge or herniation. No severe spinal canal stenosis. No significant neural foraminal narrowing. Soft tissues: Unremarkable. IMPRESSION: 1. Significant progressive degenerative changes identified at L3-L4 with new grade 1 anterolisthesis of L3 on L4. New erosive changes are also identified along the endplates and there is mild edema along the endplates. This constellation of findings could represent chronic discitis/osteomyelitis. There is no significant disc space edema to suggest acute discitis. 2. Severe worsening right neural foraminal stenosis at L3-L4 with impingement of the exiting right L3 nerve root. There is also increased moderate spinal canal stenosis at L3-L4. 3. Please see above for specific findings at each level.
== END 2023-11-30 23:59 | disposition home or self-care (01) ==
LOC: RAD 09:29
PROVIDERS: PCP Nurse Practitioner; Visit Provider Physical Medicine & Rehabilitation
DX: M51.369 Other intervertebral disc degeneration, lumbar region without mention of lumbar back pain or lower extremity pain (principal)
CPT/HCPCS: 72148

== ENCOUNTER 2024-01-09 12:40 | Day surgery (SDC) | payer MEDICARE, OTHER, SELFPAY ==
[2024-01-09 13:15] VITALS: BP 123/70; PULSE 82; RESP 18; TEMP 36.6; O2SAT 95; BMI 31.4
[2024-01-09] MEDS: LACTATED RINGERS 1000ML 1,000 ML 25 ML IV (13:28)
--- NOTE | 2024-01-09 13:40 | ECG_ITS ---
APPROVED REPORT Exam: Resting ECG HR:71 bpm ECG Measurements Heart Rate 71 AXES MD 188 P 78 QRSd 88 QRS 43 QT 357 T -7 QTc 380 Conclusion SINUS RHYTHM NORMAL ECG UNCONFIRMED REPORT Electronically signed by : Carlos Rice MD 01/10/2024 08:45:32
[2024-01-09 14:08] VITALS: O2SAT 100
--- NOTE | 2024-01-09 14:09 | P.PNANES_ITS ---
[facility] Disclaimer: The information contained in this section may have been updated after the patient was seen, as this information can be updated by other users. Medical History Pain with bowel movements Right lower quadrant abdominal pain Constipation ASCUS with positive high risk HPV cervical Postmenopausal atrophic vaginitis History of cancer Migraine COPD (chronic obstructive pulmonary disease) Osteoarthritis History of back pain Hypertension Skin cancer Surgical History History of tonsillectomy Hx of tubal ligation Family History Mother Alcoholism Cancer Father Cancer Diabetes Grandfather Cancer Grandmother Cancer Family/Other Cancer Sister Diabetes Brother Diabetes Other Family history of cancer Social History (Updated 01/09/24 @ 13:17 by Yuridia Perez RN) Smoking Status: Current every day smoker tobacco type: cigarettes packs per day: 1 quit status: considering quitting second hand exposure: No alcohol intake: never substance use type: former substance user current occupational status: retired and disabled Travel in the last 8 weeks: None housing: apartment current occupational exposures/hazards: No caffeine: Yes [facility] Anesthesia Checklist Patient Identification Patient Identification: Arm Band Structural Data Admitted From: Home Planned Operative Procedure/s: Colonoscopy Consent for Planned Operative Procedure(s) Verified: Yes Verified Documents: Surgical Consent and History and Physical NPO Status Verified Time NPO: 00:00 Additional verifications Anesthesia Reactions: No Hx Blood Transfusions: No Blood Transfusion Reaction: No Airway Assessment Mallampati Score:: Class II C-Spine Mobility Assessed: Yes TMJ Mobility Assessed: Yes Dentition: Edentulous Neurological Assessment Level of Consciousness: Awake, Alert and Appropriate Anesthesia Plan Anesthesia Risk discussed: Yes Anesthesia Plan: Verified ASA Class: III Anesthesia Type: MAC
--- NOTE | 2024-01-09 14:18 | EXP.HP ---
History of Present Illness *Admission Date: 01/09/24 *Reason for visit:: Screening *History of present illness: Mrs. Pineda is a 63-year-old female who is here for initial screening colonoscopy. The examination is deemed medically necessary for screening. The patient has been seen, interviewed and examined prior to the procedure by both myself and the anesthesia provider. [facility] Disclaimer: The information contained in this section may have been updated after the patient was seen, as this information can be updated by other users. Medical History (Updated 01/09/24 @ 14:19 by Brock Kumar II, MD) Pain with bowel movements Right lower quadrant abdominal pain Constipation ASCUS with positive high risk HPV cervical Postmenopausal atrophic vaginitis History of cancer Migraine COPD (chronic obstructive pulmonary disease) Osteoarthritis History of back pain Hypertension Skin cancer Surgical History History of tonsillectomy Hx of tubal ligation Family History Mother Alcoholism Cancer Father Cancer Diabetes Grandfather Cancer Grandmother Cancer Family/Other Cancer Sister Diabetes Brother Diabetes Other Family history of cancer Social History (Updated 01/09/24 @ 13:17 by Yuridia Perez RN) Smoking Status: Current every day smoker tobacco type: cigarettes packs per day: 1 quit status: considering quitting second hand exposure: No alcohol intake: never substance use type: former substance user current occupational status: retired and disabled Travel in the last 8 weeks: None housing: apartment current occupational exposures/hazards: No caffeine: Yes Other Medical History Have you received the Flu Vaccine for this season: Yes Have you received the Pneumonia Vaccine: Yes Review of Systems Review of Systems Review of systems (narrative): Negative *Cardiovascular Comments: Negative *Gastrointestinal Comments: Negative *Genitourinary Comments: Negative *Musculoskeletal Comments: Negative *Neurologic Comments: Negative Meds Home Medications and Allergies Home Medications ?Medication ?Instructions ?Recorded ?Confirmed ?Type carvedilol 3.125 mg tablet 3.125 mg PO DAILY BLOOD PRESSURE 06/30/22 01/09/24 History ipratropium 0.5 mg-albuterol 3 mg 3 ml inhalation QID PRN shortness 10/14/22 01/09/24 Rx (2.5 mg base)/3 mL nebulization of breath or wheezing #180 mL soln atorvastatin 40 mg tablet (Lipitor) 40 mg PO DAILY #30 tabs 11/25/22 01/09/24 Rx tizanidine 4 mg tablet 4 mg PO BID MUSCLES #60 tabs 12/21/22 01/09/24 Rx omeprazole magnesium 20 mg 20 mg PO DAILY 4 weeks #28 caps 03/12/23 01/09/24 Rx capsule,delayed release docusate sodium 100 mg capsule 400 mg (4 x 100 mg) PO DAILY #4 06/16/23 01/09/24 Rx (Colace) caps naloxegol 25 mg tablet (Movantik) 25 mg PO DAILY #30 tabs 08/25/23 01/09/24 Rx amlodipine 5 mg tablet 5 mg PO DAILY 10/25/23 01/09/24 History aspirin 81 mg tablet,delayed 81 mg PO DAILY 10/25/23 01/09/24 History release cholecalciferol (vitamin D3) 25 25 mcg PO DAILY 10/25/23 01/09/24 History mcg (1,000 unit) capsule ipratropium 20 mcg-albuterol 100 20 - 100 spray inhalation DAILY 10/25/23 01/09/24 History mcg/actuation mist for inhalation (Combivent Respimat) lisinopril 20 20 - 25 tab PO DAILY 10/25/23 01/09/24 History mg-hydrochlorothiazide 25 mg tablet sodium,potassium,mag sulfates 17.5 See Rx Instructions PO .COMPLEX 01/02/24 01/09/24 Rx gram-3.13 gram-1.6 gram oral soln #354 mL (Suprep Bowel Prep Kit) clonazepam 1 mg tablet (Klonopin) 1 mg PO BID . 01/03/24 01/09/24 History gabapentin 800 mg tablet 800 mg PO QID 01/09/24 01/09/24 History New Prescriptions to Start Prescriptions: Allergies Allergy/AdvReac Type Severity Reaction Status Date / Time No Known Allergies Allergy Verified 01/09/24 13:09 Exam Data for Last 24 hours Vital signs and Labs for Last 24 Hours: Temp Pulse Resp BP Pulse Ox O2 Del Method O2 Flow Rate 97.8 F 82 18 123/70 95 Nasal Cannula 5 01/09/24 13:15 01/09/24 13:15 01/09/24 13:15 01/09/24 13:15 01/09/24 13:15 01/09/24 14:08 01/09/24 14:08 I & O for Last 24 hours: Intake & Output 01/06/24 01/07/24 01/08/24 01/09/24 23:59 23:59 23:59 23:59 Weight 189 lb *Routine HEENT Exam Head: Present normocephalic Eye: Present EOMI and PERRL ENT: Present mucous membranes moist *Routine Neck Exam Neck: Present supple *Routine Respiratory Exam Respiratory: Present CTA bilaterally *Routine Cardiovascular Exam Cardiovascular: Present RRR *Routine Abdominal Exam Abdominal: Present soft and normoactive bowel sounds; Absent tenderness *Routine Rectal Exam Rectal:: deferred *Routine Genitalia Exam Genitalia:: deferred *Routine Extremities Exam Extremities: Absent cyanosis, clubbing or edema *Routine Skin Exam Skin: Present warm; Absent rash *Routine Neurological Exam Neurological: Present alert and oriented X3 Assessment and Plan *Assessment and plan (1) Screening for colon cancer: Status: Acute Category: Medical Code(s): Z12.11 - Encounter for screening for malignant neoplasm of colon (2) Family history of colon cancer: Status: Acute Category: Medical Code(s): Z80.0 - Family history of malignant neoplasm of digestive organs Plan A/P: 1. Screening/family history is the preprocedural diagnosis. This is her first colonoscopy the patient will be anesthetized/sedated using MAC sedation. The patient has been seen and examined. Cardiac and lung assessment prior to the examination is stable. Proceed with planned screening colonoscopy
--- NOTE | 2024-01-09 14:20 | HMH.PROCNOTE ---
[facility] Procedure Note Date: 01/09/24 Time: 14:27 Procedure Note:: Sigmoidoscopy to descending colon (45 cm)?unprepped colonoscopy Endoscopist: Brock Kumar II, MD Referring physician: Talita WILSON Date of Procedure: January 09, 2024 Equipment: Olympus 190 variable stiffness pediatric colonoscope Sedation: MAC sedation Indication: Mrs. Pineda is a 63-year-old female who is here for initial screening colonoscopy. She does state that her maternal aunt and paternal grandmother had colon cancer. The patient has had some chronic constipation and longstanding dyspepsia that have not changed. She does report moderate bloating. She reports no rectal bleeding or weight loss. Procedure: Prior to the procedure, a history and physical exam was performed, and patient's medications and allergies were reviewed. The risks, benefits and alternatives of the sedation and procedure were discussed with the patient. All questions were answered and informed consent was obtained. The patient was brought to the procedure room. Patient identification and proposed procedure were verified by the physician and the nurse. The patient was placed in a left lateral decubitus position and the scope was passed under direct vision. Throughout the procedure, the patient's blood pressure, pulse, and oxygen saturations were monitored continuously. The colonoscopy was accomplished without difficulty. The patient tolerated the procedure well. Findings: On digital rectal examination there was normal rectal tone. There were no external hemorrhoids. The scope was then inserted through the anal canal into the rectum and advanced to 45 cm from the anal verge. The scope was not advanced further because of solid stool and poorly prepped colonoscopy. The procedure was aborted. Upon withdrawal there were scattered diverticuli throughout the descending and sigmoid colon. Upon retroflexion within the rectum there were grade 1-2 internal hemorrhoids. Impression: 1. Poor bowel preparation 2. Left-sided diverticulosis 3. Grade 1-2 internal hemorrhoids Plan: I would recommend improved bowel preparation with full colonoscopy especially with her family history and no prior colonoscopy. I will begin Linzess for her CIC (chronic idiopathic constipation).
[2024-01-09 14:27] VITALS: BP 98/50; PULSE 75; RESP 16; TEMP 36.8; O2SAT 94
[2024-01-09 14:37] VITALS: BP 94/62; PULSE 73; RESP 16; O2SAT 96
[2024-01-09 14:47] VITALS: BP 123/71; PULSE 83; RESP 16; O2SAT 96
[2024-01-09 14:57] VITALS: BP 110/75; PULSE 86; RESP 16; O2SAT 95
== END 2024-01-09 15:04 | disposition home or self-care (01) ==
PROVIDERS: PCP Nurse Practitioner; Visit Provider Internal Medicine Gastroenterology
PROC: 0DJD8ZZ Inspection of Lower Intestinal Tract, Via Natural or Artificial Opening Endoscopic (ICD-10-PCS; CPT 45378; principal; 2024-01-09 14:00)
DX: K59.04 Chronic idiopathic constipation (principal); Z12.11 Encounter for screening for malignant neoplasm of colon; Z80.0 Family history of malignant neoplasm of digestive organs; K57.30 Diverticulosis of large intestine without perforation or abscess without bleeding; K64.8 Other hemorrhoids; Z53.8 Procedure and treatment not carried out for other reasons
CPT/HCPCS: G0121; 93005; J7120

== ENCOUNTER 2024-01-24 20:42 | Observation (INO) | payer MEDICARE, OTHER, SELFPAY ==
[2024-01-24] VITALS (7 sets, daily range): BP systolic 98–124; BP diastolic 45–80; PULSE 100–123; RESP 13–21; TEMP 36.8; O2SAT 94–96; BMI 27.4
--- NOTE | 2024-01-24 20:43 | HMH.EDGENADL ---
Discharge Plan Disposition Patient Disposition: Admitted Clinical Impressions Clinical Impression: YULI (acute kidney injury), Elevated troponin, Nausea vomiting and diarrhea, Uremia Discharge ED Provider: Obi Martin General Adult HPI <GREGORIO Rothman - Last Filed: 01/24/24 20:48> General Chief complaint: Nausea/Vomiting/Diarrhea Stated complaint: n/v chills Time Seen by Provider: 01/24/24 20:42 History of Present Illness HPI narrative: Patient presents for evaluation of 4 days of nausea vomiting diarrhea. Patient states that it began acutely and she has been intolerant of anything by mouth for 4 days. She denies fever chills hemoptysis hematochezia melena but does endorse abdominal pain associated with it. She also has COPD that is not oxygen dependent but it has not been having to utilize nebs but reports increasing shortness of breath. Related Data Home Medications ?Medication ?Instructions ?Recorded ?Confirmed carvedilol 3.125 mg tablet 3.125 mg PO DAILY BLOOD PRESSURE 06/30/22 01/09/24 amlodipine 5 mg tablet 5 mg PO DAILY 10/25/23 01/09/24 aspirin 81 mg tablet,delayed 81 mg PO DAILY 10/25/23 01/09/24 release cholecalciferol (vitamin D3) 25 25 mcg PO DAILY 10/25/23 01/09/24 mcg (1,000 unit) capsule ipratropium 20 mcg-albuterol 100 20 - 100 spray inhalation DAILY 10/25/23 01/09/24 mcg/actuation mist for inhalation (Combivent Respimat) lisinopril 20 20 - 25 tab PO DAILY 10/25/23 01/09/24 mg-hydrochlorothiazide 25 mg tablet clonazepam 1 mg tablet (Klonopin) 1 mg PO BID . 01/03/24 01/09/24 gabapentin 800 mg tablet 800 mg PO QID 01/09/24 01/09/24 Previous Rx's ?Medication ?Instructions ?Recorded ipratropium 0.5 mg-albuterol 3 mg 3 ml inhalation QID PRN shortness 10/14/22 (2.5 mg base)/3 mL nebulization of breath or wheezing #180 mL soln atorvastatin 40 mg tablet (Lipitor) 40 mg PO DAILY #30 tabs 11/25/22 tizanidine 4 mg tablet 4 mg PO BID MUSCLES #60 tabs 12/21/22 omeprazole magnesium 20 mg 20 mg PO DAILY 4 weeks #28 caps 03/12/23 capsule,delayed release docusate sodium 100 mg capsule 400 mg (4 x 100 mg) PO DAILY #4 06/16/23 (Colace) caps naloxegol 25 mg tablet (Movantik) 25 mg PO DAILY #30 tabs 08/25/23 sodium,potassium,mag sulfates 17.5 See Rx Instructions PO .COMPLEX 01/02/24 gram-3.13 gram-1.6 gram oral soln #354 mL (Suprep Bowel Prep Kit) linaclotide 290 mcg capsule 290 mcg PO DAILY #30 caps 01/09/24 (Linzess) Allergies Allergy/AdvReac Type Severity Reaction Status Date / Time No Known Allergies Allergy Verified 01/09/24 13:09 [facility] <GREGORIO Rothman - Last Filed: 01/24/24 20:48> [facility] Disclaimer: The information contained in this section may have been updated after the patient was seen, as this information can be updated by other users. Medical History (Updated 01/25/24 @ 01:16 by Obi Martin MD) Pain with bowel movements Right lower quadrant abdominal pain Constipation ASCUS with positive high risk HPV cervical Postmenopausal atrophic vaginitis History of cancer Migraine COPD (chronic obstructive pulmonary disease) Osteoarthritis History of back pain Hypertension Skin cancer Surgical History History of tonsillectomy Hx of tubal ligation Family History Mother Alcoholism Cancer Father Cancer Diabetes Grandfather Cancer Grandmother Cancer Family/Other Cancer Sister Diabetes Brother Diabetes Other Family history of cancer Social History (Updated 01/09/24 @ 13:17 by Yuridia Perez RN) Smoking Status: Current every day smoker tobacco type: cigarettes packs per day: 1 quit status: considering quitting second hand exposure: No alcohol intake: never substance use type: former substance user current occupational status: retired and disabled Travel in the last 8 weeks: None housing: apartment current occupational exposures/hazards: No caffeine: Yes Have you lived/traveled outside [place] in past 30 days?: No Contact w/someone who lives/traveled outside US past 30 days?: No Exposure to someone with infectious disease in past 14 days?: No Do you have a fever (greater than 100.4 F or 38 C)?: No Have you tested positive for COVID-19: No Exposed to someone with COVID-19 in past 14 days?: No Do you have a sore throat?: No Do you have a cough?: No Do you have any weakness?: No Do you have any diarrhea?: No Are you experiencing any unusual bleeding?: No Do you have any muscle aches/pain?: No Do you have any abdominal pain?: No Are you experiencing loss of taste or smell?: No Other Medical History Have you received the Flu Vaccine for this season: Yes Have you received the Pneumonia Vaccine: Yes <GREGORIO Rothman - Last Filed: 01/24/24 20:48> ROS Obtained: Yes Systems reviewed as appropriate & no additional complaints except as documented Physical Exam <GREGORIO Rothman - Last Filed: 01/24/24 20:48> General General appearance: alert and in no apparent distress Respiratory Respiratory exam: Present respiratory distress and wheezes; Absent normal lung sounds bilaterally or accessory muscle use Cardiovascular Cardiovascular exam: Present tachycardia Neurological Exam Neurological exam: Present alert and oriented X3 Medical Decision Making <GREGORIO Rothman - Last Filed: 01/24/24 20:48> Medical Records Medical records reviewed: Yes I reviewed the patient's medical records. Screening: Per USPSTF and CDC recommendations, given the prevalence of disease in our region, it is our hospital?s policy to screen for HIV and viral Hepatitis for all patients aged 18 and over and those with ongoing risk factors. Pablo Inquiry Pt receiving controlled substance: No Vital Signs: 01/24/24 20:42 01/24/24 21:01 01/24/24 21:05 Temperature 98.2 F Temperature Source Oral Pulse Rate 100 H 107 H Pulse Rate [Right Brachial] 123 H Respiratory Rate 14 19 Blood Pressure 98/80 L Blood Pressure [Right Arm] 117/76 Blood Pressure Mean [Right Arm] 89 Blood Pressure Source Blood Pressure Source [Right Arm] Automatic Cuff Blood Pressure Position Blood Pressure Position [Right Arm] Supine 02 Sat by Pulse Oximetry 94 L 95 Oxygen Delivery Method Room Air 01/24/24 21:05 01/24/24 21:30 01/24/24 22:00 Temperature Temperature Source Pulse Rate 102 H 123 H Pulse Rate [Right Brachial] Respiratory Rate 17 21 Blood Pressure 103/78 L 124/45 L Blood Pressure [Right Arm] Blood Pressure Mean [Right Arm] Blood Pressure Source Blood Pressure Source [Right Arm] Blood Pressure Position Blood Pressure Position [Right Arm] 02 Sat by Pulse Oximetry 96 Oxygen Delivery Method 01/24/24 22:30 01/24/24 23:00 01/25/24 00:00 Temperature Temperature Source Pulse Rate 116 H 118 H Pulse Rate [Right Brachial] Respiratory Rate 13 15 18 Blood Pressure 112/79 123/70 137/78 Blood Pressure [Right Arm] Blood Pressure Mean [Right Arm] Blood Pressure Source Blood Pressure Source [Right Arm] Blood Pressure Position Blood Pressure Position [Right Arm] 02 Sat by Pulse Oximetry 95 98 Oxygen Delivery Method 01/25/24 00:31 01/25/24 01:06 Temperature 98.3 F Temperature Source Oral Pulse Rate 114 H 114 H Pulse Rate [Right Brachial] Respiratory Rate 16 16 Blood Pressure 139/98 H 139/98 H Blood Pressure [Right Arm] Blood Pressure Mean [Right Arm] Blood Pressure Source Automatic Cuff Blood Pressure Source [Right Arm] Blood Pressure Position Supine Blood Pressure Position [Right Arm] 02 Sat by Pulse Oximetry 99 Oxygen Delivery Method Room Air Lab Data Lab results reviewed: Yes I reviewed the patient's lab results. Lab Results 01/24/24 21:04: WBC 9.4, RBC 3.92 L, Hgb 11.9 L, Hct 35.0 L, MCV 89.3, MCH 30.4, MCHC 34.0, RDW 12.7, Plt Count 254, MPV 11.0 H, Neut % (Auto) 66.8, Lymph % (Auto) 24.4, Freestone % (Auto) 8.4, Eos % (Auto) 0.0 L, Baso % (Auto) 0.2, Neut # (Auto) 6.2, Lymph # (Auto) 2.3, Freestone # (Auto) 0.8, Eos # (Auto) 0.0, Baso # (Auto) 0.0, APTT 24.9, Sodium 132 L, Potassium 4.2, Chloride 103, Carbon Dioxide 25, Anion Gap 8.2, BUN 80 H, Creatinine 1.40 H, Estimated Creat Clear 47, Estimated GFR 38 L, Est GFR ( Amer) 46 L, Glucose 137 H, Calcium 8.8, Total Bilirubin 0.3, AST 29, ALT 20, Alkaline Phosphatase 57, Troponin I 0.52 H, NT-Pro-B Natriuret Pep 341 H, Total Protein 6.2 L, Albumin 3.6, Globulin 2.6, Albumin/Globulin Ratio 1.4, Lipase 60, HIV Ag/Ab Combo Qual Negative 01/24/24 21:12: VBG pH 7.36, VBG pCO2 36.7, VBG pO2 29.2, VBG HCO3 20.2 L, VBG Total CO2 21.3 L, VBG O2 Saturation 49.3 L, VBG Base Excess -5.2 L, VBG Lactic Acid 1.8 01/24/24 22:12: VBG pH 7.34, VBG pCO2 44.9, VBG pO2 26.5 L, VBG HCO3 23.5, VBG Total CO2 24.8, VBG O2 Saturation 43.6 L, VBG Base Excess -2.4, VBG Lactic Acid 2.4 H 01/24/24 23:19: Lactate 2.0 01/24/24 23:46: Troponin I 0.44 H 01/24/24 21:04 01/24/24 21:04 Orders (Tests/Meds): ED MEDICATIONS Generic Name Dose Route Start Last Admin Trade Name Freq PRN Reason Stop Dose Admin Sodium Chloride 3 ml 01/24/24 20:50 Sodium Chloride 3% 15ml On license of [facility] 02/23/24 20:49 ONCE PRN INDUCE SPUTUM COLLECTION Discontinued Medications Generic Name Dose Route Start Last Admin Trade Name Freq PRN Reason Stop Dose Admin Albuterol/Ipratropium 9 ml 01/24/24 20:49 01/24/24 21:04 Ipratropium/Albuterol 3 Ml Neb 01/24/24 20:50 9 ml ONCE ONE Administration Aspirin 324 mg 01/24/24 22:17 01/24/24 22:23 Aspirin 81mg Chewable Tablet PO 01/24/24 22:18 324 mg ONCE ONE Administration Dexamethasone Sodium Phosphate 10 mg 01/24/24 20:49 01/24/24 21:16 Dexamethasone 4mg/Ml 5ml Mdv IV 01/24/24 20:50 10 mg ONCE ONE Administration Lactated Ringer's 1,000 mls @ 999 mls/hr 01/24/24 22:17 01/24/24 22:24 Lactated Ringer's 1000 Ml Bag IV 01/24/24 23:17 999 mls/hr .Q1H1M ONE Administration Lactated Ringer's 1,710 mls @ 855 mls/hr 01/24/24 22:33 01/24/24 23:00 Lactated Ringer's 1000 Ml Bag 30 ml/kg infuse over 2 hr (1710 ml) 01/25/24 00:32 855 mls/hr IV Administration .Q2H ONE ORDERS Category Date Time Status CT abdomen pelvis wo con Stat Cat Scan 01/24/24 22:32 Taken BNP [NT Pro Brain Natriuretic Pep.] Stat Lab 01/24/24 21:04 Completed CMP [Comprehensive Metabolic Panel] Stat Lab 01/24/24 21:04 Completed Complete Blood Count Auto Diff Stat Lab 01/24/24 21:04 Completed Diarrhea 23 Panel, PCR Stat Lab 01/24/24 20:49 Ordered Full Resp Panel w/COVID ([facility]) Routine Lab 01/24/24 20:49 Ordered HIV Combo Stat Lab 01/24/24 21:04 Completed Hep C Ab with Reflex to RNA Stat Lab 01/24/24 21:04 Received Lactic Acid Stat Lab 01/24/24 23:19 Completed Lipase Stat Lab 01/24/24 21:04 Completed PTT [Activated Partial Thrombo Time] Stat Lab 01/24/24 21:04 Completed Trop I [Troponin I] Stat Lab 01/24/24 21:04 Completed Troponin I Q3H Lab 01/24/24 23:46 Completed Troponin I Q3H Lab 01/25/24 02:50 Ordered Blood Culture Stat Micro 01/24/24 23:51 Received Sputum Culture & Gram Stain Stat Micro 01/24/24 20:50 Ordered VBG [Venous Blood Gas] Stat RT 01/24/24 21:12 Completed Venous Blood Gas Stat RT 01/24/24 22:12 Completed Medical Decision Narrative: In summary patient is a 63-year-old female who presents to the emergency department for evaluation of 4 days of nausea vomiting diarrhea and additionally shortness of breath today.. Patient is normotensive however she is tachycardic upon arrival, afebrile. Physical exam is remarkable for end expiratory wheezes in all 4 craig with no increased work of breathing, abdomen is soft but mildly diffusely tender with normal bowel sounds. Differential diagnosis includes ACS versus atrial fibs with RVR versus gastroenteritis versus colitis versus COPD exacerbation versus acute bacterial or viral infection etc. Initial workup will be conducted with hematologic labs twelve-lead EKG CT scan chest abdomen pelvis urinalysis respiratory panel diarrhea panel. Initial interventions include crystalloid bolus Toradol Tylenol and Zofran. Initial workup ordered and pending at the time of handoff to Dr. Moreland at 2100 hrs. <Zheng Moreland MD - Last Filed: 01/24/24 23:43> Vital Signs: 01/24/24 20:42 01/24/24 21:01 01/24/24 21:05 Temperature 98.2 F Temperature Source Oral Pulse Rate 100 H 107 H Pulse Rate [Right Brachial] 123 H Respiratory Rate 14 19 Blood Pressure 98/80 L Blood Pressure [Right Arm] 117/76 Blood Pressure Mean [Right Arm] 89 Blood Pressure Source Blood Pressure Source [Right Arm] Automatic Cuff Blood Pressure Position Blood Pressure Position [Right Arm] Supine 02 Sat by Pulse Oximetry 94 L 95 Oxygen Delivery Method Room Air 01/24/24 21:05 01/24/24 21:30 01/24/24 22:00 Temperature Temperature Source Pulse Rate 102 H 123 H Pulse Rate [Right Brachial] Respiratory Rate 17 21 Blood Pressure 103/78 L 124/45 L Blood Pressure [Right Arm] Blood Pressure Mean [Right Arm] Blood Pressure Source Blood Pressure Source [Right Arm] Blood Pressure Position Blood Pressure Position [Right Arm] 02 Sat by Pulse Oximetry 96 Oxygen Delivery Method 01/24/24 22:30 01/24/24 23:00 01/25/24 00:00 Temperature Temperature Source Pulse Rate 116 H 118 H Pulse Rate [Right Brachial] Respiratory Rate 13 15 18 Blood Pressure 112/79 123/70 137/78 Blood Pressure [Right Arm] Blood Pressure Mean [Right Arm] Blood Pressure Source Blood Pressure Source [Right Arm] Blood Pressure Position Blood Pressure Position [Right Arm] 02 Sat by Pulse Oximetry 95 98 Oxygen Delivery Method 01/25/24 00:31 01/25/24 01:06 Temperature 98.3 F Temperature Source Oral Pulse Rate 114 H 114 H Pulse Rate [Right Brachial] Respiratory Rate 16 16 Blood Pressure 139/98 H 139/98 H Blood Pressure [Right Arm] Blood Pressure Mean [Right Arm] Blood Pressure Source Automatic Cuff Blood Pressure Source [Right Arm] Blood Pressure Position Supine Blood Pressure Position [Right Arm] 02 Sat by Pulse Oximetry 99 Oxygen Delivery Method Room Air Lab Data Lab Results 01/24/24 21:04: WBC 9.4, RBC 3.92 L, Hgb 11.9 L, Hct 35.0 L, MCV 89.3, MCH 30.4, MCHC 34.0, RDW 12.7, Plt Count 254, MPV 11.0 H, Neut % (Auto) 66.8, Lymph % (Auto) 24.4, Freestone % (Auto) 8.4, Eos % (Auto) 0.0 L, Baso % (Auto) 0.2, Neut # (Auto) 6.2, Lymph # (Auto) 2.3, Freestone # (Auto) 0.8, Eos # (Auto) 0.0, Baso # (Auto) 0.0, APTT 24.9, Sodium 132 L, Potassium 4.2, Chloride 103, Carbon Dioxide 25, Anion Gap 8.2, BUN 80 H, Creatinine 1.40 H, Estimated Creat Clear 47, Estimated GFR 38 L, Est GFR ( Amer) 46 L, Glucose 137 H, Calcium 8.8, Total Bilirubin 0.3, AST 29, ALT 20, Alkaline Phosphatase 57, Troponin I 0.52 H, NT-Pro-B Natriuret Pep 341 H, Total Protein 6.2 L, Albumin 3.6, Globulin 2.6, Albumin/Globulin Ratio 1.4, Lipase 60, HIV Ag/Ab Combo Qual Negative 01/24/24 21:12: VBG pH 7.36, VBG pCO2 36.7, VBG pO2 29.2, VBG HCO3 20.2 L, VBG Total CO2 21.3 L, VBG O2 Saturation 49.3 L, VBG Base Excess -5.2 L, VBG Lactic Acid 1.8 01/24/24 22:12: VBG pH 7.34, VBG pCO2 44.9, VBG pO2 26.5 L, VBG HCO3 23.5, VBG Total CO2 24.8, VBG O2 Saturation 43.6 L, VBG Base Excess -2.4, VBG Lactic Acid 2.4 H 01/24/24 23:19: Lactate 2.0 01/24/24 23:46: Troponin I 0.44 H Orders (Tests/Meds): ED MEDICATIONS Generic Name Dose Route Start Last Admin Trade Name Freq PRN Reason Stop Dose Admin Sodium Chloride 3 ml 01/24/24 20:50 Sodium Chloride 3% 15ml On license of [facility] 02/23/24 20:49 ONCE PRN INDUCE SPUTUM COLLECTION Discontinued Medications Generic Name Dose Route Start Last Admin Trade Name Freq PRN Reason Stop Dose Admin Albuterol/Ipratropium 9 ml 01/24/24 20:49 01/24/24 21:04 Ipratropium/Albuterol 3 Ml On license of [facility] 01/24/24 20:50 9 ml ONCE ONE Administration Aspirin 324 mg 01/24/24 22:17 01/24/24 22:23 Aspirin 81mg Chewable Tablet PO 01/24/24 22:18 324 mg ONCE ONE Administration Dexamethasone Sodium Phosphate 10 mg 01/24/24 20:49 01/24/24 21:16 Dexamethasone 4mg/Ml 5ml Mdv IV 01/24/24 20:50 10 mg ONCE ONE Administration Lactated Ringer's 1,000 mls @ 999 mls/hr 01/24/24 22:17 01/24/24 22:24 Lactated Ringer's 1000 Ml Bag IV 01/24/24 23:17 999 mls/hr .Q1H1M ONE Administration Lactated Ringer's 1,710 mls @ 855 mls/hr 01/24/24 22:33 01/24/24 23:00 Lactated Ringer's 1000 Ml Bag 30 ml/kg infuse over 2 hr (1710 ml) 01/25/24 00:32 855 mls/hr IV Administration .Q2H ONE ORDERS Category Date Time Status CT abdomen pelvis wo con Stat Cat Scan 01/24/24 22:32 Taken BNP [NT Pro Brain Natriuretic Pep.] Stat Lab 01/24/24 21:04 Completed CMP [Comprehensive Metabolic Panel] Stat Lab 01/24/24 21:04 Completed Complete Blood Count Auto Diff Stat Lab 01/24/24 21:04 Completed Diarrhea 23 Panel, PCR Stat Lab 01/24/24 20:49 Ordered Full Resp Panel w/COVID ([facility]) Routine Lab 01/24/24 20:49 Ordered HIV Combo Stat Lab 01/24/24 21:04 Completed Hep C Ab with Reflex to RNA Stat Lab 01/24/24 21:04 Received Lactic Acid Stat Lab 01/24/24 23:19 Completed Lipase Stat Lab 01/24/24 21:04 Completed PTT [Activated Partial Thrombo Time] Stat Lab 01/24/24 21:04 Completed Trop I [Troponin I] Stat Lab 01/24/24 21:04 Completed Troponin I Q3H Lab 01/24/24 23:46 Completed Troponin I Q3H Lab 01/25/24 02:50 Ordered Blood Culture Stat Micro 01/24/24 23:51 Received Sputum Culture & Gram Stain Stat Micro 01/24/24 20:50 Ordered VBG [Venous Blood Gas] Stat RT 01/24/24 21:12 Completed Venous Blood Gas Stat RT 01/24/24 22:12 Completed Medical Decision Narrative: In summary patient is a 63-year-old female who presents to the emergency department for evaluation of 4 days of nausea vomiting diarrhea and additionally shortness of breath today.. Patient is normotensive however she is tachycardic upon arrival, afebrile. Physical exam is remarkable for end expiratory wheezes in all 4 craig with no increased work of breathing, abdomen is soft but mildly diffusely tender with normal bowel sounds. Differential diagnosis includes ACS versus atrial fibs with RVR versus gastroenteritis versus colitis versus COPD exacerbation versus acute bacterial or viral infection etc. Initial workup will be conducted with hematologic labs twelve-lead EKG CT scan chest abdomen pelvis urinalysis respiratory panel diarrhea panel. Initial interventions include crystalloid bolus Toradol Tylenol and Zofran. Initial workup ordered and pending at the time of handoff to Dr. Moreland at 2100 hrs. Independent interpretation of EKG sinus tachycardia 107 bpm with IN 163, QRS 85, QTc 388. Normal axis. No acute ischemic change. Labs concerning for lactate 2.4 on VBG. Sodium 132, YULI with creatinine 1.4 and BUN 80. Patient's troponin elevated 0.52, BUN 341. I feel this is likely secondary to rate related stress. Shortly after arrival, patient stating that she was to go home. Prolonged conversation had with her and family, ultimately, patient okay with being admitted. Because patient having nearly intractable nausea and vomiting, CT of the abdomen and pelvis was ordered to evaluate for potential small bowel obstruction, although I feel is unlikely. Prior to CT scan, care handed off to oncoming physician. <Obi Martin MD - Last Filed: 01/25/24 01:16> Vital Signs: 01/24/24 20:42 01/24/24 21:01 01/24/24 21:05 Temperature 98.2 F Temperature Source Oral Pulse Rate 100 H 107 H Pulse Rate [Right Brachial] 123 H Respiratory Rate 14 19 Blood Pressure 98/80 L Blood Pressure [Right Arm] 117/76 Blood Pressure Mean [Right Arm] 89 Blood Pressure Source Blood Pressure Source [Right Arm] Automatic Cuff Blood Pressure Position Blood Pressure Position [Right Arm] Supine 02 Sat by Pulse Oximetry 94 L 95 Oxygen Delivery Method Room Air 01/24/24 21:05 01/24/24 21:30 01/24/24 22:00 Temperature Temperature Source Pulse Rate 102 H 123 H Pulse Rate [Right Brachial] Respiratory Rate 17 21 Blood Pressure 103/78 L 124/45 L Blood Pressure [Right Arm] Blood Pressure Mean [Right Arm] Blood Pressure Source Blood Pressure Source [Right Arm] Blood Pressure Position Blood Pressure Position [Right Arm] 02 Sat by Pulse Oximetry 96 Oxygen Delivery Method 01/24/24 22:30 01/24/24 23:00 01/25/24 00:00 Temperature Temperature Source Pulse Rate 116 H 118 H Pulse Rate [Right Brachial] Respiratory Rate 13 15 18 Blood Pressure 112/79 123/70 137/78 Blood Pressure [Right Arm] Blood Pressure Mean [Right Arm] Blood Pressure Source Blood Pressure Source [Right Arm] Blood Pressure Position Blood Pressure Position [Right Arm] 02 Sat by Pulse Oximetry 95 98 Oxygen Delivery Method 01/25/24 00:31 01/25/24 01:06 Temperature 98.3 F Temperature Source Oral Pulse Rate 114 H 114 H Pulse Rate [Right Brachial] Respiratory Rate 16 16 Blood Pressure 139/98 H 139/98 H Blood Pressure [Right Arm] Blood Pressure Mean [Right Arm] Blood Pressure Source Automatic Cuff Blood Pressure Source [Right Arm] Blood Pressure Position Supine Blood Pressure Position [Right Arm] 02 Sat by Pulse Oximetry 99 Oxygen Delivery Method Room Air Lab Data Lab Results 01/24/24 21:04: WBC 9.4, RBC 3.92 L, Hgb 11.9 L, Hct 35.0 L, MCV 89.3, MCH 30.4, MCHC 34.0, RDW 12.7, Plt Count 254, MPV 11.0 H, Neut % (Auto) 66.8, Lymph % (Auto) 24.4, Freestone % (Auto) 8.4, Eos % (Auto) 0.0 L, Baso % (Auto) 0.2, Neut # (Auto) 6.2, Lymph # (Auto) 2.3, Freestone # (Auto) 0.8, Eos # (Auto) 0.0, Baso # (Auto) 0.0, APTT 24.9, Sodium 132 L, Potassium 4.2, Chloride 103, Carbon Dioxide 25, Anion Gap 8.2, BUN 80 H, Creatinine 1.40 H, Estimated Creat Clear 47, Estimated GFR 38 L, Est GFR ( Amer) 46 L, Glucose 137 H, Calcium 8.8, Total Bilirubin 0.3, AST 29, ALT 20, Alkaline Phosphatase 57, Troponin I 0.52 H, NT-Pro-B Natriuret Pep 341 H, Total Protein 6.2 L, Albumin 3.6, Globulin 2.6, Albumin/Globulin Ratio 1.4, Lipase 60, HIV Ag/Ab Combo Qual Negative 01/24/24 21:12: VBG pH 7.36, VBG pCO2 36.7, VBG pO2 29.2, VBG HCO3 20.2 L, VBG Total CO2 21.3 L, VBG O2 Saturation 49.3 L, VBG Base Excess -5.2 L, VBG Lactic Acid 1.8 01/24/24 22:12: VBG pH 7.34, VBG pCO2 44.9, VBG pO2 26.5 L, VBG HCO3 23.5, VBG Total CO2 24.8, VBG O2 Saturation 43.6 L, VBG Base Excess -2.4, VBG Lactic Acid 2.4 H 01/24/24 23:19: Lactate 2.0 01/24/24 23:46: Troponin I 0.44 H Orders (Tests/Meds): ED MEDICATIONS Generic Name Dose Route Start Last Admin Trade Name Freq PRN Reason Stop Dose Admin Sodium Chloride 3 ml 01/24/24 20:50 Sodium Chloride 3% 15ml On license of [facility] 02/23/24 20:49 ONCE PRN INDUCE SPUTUM COLLECTION Discontinued Medications Generic Name Dose Route Start Last Admin Trade Name Freq PRN Reason Stop Dose Admin Albuterol/Ipratropium 9 ml 01/24/24 20:49 01/24/24 21:04 Ipratropium/Albuterol 3 Ml On license of [facility] 01/24/24 20:50 9 ml ONCE ONE Administration Aspirin 324 mg 01/24/24 22:17 01/24/24 22:23 Aspirin 81mg Chewable Tablet PO 01/24/24 22:18 324 mg ONCE ONE Administration Dexamethasone Sodium Phosphate 10 mg 01/24/24 20:49 01/24/24 21:16 Dexamethasone 4mg/Ml 5ml Mdv IV 01/24/24 20:50 10 mg ONCE ONE Administration Lactated Ringer's 1,000 mls @ 999 mls/hr 01/24/24 22:17 01/24/24 22:24 Lactated Ringer's 1000 Ml Bag IV 01/24/24 23:17 999 mls/hr .Q1H1M ONE Administration Lactated Ringer's 1,710 mls @ 855 mls/hr 01/24/24 22:33 01/24/24 23:00 Lactated Ringer's 1000 Ml Bag 30 ml/kg infuse over 2 hr (1710 ml) 01/25/24 00:32 855 mls/hr IV Administration .Q2H ONE ORDERS Category Date Time Status CT abdomen pelvis wo con Stat Cat Scan 01/24/24 22:32 Taken BNP [NT Pro Brain Natriuretic Pep.] Stat Lab 01/24/24 21:04 Completed CMP [Comprehensive Metabolic Panel] Stat Lab 01/24/24 21:04 Completed Complete Blood Count Auto Diff Stat Lab 01/24/24 21:04 Completed Diarrhea 23 Panel, PCR Stat Lab 01/24/24 20:49 Ordered Full Resp Panel w/COVID ([facility]) Routine Lab 01/24/24 20:49 Ordered HIV Combo Stat Lab 01/24/24 21:04 Completed Hep C Ab with Reflex to RNA Stat Lab 01/24/24 21:04 Received Lactic Acid Stat Lab 01/24/24 23:19 Completed Lipase Stat Lab 01/24/24 21:04 Completed PTT [Activated Partial Thrombo Time] Stat Lab 01/24/24 21:04 Completed Trop I [Troponin I] Stat Lab 01/24/24 21:04 Completed Troponin I Q3H Lab 01/24/24 23:46 Completed Troponin I Q3H Lab 01/25/24 02:50 Ordered Blood Culture Stat Micro 01/24/24 23:51 Received Sputum Culture & Gram Stain Stat Micro 01/24/24 20:50 Ordered VBG [Venous Blood Gas] Stat RT 01/24/24 21:12 Completed Venous Blood Gas Stat RT 01/24/24 22:12 Completed Medical Decision Narrative: In summary patient is a 63-year-old female who presents to the emergency department for evaluation of 4 days of nausea vomiting diarrhea and additionally shortness of breath today.. Patient is normotensive however she is tachycardic upon arrival, afebrile. Physical exam is remarkable for end expiratory wheezes in all 4 craig with no increased work of breathing, abdomen is soft but mildly diffusely tender with normal bowel sounds. Differential diagnosis includes ACS versus atrial fibs with RVR versus gastroenteritis versus colitis versus COPD exacerbation versus acute bacterial or viral infection etc. Initial workup will be conducted with hematologic labs twelve-lead EKG CT scan chest abdomen pelvis urinalysis respiratory panel diarrhea panel. Initial interventions include crystalloid bolus Toradol Tylenol and Zofran. Initial workup ordered and pending at the time of handoff to Dr. Moreland at 2100 hrs. Independent interpretation of EKG sinus tachycardia 107 bpm with IN 163, QRS 85, QTc 388. Normal axis. No acute ischemic change. Labs concerning for lactate 2.4 on VBG. Sodium 132, YULI with creatinine 1.4 and BUN 80. Patient's troponin elevated 0.52, BUN 341. I feel this is likely secondary to rate related stress. Shortly after arrival, patient stating that she was to go home. Prolonged conversation had with her and family, ultimately, patient okay with being admitted. Because patient having nearly intractable nausea and vomiting, CT of the abdomen and pelvis was ordered to evaluate for potential small bowel obstruction, although I feel is unlikely. Prior to CT scan, care handed off to oncoming physician. Mario PURCELL: I assumed care of the patient at the time of handoff from the prior provider. On reassessment patient remains tachycardic to 110 at rest. No abdominal tenderness on my exam. CT interpreted by me, no evidence of obstruction, significant bowel stranding, pericholecystic fluid, pancreatitis or other obvious emergent pathology. Formal read remains pending. Repeat troponin is 0.44, downtrending. Repeat EKG interpreted by me shows sinus tachycardia with rate of 120, T wave inversions in the inferior leads, no ST elevation. Interactive discussion was had with hospitalist on-call for admission for YULI, uremia, NSTEMI and dehydration. Critical Care <GREGORIO Rothman - Last Filed: 01/24/24 20:48> Critical Care Time Critical Care Time: No <Zheng Moreland MD - Last Filed: 01/24/24 23:43> Critical Care Time Critical Care Time: Yes (renal, cardiac) Attestation: On 01/24/24, the high probability of a clinically significant, sudden or life threatening deterioration of the following system(s) required my full and direct attention, intervention and personal management. The time I documented below is in addition to time spent performing reported procedures but includes the following listed in this critical care notation. Total Time Total Critical Care Time: 45
--- NOTE | 2024-01-24 21:02 | ECG_ITS ---
APPROVED REPORT Exam: Resting ECG HR:107 bpm ECG Measurements Heart Rate 107 AXES TN 163 P 62 QRSd 85 QRS 65 QT 325 T 73 QTc 388 Conclusion SINUS TACHYCARDIA MODERATE ST DEPRESSION Electronically signed by : JOANNE CORDERO, 01/24/2024 23:57:02
[2024-01-24] MEDS: IPRATROPIUM/ALBUTEROL 3 ML NEB 9 ML IH (21:04)
[2024-01-24] MEDS: DEXAMETHASONE 4MG/ML 5ML MDV 10 MG IV (21:16)
[2024-01-24 21:17] LABS: Lactate Venous 1.8 mmol/L (0.4-2.0); VBG Base Excess -5.2 mmol/L (-2.4-2.3); VBG HCO3 20.2 mmol/L (23-30); VBG Oxygen Saturation 49.3 % (50-70); VBG PCO2 36.7 mmol/L (35-51); VBG PH 7.36 mmol/L (7.31-7.41); VBG PO2 29.2 mmol/L (28-40); VBG Total CO2 21.3 mmol/L (23-27)
[2024-01-24 22:11] LABS: NT Pro Brain Natriuretic Pep. 341 pg/mL (0-125)
[2024-01-24 22:16] LABS: Troponin I 0.52 ng/ml (0.00-0.034)
[2024-01-24 22:18] LABS: Albumin Level 3.6 g/dl (3.5-5.0); Chloride 103 mmol/L (98-107); Potassium 4.2 mmoL/L (3.5-5.1); Sodium 132 mmol/L (136-145)
[2024-01-24 22:21] LABS: Alanine Aminotransferase 20 U/L (12-78); Alkaline Phosphatase 57 U/L (38-126); Aspartate Amino Transferase 29 U/L (14-36); Bilirubin,Total 0.3 mg/dl (0.2-1.3); Calcium 8.8 mg/dl (8.4-10.2); Carbon Dioxide 25 mmol/L (22.0-30.0); Creatinine Clearance Estimated 47 mL/min (50-200); Estimated Glomerular Filt Rate 38 ml/min (>60); GFR (African American) 46 ML/MIN (>60); Glucose 137 mg/dl (74-100); Total Protein,Serum 6.2 g/dl (6.3-8.2)
[2024-01-24] MEDS: ASPIRIN 81MG CHEWABLE TABLET 324 MG PO (22:23)
[2024-01-24 22:24] LABS: Activated Partial Thrombo Time 24.9 seconds (22.8-30.6); Hemoglobin 11.9 g/dL (12.2-16.2); Mean Corpuscular Hemoglobin 30.4 pg (27.0-31.2); Mean Corpuscular Volume 89.3 fl (81-99); Platelet Count 254 K/mm3 (142-424); Red Blood Count 3.92 M/mm3 (4.20-5.40); Red Cell Distribution Width 12.7 % (11.5-17.5); White Blood Count 9.4 K/mm3 (4.8-10.8)
[2024-01-24] MEDS: LACTATED RINGERS 1000ML 1,000 ML 999 ML IV (22:24)
[2024-01-24 22:25] LABS: Anion Gap 8.2 mEq/L (5-15); Basophils % 0.2 % (0.1-2.0); Blood Urea Nitrogen 80 mg/dl (7-17); Lipase 60 U/L (23-300); Lymphocytes # 2.3 K/mm3 (0.7-4.5); Lymphocytes % 24.4 % (10-50); Monocytes # 0.8 K/mm3 (0.1-1.0); Monocytes % 8.4 % (1.7-9.3); Neutrophils # 6.2 K/mm3 (1.8-7.8); Neutrophils % 66.8 % (37.0-80.0)
--- NOTE | 2024-01-24 22:25 | PC.NURSE ---
Critical result: Troponin of 0.52 Notified Zheng Moreland at [id number]
--- NOTE | 2024-01-24 22:25 | PC.NURSE ---
notified MD Moreland of critical BUN
--- NOTE | 2024-01-24 22:32 | CT_ITS ---
PROCEDURE INFORMATION: Exam: CT Abdomen And Pelvis Without Contrast Exam date and time: 01/25/2024 12:21 AM Age: 63 years old Clinical indication: Vomiting; Abdominal pain; Additional info: Abd pain vomiting TECHNIQUE: Imaging protocol: Computed tomography of the abdomen and pelvis without contrast. Radiation optimization: All CT scans at this facility use at least one of these dose optimization techniques: automated exposure control; mA and/or kV adjustment per patient size (includes targeted exams where dose is matched to clinical indication); or iterative reconstruction. COMPARISON: CT ANGIO ABDOMEN PELVIS 03/12/2023 8:11 PM FINDINGS: Liver: Normal. No mass. Gallbladder and biliary ducts: Normal. No calcified stones. No ductal dilation. Pancreas: Normal. No ductal dilation. Spleen: Normal. No splenomegaly. Adrenal glands: Normal. No mass. Kidneys and ureters: Normal. No hydronephrosis. Stomach and bowel: Unremarkable. No obstruction. No mucosal thickening. Appendix: No evidence of appendicitis. Intraperitoneal space: Unremarkable. No free air. No significant fluid collection. Vasculature: There is extensive calcification of the aorta and branch vessels. There is no aneurysm. Lymph nodes: Unremarkable. No enlarged lymph nodes. Urinary bladder: Unremarkable as visualized. Reproductive: Uterus and ovaries are normal. There are bilateral tubal ligation clips. Bones/joints: Disc space narrowing and sclerotic endplate changes at L3-L4. There is mild lumbar scoliosis. Soft tissues: Multiple phleboliths in the pelvic floor. IMPRESSION: No acute intra-abdominal abnormality.
--- NOTE | 2024-01-24 22:39 | PC.NURSE ---
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
[2024-01-24 22:40] LABS: Lactate Venous 2.4 mmol/L (0.4-2.0); VBG Base Excess -2.4 mmol/L (-2.4-2.3); VBG HCO3 23.5 mmol/L (23-30); VBG Oxygen Saturation 43.6 % (50-70); VBG PCO2 44.9 mmol/L (35-51); VBG PH 7.34 mmol/L (7.31-7.41); VBG PO2 26.5 mmol/L (28-40); VBG Total CO2 24.8 mmol/L (23-27)
[2024-01-24] MEDS: LACTATED RINGERS 1000ML 1,710 ML 855 ML IV (23:00)
[2024-01-24 23:02] LABS: HIV Combo NEGATIVE (Negative)
[2024-01-24 23:09] LABS: Albumin/Globulin Ratio 1.4 (1.1-1.8); Globulin 2.6 g/dL (1.3-3.2)
[2024-01-25] VITALS (8 sets, daily range): BP systolic 112–139; BP diastolic 65–98; PULSE 68–118; RESP 14–18; TEMP 36.6–36.9; O2SAT 93–99; BMI 27.5
[2024-01-25 00:23] LABS: Troponin I 0.44 ng/ml (0.00-0.034)
--- NOTE | 2024-01-25 00:32 | ECG_ITS ---
APPROVED REPORT Exam: Resting ECG HR:120 bpm ECG Measurements Heart Rate [address] 160 P 59 QRSd 85 QRS 63 QT 315 T -65 QTc 386 Conclusion SINUS TACHYCARDIA WITH OCCASIONAL SUPRAVENTRICULAR PREMATURE COMPLEXES ST DEVIATION AND MODERATE T-WAVE ABNORMALITY, CONSIDER INFERIOR ISCHEMIA [-0.1+ mV T-WAVE IN II/aVF] ABNORMAL ECG UNCONFIRMED REPORT Electronically signed by : JASPAL SHANKAR, 01/26/2024 06:54:00
--- NOTE | 2024-01-25 01:23 | PC.NURSE ---
Patient arrived to floor via wheelchair from ED at 01:21.
--- NOTE | 2024-01-25 01:29 | EXP.HP ---
History of Present Illness *Admission Date: 01/25/24 *Reason for visit:: Nausea, vomiting, bloody diarrhea, chest/abdominal pain *History of present illness: 63-year-old with past medical history of COPD, hypertension, smoker, renal insufficiency, GERD. Patient presents with 4 days nausea, vomiting, diarrhea, abdominal discomfort. Patient also complains of occasional chest discomfort. Patient's most recent chest discomfort episode occurred during emergency room evaluation per patient report. Describes abdominal discomfort as 10/10, focused in RUQ/epigastric region, pressure-like, lasting 3 to 4 minutes, nonradiating, without exacerbating remitting factors. Patient also admits to chest discomfort 4/10, pressure-like, lasting minutes. Patient denies history of CHF, heart attacks, strokes. However, patient does take Coreg for hypertension. Endorses fevers, chills issues at home for the last 3 to 4 days. Patient tachycardic with heart rate in 130s in emergency room. Patient experienced hematochezia x 1 prior to hospital presentation. BUN 18, CR 1.4. Troponin0.52->0.44m LA 2.4->2.0, BNP 345. CT abdomen/pelvis done with results pending at time of my admission. [facility] Disclaimer: The information contained in this section may have been updated after the patient was seen, as this information can be updated by other users. Medical History (Updated 01/25/24 @ 03:00 by Marino Turpin MD) Pain with bowel movements Right lower quadrant abdominal pain Constipation ASCUS with positive high risk HPV cervical Postmenopausal atrophic vaginitis History of cancer Migraine COPD (chronic obstructive pulmonary disease) Osteoarthritis History of back pain Hypertension Skin cancer Surgical History History of tonsillectomy Hx of tubal ligation Family History Mother Alcoholism Cancer Father Cancer Diabetes Grandfather Cancer Grandmother Cancer Family/Other Cancer Sister Diabetes Brother Diabetes Other Family history of cancer Social History (Updated 01/25/24 @ 01:58 by Brenda Cheng RN) Smoking Status: Current every day smoker tobacco type: cigarettes packs per day: 1 quit status: considering quitting second hand exposure: No alcohol intake: never substance use type: former substance user current occupational status: retired and disabled Travel in the last 8 weeks: None housing: apartment current occupational exposures/hazards: No caffeine: Yes Have you lived/traveled outside [place] in past 30 days?: No Contact w/someone who lives/traveled outside US past 30 days?: No Exposure to someone with infectious disease in past 14 days?: No Do you have a fever (greater than 100.4 F or 38 C)?: No Have you tested positive for COVID-19: No Exposed to someone with COVID-19 in past 14 days?: No Do you have a sore throat?: No Do you have a cough?: No Do you have any weakness?: No Do you have any diarrhea?: No Are you experiencing any unusual bleeding?: No Do you have any muscle aches/pain?: No Do you have any abdominal pain?: No Are you experiencing loss of taste or smell?: No Other Medical History Have you received the Flu Vaccine for this season: Yes Have you received the Pneumonia Vaccine: Yes Meds Home Medications and Allergies Home Medications ?Medication ?Instructions ?Recorded ?Confirmed ?Type carvedilol 3.125 mg tablet 3.125 mg PO DAILY BLOOD PRESSURE 06/30/22 01/09/24 History ipratropium 0.5 mg-albuterol 3 mg 3 ml inhalation QID PRN shortness 10/14/22 01/09/24 Rx (2.5 mg base)/3 mL nebulization of breath or wheezing #180 mL soln atorvastatin 40 mg tablet (Lipitor) 40 mg PO DAILY #30 tabs 11/25/22 01/09/24 Rx tizanidine 4 mg tablet 4 mg PO BID MUSCLES #60 tabs 12/21/22 01/09/24 Rx omeprazole magnesium 20 mg 20 mg PO DAILY 4 weeks #28 caps 03/12/23 01/09/24 Rx capsule,delayed release docusate sodium 100 mg capsule 400 mg (4 x 100 mg) PO DAILY #4 06/16/23 01/09/24 Rx (Colace) caps naloxegol 25 mg tablet (Movantik) 25 mg PO DAILY #30 tabs 08/25/23 01/09/24 Rx amlodipine 5 mg tablet 5 mg PO DAILY 10/25/23 01/09/24 History aspirin 81 mg tablet,delayed 81 mg PO DAILY 10/25/23 01/09/24 History release cholecalciferol (vitamin D3) 25 25 mcg PO DAILY 10/25/23 01/09/24 History mcg (1,000 unit) capsule ipratropium 20 mcg-albuterol 100 20 - 100 spray inhalation DAILY 10/25/23 01/09/24 History mcg/actuation mist for inhalation (Combivent Respimat) lisinopril 20 20 - 25 tab PO DAILY 10/25/23 01/09/24 History mg-hydrochlorothiazide 25 mg tablet sodium,potassium,mag sulfates 17.5 See Rx Instructions PO .COMPLEX 01/02/24 01/09/24 Rx gram-3.13 gram-1.6 gram oral soln #354 mL (Suprep Bowel Prep Kit) clonazepam 1 mg tablet (Klonopin) 1 mg PO BID . 01/03/24 01/09/24 History gabapentin 800 mg tablet 800 mg PO QID 01/09/24 01/09/24 History linaclotide 290 mcg capsule 290 mcg PO DAILY #30 caps 01/09/24 Rx (Linzess) New Prescriptions to Start Prescriptions: Allergies Allergy/AdvReac Type Severity Reaction Status Date / Time No Known Allergies Allergy Verified 01/09/24 13:09 Exam Data for Last 24 hours Vital signs and Labs for Last 24 Hours: Temp Pulse Resp BP Pulse Ox O2 Del Method 98.3 F 114 H 16 139/98 H 99 Room Air 01/25/24 01:06 01/25/24 01:06 01/25/24 01:06 01/25/24 01:06 01/25/24 00:31 01/25/24 01:06 Laboratory Results - last 24 hr 01/24/24 21:04: WBC 9.4, RBC 3.92 L, Hgb 11.9 L, Hct 35.0 L, MCV 89.3, MCH 30.4, MCHC 34.0, RDW 12.7, Plt Count 254, MPV 11.0 H, Neut % (Auto) 66.8, Lymph % (Auto) 24.4, [place] % (Auto) 8.4, Eos % (Auto) 0.0 L, Baso % (Auto) 0.2, Neut # (Auto) 6.2, Lymph # (Auto) 2.3, [place] # (Auto) 0.8, Eos # (Auto) 0.0, Baso # (Auto) 0.0, APTT 24.9, Sodium 132 L, Potassium 4.2, Chloride 103, Carbon Dioxide 25, Anion Gap 8.2, BUN 80 H, Creatinine 1.40 H, Estimated Creat Clear 47, Estimated GFR 38 L, Est GFR ( Amer) 46 L, Glucose 137 H, Calcium 8.8, Total Bilirubin 0.3, AST 29, ALT 20, Alkaline Phosphatase 57, Troponin I 0.52 H, NT-Pro-B Natriuret Pep 341 H, Total Protein 6.2 L, Albumin 3.6, Globulin 2.6, Albumin/Globulin Ratio 1.4, Lipase 60, HIV Ag/Ab Combo Qual Negative 01/24/24 21:12: VBG pH 7.36, VBG pCO2 36.7, VBG pO2 29.2, VBG HCO3 20.2 L, VBG Total CO2 21.3 L, VBG O2 Saturation 49.3 L, VBG Base Excess -5.2 L, VBG Lactic Acid 1.8 01/24/24 22:12: VBG pH 7.34, VBG pCO2 44.9, VBG pO2 26.5 L, VBG HCO3 23.5, VBG Total CO2 24.8, VBG O2 Saturation 43.6 L, VBG Base Excess -2.4, VBG Lactic Acid 2.4 H 01/24/24 23:19: Lactate 2.0 01/24/24 23:46: Troponin I 0.44 H I & O for Last 24 hours: Intake & Output 01/22/24 01/23/24 01/24/24 01/25/24 23:59 23:59 23:59 23:59 Weight 74.843 kg Constitutional Constitutional: moderate distress, chronically ill appearing and disheveled *Routine HEENT Exam Head: Present normocephalic Eye: Present normal accommodation ENT: Present mucous membranes dry *Routine Neck Exam Neck: Present supple and full ROM *Routine Respiratory Exam Respiratory: Present decreased breath sounds and distant breath sounds *Routine Cardiovascular Exam Cardiovascular: Present RRR, Normal S1 and Normal S2 *Routine Abdominal Exam Abdominal: Present soft, normoactive bowel sounds, tenderness (Right upper quadrant/epigastric tenderness to palpation.), distended and guarding *Routine Rectal Exam Rectal:: deferred *Routine Genitalia Exam Genitalia:: deferred *Routine Extremities Exam Extremities: Present full ROM and pulses intact *Routine Skin Exam Skin: Present intact and erythema *Routine Neurological Exam Neurological: Present alert, oriented X3, CN II-XII intact, normal reflexes, vision grossly intact and hearing grossly intact Assessment and Plan *Assessment and plan (1) Elevated troponin: Status: Acute Category: Medical Code(s): R79.89 - Other specified abnormal findings of blood chemistry (2) Systemic inflammatory response syndrome: Status: Acute Category: Medical Code(s): R65.10 - Systemic inflammatory response syndrome (SIRS) of non-infectious origin without acute organ dysfunction (3) Dehydration: Status: Acute Category: Medical Code(s): E86.0 - Dehydration (4) Gastroenteritis: Status: Acute Category: Medical Code(s): K52.9 - Noninfective gastroenteritis and colitis, unspecified (5) Uremia: Status: Acute Category: Medical Code(s): N19 - Unspecified kidney failure (6) Nausea vomiting and diarrhea: Status: Acute Category: Medical Code(s): R11.2 - Nausea with vomiting, unspecified; R19.7 - Diarrhea, unspecified (7) YULI (acute kidney injury): Status: Acute Category: Medical Code(s): N17.9 - Acute kidney failure, unspecified Plan 63-year-old with past medical history of COPD, hypertension, smoker, renal insufficiency, GERD. Patient presents with 4 days nausea, vomiting, diarrhea, abdominal/chest discomfort. Patient tachycardic with heart rate in 130s in emergency room. Patient admitted for systematic inflammatory response syndrome with lactic acidosis likely dehydration related secondary to gastroenteritis. Patient experienced hematochezia x 1 prior to hospital presentation. Problems as listed below: Imaging/labs reviewed at time of admission: ? CT abdomen/pelvis done with results pending at time of my admission. ?WBC 9.4, Hgb 11.9, platelets 254, NA 132, K4.2, CL 103, serum bicarb 25, BUN 18, CR 1.4. Troponin0.52->0.44m LA 2.4->2.0, BNP 345, albumin 3.6, lipase 60. I will repeat troponins, CBC, mag, BMP in AM. ?VBG pH 7.34, VBG pCO2 44.9, VBG pO2 26.5 L, VBG HCO3 23.5, VBG Total CO2 24.8, VBG O2 Saturation 43.6 L, VBG Base Excess -2.4, VBG Lactic Acid 2.4 H Non-STEMI ?Serial troponins including those mentioned above, echocardiogram, consult cardiology, telemetry monitoring. Aspirin 324 p.o. x 1 given overnight. Aspirin 81 mg p.o. daily written for 01/25. heparin gtt started overnight. If patient experiences worsening hematochezia, low threshold to stop heparin GTT. Systematic inflammatory response syndrome with lactic acidosis likely dehydration related secondary to gastroenteritis: ?Given nausea, vomiting, diarrhea patient most likely suffering from lactic acidosis from dehydration secondary to gastroenteritis. Empirically start IV Levaquin 750 p.o. daily. Plus as below and YULI section. I ordered stool culture. Will follow diarrhea PCR panel, stool cultures, blood culture results closely during hospitalization. ?Given patient's right upper quadrant tenderness to palpation during my exam, will order right upper quadrant ultrasound looking for signs of cholecystitis. YULI secondary to dehydration: ? Patient denies history of previous renal disease. ?Start 125 cc/hr normal saline x 1day, will adjust MIVF based on daily BUN/creatinine levels. Patient received 2.7 L fluid bolus(LR) in emergency room prior to hospital admission. Hematochezia 01/23: ? Patient states she suffered from reddish bloody bowel movement prior to hospital presentation. No bowel movements since patient has been admitted. Will follow-up H&H daily. Will also consult GI for hematochezia workup during hospitalization. COPD DuoNebs 3 mL inhaled Q6 as needed SOB Smoker: Nicotine patch 21 mg transdermal daily as needed nicotine cravings Hypertension lisinopril?hydrochlorothiazide 20?25 p.o. daily, carvedilol 3.125 p.o. twice daily, amlodipine 5 mg p.o. daily ,hydralazine 10 mg IV every 6 as needed SBP over 160 GERD: Omeprazole 20 mg p.o. daily Hyperlipidemia 40 mg p.o. daily PPx heparin GTT given patient's complaints of hematochezia MDM: [place]: Moderate. Patient suffering from acute gastroenteritis and dehydration with systemic symptoms of weakness, nausea, vomiting, diarrhea. Data: Moderate. I spoke with the emergency room physician and agree patient requires admission for dehydration secondary to acute gastroenteritis this management. Risk: Moderate. Prescription drug management as noted above including maintenance IV fluids.
--- NOTE | 2024-01-25 01:49 | CA_ITS ---
APPROVED REPORT EXAM: Comprehensive 2D, Doppler, and color-flow Echocardiogram Product Info Specialist: Kalpana Weiss CRT Ht: 5 ft 5 in Wt: 165lbs BSA: 1.82 BP: 139/98 mmHg Indications: covid +, NSTEMI, CP, COPD, ABN EKG, smoker, PVD Limited images difficult exam, Pt very tender to touch 2D Dimensions LA Volume 32.20 mL LA Volume Index 17.69 mL/m2 (M/F) 16-34 M-Mode Dimensions RVDd 1.75 cm (0.9-2.6) LA Diam 2.58 cm (1.9-4.0) LVDd 4.39 cm (3.5-5.7) LVDs 3.04 cm (3.5-5.7) IVSd 1.68 cm (0.6-1.1) PWd 0.89 cm (0.6-1.1) EF (Teich) 58.50% FS 30.80% EDV (Teich) 87.20 mL ESV (Teich) 36.20 mL LV Diastology E Decel Time 150 (160-240 msec) E/A Ratio 0.6 MED A' 9.60 cm/s LAT A' 11.60 cm/s Aortic Valve AO Peak GR. 8.40 mmHg Mitral Valve MV E Max John. 86.0 (40-130 cm/s) MV A Velocity 153.0 (40-130 cm/s) E/A Ratio 0.56 MV PHT 44.0 ms Tricuspid Valve TR P. Velocity 137.00 cm/s RAP Estimate 10.00 mmHg RVSP 17.50 mmHg Left Ventricle The left ventricle is normal size. The left ventricular systolic function is hyperdynamic. There is increased LV wall thickness. There is normal LV segmental wall motion. Transmitral Doppler flow pattern suggests impaired LV relaxation. LVEF is 70%. Right Ventricle The right ventricle is normal size. The right ventricular systolic function is normal. Atria The left atrium size is normal. The right atrium size is normal. There is no Doppler evidence of interatrial shunt. Aortic Valve The aortic valve is mildly thickened. There is no aortic valvular stenosis. No aortic regurgitation is present. Mitral Valve The mitral valve is normal in structure. No evidence of mitral valve stenosis. Trace mitral regurgitation. Tricuspid Valve Tricuspid valve is grossly normal in structure and function. Trace tricuspid regurgitation. There is insufficient TR jet to estimate RVSP. Pulmonic Valve The pulmonary valve is normal in structure. Trace pulmonic regurgitation. Great Vessels The aortic root is normal in size. The ascending aorta is not well-visualized. IVC is normal in size and collapses >50% with inspiration. Pericardium There is no pericardial effusion. Other Information Study Quality: Technically Difficult Conclusion Technically difficult study due to poor acoustic windows. Hyperdynamic LV systolic function (LVEF 70%). Normal RV size and function. No significant valvular stenosis or regurgitation. Electronically signed by : Sandy Finley MD 01/25/2024 10:30:49
[2024-01-25] MEDS: 0.9 % SODIUM CHLORIDE 1000ML 1,000 ML 125 ML IV ×2 (02:16→11:50)
[2024-01-25 02:40] LABS: Reflex Lactic Add Lactic Reflex
[2024-01-25 03:02] LABS: Adenovirus,PCR Not Detected (NotDetected); Bordetella Pertussis Not Detected (NotDetected); Chlamydophila Pneumoniae, PCR Not Detected (NotDetected); Coronavirus 229E Not Detected (NotDetected); Coronavirus NL63 Not Detected (NotDetected); Coronavirus OC43 Not Detected (NotDetected); Coronovirus HKU1,PCR Not Detected (NotDetected); Human Metapneumovirus Not Detected (NotDetected); Influenza A, PCR Not Detected (NotDetected); Influenza AH1, 2009 Not Detected (NotDetected); Influenza AH1, PCR Not Detected (NotDetected); Influenza AH3,PCR Not Detected (NotDetected); Influenza B, PCR Not Detected (NotDetected); Mycoplasma Pneumoniae, PCR Not Detected (NotDetected); Parainfluenza 1, PCR Not Detected (NotDetected); Parainfluenza 2, PCR Not Detected (NotDetected); Parainfluenza 3, PCR Not Detected (NotDetected); Parainfluenza 4, PCR Not Detected (NotDetected); Respiratory Syncytial Virus Not Detected (NotDetected); Rhinovirus/Enterovirus Not Detected (NotDetected)
[2024-01-25] MEDS: MELATONIN 5MG TABLET 5 MG PO (03:06)
[2024-01-25 03:33] LABS: Lactic Acid Follow Up (RFLX 1) 3.1 mmol/L (0.7-2.1); PTT Heparin (inpatient only) 26.2 Seconds (50-75)
[2024-01-25 03:42] LABS: Troponin I 0.36 ng/ml (0.00-0.034)
[2024-01-25] MEDS: HEPARIN DRIP CONSULT 1 EACH NOTAPPLIC (04:00)
[2024-01-25] MEDS: HEPARIN SODIUM 5,000 UNIT/ML VIAL 4000 UNIT IV (04:36)
[2024-01-25] MEDS: HEPARIN SODIUM,PORCINE/D5W 500 ML 18 UNIT IV (04:37)
[2024-01-25 05:17] LABS: Reflex Lactic (2 hrs) Add Lactic Reflex
[2024-01-25 05:25] LABS: Coronavirus 19, PCR Detected (NotDetected)
[2024-01-25 06:26] LABS: Lactic Acid Follow up (RFLX 2) 1.6 mmol/L (0.7-2.1)
[2024-01-25 06:28] LABS: Hematocrit 30.5 % (37.0-47.0); Mean Corpuscular HGB Conc 34.4 g/dL (31.8-35.4); Mean Corpuscular Hemoglobin 30.5 pg (27.0-31.2); Mean Corpuscular Volume 88.7 fl (81-99); Red Blood Count 3.44 M/mm3 (4.20-5.40); White Blood Count 8.2 K/mm3 (4.8-10.8)
[2024-01-25 06:29] LABS: Basophils % 0.1 % (0.1-2.0); Lymphocytes % 13.7 % (10-50); Mean Platelet Volume 11.1 fl (7.4-10.4); Monocytes % 2.6 % (1.7-9.3); Neutrophils % 83.4 % (37.0-80.0); Platelet Count 218 K/mm3 (142-424); Red Cell Distribution Width 12.8 % (11.5-17.5)
[2024-01-25 06:30] LABS: Lymphocytes # 1.1 K/mm3 (0.7-4.5); Monocytes # 0.2 K/mm3 (0.1-1.0); Neutrophils # 6.8 K/mm3 (1.8-7.8)
[2024-01-25 06:32] LABS: Hemoglobin 10.4 g/dL (12.2-16.2)
[2024-01-25] MEDS: LEVOFLOXACIN/D5W 750 MG/150 ML 750 MG/150 ML PIGGYBACK 100 MG IV (06:35)
--- NOTE | 2024-01-25 08:03 | P.CONPHA_ITS ---
[facility] Pharmacy Heparin Dosing Demographic Data Admission date:: 01/25/24 Date: 01/25/24 Time: 08:03 Allergies Allergy/AdvReac Type Severity Reaction Status Date / Time No Known Allergies Allergy Verified 01/09/24 13:09 Height: 1.65 m Weight: 74.843 kg Indication Medication therapy:: Heparin Current Indications:: ACS - LOW DOSE PROTOCOL Current Active Problems (Updated 01/25/24 @ 08:45 by Brock Kumar II, MD) Acute diarrhea (Acute) Bilateral lower abdominal cramping (Acute) GI bleed (Acute) Acute anemia (Acute) Bright red blood per rectum (Acute) Hematochezia (Acute) Dehydration (Acute) Systemic inflammatory response syndrome (Acute) Gastroenteritis (Acute) Uremia (Acute) Nausea vomiting and diarrhea (Acute) Elevated troponin (Acute) YULI (acute kidney injury) (Acute) CVA?: No Bleeding problem?: No Kidney disease?: No NC?: Yes Desired PTT range:: 50-75 seconds Comments:: BASELINE PTT: 26.2 SECONDS Labs Anticoagulation Lab Results:: 01/24/24 01/25/24 21:04 05:54 Hgb 11.9 L 10.4 L D Hct 35.0 L 30.5 L Plt Count 254 218 Monitoring Dose Monitor 1: Date: 01/25/24 Time: 03:00 PTT Result:: 26.2 SECONDS (BASELINE PTT) Infusion Rate:: EFREN RECOMMENDED INITIATING HEPARIN DRIP AT 900 UNITS/HOUR = 18 ML/HOUR AND BOLUSING 4000 UNITS HEPARIN IV ONCE. Comment:: PLATELET COUNT = 218,000 Dose Monitor 2: Date: 01/25/24 Time: 09:30 PTT Result:: STOPPED PER MD ORDER Infusion Rate:: STOPPED PER MD ORDER Comment:: STOPPED PER MD ORDER Core Measures Is INR > or = 2 at discharge?: No Most Recent Labs:: Laboratory Results - last 24 hr 01/24/24 02:45: Chlamy pneumoniae PCR Not detected, Adenovirus (PCR) Not detected, B. pertussis DNA (PCR) Not detected, Coronavirus OC43 (PCR) Not detected, Coronavirus HKU1 (PCR) Not detected, Coronavirus 229E (PCR) Not detected, SARS-CoV-2 (PCR) Detected A, Coronavirus NL63 (PCR) Not detected, Human Metapneumovir PCR Not detected, Influenza A (H1) PCR Not detected, Influ A (H1N1/09) PCR Not detected, Influenza A (H3) PCR Not detected, Influenza Type A (PCR) Not detected, Influenza Type B (PCR) Not detected, M. pneumoniae (PCR) Not detected, Parainfluenza 1 (PCR) Not detected, Parainfluenza 2 (PCR) Not detected, Parainfluenza 3 (PCR) Not detected, Parainfluenza 4 (PCR) Not detected, RSV (PCR) Not detected, Entero/Rhino (PCR) Not detected 01/24/24 21:04: WBC 9.4, RBC 3.92 L, Hgb 11.9 L, Hct 35.0 L, MCV 89.3, MCH 30.4, MCHC 34.0, RDW 12.7, Plt Count 254, MPV 11.0 H, Neut % (Auto) 66.8, Lymph % (Auto) 24.4, [place] % (Auto) 8.4, Eos % (Auto) 0.0 L, Baso % (Auto) 0.2, Neut # (Auto) 6.2, Lymph # (Auto) 2.3, [place] # (Auto) 0.8, Eos # (Auto) 0.0, Baso # (Auto) 0.0, APTT 24.9, Sodium 132 L, Potassium 4.2, Chloride 103, Carbon Dioxide 25, Anion Gap 8.2, BUN 80 H, Creatinine 1.40 H, Estimated Creat Clear 47, Estimated GFR 38 L, Est GFR ( Amer) 46 L, Glucose 137 H, Calcium 8.8, Total Bilirubin 0.3, AST 29, ALT 20, Alkaline Phosphatase 57, Troponin I 0.52 H, NT-Pro-B Natriuret Pep 341 H, Total Protein 6.2 L, Albumin 3.6, Globulin 2.6, Albumin/Globulin Ratio 1.4, Lipase 60, HIV Ag/Ab Combo Qual Negative 01/24/24 21:12: VBG pH 7.36, VBG pCO2 36.7, VBG pO2 29.2, VBG HCO3 20.2 L, VBG Total CO2 21.3 L, VBG O2 Saturation 49.3 L, VBG Base Excess -5.2 L, VBG Lactic Acid 1.8 01/24/24 22:12: VBG pH 7.34, VBG pCO2 44.9, VBG pO2 26.5 L, VBG HCO3 23.5, VBG Total CO2 24.8, VBG O2 Saturation 43.6 L, VBG Base Excess -2.4, VBG Lactic Acid 2.4 H 01/24/24 23:19: Lactate 2.0 01/24/24 23:46: Troponin I 0.44 H 01/25/24 03:00: APTT 26.2 L, Lactate 3.1 H, Troponin I 0.36 H 01/25/24 05:54: WBC 8.2, RBC 3.44 L, Hgb 10.4 L D, Hct 30.5 L, MCV 88.7, MCH 30.5, MCHC 34.4, RDW 12.8, Plt Count 218, MPV 11.1 H, Neut % (Auto) 83.4 H, Lymph % (Auto) 13.7, [place] % (Auto) 2.6, Eos % (Auto) 0.0 L, Baso % (Auto) 0.1, Neut # (Auto) 6.8, Lymph # (Auto) 1.1, [place] # (Auto) 0.2, Eos # (Auto) 0.0, Baso # (Auto) 0.0, Lactate 1.6, Troponin I 0.40 H If INR was < than 2.0 why was therapy stopped?: STOPPED PER MD ORDER Were Heparin and Warfarin started on the same day?: No If not, why?: STOPPED PER MD ORDER Comments:: STOPPED PER MD ORDER
[2024-01-25 08:18] LABS: Chloride 104 mmol/L (98-107); Potassium 4.3 mmoL/L (3.5-5.1); Sodium 131 mmol/L (136-145)
[2024-01-25 08:21] LABS: Anion Gap 8.3 mEq/L (5-15); Blood Urea Nitrogen 58 mg/dl (7-17); Carbon Dioxide 23 mmol/L (22.0-30.0); Creatinine Clearance Estimated 66 mL/min (50-200); Estimated Glomerular Filt Rate 56 ml/min (>60); GFR (African American) 67 ML/MIN (>60)
[2024-01-25 08:22] LABS: Calcium 8.6 mg/dl (8.4-10.2); Glucose 148 mg/dl (74-100); Magnesium 1.4 mg/dl (1.6-2.3)
--- NOTE | 2024-01-25 08:39 | P.CONS_ITS ---
History of Present Illness *Admission Date: 01/25/24 *History of present illness: Mrs. Pineda is a 63-year-old female who is admitted for nausea, vomiting, diarrhea and hematochezia. The patient does report 4 days of being ill with nausea and dry heaves. Yesterday she developed hematochezia with bright red blood per rectum for 5 times at home. She came to the emergency department yesterday. Initial hemoglobin hematocrit were 11.9 and 35.0. After hydration, her hemoglobin and hematocrit are 10.4 and 30.5. She was having crampy abdominal discomfort at home but no gassiness or bloating. Imaging with CAT scan yesterday did not show any acute process or intra-abdominal abnormalities. Her white blood cell count was normal at 8.2. She also had normal ALT 20, bilirubin 0.3 and lipase 60. The patient did have an attempted colonoscopy aborted because of poor bowel preparation just over 2 weeks ago (January 09, 2024) and only the left colon was visualized poorly and there was left-sided diverticulosis. The patient is much clinically improved this morning with no abdominal pain or further bouts of bleeding since admission. The patient typically has chronic constipation. Her maternal aunt and paternal grandmother had colon cancer. She has never had a full colonoscopy. [facility] Disclaimer: The information contained in this section may have been updated after the patient was seen, as this information can be updated by other users. Medical History (Updated 01/25/24 @ 08:45 by Brock Kumar II, MD) Pain with bowel movements Right lower quadrant abdominal pain Constipation ASCUS with positive high risk HPV cervical Postmenopausal atrophic vaginitis History of cancer Migraine COPD (chronic obstructive pulmonary disease) Osteoarthritis History of back pain Hypertension Skin cancer Surgical History History of tonsillectomy Hx of tubal ligation Family History Mother Alcoholism Cancer Father Cancer Diabetes Grandfather Cancer Grandmother Cancer Family/Other Cancer Sister Diabetes Brother Diabetes Other Family history of cancer Social History (Updated 01/25/24 @ 01:58 by Brenda Cheng RN) Smoking Status: Current every day smoker tobacco type: cigarettes packs per day: 1 quit status: considering quitting second hand exposure: No alcohol intake: never substance use type: former substance user current occupational status: retired and disabled Travel in the last 8 weeks: None housing: apartment current occupational exposures/hazards: No caffeine: Yes Have you lived/traveled outside US in past 30 days?: No Contact w/someone who lives/traveled outside US past 30 days?: No Exposure to someone with infectious disease in past 14 days?: No Do you have a fever (greater than 100.4 F or 38 C)?: No Have you tested positive for COVID-19: No Exposed to someone with COVID-19 in past 14 days?: No Do you have a sore throat?: No Do you have a cough?: No Do you have any weakness?: No Do you have any diarrhea?: No Are you experiencing any unusual bleeding?: No Do you have any muscle aches/pain?: No Do you have any abdominal pain?: No Are you experiencing loss of taste or smell?: No Meds Home Medications and Allergies Home Medications ?Medication ?Instructions ?Recorded ?Confirmed ?Type carvedilol 3.125 mg tablet 3.125 mg PO DAILY BLOOD PRESSURE 06/30/22 01/09/24 History ipratropium 0.5 mg-albuterol 3 mg 3 ml inhalation QID PRN shortness 10/14/22 01/09/24 Rx (2.5 mg base)/3 mL nebulization of breath or wheezing #180 mL soln atorvastatin 40 mg tablet (Lipitor) 40 mg PO DAILY #30 tabs 11/25/22 01/09/24 Rx tizanidine 4 mg tablet 4 mg PO BID MUSCLES #60 tabs 12/21/22 01/09/24 Rx omeprazole magnesium 20 mg 20 mg PO DAILY 4 weeks #28 caps 03/12/23 01/09/24 Rx capsule,delayed release docusate sodium 100 mg capsule 400 mg (4 x 100 mg) PO DAILY #4 06/16/23 01/09/24 Rx (Colace) caps naloxegol 25 mg tablet (Movantik) 25 mg PO DAILY #30 tabs 08/25/23 01/09/24 Rx amlodipine 5 mg tablet 5 mg PO DAILY 10/25/23 01/09/24 History aspirin 81 mg tablet,delayed 81 mg PO DAILY 10/25/23 01/09/24 History release cholecalciferol (vitamin D3) 25 25 mcg PO DAILY 10/25/23 01/09/24 History mcg (1,000 unit) capsule ipratropium 20 mcg-albuterol 100 20 - 100 spray inhalation DAILY 10/25/23 01/09/24 History mcg/actuation mist for inhalation (Combivent Respimat) lisinopril 20 20 - 25 tab PO DAILY 10/25/23 01/09/24 History mg-hydrochlorothiazide 25 mg tablet sodium,potassium,mag sulfates 17.5 See Rx Instructions PO .COMPLEX 01/02/24 01/09/24 Rx gram-3.13 gram-1.6 gram oral soln #354 mL (Suprep Bowel Prep Kit) clonazepam 1 mg tablet (Klonopin) 1 mg PO BID . 01/03/24 01/09/24 History gabapentin 800 mg tablet 800 mg PO QID 01/09/24 01/09/24 History linaclotide 290 mcg capsule 290 mcg PO DAILY #30 caps 01/09/24 Rx (Linzess) New Prescriptions to Start Prescriptions: Allergies Allergy/AdvReac Type Severity Reaction Status Date / Time No Known Allergies Allergy Verified 01/09/24 13:09 Exam (Inpt) Vital signs and Labs for Last 24 Hours: Temp Pulse Resp BP Pulse Ox O2 Del Method 97.9 F 100 H 17 132/69 96 Room Air 01/25/24 04:00 01/25/24 05:00 01/25/24 04:00 01/25/24 04:00 01/25/24 04:00 01/25/24 04:00 Laboratory Results - last 24 hr 01/24/24 02:45: Chlamy pneumoniae PCR Not detected, Adenovirus (PCR) Not detected, B. pertussis DNA (PCR) Not detected, Coronavirus OC43 (PCR) Not detected, Coronavirus HKU1 (PCR) Not detected, Coronavirus 229E (PCR) Not detected, SARS-CoV-2 (PCR) Detected A, Coronavirus NL63 (PCR) Not detected, Human Metapneumovir PCR Not detected, Influenza A (H1) PCR Not detected, Influ A (H1N1/09) PCR Not detected, Influenza A (H3) PCR Not detected, Influenza Type A (PCR) Not detected, Influenza Type B (PCR) Not detected, M. pneumoniae (PCR) Not detected, Parainfluenza 1 (PCR) Not detected, Parainfluenza 2 (PCR) Not detected, Parainfluenza 3 (PCR) Not detected, Parainfluenza 4 (PCR) Not detected, RSV (PCR) Not detected, Entero/Rhino (PCR) Not detected 01/24/24 21:04: WBC 9.4, RBC 3.92 L, Hgb 11.9 L, Hct 35.0 L, MCV 89.3, MCH 30.4, MCHC 34.0, RDW 12.7, Plt Count 254, MPV 11.0 H, Neut % (Auto) 66.8, Lymph % (Auto) 24.4, [place] % (Auto) 8.4, Eos % (Auto) 0.0 L, Baso % (Auto) 0.2, Neut # (Auto) 6.2, Lymph # (Auto) 2.3, [place] # (Auto) 0.8, Eos # (Auto) 0.0, Baso # (Auto) 0.0, APTT 24.9, Sodium 132 L, Potassium 4.2, Chloride 103, Carbon Dioxide 25, Anion Gap 8.2, BUN 80 H, Creatinine 1.40 H, Estimated Creat Clear 47, E stimated GFR 38 L, Est GFR ( Amer) 46 L, Glucose 137 H, Calcium 8.8, Total Bilirubin 0.3, AST 29, ALT 20, Alkaline Phosphatase 57, Troponin I 0.52 H, NT-Pro-B Natriuret Pep 341 H, Total Protein 6.2 L, Albumin 3.6, Globulin 2.6, Albumin/Globulin Ratio 1.4, Lipase 60, HIV Ag/Ab Combo Qual Negative 01/24/24 21:12: VBG pH 7.36, VBG pCO2 36.7, VBG pO2 29.2, VBG HCO3 20.2 L, VBG Total CO2 21.3 L, VBG O2 Saturation 49.3 L, VBG Base Excess -5.2 L, VBG Lactic Acid 1.8 01/24/24 22:12: VBG pH 7.34, VBG pCO2 44.9, VBG pO2 26.5 L, VBG HCO3 23.5, VBG Total CO2 24.8, VBG O2 Saturation 43.6 L, VBG Base Excess -2.4, VBG Lactic Acid 2.4 H 01/24/24 23:19: Lactate 2.0 01/24/24 23:46: Troponin I 0.44 H 01/25/24 03:00: APTT 26.2 L, Lactate 3.1 H, Troponin I 0.36 H 01/25/24 05:54: WBC 8.2, RBC 3.44 L, Hgb 10.4 L D, Hct 30.5 L, MCV 88.7, MCH 30.5, MCHC 34.4, RDW 12.8, Plt Count 218, MPV 11.1 H, Neut % (Auto) 83.4 H, Lymph % (Auto) 13.7, [place] % (Auto) 2.6, Eos % (Auto) 0.0 L, Baso % (Auto) 0.1, Neut # (Auto) 6.8, Lymph # (Auto) 1.1, [place] # (Auto) 0.2, Eos # (Auto) 0.0, Baso # (Auto) 0.0, Lactate 1.6, Troponin I 0.40 H I & O for Labs for Last 24 Hours: Intake & Output 01/22/24 01/23/24 01/24/24 01/25/24 23:59 23:59 23:59 23:59 Output Total 400 / 400 Balance -400 / -400 Weight 165 lb 165 lb 0.009 oz GI: Present tenderness Comments:: Normoactive bowel sounds, mild tenderness in the lower abdomen, no masses Results Labs 01/25/24 05:54 01/24/24 21:04 Labs: Laboratory Results - last 24 hr 01/24/24 02:45: Chlamy pneumoniae PCR Not detected, Adenovirus (PCR) Not detected, B. pertussis DNA (PCR) Not detected, Coronavirus OC43 (PCR) Not detected, Coronavirus HKU1 (PCR) Not detected, Coronavirus 229E (PCR) Not detected, SARS-CoV-2 (PCR) Detected A, Coronavirus NL63 (PCR) Not detected, Human Metapneumovir PCR Not detected, Influenza A (H1) PCR Not detected, Influ A (H1N1/09) PCR Not detected, Influenza A (H3) PCR Not detected, Influenza Type A (PCR) Not detected, Influenza Type B (PCR) Not detected, M. pneumoniae (PCR) Not detected, Parainfluenza 1 (PCR) Not detected, Parainfluenza 2 (PCR) Not detected, Parainfluenza 3 (PCR) Not detected, Parainfluenza 4 (PCR) Not detected, RSV (PCR) Not detected, Entero/Rhino (PCR) Not detected 01/24/24 21:04: WBC 9.4, RBC 3.92 L, Hgb 11.9 L, Hct 35.0 L, MCV 89.3, MCH 30.4, MCHC 34.0, RDW 12.7, Plt Count 254, MPV 11.0 H, Neut % (Auto) 66.8, Lymph % (Auto) 24.4, [place] % (Auto) 8.4, Eos % (Auto) 0.0 L, Baso % (Auto) 0.2, Neut # (Auto) 6.2, Lymph # (Auto) 2.3, [place] # (Auto) 0.8, Eos # (Auto) 0.0, Baso # (Auto) 0.0, APTT 24.9, Sodium 132 L, Potassium 4.2, Chloride 103, Carbon Dioxide 25, Anion Gap 8.2, BUN 80 H, Creatinine 1.40 H, Estimated Creat Clear 47, E stimated GFR 38 L, Est GFR ( Amer) 46 L, Glucose 137 H, Calcium 8.8, Total Bilirubin 0.3, AST 29, ALT 20, Alkaline Phosphatase 57, Troponin I 0.52 H, NT-Pro-B Natriuret Pep 341 H, Total Protein 6.2 L, Albumin 3.6, Globulin 2.6, Albumin/Globulin Ratio 1.4, Lipase 60, HIV Ag/Ab Combo Qual Negative 01/24/24 21:12: VBG pH 7.36, VBG pCO2 36.7, VBG pO2 29.2, VBG HCO3 20.2 L, VBG Total CO2 21.3 L, VBG O2 Saturation 49.3 L, VBG Base Excess -5.2 L, VBG Lactic Acid 1.8 01/24/24 22:12: VBG pH 7.34, VBG pCO2 44.9, VBG pO2 26.5 L, VBG HCO3 23.5, VBG Total CO2 24.8, VBG O2 Saturation 43.6 L, VBG Base Excess -2.4, VBG Lactic Acid 2.4 H 01/24/24 23:19: Lactate 2.0 01/24/24 23:46: Troponin I 0.44 H 01/25/24 03:00: APTT 26.2 L, Lactate 3.1 H, Troponin I 0.36 H 01/25/24 05:54: WBC 8.2, RBC 3.44 L, Hgb 10.4 L D, Hct 30.5 L, MCV 88.7, MCH 30.5, MCHC 34.4, RDW 12.8, Plt Count 218, MPV 11.1 H, Neut % (Auto) 83.4 H, Lymph % (Auto) 13.7, [place] % (Auto) 2.6, Eos % (Auto) 0.0 L, Baso % (Auto) 0.1, Neut # (Auto) 6.8, Lymph # (Auto) 1.1, [place] # (Auto) 0.2, Eos # (Auto) 0.0, Baso # (Auto) 0.0, Lactate 1.6, Troponin I 0.40 H Assessment and Plan *Assessment and plan (1) Hematochezia: Status: Acute Category: Medical Code(s): K92.1 - Melena (2) Bright red blood per rectum: Status: Acute Category: Medical Code(s): K62.5 - Hemorrhage of anus and rectum (3) Acute anemia: Status: Acute Category: Medical Code(s): D64.9 - Anemia, unspecified (4) GI bleed: Status: Acute Category: Medical Code(s): K92.2 - Gastrointestinal hemorrhage, unspecified (5) Bilateral lower abdominal cramping: Status: Acute Category: Medical Code(s): R10.31 - Right lower quadrant pain; R10.32 - Left lower quadrant pain (6) Acute diarrhea: Status: Acute Category: Medical Code(s): R19.7 - Diarrhea, unspecified Plan 1. Acute diarrhea with hematochezia. I would recommend PCR GI panel to rule out microbial pathogen. Given her acute anemia and bleeding, I would consider diverticular hemorrhage as a possible etiology. This could also represent acute enterocolitis or even ischemic colitis. As long as the patient is cleared via cardiology, I would consider doing bowel preparation towards the end of the day today and colonoscopy tomorrow. She has never had a full colonoscopy and recently presented for colonoscopy unprepped so this could not be performed. I do feel that we should attempt to get this done at this hospitalization as long as she is stable from cardiovascular standpoint.
--- NOTE | 2024-01-25 09:07 | PC.NURSE ---
01/25/24 0700 Pt. admitted overnight. with Nausea, vomiting, diarrhea, YULI. Pt. alert and orientated x 4. Pt. did not sleep overnight. Pt. c/o feeling lousy. IV fluids and Heparin drip started. IV antibiotics started. Pt. COVID positive. VSS. personal items and call luong in reach.
--- NOTE | 2024-01-25 09:22 | HMH.PHAINT1 ---
Pharmacy Intervention Comments: MEDICATION RECONCILIATION COMPLETED ON PATIENT USING EXTERNAL FILL HISTORY FROM PHARMACY. -JENELLE ZIMMER, RICARDAD
--- NOTE | 2024-01-25 10:49 | EXP.CARD.CON ---
History of Present Illness History of Present Illness Consult date: 01/25/24 Requesting physician: Kendrick Diaz Consult reason: chest pain Chief complaint: abdominal pain History of present illness: 63-year-old white female established patient of our office originally sent by her PCP for evaluation of coronary artery calcium in 2022. She underwent CCTA and 2D echo at that time which were normal. Patient presented to the ER late last night with complaint of fever, 4 days of nausea vomiting diarrhea and 10/10 abdominal pain with occasional mild chest discomfort. ER workup revealed lactic acidosis, dehydration, hematochezia. Patient admitted with SIRS and dehydration from gastroenteritis. We are consulted for elevated troponin which trended flat at 0.5, 0.4, 0.3, 0.4. EKG showed sinus tachycardia 120s but no ischemic changes. 2D echo has been ordered and is pending. This morning patient denies cardiac symptoms to me and states she just feels weak all over from her acute illness. [facility] Disclaimer: The information contained in this section may have been updated after the patient was seen, as this information can be updated by other users. Medical History Pain with bowel movements Right lower quadrant abdominal pain Constipation ASCUS with positive high risk HPV cervical Postmenopausal atrophic vaginitis History of cancer Migraine COPD (chronic obstructive pulmonary disease) Osteoarthritis History of back pain Hypertension Skin cancer Surgical History History of tonsillectomy Hx of tubal ligation Family History Mother Alcoholism Cancer Father Cancer Diabetes Grandfather Cancer Grandmother Cancer Family/Other Cancer Sister Diabetes Brother Diabetes Other Family history of cancer Social History Smoking Status: Current every day smoker tobacco type: cigarettes packs per day: 1 quit status: considering quitting second hand exposure: No alcohol intake: never substance use type: former substance user current occupational status: retired and disabled Travel in the last 8 weeks: None housing: apartment current occupational exposures/hazards: No caffeine: Yes Have you lived/traveled outside US in past 30 days?: No Contact w/someone who lives/traveled outside US past 30 days?: No Exposure to someone with infectious disease in past 14 days?: No Do you have a fever (greater than 100.4 F or 38 C)?: No Have you tested positive for COVID-19: No Exposed to someone with COVID-19 in past 14 days?: No Do you have a sore throat?: No Do you have a cough?: No Do you have any weakness?: No Do you have any diarrhea?: No Are you experiencing any unusual bleeding?: No Do you have any muscle aches/pain?: No Do you have any abdominal pain?: No Are you experiencing loss of taste or smell?: No Review of Systems Constitutional Constitutional: Reports fatigue, Reports fever(s) and Reports weakness Eyes Eyes: Denies loss of vision ENT Ears, Nose, Mouth, and Throat: Denies hearing loss and Denies vertigo *Cardiovascular Cardiovascular: Reports chest pain, Denies dyspnea and Denies syncope *Respiratory Respiratory: Denies cough and Denies dyspnea *Gastrointestinal Gastrointestinal: Denies change in stool character, Reports diarrhea, Reports nausea and Denies vomiting *Musculoskeletal Musculoskeletal: Denies muscle weakness Integumentary/Breasts Skin/Breast: Denies changing lesions *Neurologic Neurologic: Denies loss of vision, Denies syncope, Denies vertigo and Reports weakness Endocrine Endocrine: Reports fatigue Exam Data for Last 24 hours Vital signs and Labs for Last 24 Hours: Temp Pulse Resp BP Pulse Ox O2 Del Method 98.1 F 68 14 128/71 96 Room Air 01/25/24 08:00 01/25/24 08:00 01/25/24 08:00 01/25/24 08:00 01/25/24 08:00 01/25/24 08:00 Laboratory Results - last 24 hr 01/24/24 02:45: Chlamy pneumoniae PCR Not detected, Adenovirus (PCR) Not detected, B. pertussis DNA (PCR) Not detected, Coronavirus OC43 (PCR) Not detected, Coronavirus HKU1 (PCR) Not detected, Coronavirus 229E (PCR) Not detected, SARS-CoV-2 (PCR) Detected A, Coronavirus NL63 (PCR) Not detected, Human Metapneumovir PCR Not detected, Influenza A (H1) PCR Not detected, Influ A (H1N1/09) PCR Not detected, Influenza A (H3) PCR Not detected, Influenza Type A (PCR) Not detected, Influenza Type B (PCR) Not detected, M. pneumoniae (PCR) Not detected, Parainfluenza 1 (PCR) Not detected, Parainfluenza 2 (PCR) Not detected, Parainfluenza 3 (PCR) Not detected, Parainfluenza 4 (PCR) Not detected, RSV (PCR) Not detected, Entero/Rhino (PCR) Not detected 01/24/24 21:04: WBC 9.4, RBC 3.92 L, Hgb 11.9 L, Hct 35.0 L, MCV 89.3, MCH 30.4, MCHC 34.0, RDW 12.7, Plt Count 254, MPV 11.0 H, Neut % (Auto) 66.8, Lymph % (Auto) 24.4, [place] % (Auto) 8.4, Eos % (Auto) 0.0 L, Baso % (Auto) 0.2, Neut # (Auto) 6.2, Lymph # (Auto) 2.3, [place] # (Auto) 0.8, Eos # (Auto) 0.0, Baso # (Auto) 0.0, APTT 24.9, Sodium 132 L, Potassium 4.2, Chloride 103, Carbon Dioxide 25, Anion Gap 8.2, BUN 80 H, Creatinine 1.40 H, Estimated Creat Clear 47, Estimated GFR 38 L, Est GFR ( Amer) 46 L, Glucose 137 H, Calcium 8.8, Total Bilirubin 0.3, AST 29, ALT 20, Alkaline Phosphatase 57, Troponin I 0.52 H, NT-Pro-B Natriuret Pep 341 H, Total Protein 6.2 L, Albumin 3.6, Globulin 2.6, Albumin/Globulin Ratio 1.4, Lipase 60, HIV Ag/Ab Combo Qual Negative 01/24/24 21:12: VBG pH 7.36, VBG pCO2 36.7, VBG pO2 29.2, VBG HCO3 20.2 L, VBG Total CO2 21.3 L, VBG O2 Saturation 49.3 L, VBG Base Excess -5.2 L, VBG Lactic Acid 1.8 01/24/24 22:12: VBG pH 7.34, VBG pCO2 44.9, VBG pO2 26.5 L, VBG HCO3 23.5, VBG Total CO2 24.8, VBG O2 Saturation 43.6 L, VBG Base Excess -2.4, VBG Lactic Acid 2.4 H 01/24/24 23:19: Lactate 2.0 01/24/24 23:46: Troponin I 0.44 H 01/25/24 03:00: APTT 26.2 L, Lactate 3.1 H, Troponin I 0.36 H 01/25/24 05:54: WBC 8.2, RBC 3.44 L, Hgb 10.4 L D, Hct 30.5 L, MCV 88.7, MCH 30.5, MCHC 34.4, RDW 12.8, Plt Count 218, MPV 11.1 H, Neut % (Auto) 83.4 H, Lymph % (Auto) 13.7, [place] % (Auto) 2.6, Eos % (Auto) 0.0 L, Baso % (Auto) 0.1, Neut # (Auto) 6.8, Lymph # (Auto) 1.1, [place] # (Auto) 0.2, Eos # (Auto) 0.0, Baso # (Auto) 0.0, Sodium 131 L, Potassium 4.3, Chloride 104, Carbon Dioxide 23, Anion Gap 8.3, BUN 58 H D, Creatinine 1.00 D, Estimated Creat Clear 66, Estimated GFR 56 L, Est GFR ( Amer) 67 D, Glucose 148 H, Lactate 1.6, Calcium 8.6, Magnesium 1.4 L, Troponin I 0.40 H I & O for Last 24 hours: Intake & Output 01/22/24 01/23/24 01/24/24 01/25/24 23:59 23:59 23:59 23:59 Output Total 525 / 525 Balance -525 / -525 Weight 165 lb 165 lb 0.009 oz Constitutional Constitutional: no acute distress, obese and cooperative *Routine HEENT Exam Eye: Present PERRL *Routine Respiratory Exam Respiratory: Present CTA bilaterally; Absent accessory muscle use, wheezes or crackles *Routine Cardiovascular Exam Cardiovascular: Present RRR, Normal S1 and Normal S2; Absent murmur, gallop or rubs *Routine Abdominal Exam Abdominal: Present soft; Absent tenderness *Routine Extremities Exam Extremities: Present pulses intact; Absent cyanosis or edema *Routine Skin Exam Skin: Present intact; Absent erythema or wounds *Routine Neurological Exam Neurological: Present alert and oriented X3 Routine Psychiatric Exam Psychiatric: Present cooperative Meds Home Medications and Allergies Home Medications ?Medication ?Instructions ?Recorded ?Confirmed ?Type carvedilol 3.125 mg tablet 3.125 mg PO BID 06/30/22 01/25/24 History atorvastatin 40 mg tablet (Lipitor) 40 mg PO DAILY #30 tabs 11/25/22 01/25/24 Rx amlodipine 5 mg tablet 5 mg PO HS 10/25/23 01/25/24 History aspirin 81 mg tablet,delayed 81 mg PO DAILY 10/25/23 01/25/24 History release cholecalciferol (vitamin D3) 25 25 mcg PO DAILY 10/25/23 01/25/24 History mcg (1,000 unit) capsule ipratropium 20 mcg-albuterol 100 1 puff inhalation Q4HP PRN 10/25/23 01/25/24 History mcg/actuation mist for inhalation Shortness Of Breath Or Wheezing (Combivent Respimat) lisinopril 20 1 tab PO DAILY 10/25/23 01/25/24 History mg-hydrochlorothiazide 25 mg tablet clonazepam 1 mg tablet (Klonopin) 1 mg PO BID 01/03/24 01/25/24 History gabapentin 800 mg tablet 800 mg PO QID 01/09/24 01/25/24 History linaclotide 290 mcg capsule 290 mcg PO DAILY #30 caps 01/09/24 01/25/24 Rx (Linzess) buprenorphine 8 mg-naloxone 2 mg 2 tab sublingual DAILY 01/25/24 01/25/24 History sublingual tablet celecoxib 100 mg capsule 100 mg PO DAILY 01/25/24 01/25/24 History clonidine HCl 0.1 mg tablet 0.1 mg PO DAILY 01/25/24 01/25/24 History naloxegol 25 mg tablet (Movantik) 25 mg PO DAILY 01/25/24 01/25/24 History New Prescriptions to Start Prescriptions: Allergies Allergy/AdvReac Type Severity Reaction Status Date / Time No Known Allergies Allergy Verified 01/09/24 13:09 Assessment and Plan *Assessment and plan (1) Systemic inflammatory response syndrome: Status: Acute Category: Medical Code(s): R65.10 - Systemic inflammatory response syndrome (SIRS) of non-infectious origin without acute organ dysfunction (2) Dehydration: Status: Acute Category: Medical Code(s): E86.0 - Dehydration (3) Nausea vomiting and diarrhea: Status: Acute Category: Medical Code(s): R11.2 - Nausea with vomiting, unspecified; R19.7 - Diarrhea, unspecified (4) Elevated troponin: Status: Acute Category: Medical Code(s): R79.89 - Other specified abnormal findings of blood chemistry Plan Elevated Troponin - flat trop in setting of acute GI illness - normal ECHO/CCTA 2022 - EKG - SR, no ischemic changes - repeat ECHO pending Sinus Tachycardia - secondary to dehydration and SIRS - hydration, treat underlying illness N/V/D Gastroenteritis, SIRS - per Hospitalist Pt is CV stable. Workup not consistent with ACS and her normal testing last year is reassuring. Will repeat ECHO here and update chart with findings.
[2024-01-25] MEDS: BUPRENORPHINE/NALOXONE 8MG/2MG ODT 2 EACH SL (11:52)
[2024-01-25] MEDS: MAGNESIUM SULFATE IN WATER 2 GM/50 ML PIGGYBACK IV (11:52)
--- NOTE | 2024-01-25 12:00 | PC.NURSE ---
Administered Suboxone as ordered to pt. Pt. took half of 1 pill and refused the other 1.5 pills. She states she only take half a pill in the morning and half in the evening. Will discuss with .
--- NOTE | 2024-01-25 13:21 | PC.NURSE ---
RN went in to give patient suboxone. Patient took half of one and tried to pocket 1.5 pills. Patient was informed she could not do that and had to take both pills or give them back to RN to be wasted. RN offered to call MD to have order switched for patient to get suboxone split to twice a day instead of at once. Patient stated that she was leaving today and was not staying. MD went to speak with patient and patient was adamant on leaving. Patient offered AMA paperwork and IV removed.
--- NOTE | 2024-01-26 05:14 | EXP.EVENT.NO ---
Just informed patient's blood culture culture positive for gram-positive rods likely Staph epidermidis. Patient left AMA 01/24. Advised nursing to have patient phoned on day shift about positive blood culture. Also advised nursing that I recommend patient return to ED for further evaluation of positive blood cultures.
[2024-01-26 06:23] LABS: HCV Ab Non Reactive (Non Reactive)
--- NOTE | 2024-01-26 09:37 | EXP.DC.SUM ---
General Admission date:: 01/25/24 Discharge date: 01/25/24 HPI HPI HPI: Mrs. Pineda is a 63-year-old female who is admitted for nausea, vomiting, diarrhea and hematochezia. The patient does report 4 days of being ill with nausea and dry heaves. Yesterday she developed hematochezia with bright red blood per rectum for 5 times at home. She came to the emergency department yesterday. Initial hemoglobin hematocrit were 11.9 and 35.0. After hydration, her hemoglobin and hematocrit are 10.4 and 30.5. She was having crampy abdominal discomfort at home but no gassiness or bloating. Imaging with CAT scan yesterday did not show any acute process or intra-abdominal abnormalities. Her white blood cell count was normal at 8.2. She also had normal ALT 20, bilirubin 0.3 and lipase 60. The patient did have an attempted colonoscopy aborted because of poor bowel preparation just over 2 weeks ago (January 09, 2024) and only the left colon was visualized poorly and there was left-sided diverticulosis. The patient is much clinically improved this morning with no abdominal pain or further bouts of bleeding since admission. The patient typically has chronic constipation. Her maternal aunt and paternal grandmother had colon cancer. She has never had a full colonoscopy. Hospital Course Hospital Course Hospital Course: 63-year-old with past medical history of COPD, hypertension, smoker, renal insufficiency, GERD. Patient presents with 4 days nausea, vomiting, diarrhea, abdominal/chest discomfort. Patient tachycardic with heart rate in 130s in emergency room. Patient admitted for systematic inflammatory response syndrome with lactic acidosis likely dehydration related secondary to gastroenteritis. Patient experienced hematochezia x 1 prior to hospital presentation. During hospitalization, troponin was found to be elevated. Found to be anemic as well with hemoglobin of 10. Cardiology and GI were consulted to assist with care. This patient had an NSTEMI, plan for echo and further intervention. Patient unfortunately elected that she did not want to stay in the hospital and receive appropriate treatment or further workup. Stated she had to get home to her cats. Showed poor understanding of her current condition but stated her daughter was coming to get her and she was leaving. Extensive discussion about risks of going home with having elevated troponin, persistent sensation of feeling ill, her acute kidney injury, her abdominal discomfort, and her possible GI source of blood loss causing her anemia. Patient again stated she was not staying in the hospital. Did not want further workup. We agreed to disagree and patient discharged under her own direction (left AMA). See consult notes and H&P for further details. Exam Data for Last 24 hours Vital signs and Labs for Last 24 Hours: Temp Pulse Resp BP Pulse Ox O2 Del Method 98.5 F 87 15 112/65 93 L Room Air 01/25/24 11:58 01/25/24 11:58 01/25/24 11:58 01/25/24 11:58 01/25/24 11:58 01/25/24 11:58 Laboratory Results - last 24 hr 01/24/24 21:04: Hepatitis C Antibody Non reactive I & O for Last 24 hours: Intake & Output 01/23/24 01/24/24 01/25/24 01/26/24 23:59 23:59 23:59 23:59 Output Total 525 / 525 Balance -525 / -525 Weight 74.843 kg 74.843 kg Microbiology Reports for the Last 24 Hours: Microbiology 01/24/24 23:51 Blood Blood Culture - Preliminary 01/24/24 23:51 Blood Blood Culture - Preliminary NO GROWTH AFTER 24 HOURS Constitutional Constitutional: mild distress, obese, chronically ill appearing and agitated *Routine HEENT Exam Head: Present normocephalic Eye: Present EOMI and PERRL ENT: Present mucous membranes moist *Routine Neck Exam Neck: Present supple; Absent lymphadenopathy *Routine Respiratory Exam Respiratory: Present prolonged expiratory phase and diminished air movement; Absent rhonchi, wheezes or normal respiratory effort *Routine Cardiovascular Exam Cardiovascular: Present RRR *Routine Abdominal Exam Abdominal: Present soft and normoactive bowel sounds; Absent tenderness *Routine Extremities Exam Extremities: Absent cyanosis, clubbing or edema *Routine Skin Exam Skin: Present warm; Absent rash *Routine Neurological Exam Neurological: Present alert, oriented X3 and moving all extremities Routine Psychiatric Exam Psychiatric: Absent good insight or good judgment Results Data Completed and Pending Labs on day of discharge: Labs from last 24 hours 01/24/24 21:04 Hepatitis C Antibody Non reactive Preliminary micro results at discharge 01/24/24 23:51 Blood Culture - Preliminary Blood 01/24/24 23:51 Blood Culture - Preliminary Blood NO GROWTH AFTER 24 HOURS DS: Diagnosis Discharge Diagnosis (1) Systemic inflammatory response syndrome: Status: Acute Code(s): R65.10 - Systemic inflammatory response syndrome (SIRS) of non-infectious origin without acute organ dysfunction (2) Dehydration: Status: Acute Code(s): E86.0 - Dehydration (3) Nausea vomiting and diarrhea: Status: Acute Code(s): R11.2 - Nausea with vomiting, unspecified; R19.7 - Diarrhea, unspecified (4) Elevated troponin: Status: Acute Code(s): R79.89 - Other specified abnormal findings of blood chemistry Meds Home Medications and Allergies Home Medications ?Medication ?Instructions ?Recorded ?Confirmed ?Type carvedilol 3.125 mg tablet 3.125 mg PO BID 06/30/22 01/25/24 History atorvastatin 40 mg tablet (Lipitor) 40 mg PO DAILY #30 tabs 11/25/22 01/25/24 Rx amlodipine 5 mg tablet 5 mg PO HS 10/25/23 01/25/24 History aspirin 81 mg tablet,delayed 81 mg PO DAILY 10/25/23 01/25/24 History release cholecalciferol (vitamin D3) 25 25 mcg PO DAILY 10/25/23 01/25/24 History mcg (1,000 unit) capsule ipratropium 20 mcg-albuterol 100 1 puff inhalation Q4HP PRN 10/25/23 01/25/24 History mcg/actuation mist for inhalation Shortness Of Breath Or Wheezing (Combivent Respimat) lisinopril 20 1 tab PO DAILY 10/25/23 01/25/24 History mg-hydrochlorothiazide 25 mg tablet clonazepam 1 mg tablet (Klonopin) 1 mg PO BID 01/03/24 01/25/24 History gabapentin 800 mg tablet 800 mg PO QID 01/09/24 01/25/24 History linaclotide 290 mcg capsule 290 mcg PO DAILY #30 caps 01/09/24 01/25/24 Rx (Linzess) buprenorphine 8 mg-naloxone 2 mg 2 tab sublingual DAILY 01/25/24 01/25/24 History sublingual tablet celecoxib 100 mg capsule 100 mg PO DAILY 01/25/24 01/25/24 History clonidine HCl 0.1 mg tablet 0.1 mg PO DAILY 01/25/24 01/25/24 History naloxegol 25 mg tablet (Movantik) 25 mg PO DAILY 01/25/24 01/25/24 History New Prescriptions to Start Prescriptions: Allergies Allergy/AdvReac Type Severity Reaction Status Date / Time No Known Allergies Allergy Verified 01/09/24 13:09 Discharge Plan Disposition Patient Disposition: Left Against Medical Advice Condition: Good Patient Discharge Instructions Print Language: [place] Providers Admit Provider: Kaden Hernandes Attending Provider: Kaden Hernandes
--- NOTE | 2024-01-26 16:04 | PC.NURSE ---
NOTIFIED PT OF POSITIVE BLOOD CULTURES AND INSTRUCTED HER TO COME IN TO BE EVALUATED PER MD
== END 2024-01-25 13:21 | disposition left against medical advice (07) ==
LOC: ER 01-25 00:31 → 2ND 01-25 02:23
PROVIDERS: Emergency Medicine; Internal Medicine; Physician Assistant; Admitting Provider Student in an Organized Health Care Education/Training Program; Emergency Provider Emergency Medicine; PCP Internal Medicine; Visit Provider Student in an Organized Health Care Education/Training Program
DX: I21.4 Non-ST elevation (NSTEMI) myocardial infarction (principal); E86.0 Dehydration; K52.9 Noninfective gastroenteritis and colitis, unspecified; N19 Unspecified kidney failure; R11.2 Nausea with vomiting, unspecified; R19.7 Diarrhea, unspecified; N17.9 Acute kidney failure, unspecified; K62.5 Hemorrhage of anus and rectum; D64.9 Anemia, unspecified; Z55.6 Problems related to health literacy; F17.210 Nicotine dependence, cigarettes, uncomplicated
CPT/HCPCS: 36415; 74176; 80048; 80053; 82803; 83605; 83690; 83735; 83880; 84484; 85025; 85730; 86803; 87040; 87077; 87186; 87389; 87633; 93005; 93306; 99291; G0378; J0574; J1100; J1644; J1956; J3475; J7030; J7120; J7620

== ENCOUNTER 2024-01-27 11:23 | Emergency (ER) | payer MEDICARE, OTHER, SELFPAY ==
[2024-01-27] VITALS (7 sets, daily range): BP systolic 107–129; BP diastolic 52–75; PULSE 93–126; RESP 12–20; TEMP 36.9; O2SAT 93–97; BMI 29.9
--- NOTE | 2024-01-27 11:41 | ECG_ITS ---
APPROVED REPORT Exam: Resting ECG HR:109 bpm ECG Measurements Heart Rate 109 AXES MO 185 P 33 QRSd 83 QRS 31 QT 322 T 61 QTc 386 Conclusion SINUS TACHYCARDIA ABNORMAL RHYTHM ECG Electronically signed by : ULISES RODRIGUEZ, 01/28/2024 07:24:13
--- NOTE | 2024-01-27 11:42 | CT_ITS ---
FINAL REPORT TECHNIQUE: Pre-and postcontrast images of the abdomen and pelvis were performed by computed tomography. Extensive 3-D reconstruction images were performed. A CTA was performed. This study was performed with techniques to keep radiation doses as low as reasonably achievable (ALARA). Individualized dose reduction techniques using automated exposure control or adjustment of mA and/or kV according to the patient's size were employed. CLINICAL HISTORY: diffuse abd pain out of proportion to exam COMPARISON: CT abdomen and pelvis dated 01/25/2024 FINDINGS: ABDOMEN AND PELVIS: The lung bases are clear. Precontrast images demonstrate no evidence of nephrolithiasis. No adrenal masses are identified. The liver, spleen and pancreas are unremarkable. Moderate right renal scarring is present. There are hypodense left renal lesions, that likely represent probable cysts. The gallbladder is unremarkable. The bowel is normal. The appendix is normal in appearance as well. There is a lobular appearing uterus, likely fibroids. The bladder is normal. CTA: The abdominal aorta is proper caliber. The SMA and celiac axis are patent. There is mild stenosis at the origins of both the celiac and superior mesenteric arteries centrally. JAILENE may be occluded in its proximal portion although there is distal JAILENE flow identified that may be secondary to collateral vessels. There is bilateral renal artery stenosis of at least 50%. IMPRESSION: Mild stenoses are present at the origins of the celiac and superior mesenteric arteries, while the JAILENE appears to be occluded in its more proximal portion, with distal JAILENE flow likely secondary to collaterals. No CT findings of acute mesenteric ischemia are seen. Bilateral renal artery stenoses of at least 50%. Reviewed, Interpreted and Dictated by Raffaele Rodríguez MD Transcribed by Haritha Verde Authenticated and [facility]
[2024-01-27 11:52] LABS: Albumin Level 4.2 g/dl (3.5-5.0); Chloride 101 mmol/L (98-107); Sodium 132 mmol/L (136-145)
[2024-01-27 11:53] LABS: Potassium 3.7 mmoL/L (3.5-5.1)
--- NOTE | 2024-01-27 11:53 | ED_ITS ---
Discharge Plan Disposition Patient Disposition: Home, Self-Care Prescriptions Prescriptions: New promethazine 25 mg tablet 12.5 mg PO Q6H PRN (Reason: nausea and vomiting) Qty: 20 0RF ondansetron 4 mg tablet,disintegrating 4 mg PO Q6H PRN (Reason: nausea and vomiting) Qty: 10 0RF No Action atorvastatin [Lipitor] 40 mg tablet 40 mg PO DAILY Qty: 30 2RF carvedilol 3.125 mg tablet 3.125 mg PO BID clonazepam [Klonopin] 1 mg tablet 1 mg PO BID gabapentin 800 mg tablet 800 mg PO QID Linzess 290 mcg capsule 290 mcg PO DAILY Qty: 30 12RF amlodipine 5 mg tablet 5 mg PO HS aspirin 81 mg tablet,delayed release (DR/EC) 81 mg PO DAILY lisinopril-hydrochlorothiazide 20-25 mg tablet 1 tab PO DAILY cholecalciferol (vitamin D3) 25 mcg (1,000 unit) capsule 25 mcg PO DAILY Combivent Respimat 20-100 mcg/actuation mist 1 puff inhalation Q4HP PRN (Reason: Shortness Of Breath Or Wheezing) clonidine HCl 0.1 mg tablet 0.1 mg PO DAILY celecoxib 100 mg capsule 100 mg PO DAILY buprenorphine-naloxone 8-2 mg tablet, sublingual 2 tab SUBLINGUAL DAILY Patient Comments: Place 2 tablet under tongue once a day Movantik 25 mg tablet 25 mg PO DAILY Referrals Follow up/Referrals: Talita Kay APRN [Primary Care Provider] - See instructions Activity Restrictions/Add. Instructions Additional Instructions/Restrictions: Call your family doctor to establish care for this visit to the emergency department and schedule follow-up within 48 hours to ensure improvement. If you have any worsening of your condition or any other concerning signs or symptoms, return to the emergency department or your primary care doctor for further evaluation. Start with Zofran, dissolve under tongue. If you continue having vomiting, you can attempt taking Phenergan. Try not to take these 2 together as they can interact with each other. Clinical Impressions Clinical Impression: Vomiting Instructions Patient Instructions: DI for Diarrhea and Traveler's Diarrhea -- Adult, DI for Diarrhea and Traveler's Diarrhea -- Child, DI for Nausea -- Adult, DI for Nausea -- Child Print Language Print Language: Luxembourgish Discharge ED Provider: Zheng Moreland General Adult HPI General Chief complaint: Nausea/Vomiting/Diarrhea Stated complaint: abnormal labs Time Seen by Provider: 01/27/24 11:24 Mode of Arrival: Wheelchair Source of Information: Patient Limitations: No Limitations Description of Symptoms (Recalled from ER Triage Doc. by RN): c/o n/v with headache for a few days. History of Present Illness HPI narrative: Please note that above description of symptoms, in this electronic medical record under categorization of recalled from ER triage doctor by RN are reflective of an initial nursing assessment, however, is not reflective of my full history and physical exam that was personally taken and clarified. Consequentially, this preceding description of symptoms, which may include the patient's categorized chief complaint in the EMR, do not reflect my personal clinical impression, and the ultimate description of history of present illness and patient stated complaints should be deferred to this section of the note. Unless stated otherwise or congruent with this section of the note, additional signs, symptoms, or incongruence should be interpreted as inaccurate with my clinical impression. Related Data Home Medications ?Medication ?Instructions ?Recorded ?Confirmed carvedilol 3.125 mg tablet 3.125 mg PO BID 06/30/22 01/25/24 amlodipine 5 mg tablet 5 mg PO HS 10/25/23 01/25/24 aspirin 81 mg tablet,delayed 81 mg PO DAILY 10/25/23 01/25/24 release cholecalciferol (vitamin D3) 25 25 mcg PO DAILY 10/25/23 01/25/24 mcg (1,000 unit) capsule ipratropium 20 mcg-albuterol 100 1 puff inhalation Q4HP PRN 10/25/23 01/25/24 mcg/actuation mist for inhalation Shortness Of Breath Or Wheezing (Combivent Respimat) lisinopril 20 1 tab PO DAILY 10/25/23 01/25/24 mg-hydrochlorothiazide 25 mg tablet clonazepam 1 mg tablet (Klonopin) 1 mg PO BID 01/03/24 01/25/24 gabapentin 800 mg tablet 800 mg PO QID 01/09/24 01/25/24 buprenorphine 8 mg-naloxone 2 mg 2 tab sublingual DAILY 01/25/24 01/25/24 sublingual tablet celecoxib 100 mg capsule 100 mg PO DAILY 01/25/24 01/25/24 clonidine HCl 0.1 mg tablet 0.1 mg PO DAILY 01/25/24 01/25/24 naloxegol 25 mg tablet (Movantik) 25 mg PO DAILY 01/25/24 01/25/24 Previous Rx's ?Medication ?Instructions ?Recorded atorvastatin 40 mg tablet (Lipitor) 40 mg PO DAILY #30 tabs 11/25/22 linaclotide 290 mcg capsule 290 mcg PO DAILY #30 caps 01/09/24 (Linzess) ondansetron 4 mg disintegrating 4 mg PO Q6H PRN nausea and 01/27/24 tablet vomiting #10 tabs promethazine 25 mg tablet 12.5 mg (1/2 x 25 mg) PO Q6H PRN 01/27/24 nausea and vomiting #20 tabs Allergies Allergy/AdvReac Type Severity Reaction Status Date / Time No Known Allergies Allergy Verified 01/09/24 13:09 [facility] Disclaimer: The information contained in this section may have been updated after the patient was seen, as this information can be updated by other users. Medical History Pain with bowel movements Right lower quadrant abdominal pain Constipation ASCUS with positive high risk HPV cervical Postmenopausal atrophic vaginitis History of cancer Migraine COPD (chronic obstructive pulmonary disease) Osteoarthritis History of back pain Hypertension Skin cancer Surgical History History of tonsillectomy Hx of tubal ligation Family History Mother Alcoholism Cancer Father Cancer Diabetes Grandfather Cancer Grandmother Cancer Family/Other Cancer Sister Diabetes Brother Diabetes Other Family history of cancer Social History Smoking Status: Current every day smoker tobacco type: cigarettes packs per day: 1 quit status: considering quitting second hand exposure: No alcohol intake: never substance use type: former substance user current occupational status: retired and disabled Travel in the last 8 weeks: None housing: apartment current occupational exposures/hazards: No caffeine: Yes Have you lived/traveled outside US in past 30 days?: No Contact w/someone who lives/traveled outside US past 30 days?: No Exposure to someone with infectious disease in past 14 days?: No Do you have a fever (greater than 100.4 F or 38 C)?: No Have you tested positive for COVID-19: No Exposed to someone with COVID-19 in past 14 days?: No Do you have a sore throat?: No Do you have a cough?: No Do you have any weakness?: No Do you have any diarrhea?: No Are you experiencing any unusual bleeding?: No Do you have any muscle aches/pain?: No Do you have any abdominal pain?: No Are you experiencing loss of taste or smell?: No Other Medical History Have you received the Flu Vaccine for this season: No Have you received the Pneumonia Vaccine: No ROS Obtained: Yes All systems reviewed & no additional complaints except as documented Physical Exam General General appearance: alert Head Head exam: atraumatic and normocephalic Eye Eye exam: Present normal appearance, PERRL and EOMI Neck Neck exam: Present normal inspection, full ROM and trachea midline Respiratory Respiratory exam: Absent respiratory distress, wheezes, stridor, accessory muscle use or prolonged expiratory phase Cardiovascular Cardiovascular exam: Present other (Pulses equal symmetric in upper and lower extremities) Abdominal Exam Abdominal exam: Present soft; Absent distention, tenderness or pulsatile mass Extremities Exam Extremities exam: Absent edema Neurological Exam Neurological exam: Present alert, oriented X3 and CN II-XII intact; Absent motor sensory deficit Skin Skin exam: Present warm and dry; Absent diaphoresis or erythema Medical Decision Making Medical Records Medical records reviewed: Yes I reviewed the patient's medical records. Screening: Per USPSTF and CDC recommendations, given the prevalence of disease in our region, it is our hospital?s policy to screen for HIV and viral Hepatitis for all patients aged 18 and over and those with ongoing risk factors. Pablo Inquiry Pt receiving controlled substance: No Pablo was queried for this patient: No Vital Signs: 01/27/24 11:23 01/27/24 12:00 01/27/24 12:30 Temperature 98.5 F Temperature Source Oral Pulse Rate 109 H 93 H Pulse Rate [Left Radial] 126 H Respiratory Rate 13 20 12 Blood Pressure 112/63 124/61 Blood Pressure [Right Arm] 123/75 Blood Pressure Mean [Right Arm] 91 02 Sat by Pulse Oximetry 93 L 95 95 Oxygen Delivery Method Room Air Room Air Room Air 01/27/24 13:00 01/27/24 13:30 01/27/24 14:00 Temperature Temperature Source Pulse Rate 103 H 98 H Pulse Rate [Left Radial] Respiratory Rate 12 15 14 Blood Pressure 129/65 107/52 L 127/62 Blood Pressure [Right Arm] Blood Pressure Mean [Right Arm] 02 Sat by Pulse Oximetry 95 96 Oxygen Delivery Method Room Air Room Air Room Air Lab Data Lab Results 01/27/24 11:36: WBC 11.4 H D, RBC 3.45 L, Hgb 10.4 L, Hct 30.8 L, MCV 89.3, MCH 30.1, MCHC 33.8, RDW 13.1, Plt Count 291 D, MPV 10.4, Neut % (Auto) 64.9, Lymph % (Auto) 26.7, [place] % (Auto) 7.4, Eos % (Auto) 0.2, Baso % (Auto) 0.4, Neut # (Auto) 7.4, Lymph # (Auto) 3.1, [place] # (Auto) 0.9, Eos # (Auto) 0.0, Baso # (Auto) 0.1, PT 11.0, INR 0.98, APTT 24.4, Sodium 132 L, Potassium 3.7, Chloride 101, Carbon Dioxide 28, Anion Gap 6.7, BUN 29 H D, Creatinine 1.00, Estimated Creat Clear 72, Estimated GFR 56 L, Est GFR ( Amer) 67, Glucose 121 H, Calcium 9.4, Total Bilirubin 0.6, AST 47 H D, ALT 31 D, Alkaline Phosphatase 72, Troponin I 0.09 H, NT-Pro-B Natriuret Pep 102, Total Protein 7.0, Albumin 4.2, Globulin 2.8, Albumin/Globulin Ratio 1.5, Triglycerides 160 H, Cholesterol 120 L, LDL Cholesterol Direct 43.81 L, VLDL Cholesterol 32, HDL Cholesterol 42, Cholesterol/HDL Ratio 2.9, Lipase 82, HIV Ag/Ab Combo Qual Negative 01/27/24 13:19: Urine Color Yellow, Urine Appearance Clear, Urine pH 6.0, Ur Specific [place] 1.010, Urine Protein Negative, Urine Glucose (UA) Negative, Urine Ketones Trace, Urine Blood Negative, Urine Nitrate Negative, Urine Bilirubin Negative, Urine Urobilinogen 0.2, Ur Leukocyte Esterase Negative, Urine RBC None, Urine WBC Occasional, Ur Squamous Epith Cells 3-5, Urine Bacteria Trace 01/27/24 14:14: Troponin I 0.09 H 01/27/24 11:36 01/27/24 11:36 Orders (Tests/Meds): ED MEDICATIONS Generic Name Dose Route Start Last Admin Trade Name Miller PRN Reason Stop Dose Admin Sodium Chloride 10 ml 01/27/24 12:27 01/27/24 12:27 Sodium Chloride 0.9% 10ml Syr (Rad Only) IV 02/26/24 12:26 10 ml NEEDED PRN Administration Maintain IV Site Discontinued Medications Generic Name Dose Route Start Last Admin Trade Name Miller PRN Reason Stop Dose Admin Acetaminophen 1,000 mg 01/27/24 11:56 01/27/24 12:10 Acetaminophen 1,000mg/100ml Vial IV 01/27/24 11:57 1,000 mg ONCE ONE Administration Lactated Ringer's 1,000 mls @ 999 mls/hr 01/27/24 11:43 01/27/24 11:59 Lactated Ringer's 1000 Ml Bag IV 01/27/24 12:43 999 mls/hr .Q1H1M ONE Administration Iopamidol 80 ml 01/27/24 12:27 01/27/24 12:27 Iopamidol-370 (76%);100ml Bottle IV 01/27/24 12:28 80 ml ONCE ONE Administration Morphine Sulfate 4 mg 01/27/24 11:56 01/27/24 12:10 Morphine 4mg/Ml Syringe IV 01/27/24 11:57 4 mg ONCE ONE Administration Promethazine HCl 12.5 mg 01/27/24 11:43 01/27/24 12:10 Promethazine Hcl 25mg/Ml 1ml Vial IV 01/27/24 11:44 12.5 mg ONCE ONE Administration Sodium Chloride 25 ml 01/27/24 11:43 01/27/24 12:10 Sodium Chloride 0.9% 25ml Bag IV 01/27/24 11:44 25 ml ONCE ONE Administration Sodium Chloride 50 ml 01/27/24 12:27 01/27/24 12:27 0.9 % Sodium Chloride 50 Ml Vial IV 01/27/24 12:28 50 ml ONCE ONE Administration ORDERS Category Date Time Status CT angio abdomen pelvis Stat Cat Scan 01/27/24 11:42 Completed Complete Blood Count Auto Diff Stat Lab 01/27/24 11:36 Completed Comprehensive Metabolic Panel Stat Lab 01/27/24 11:36 Completed Diarrhea 6-11 Panel, Cdiff PCR Stat Lab 01/27/24 13:41 Ordered HIV Combo Stat Lab 01/27/24 11:36 Completed Hemoglobin A1C Stat Lab 01/27/24 11:36 Received Hep C Ab with Reflex to RNA Stat Lab 01/27/24 11:36 Received Lipase Stat Lab 01/27/24 11:36 Completed Lipid Panel Stat Lab 01/27/24 11:36 Completed NT Pro Brain Natriuretic Pep. Stat Lab 01/27/24 11:36 Completed PT INR [Prothrombin Time INR] Stat Lab 01/27/24 11:36 Completed PTT [Activated Partial Thrombo Time] Stat Lab 01/27/24 11:36 Completed Troponin I Q3H Lab 01/27/24 14:14 Completed Troponin I Q3H Lab 01/27/24 17:45 Ordered Troponin I Stat Lab 01/27/24 11:36 Completed Urinalysis and Microscopic Stat Lab 01/27/24 13:19 Completed Medical Decision Narrative: 63-year-old female history of hypertension, CAD, COPD presenting as bounce back with nausea and vomiting. Patient was seen by me a couple days ago in the emergency department alongside MAINE. Patient states that at that time she was opting to go home as she felt better after fluids, medications in the emergency department, although it was recommended she stay and ended up leaving AGAINST MEDICAL ADVICE. Patient states that for the last 24 hours, she has been unable to tolerate almost any p.o. intake including solids and liquids. No diarrhea. Intermittent dysuria. No blood in her vomit or stool. Abdominal pain is diffuse, crampy, constant, not necessarily associated with p.o. intake, although worse when she is vomiting. Has not taken any medications for any of these complaints. History was obtained via conversation with patient. On arrival, patient hemodynamically stable, alert, oriented x4, appropriate, GCS 15, moving all extremities spontaneously, pupils equal and reactive to light. Full physical exam performed and significant for uncomfortable appearing female no acute distress. She is tachycardic, but normotensive. Lungs are clear, cardiac exam otherwise normal. Abdomen is soft, nondistended, tenderness not elicited on my exam, although she states that she is diffusely tender. Appears to be out of proportion to exam as patient does not appear to be comfortable. Differential includes gastritis, gastroenteritis, nonocclusive mesenteric ischemia, occlusive mesenteric ischemia, cholecystitis, appendicitis, perforation, obstruction, among others. Patient placed on continuous cardiac monitoring and continuous pulse ox with initial blood pressure 123/75, heart rate 126, saturation 93% on room air. Independent interpretation of EKG shows sinus tachycardia [address] or T wave changes concern for acute ischemia. OR interval 185, QRS 83, QTc 386. Normal axis. Patient was given fluids, Phenergan, morphine and acetaminophen for symptomatic management and correction of underlying abnormalities. Workup independently interpreted and significant for leukocytosis 11.4, likely stress degranulation. No relative leukopenia/leukocytoses. Chemistry with mild hyponatremia, this was repleted with IV fluids. Creatinine improved 1.0. Troponin 0.09, delta troponin 0.09, likely downtrending from previous admission. Lipase negative, urinalysis negative. On independent interpretation of imaging, no acute intra-abdominal abnormality. She does have vascular stenoses, but nothing acute. 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 See radiology read for full review of final results. Admission was considered, conversation had with patient. She wants to go home with nausea meds. States that she did not have nausea meds after leaving [facility] yesterday. Would like to trial this outpatient. I feel this is appropriate. Prolonged conversation had with patient and daughter, patient appropriate for home-going and is agreeable to return if she gets worse. Because patient at baseline without signs or symptoms of clinical decompensation, deemed appropriate for discharge. Results were relayed to patient who voiced understanding and were agreeable to outpatient management and follow up. I discussed my clinical impression with patient and answered all questions. At this time, the evidence for any other entities in the differential is insufficient to warrant any further testing or ED observation. This was explained as well. Advisory was given that persistent or worsening symptoms require further evaluation. I confirmed the understanding of this discussion. [employer] disclaimer Much of this encounter note is an electronic machining manager spoken language to printed text. Electronic machining manager of the spoken language may permit errors. Although I have reviewed the note, some errors may still exist. Critical Care Critical Care Time Critical Care Time: No
[2024-01-27 11:55] LABS: Alanine Aminotransferase 31 U/L (12-78); Albumin/Globulin Ratio 1.5 (1.1-1.8); Alkaline Phosphatase 72 U/L (38-126); Anion Gap 6.7 mEq/L (5-15); Aspartate Amino Transferase 47 U/L (14-36); Bilirubin,Total 0.6 mg/dl (0.2-1.3); Blood Urea Nitrogen 29 mg/dl (7-17); Carbon Dioxide 28 mmol/L (22.0-30.0); Chol/HDL Ratio 2.9 (1-3.5); Cholesterol 120 mg/dl (140-200); Creatinine Clearance Estimated 72 mL/min (50-200); Estimated Glomerular Filt Rate 56 ml/min (>60); GFR (African American) 67 ML/MIN (>60); Globulin 2.8 g/dL (1.3-3.2); HDL Cholesterol 42 mg/dl (40-60); Hematocrit 30.8 % (37.0-47.0); Hemoglobin 10.4 g/dL (12.2-16.2); Lipase 82 U/L (23-300); Red Blood Count 3.45 M/mm3 (4.20-5.40); Triglycerides 160 mg/dl (30-150); VLDL Cholesterol 32 mg/dL (0-40); White Blood Count 11.4 K/mm3 (4.8-10.8)
[2024-01-27 11:56] LABS: Basophils % 0.4 % (0.1-2.0); Calcium 9.4 mg/dl (8.4-10.2); Eosinophils % 0.2 % (0.1-12.0); Glucose 121 mg/dl (74-100); Lymphocytes # 3.1 K/mm3 (0.7-4.5); Lymphocytes % 26.7 % (10-50); Mean Corpuscular HGB Conc 33.8 g/dL (31.8-35.4); Mean Corpuscular Hemoglobin 30.1 pg (27.0-31.2); Mean Corpuscular Volume 89.3 fl (81-99); Mean Platelet Volume 10.4 fl (7.4-10.4); Monocytes # 0.9 K/mm3 (0.1-1.0); Monocytes % 7.4 % (1.7-9.3); Neutrophils # 7.4 K/mm3 (1.8-7.8); Neutrophils % 64.9 % (37.0-80.0); Platelet Count 291 K/mm3 (142-424); Red Cell Distribution Width 13.1 % (11.5-17.5)
[2024-01-27 11:57] LABS: Basophils # 0.1 K/mm3 (0-0.2)
[2024-01-27 11:59] LABS: Activated Partial Thrombo Time 24.4 seconds (22.8-30.6)
[2024-01-27] MEDS: LACTATED RINGERS 1000ML 1,000 ML 999 ML IV (11:59)
[2024-01-27 12:05] LABS: Direct LDL Cholesterol 43.81 mg/dL (100-129); NT Pro Brain Natriuretic Pep. 102 pg/mL (0-125)
[2024-01-27 12:09] LABS: Troponin I 0.09 ng/ml (0.00-0.034)
[2024-01-27] MEDS: MORPHINE 4MG/ML SYRINGE 4 MG IV (12:10)
[2024-01-27] MEDS: SODIUM CHLORIDE 0.9% 25ML BAG 25 ML IV (12:10)
[2024-01-27] MEDS: ACETAMINOPHEN 1,000MG/100ML VIAL 1000 MG IV (12:10)
[2024-01-27] MEDS: PROMETHAZINE HCL 25MG/ML 1ML VIAL 12.5 MG IV (12:10)
--- NOTE | 2024-01-27 12:10 | PC.NURSE ---
PT TO CT
[2024-01-27] MEDS: IOPAMIDOL-370 (76%);100ML BOTTLE 80 ML IV (12:27)
[2024-01-27] MEDS: 0.9 % SODIUM CHLORIDE 50 ML VIAL IV (12:27)
[2024-01-27] MEDS: SODIUM CHLORIDE 0.9% 10ML SYR (RAD ONLY) 10 ML IV (12:27)
[2024-01-27 13:08] LABS: HIV Combo NEGATIVE (Negative)
[2024-01-27 13:26] LABS: Microscopic, Urine URINE MICROSCOPIC (MICROSCOPIC)
[2024-01-27 13:29] LABS: Appearance,Urine CLEAR (Clear); Bilirubin,Urine Negative (Negative); Blood, Urine Negative (Negative); Color,Urine YELLOW (Yellow); Glucose,Urine (UA) Negative (Negative); Ketones,Urine TRACE (Negative); Leukocyte Esterase,Urine Negative (Negative); Nitrate,Urine Negative (Negative); Protein,Urine Negative (Negative); Urobilinogen,Urine 0.2 EU/dl (0.2)
[2024-01-27 14:11] LABS: Bacteria,Urine Trace /lpf; WBC,Urine Occasional #/hpf (0-3)
[2024-01-27 14:48] LABS: Troponin I 0.09 ng/ml (0.00-0.034)
[2024-01-27 15:09] LABS: INR 0.98 (0.9-1.1)
[2024-01-27 15:32] LABS: Hemoglobin A1C 5.5 % (4.0-6.0)
[2024-01-28 07:09] LABS: HCV Ab Non Reactive (Non Reactive)
== END 2024-01-27 15:12 | disposition home or self-care (01) ==
PROVIDERS: Emergency Provider Emergency Medicine; PCP Nurse Practitioner
DX: R11.2 Nausea with vomiting, unspecified (principal); R51.9 Headache, unspecified; R10.9 Unspecified abdominal pain; R30.0 Dysuria
CPT/HCPCS: 74174; 80053; 80061; 81001; 83036; 83690; 83880; 84484; 85025; 85610; 85730; 86803; 87389; 93005; 96361; 96374; 96375; 99285; J0131; J2270; J2550; J7120; Q9967

== ENCOUNTER 2024-03-21 12:53 | Day surgery (SDC) | payer MEDICARE, SELFPAY ==
[2024-03-20 11:08] VITALS: BMI 30.1
[2024-03-21 13:13] VITALS: BP 112/55; PULSE 74; RESP 18; TEMP 36.7; O2SAT 94
[2024-03-21] MEDS: LACTATED RINGERS 1000ML 1,000 ML 50 ML IV (13:18)
--- NOTE | 2024-03-21 13:41 | EXP.ANES.CKL ---
[facility] Disclaimer: The information contained in this section may have been updated after the patient was seen, as this information can be updated by other users. Medical History Anxiety History of COVID-19 Pain with bowel movements Right lower quadrant abdominal pain Constipation ASCUS with positive high risk HPV cervical Postmenopausal atrophic vaginitis History of cancer Migraine COPD (chronic obstructive pulmonary disease) Osteoarthritis History of back pain Hypertension Skin cancer Surgical History History of tonsillectomy Hx of tubal ligation Family History Mother Alcoholism Cancer Father Cancer Diabetes Grandfather Cancer Grandmother Cancer Family/Other Cancer Sister Diabetes Brother Diabetes Other Family history of cancer Social History Smoking Status: Current every day smoker tobacco type: cigarettes packs per day: 1 quit status: considering quitting second hand exposure: No alcohol intake: never substance use type: former substance user current occupational status: disabled Travel in the last 8 weeks: None housing: apartment current occupational exposures/hazards: No caffeine: Yes Have you lived/traveled outside US in past 30 days?: No Contact w/someone who lives/traveled outside US past 30 days?: No Exposure to someone with infectious disease in past 14 days?: No Do you have a fever (greater than 100.4 F or 38 C)?: No Have you tested positive for COVID-19: Yes Exposed to someone with COVID-19 in past 14 days?: No Do you have a sore throat?: No Do you have a cough?: No Do you have any weakness?: No Are you experiencing any nausea/vomitting?: No Do you have any diarrhea?: No Are you experiencing any unusual bleeding?: No Do you have any muscle aches/pain?: No Do you have any abdominal pain?: No Are you experiencing loss of taste or smell?: No [facility] Anesthesia Checklist Patient Identification Patient Identification: Arm Band and Verbal (Name & ) Structural Data Admitted From: Home Planned Operative Procedure/s: colonoscopy Consent for Planned Operative Procedure(s) Verified: Yes Verified Documents: Surgical Consent NPO Status Verified Time NPO: 00:00 Additional verifications Patient : No Anesthesia Reactions: No Hx Blood Transfusions: No Blood Transfusion Reaction: No Cephalosporin Allergy: No Previous Colonoscopy: No Cardiovascular Assessment Heart Sounds: S1 & S2 Pulse Strength: Baseline Pulse Rhythm: Regular Peripheral Edema: No Airway Assessment Mallampati Score:: Class I C-Spine Mobility Assessed: Yes TMJ Mobility Assessed: Yes Dentition: Edentulous Neurological Assessment Level of Consciousness: Awake, Alert and Appropriate Hx Seizures: No Numbness or tingling in extremities: No Anesthesia Plan Anesthesia Risk discussed: Yes Anesthesia Plan: Verified ASA Class: III Anesthesia Type: MAC
--- NOTE | 2024-03-21 13:51 | P.HP_ITS ---
History of Present Illness *Admission Date: 03/21/24 *Reason for visit:: Diarrhea and hematochezia *History of present illness: Mrs. Pineda is a 63-year-old female who is admitted for nausea, vomiting, diarrhea and hematochezia. The patient does report 4 days of being ill with nausea and dry heaves. Yesterday she developed hematochezia with bright red blood per rectum for 5 times at home. She came to the emergency department yesterday. Initial hemoglobin hematocrit were 11.9 and 35.0. After hydration, her hemoglobin and hematocrit are 10.4 and 30.5. She was having crampy abdominal discomfort at home but no gassiness or bloating. Imaging with CAT scan yesterday did not show any acute process or intra-abdominal abnormalities. Her white blood cell count was normal at 8.2. She also had normal ALT 20, bilirubin 0.3 and lipase 60. The patient did have an attempted colonoscopy aborted because of poor bowel preparation just over 2 weeks ago (January 09, 2024) and only the left colon was visualized poorly and there was left-sided diverticulosis. The patient is much clinically improved this morning with no abdominal pain or further bouts of bleeding since admission. The patient typically has chronic constipation. Her maternal aunt and paternal grandmother had colon cancer. She has never had a full colonoscopy. [facility] Disclaimer: The information contained in this section may have been updated after the patient was seen, as this information can be updated by other users. Medical History (Updated 03/21/24 @ 13:54 by Brock Kumar II, MD) Anxiety History of COVID-19 Pain with bowel movements Right lower quadrant abdominal pain Constipation ASCUS with positive high risk HPV cervical Postmenopausal atrophic vaginitis History of cancer Migraine COPD (chronic obstructive pulmonary disease) Osteoarthritis History of back pain Hypertension Skin cancer Surgical History History of tonsillectomy Hx of tubal ligation Family History Mother Alcoholism Cancer Father Cancer Diabetes Grandfather Cancer Grandmother Cancer Family/Other Cancer Sister Diabetes Brother Diabetes Other Family history of cancer Social History Smoking Status: Current every day smoker tobacco type: cigarettes packs per day: 1 quit status: considering quitting second hand exposure: No alcohol intake: never substance use type: former substance user current occupational status: disabled Travel in the last 8 weeks: None housing: apartment current occupational exposures/hazards: No caffeine: Yes Have you lived/traveled outside US in past 30 days?: No Contact w/someone who lives/traveled outside US past 30 days?: No Exposure to someone with infectious disease in past 14 days?: No Do you have a fever (greater than 100.4 F or 38 C)?: No Have you tested positive for COVID-19: Yes Exposed to someone with COVID-19 in past 14 days?: No Do you have a sore throat?: No Do you have a cough?: No Do you have any weakness?: No Are you experiencing any nausea/vomitting?: No Do you have any diarrhea?: No Are you experiencing any unusual bleeding?: No Do you have any muscle aches/pain?: No Do you have any abdominal pain?: No Are you experiencing loss of taste or smell?: No Other Medical History Have you received the Flu Vaccine for this season: No Have you received the Pneumonia Vaccine: No Review of Systems Review of Systems Review of systems (narrative): Negative *Cardiovascular Comments: Negative *Gastrointestinal Comments: Negative *Genitourinary Comments: Negative *Musculoskeletal Comments: Negative *Neurologic Comments: Negative Meds Home Medications and Allergies Home Medications ?Medication ?Instructions ?Recorded ?Confirmed ?Type carvedilol 3.125 mg tablet 3.125 mg PO DAILY 06/30/22 03/21/24 History atorvastatin 40 mg tablet (Lipitor) 40 mg PO DAILY #30 tabs 11/25/22 03/21/24 Rx amlodipine 5 mg tablet 5 mg PO HS 10/25/23 03/21/24 History cholecalciferol (vitamin D3) 25 25 mcg PO DAILY 10/25/23 03/21/24 History mcg (1,000 unit) capsule ipratropium 20 mcg-albuterol 100 1 puff inhalation Q4HP PRN 10/25/23 03/21/24 History mcg/actuation mist for inhalation Shortness Of Breath Or Wheezing (Combivent Respimat) lisinopril 20 1 tab PO DAILY 10/25/23 03/21/24 History mg-hydrochlorothiazide 25 mg tablet clonazepam 1 mg tablet (Klonopin) 1 mg PO BID 01/03/24 03/21/24 History gabapentin 800 mg tablet 800 mg PO QID 01/09/24 03/21/24 History linaclotide 290 mcg capsule 290 mcg PO DAILY #30 caps 01/09/24 03/21/24 Rx (Sarahzess) buprenorphine 8 mg-naloxone 2 mg 2 tab sublingual DAILY 01/25/24 03/21/24 His tory sublingual tablet celecoxib 100 mg capsule 100 mg PO DAILY 01/25/24 03/21/24 History clonidine HCl 0.1 mg tablet 0.1 mg PO DAILY 01/25/24 03/21/24 History naloxegol 25 mg tablet (Movantik) 25 mg PO DAILY 01/25/24 03/21/24 History ondansetron 4 mg disintegrating 4 mg PO Q6H PRN nausea and 01/27/24 03/21/24 Rx tablet vomiting #10 tabs promethazine 25 mg tablet 12.5 mg (1/2 x 25 mg) PO Q6H PRN 01/27/24 03/21/24 Rx nausea and vomiting #20 tabs aspirin 81 mg tablet,delayed 81 mg PO DAILY #90 tabs 02/20/24 03/21/24 Rx release sodium,potassium,mag sulfates 17.5 See Rx Instructions PO .COMPLEX 03/15/24 03/21/24 Rx gram-3.13 gram-1.6 gram oral soln #354 mL (Suprep Bowel Prep Kit) tizanidine 4 mg tablet 4 mg PO TID 03/20/24 03/21/24 History New Prescriptions to Start Prescriptions: Allergies Allergy/AdvReac Type Severity Reaction Status Date / Time No Known Allergies Allergy Verified 03/21/24 13:10 Exam Data for Last 24 hours Vital signs and Labs for Last 24 Hours: Temp Pulse Resp BP Pulse Ox O2 Del Method 98.1 F 74 18 112/55 L 94 L Room Air 03/21/24 13:13 03/21/24 13:13 03/21/24 13:13 03/21/24 13:13 03/21/24 13:13 03/21/24 13:13 I & O for Last 24 hours: Intake & Output 02/09/25 02/10/25 02/11/25 02/12/25 23:59 23:59 23:59 23:59 Weight 170 lb *Routine HEENT Exam Head: Present normocephalic Eye: Present EOMI and PERRL ENT: Present mucous membranes moist *Routine Neck Exam Neck: Present supple *Routine Respiratory Exam Respiratory: Present CTA bilaterally *Routine Cardiovascular Exam Cardiovascular: Present RRR *Routine Abdominal Exam Abdominal: Present soft and normoactive bowel sounds; Absent tenderness *Routine Rectal Exam Rectal:: deferred *Routine Genitalia Exam Genitalia:: deferred *Routine Extremities Exam Extremities: Absent cyanosis, clubbing or edema *Routine Skin Exam Skin: Present warm; Absent rash *Routine Neurological Exam Neurological: Present alert and oriented X3 Assessment and Plan *Assessment and plan (1) Bright red blood per rectum: Status: Acute Category: Medical Code(s): K62.5 - Hemorrhage of anus and rectum (2) Hematochezia: Status: Acute Category: Medical Code(s): K92.1 - Melena (3) Change in bowel habits: Status: Acute Category: Medical Code(s): R19.4 - Change in bowel habit (4) Family history of colon cancer: Status: Acute Category: Medical Code(s): Z80.0 - Family history of malignant neoplasm of digestive organs Plan A/P: 1. Bright red blood per rectum and hematochezia with anemia is the preprocedural diagnosis. Patient's maternal aunt and paternal grandmother had colon cancer. Patient has never had full colonoscopy but did have attempted but unprepped colonoscopy in January 2024. The patient will be anesthetized/sedated using MAC sedation. The patient has been seen and examined. Cardiac and lung assessment prior to the examination is stable. Proceed with planned colonoscopy
--- NOTE | 2024-03-21 13:54 | P.PCN_ITS ---
[facility] Procedure Note Date: 03/21/24 Time: 14:23 Procedure Note:: Flexible sigmoidoscopy?aborted colonoscopy Endoscopist: Brock Kumar II, MD Referring physician: Vivienne Paz M.D. Date of Procedure: March 21, 2024 Equipment: Olympus 190 variable stiffness pediatric colonoscope Sedation: MAC sedation Indication: Mrs. Pineda is a 63-year-old female who is here for diagnostic colonoscopy. She was previously admitted for nausea, vomiting, diarrhea and hematochezia. She was having some crampy abdominal discomfort and she developed hematochezia with bright red blood per rectum 4-5 times at home. She came to the emergency department and was admitted with hemoglobin and hematocrit that were 11.9 and 35.0. After hydration, her hemoglobin and hematocrit are 10.4 and 30.5. Her CAT scan at that time did not show any acute process or intra- abdominal abnormalities. Her white blood cell count was normal at 8.2. She also had normal ALT 20, bilirubin 0.3 and lipase 60. The patient did have an attempted colonoscopy aborted because of poor bowel preparation on January 09, 2024 and only the left colon was visualized poorly and there was left-sided diverticulosis. The patient is much clinically improved this morning with no abdominal pain or further bouts of bleeding since admission. The patient typically has chronic constipation. Her maternal aunt and paternal grandmother had colon cancer. She has never had a full colonoscopy. Procedure: Prior to the procedure, a history and physical exam was performed, and patient's medications and allergies were reviewed. The risks, benefits and alternatives of the sedation and procedure were discussed with the patient. All questions were answered and informed consent was obtained. The patient was brought to the procedure room. Patient identification and proposed procedure were verified by the physician and the nurse. The patient was placed in a left lateral decubitus position and the scope was passed under direct vision. Throughout the procedure, the patient's blood pressure, pulse, and oxygen saturations were monitored continuously. The colonoscopy was accomplished without difficulty. The patient tolerated the procedure well. Findings: On digital rectal examination there was normal rectal tone and there were no external hemorrhoids. The colonoscope was then introduced through the anal canal into the rectum and advanced to 30 cm. There was abundant amount of liquid and solid stool with very poor visualization of the colon. The procedure was aborted secondary to unprepped colonoscopy. Impression: 1. Unprepped colonoscopy Plan: This was a second attempt colonoscopy after patient failed bowel preparation in January. We did do full instruction on improved preparation. At this point, I will recommend Cologuard and/or CT Colography (virtual colonoscopy).
[2024-03-21 14:02] VITALS: O2SAT 97
[2024-03-21 14:27] VITALS: BP 87/49; PULSE 83; RESP 18; TEMP 36.1; TEMP 36.5; O2SAT 95
[2024-03-21 14:37] VITALS: BP 86/55; PULSE 74; RESP 18; O2SAT 94
[2024-03-21 14:47] VITALS: BP 90/40; PULSE 70; RESP 18; O2SAT 98
[2024-03-21 15:10] VITALS: BP 108/51; PULSE 72; RESP 18; O2SAT 98
== END 2024-03-21 15:10 | disposition home or self-care (01) ==
PROVIDERS: PCP Family Medicine; Visit Provider Internal Medicine Gastroenterology
PROC: 0DJD8ZZ Inspection of Lower Intestinal Tract, Via Natural or Artificial Opening Endoscopic (ICD-10-PCS; CPT 45378; principal; 2024-03-21 14:30)
DX: K62.5 Hemorrhage of anus and rectum (principal); R19.4 Change in bowel habit; Z80.0 Family history of malignant neoplasm of digestive organs; R11.2 Nausea with vomiting, unspecified; R19.7 Diarrhea, unspecified; Z53.8 Procedure and treatment not carried out for other reasons
CPT/HCPCS: 45378; J7120

== ENCOUNTER 2024-04-13 14:01 | Outpatient (CLI) | payer MEDICARE, SELFPAY ==
--- NOTE | 2024-04-13 14:05 | MM_ITS ---
PROCEDURE INFORMATION: Exam: MG Bilateral Screening 3D Mammography Exam date and time: 04/13/2024 2:08 PM Age: 63 years old Clinical indication: Screening examination TECHNIQUE: Imaging protocol: Bilateral Screening tomosynthesis and 2D mammography including computer-aided detection (CAD) when performed. COMPARISON: 1. MG MM DIG SCREENING MAMM BI W/CAD 12/08/2022 4:08 PM 2. MG MM DIG SCREENING MAMM BI W/CAD 12/11/2019 4:08 PM FINDINGS: MAMMOGRAPHY: Breast composition: There are scattered areas of fibroglandular density. Mass: No suspicious masses. Architectural distortion: None. Calcifications: No suspicious calcifications. Asymmetric density: None. Skin thickening: None. Axillary adenopathy: None. IMPRESSION: No mammographic evidence of malignancy. Annual screening is recommended unless otherwise clinically indicated. ASSESSMENT: BI-RADS Category 1: Negative.
== END 2024-04-13 23:59 | disposition home or self-care (01) ==
LOC: RAD 14:02
PROVIDERS: PCP Family Medicine; Visit Provider Nurse Practitioner
DX: Z12.31 Encounter for screening mammogram for malignant neoplasm of breast (principal)
CPT/HCPCS: 77063; 77067

== ENCOUNTER 2024-09-10 11:00 | Outpatient (CLI) | payer MEDICARE, OTHER, SELFPAY ==
--- NOTE | 2024-09-10 11:02 | CT_ITS ---
FINAL REPORT TECHNIQUE: Axial CT images were performed through the head. Coronal reformatted images were submitted. This study was performed with techniques to keep radiation doses as low as reasonably achievable (ALARA). Individualized dose reduction techniques using automated exposure control or adjustment of mA and/or kV according to the patient's size were employed. CLINICAL HISTORY: Stuttering COMPARISON: 05/16/2018 FINDINGS: The ventricles are normal in size. There is no evidence of hemorrhage. There is no mass or edema identified. There is no abnormal extra-axial fluid seen. The paranasal sinuses are well aerated. IMPRESSION: No acute intracranial process. Reviewed, Interpreted and Dictated by Tyson Douglas MD Transcribed by Federica Baig Authenticated and [facility]
--- OUTSIDE RECORDS SUMMARY | 2024-09-10 11:03 | XMS_ITS | Clinical Summary ---
Author Organization [facility] Address [address] [place] [address] Care Team Providers Care Tool Crib Lead Name Role Phone Fer Moreau MD Primary Care Provider [phone] Social History Tobacco Use Types Packs/Day Years Used Date Smoking Tobacco: Never Assessed Comments Unknown Sex and Gender Information Value Date Recorded Sex Assigned at Not on file Legal Sex Female 7:28 PM EDT Gender Identity Not on file Sexual Orientation Not on file Plan of Treatment Health Maintenance Due Date Last Done Comments [facility]-Bone Density Scan 1960 [facility]-Depression Screening 1960 [facility]-/Child/Adol SDOH Screenings 1960 UKY- SDOH Screenings 1976 [facility]Y-Adult SDOH Screenings 1976 CT Colonography 05/20/2003 Colonoscopy 05/20/2003 FIT-DNA 05/20/2003 FIT 05/20/2003 FOBT 05/20/2003 Sigmoidoscopy 05/20/2003 UKY-Colorectal Cancer Screening 05/20/2003 [facility]Y-DTaP,Tdap,and Td Vaccines (2 - Td or Tdap) 10/12/2016 10/12/2006 UKY-Zoster Vaccines (2 of 2) 09/09/2021 07/15/2021 [id number] Vaccine ( season) 2023 01/05/2023, 08/18/2021, 07/15/2021 [facility]Y-Influenza Vaccine (#1) 10/08/202401/05, 11/10/2018, 11/25/2014, Additional history exists [facility]Y-RSV Vaccine: 60+ Years or (1 - 1-dose 75+ series) 2033 [facility]-Cervical Cancer Screening Discontinued [facility]-HPV/Cotest Discontinued 09/11/2004, 04/2003, 03/08/2000 [facility]-Pap Smear Discontinued 09/11/2004, 04/2003, 03/08/2000 [facility]Y-Pneumococcal Vaccine: 50+ Years Completed 07/15/2021 HPV Vaccines Aged Out No longer eligi ble based on patient's age to complete this topic UKY-HIB Vaccines Aged Out No longer e ligible based on patient's age to complete this topic UKY-Hepatitis A Vaccines Aged Out No longer eligible based on patient's age to complete this topic UKY-IPV Vaccines Aged Out No longer e ligible based on patient's age to complete this topic UKY-Rotavirus Vaccines Aged Out No lo nger eligible based on patient's age to complete this topic Procedures Procedure Name Priority Date/Time Associated Diagnosis Comments CYTO DATA CONVERSION Routine 09/11/2004 12:00 AM EDT from Last 3 Months or Most Recently Relevant to Health Maintenance Results * Cytology (09/11/2004 12:00 AM EDT) 09/11/2004 09/15/2004 3:0 0 PM EDT Narrative SUNQUEST - 09/18/2004 10:02 AM EDT [facility] MR #: [id number] [facility] [address] [place], [place] [address] 1960 (Age: 44) FW Collect Date: 09/11/2004 00:00 Receipt Date: 09/15/2004 15:00 Page 1 DEPARTMENT OF PATHOLOGY AND LABORATORY MEDICINE CYTOPATHOLOGY REPORT Email: [email or web address] [phone] ATTENDING MD/Practitioner: Corine Mary MD Service: [facility] Location: [facility] Reported: 09/18/2004 10:02 Collected: 09/11/2004 00:00 INTERPRETATION THIN PREP (CERVICAL/VAGINAL): NEGATIVE FOR INTRAEPITHELIAL LESION OR MALIGNANCY. SATISFACTORY FOR EVALUATION; ENDOCERVICAL/ TRANSFORMATION ZONE COMPONENT PRESENT. BORDERLINE SQUAMOUS CELLULARITY NOTED. Slide scanned and imaged by [employer] Imaging System with manual review of all selected craig. Electronically Signed Out By NAYELI Harris(ASCP) NAYELI Mclean(ASCP). NAYELI Harris(ASCP) Cervical cytology is a screening test primarily for squamous cancers and precursors and has associated false negative and positive results. New technologies such as liquid based sampling may decrease but will not eliminate all false negative results. Regular screening and follow-up of unexplained clinical signs and symptoms are recommended to minimize false negative results. Please see the ASCCP website (www.asccp.org) for followup recommendations. If HPV testing was requested, correlation with the results is suggested (please call Microbiology at [phone] for results). CLINICAL INFORMATION: Menstrual History: Cyclic Date of Last Menstrual Period: 09/05/04 SPECIMEN DESCRIPTION: A: THIN PREP (CERVICAL/VAGINAL) THIN PREP PROCESS CELLULAR ENHANCEMENT ICD: V76.2 CERVIX, SPECIAL SCREENING FOR MALIGNANT NEOPLASM F: A; RT IMAGE [id number] SNOMED CODES: A; [id number] [id number] M-0911.02 In cases where a pathologist has signed out the report, the service has been rendered in part by a resident. The signing pathologist has performed and is responsible for the reported pathologic evaluation. us Historical Provider MD LAB PATHOLOGY ORDERABLES Final Result SUNVibes from Last 3 Months or Most Recently Relevant to Health Maintenance Insurance [employer] [facility] MEDICAID Care Teams Tool Crib Lead Relationship Specialty Start Date End Date Fer Moreau MD [address] [place] [address] PCP - General 06/20/20
--- OUTSIDE RECORDS SUMMARY | 2024-09-10 11:03 | XMS_ITS | Clinical Summary ---
Author Organization [facility] Address [address] [place] [address] Care Team Providers Care Plate Mill Mill Hand Name Role Phone Fer Moreau MD Primary Care Provider [phone] Allergies No known active allergies Medications lisinopril-hydr ochlorothiazide (PRINZIDE,ZESTO RETIC) 20-25 MG per tablet Take 1 tablet by mouth Daily. Active escitalopram (LEXAPRO) 20 MG tablet Take 20 mg by mouth Daily. Active tiZANidine (ZANAFLEX) 4 MG tablet Take 4 mg by mouth At Night As Needed for Muscle Spasms. 2 tablets tid Active buprenorphine-n aloxone (SUBOXONE) 8-2 MG per SL tablet Place 1 tablet under the tongue Daily. 2 tablets Active carvedilol (COREG) 3.125 MG tablet Take 3.125 mg by mouth 2 (Two) Times a Day With Meals. Active buPROPion SR (WELLBUTRIN SR) 150 MG 12 hr tablet Take 150 mg by mouth 2 (Two) Times a Day. Active amitriptyline (ELAVIL) 25 MG tablet Take 25 mg by mouth Every Night. Active Social History Tobacco Use Types Packs/Day Years Used Date Smoking Tobacco: Every Day Alcohol Use Standard Drinks/Week Comments No 0 (1 standard drink = 0.6 oz pur e alcohol) Abuse Screen Answer Date Recorded Unsafe at Home or Work/School Not on file Feels Threatened by Someone? Not on file 12/2022 Does Anyone Keep You from Co ntacting Others or Doint Things Outside the Home? Not on file 11/17/2022 Physical Sign of Abuse Present Not on file 1 Housing Stability Answer Date Recorded Current Living Arrangements Not on file 11/07 Potentially Unsafe Housing Conditions Not on christianne e 11/17/2022 Family and Community Support Answer Jarrell e Recorded Help with Day-to-Day Activities Not on file 11/17/2022 Lonely or Isolated Not on file 11/17/2022 Employment Answer Date Recorded Do you want help finding or keeping work or a jude b? Not on file 11/17/2022 Disabilities Answer Date Recorded Concentrating, Remembering, or Making Decisions Difficulty Not on file 11/17/2022 Doing Errands Independently Difficulty Not on fi le 11/17/2022 Education Answer Date Recorded Help with school or training? Not on file Preferred Language Not on file 11/17/2022 Comments Unknown Sex and Gender Information Value Date Recorded Sex Assigned at Not on file Legal Sex Female 12:13 PM EDT Gender Identity Not on file Sexual Orientation Not on file Last Filed Vital Signs Vital Sign Reading Time Taken Comments Blood Pressure 137/88 09/21/2016 10:17 PM EDT Pulse 57 09/21/2016 10:03 PM EDT Temperature 37.2 C (99 F) 09/21/2016 6:59 PM EDT Respiratory Rate 20 09/21/2016 10:36 PM EDT Oxygen Saturation 98% 09/21/2016 10:03 PM EDT Inhaled Oxygen Concentration - - Weight 68 kg (150 lb) 09/21/2016 7:35 PM EDT Height 165.1 cm (5' 5 ) 09/21/2016 7:35 PM EDT Body Mass Index 24.96 09/21/2016 7:35 PM EDT Plan of Treatment Health Maintenance Due Date Last Done Comments DXA SCAN 1960 TDAP/TD VACCINES (1 - Tdap) 1977 MAMMOGRAM 1998 COLOGUARD 05/20/2003 COLON CANCER SCREENING 5 YEAR SIGMOIDOSCOPY 05/20/2003 COLONOSCOPY 05/20/2003 COLORECTAL CANCER SCREENING 05/20/2003 CT COLONOGRAPHY 05/20/2003 FECAL OCCULT BLOOD TEST 05/20/2003 FIT Testing (1 year) 05/20/2003 Pneumococcal Vaccine 50+ (1 of 1 - PCV) 2008 ZOSTER VACCINE (1 of 2) 2008 ANNUAL PHYSICAL 09/21/2016 HEPATITIS C SCREENING 09/21/2016 COVID-19 Vaccine ( - season) 2023 INFLUENZA VACCINE 11/07/2024 Insurance [id number] Care Teams Plate Mill Mill Hand Relationship Specialty Start Date End Date Fer Moreau MD [address] [facility] [address] ATTN: [place] [address] PCP - General Emergency Medicine 09/21/16
== END 2024-09-10 23:59 | disposition home or self-care (01) ==
LOC: RAD 11:01
PROVIDERS: PCP Nurse Practitioner; Visit Provider Nurse Practitioner
DX: F80.81 Childhood onset fluency disorder (principal)
CPT/HCPCS: 70450

== ENCOUNTER 2024-10-30 12:33 | Emergency (ER) | payer MEDICARE, OTHER, SELFPAY ==
--- NOTE | 2024-10-30 12:37 | ECG_ITS ---
APPROVED REPORT Exam: Resting ECG HR:95 bpm ECG Measurements Heart Rate 95 AXES [place] 181 P 68 QRSd 83 QRS 68 QT 339 T 23 QTc 391 Conclusion SINUS RHYTHM NORMAL ECG Electronically signed by : ULISES RODRIGUEZ, 11/01/2024 09:22:09
[2024-10-30 12:39] VITALS: BP 197/108; PULSE 101; RESP 19; TEMP 36.9; O2SAT 97; BMI 23.9
--- NOTE | 2024-10-30 12:43 | CT_ITS ---
FINAL REPORT TECHNIQUE: Postcontrast imaging of the abdomen and pelvis was obtained per CTA protocol. Reformatted images were also obtained and reviewed. This study was performed with techniques to keep radiation doses as low as reasonably achievable (ALARA). Individualized dose reduction techniques using automated exposure control or adjustment of mA and/or kV according to the patient's size were employed. CLINICAL HISTORY: SOB, CP, leg pain, RLQ pain COMPARISON: 01/27/2024 FINDINGS: There is no abdominal aortic aneurysm or dissection. Infrarenal abdominal aorta is stable at 25 mm. And SMA are patent. Bilateral renal artery stenoses are unchanged. On today's exam the JAILENE is patent at the origin. Iliac arteries are patent. Solid abdominal organs are without acute abnormality. GI tract is without obstruction. The appendix is normal. There is no adenopathy or free fluid. IMPRESSION: No aneurysm or dissection. No significant mesenteric stenosis. Reviewed, Interpreted and Dictated by Tere Pratt MD Transcribed by Felipa Garcia Authenticated and [facility]
--- NOTE | 2024-10-30 12:43 | CT_ITS ---
FINAL REPORT TECHNIQUE: Axial imaging of the chest is obtained after the administration of contrast. 3-D MIP reformatted images were also obtained and reviewed per PE protocol. CLINICAL HISTORY: SOB, CP, leg pain, RLQ pain FINDINGS: The pulmonary arteries are well filled. There is no evidence of pulmonary embolus. There is no aortic dissection. Heart size is normal. There is no mediastinal, hilar, or axillary lymphadenopathy. There is evidence of prior granulomatous disease. The lungs are otherwise clear. There is no pleural or pericardial effusion. IMPRESSION: No evidence of pulmonary embolism or aortic dissection. Reviewed, Interpreted and Dictated by Tere Pratt MD Transcribed by Felipa Garcia Authenticated and [facility]
--- NOTE | 2024-10-30 12:44 | XR_ITS ---
FINAL REPORT TECHNIQUE: Single view chest CLINICAL HISTORY: SOB COMPARISON: 02/03/2021 FINDINGS: A single view of the chest was obtained. The heart and mediastinum are within normal limits. The lungs are clear. There is no pneumothorax. IMPRESSION: No acute cardiopulmonary process. Reviewed, Interpreted and Dictated by Tere Pratt MD Transcribed by Felipa Garcia Authenticated and . [facility]
--- NOTE | 2024-10-30 12:47 | ED_ITS ---
Discharge Plan Disposition Patient Disposition: Home, Self-Care Condition: Good Prescriptions Prescriptions: No Action atorvastatin [Lipitor] 40 mg tablet 40 mg PO DAILY Qty: 30 2RF aspirin 81 mg tablet,delayed release (DR/EC) 81 mg PO DAILY Qty: 90 3RF sodium,potassium,mag sulfates [Suprep Bowel Prep Kit] 17.5-3.13-1.6 gram recon soln See Rx Instructions PO .COMPLEX Qty: 354 0RF Rx Instructions: DILUTE; drink full amount early evening before AND next morning at least 4-5 hr before procedure; follow w 960 mL water PO carvedilol 3.125 mg tablet 3.125 mg PO DAILY clonazepam [Klonopin] 1 mg tablet 1 mg PO BID gabapentin 800 mg tablet 800 mg PO QID Linzess 290 mcg capsule 290 mcg PO DAILY Qty: 30 12RF amlodipine 5 mg tablet 5 mg PO HS lisinopril-hydrochlorothiazide 20-25 mg tablet 1 tab PO DAILY cholecalciferol (vitamin D3) 25 mcg (1,000 unit) capsule 25 mcg PO DAILY Combivent Respimat 20-100 mcg/actuation mist 1 puff inhalation Q4HP PRN (Reason: Shortness Of Breath Or Wheezing) tizanidine 4 mg tablet 4 mg PO TID clonidine HCl 0.1 mg tablet 0.1 mg PO DAILY celecoxib 100 mg capsule 100 mg PO DAILY buprenorphine-naloxone 8-2 mg tablet, sublingual 2 tab SUBLINGUAL DAILY Patient Comments: Place 2 tablet under tongue once a day Movantik 25 mg tablet 25 mg PO DAILY promethazine 25 mg tablet 12.5 mg PO Q6H PRN (Reason: nausea and vomiting) Qty: 20 0RF ondansetron 4 mg tablet,disintegrating 4 mg PO Q6H PRN (Reason: nausea and vomiting) Qty: 10 0RF Referrals Follow up/Referrals: Talita Kay APRN [Primary Care Provider, Medical] - See instructions Activity Restrictions/Add. Instructions Additional Instructions/Restrictions: Return to the emergency department for any acute or worsening symptoms. Clinical Impressions Clinical Impression: Abdominal pain Print Language Print Language: Swazi Discharge ED Provider: Rafat Sol General Adult HPI <Rafat Sol MD - Last Filed: 10/30/24 15:44> General Chief complaint: Chest Pain Stated complaint: Chest Pain Time Seen by Provider: 10/30/24 12:36 Mode of Arrival: Wheelchair Source of Information: Patient Description of Symptoms (Recalled from ER Triage Doc. by RN): pt presents to ED with c/o chest pain, bilateral feet swelling, right lower abdominal pain. pt reports chest pain began at 1030 this am, intermittent. pt reports that swelling began a few days ago, abdominal pain began yesterday. pt reports that she broke out in a sweat when her chest pain began. History of Present Illness HPI narrative: This patient is a 64-year-old female with past medical history of COPD, coronary artery disease who presents to the emergency department with multiple complaints. She reports that she has chest pain, radiation of pain down the left arm, right lower quadrant abdominal pain, bilateral lower extremity swelling. The patient reports that pain began suddenly at 10:30 AM, it was accompanied by diaphoresis. On my initial evaluation in the emergency department the patient is mildly uncomfortable, hypertensive, borderline tachycardic. She has normal oxygen saturation on room air, mild wheezing and rhonchorous breath sounds bilaterally, no other concerning findings. Related Data Home Medications ?Medication ?Instructions ?Recorded ?Confirmed carvedilol 3.125 mg tablet 3.125 mg PO DAILY 06/30/22 03/21/24 amlodipine 5 mg tablet 5 mg PO HS 10/25/23 03/21/24 cholecalciferol (vitamin D3) 25 25 mcg PO DAILY 03/21/24 mcg (1,000 unit) capsule ipratropium 20 mcg-albuterol 100 1 puff inhalation Q4H P PRN 10/25/23 03/21/24 mcg/actuation mist for inhalation Shortness Of Breath Or Wheezing (Combivent Respimat) lisinopril 20 1 tab PO DAILY 10/25/2303/10 2/25 mg-hydrochlorothiazide 25 mg tablet clonazepam 1 mg tablet (Klonopin) 1 mg PO BID 01/03/24 03/21/24 gabapentin 800 mg tablet 800 mg PO QID 01/09/2403/21 buprenorphine 8 mg-naloxone 2 mg 2 tab sublingual JUDIE Y 01/25/24 03/21/24 sublingual tablet celecoxib 100 mg capsule 100 mg PO DAILY 01/25/2401/31 clonidine HCl 0.1 mg tablet 0.1 mg PO DAILY 01/25/24 0 03/21/24 naloxegol 25 mg tablet (Movantik) 25 mg PO DAILY 01/2403/21/24 tizanidine 4 mg tablet 4 mg PO TID 03/20/24 5 Previous Rx's ?Medication ?Instructions ?Recorded atorvastatin 40 mg tablet (Lipitor) 40 mg PO DAILY #30 tabs 11/25/22 linaclotide 290 mcg capsule 290 mcg PO DAILY #30 caps 01/09/24 (Linzess) ondansetron 4 mg disintegrating 4 mg PO Q6H PRN nausea and 01/27/24 tablet vomiting #10 tabs promethazine 25 mg tablet 12.5 mg (1/2 x 25 mg) PO Q6H PRN 01/27/24 nausea and vomiting #20 tabs aspirin 81 mg tablet,delayed 81 mg PO DAILY #90 tabs 0 02/20/24 release sodium,potassium,mag sulfates 17.5 See Rx Instructions PO .COMPLEX 03/15/24 gram-3.13 gram-1.6 gram oral soln #354 mL (Suprep Bowel Prep Kit) Allergies Allergy/AdvReac Type Severity Reaction Status Date / Time No Known Allergies Allergy Verified 03/21/24 13:10 [facility] <Rafat Sol MD - Last Filed: 10/30/24 15:44> [facility] Disclaimer: The information contained in this section may have been updated after the patient was seen, as this information can be updated by other users. Medical History (Updated 10/30/24 @ 16:28 by Roseanne Garcias DO) Anxiety History of COVID-19 Pain with bowel movements Right lower quadrant abdominal pain Constipation ASCUS with positive high risk HPV cervical Postmenopausal atrophic vaginitis History of cancer Migraine COPD (chronic obstructive pulmonary disease) Osteoarthritis History of back pain Hypertension Skin cancer Surgical History History of tonsillectomy Hx of tubal ligation Family History Mother Alcoholism Cancer Father Cancer Diabetes Grandfather Cancer Grandmother Cancer Family/Other Cancer Sister Diabetes Brother Diabetes Other Family history of cancer Social History Smoking Status: Current every day smoker tobacco type: cigarettes packs per day: 1 quit status: considering quitting second hand exposure: No alcohol intake: never substance use type: former substance user current occupational status: disabled Travel in the last 8 weeks?: None housing: apartment current occupational exposures/hazards: No caffeine: Yes Have you lived/traveled outside [place] in past 30 days?: No Contact w/someone who lives/traveled outside [place] past 30 days?: No Exposure to someone with infectious disease in past 14 days?: No Do you have a fever (greater than 100.4 F or 38 C)?: No Have you tested positive for COVID-19?: No Exposed to someone with COVID-19 in past 14 days?: No Do you have a sore throat?: No Do you have a cough?: No Do you have any weakness?: No Do you have any diarrhea?: No Are you experiencing any unusual bleeding?: No Do you have any muscle aches/pain?: No Do you have any abdominal pain?: No Are you experiencing loss of taste or smell?: No Other Medical History Have you received the Flu Vaccine for this season: No Have you received the Pneumonia Vaccine: No <Rafat Sol MD - Last Filed: 10/30/24 15:44> ROS Obtained: Yes All systems reviewed & no additional complaints except as documented Physical Exam <Rafat Sol MD - Last Filed: 10/30/24 15:44> General General appearance: alert and in no apparent distress Head Head exam: atraumatic and normocephalic Eye Eye exam: Present normal appearance, PERRL and EOMI ENT ENT exam: Present normal exam and normal external ear exam Neck Neck exam: Present normal inspection, full ROM and trachea midline Chest Chest inspection: Present normal inspection and symmetric chest wall rise; Absent tenderness Respiratory Respiratory exam: Present wheezes and prolonged expiratory phase; Absent respiratory distress Cardiovascular Cardiovascular exam: Present regular rate, normal rhythm and other (appears warm and well perfused) Abdominal Exam Abdominal exam: Absent distention or tenderness Extremities Exam Extremities exam: Present normal inspection and full ROM Neurological Exam Neurological exam: Present alert and oriented X3 Psychiatric Psychiatric exam: Present normal affect Skin Skin exam: Present warm and dry Medical Decision Making <Rafat Sol MD - Last Filed: 10/30/24 15:44> Medical Records Medical records reviewed: Yes I reviewed the patient's medical records. Screening: Per USPSTF and CDC recommendations, given the prevalence of disease in our region, it is our hospital?s policy to screen for HIV and viral Hepatitis for all patients aged 18 and over and those with ongoing risk factors. Pablo Inquiry Pt receiving controlled substance: No Apblo was queried for this patient: No Vital Signs: 10/30/24 12:39 10/30/24 14:00 10/30/24 14:15 Temperature 98.5 F Temperature Source Oral Pulse Rate 81 77 Pulse Rate [Left Radial] 101 H Respiratory Rate 19 Blood Pressure 159/94 H 135/68 Blood Pressure [Right Arm] 197/108 H Blood Pressure Mean [Right Arm] 137 Blood Pressure Source Blood Pressure Position 02 Sat by Pulse Oximetry 97 95 97 Oxygen Delivery Method 10/30/24 16:42 Temperature 98.4 F Temperature Source Oral Pulse Rate 74 Pulse Rate [Left Radial] Respiratory Rate 18 Blood Pressure 130/70 Blood Pressure [Right Arm] Blood Pressure Mean [Right Arm] Blood Pressure Source Automatic Cuff Blood Pressure Position Supine 02 Sat by Pulse Oximetry Oxygen Delivery Method Room Air Lab Data Lab results reviewed: Yes I reviewed the patient's lab results. Lab Results 10/30/24 12:45: WBC 7.1, RBC 4.50, Hgb 14.0, Hct 42.4, MCV 94.2, MCH 31.1, MCHC 33.0, RDW 12.9, Plt Count 236, MPV 10.4, Neut % (Auto) 51.2, Lymph % (Auto) 36.4, [place] % (Auto) 9.7 H, Eos % (Auto) 1.6, Baso % (Auto) 1.0, Neut # (Auto) 3.6, Lymph # (Auto) 2.6, [place] # (Auto) 0.7, Eos # (Auto) 0.1, Baso # (Auto) 0.1, Sodium 137, Potassium 3.3 L, Chloride 99, Carbon Dioxide 31 H, Anion Gap 10.3, BUN 11, Creatinine 0.70, Estimated Creat Clear 57, Estimated GFR 84, Est GFR ( Amer) 101, Glucose 97, Calcium 9.5, Total Bilirubin 0.5, AST 26, ALT 12, Alkaline Phosphatase 69, Troponin I < 0.01, NT-Pro-B Natriuret Pep 92.8, Total Protein 7.5, Albumin 4.6, Globulin 2.9, Albumin/Globulin Ratio 1.6 10/30/24 15:32: Troponin I < 0.01 10/30/24 12:45 10/30/24 12:45 Orders (Tests/Meds): ED MEDICATIONS Discontinued Medications Generic Name Dose Route Start Last Admin Trade Name Freq PRN Reason Stop Dose Admin Aspirin 324 mg 10/30/24 12:43 10/30/24 12:53 Aspirin 81mg Chewable Tablet PO 10/30/24 12:44 324 mg ONCE ONE Administration Iopamidol 80 ml 10/30/24 13:45 10/30/24 13:46 Iopamidol-370 (76%);100ml Bottle IV 10/30/24 13:46 80 ml ONCE ONE Administration Nitroglycerin 0.4 mg 10/30/24 12:43 Nitroglycerin 0.4mg Sl Tablet SL 10/31/24 12:44 Q5MINP PRN Chest Pain Sodium Chloride 50 ml 10/30/24 13:45 10/30/24 13:46 0.9 % Sodium Chloride 50 Ml Vial IV 10/30/24 13:46 50 ml ONCE ONE Administration Sodium Chloride 10 ml 10/30/24 13:45 10/30/24 13:46 Sodium Chloride 0.9% 10ml Syr (Rad Only) IV 10/30/24 13:46 10 ml ONCE ONE Administration ORDERS Category Date Time Status CT angio abdomen pelvis Stat Cat Scan 10/30/24 12:43 Completed CTA Chest [CT angio chest PE protocol] Stat Cat Scan 10/30/24 12:43 Completed XR chest portable Stat Exams 10/30/24 12:44 Completed Complete Blood Count Auto Diff Stat Lab 10/30/24 12:45 Completed Comprehensive Metabolic Panel Stat Lab 10/30/24 12:45 Completed NT Pro Brain Natriuretic Pep. Stat Lab 10/30/24 12:45 Completed Troponin I Q3H Lab 10/30/24 15:32 Completed Troponin I Stat Lab 10/30/24 12:45 Completed Medical Decision Narrative: MDM In summary, this 64-year-old female presents to the emergency department today with chest pain, abdominal pain, shortness of breath. Initial evaluation the patient the patient is mildly uncomfortable, hemodynamically stable. Differential diagnosis includes but is not limited to ACS, [place], pulmonary embolism, pneumothorax, pneumonia, appendicitis, mesenteric ischemia, constipation, gastroenteritis, CHF. Based on these concerns, I ordered a comprehensive laboratory and imaging workup. This patient has multiple medical comorbidities and appears to be in a generally poor state of health. On my initial exam the patient had borderline tachycardia with heart rates in the 90s to low 100s, was not in respiratory distress, and did not have appreciable leg swelling. She did have some mild redness of the toes but they were not erythematous to the touch and she had excellent pulses in both feet bilaterally. I had low concern for DVT or peripheral artery disease based on my exam. But given the patient's multiple medical comorbidities I decided to pursue an aggressive workup ECG personally interpreted by me demonstrates normal sinus rhythm, no ST elevations. Patient received nitro and aspirin for treatment. These interventions showed minimal improvement in symptoms. Labs personally reviewed and interpreted demonstrate no leukocytosis, no significant anemia, no major metabolic abnormalities. Initial troponin is not elevated however it was drawn approximately 2 hours after chest pain began and so serial troponin will be performed. X-rays personally interpreted by me demonstrate mild perihilar infiltrations indicating chronic cough. Unfortunately before CT scans could be read, the care of this patient was signed out to the oncoming attending, Dr. Garcias with a tentative plan of reassessing the patient after CT imaging and been read. <Roseanne Garcias, DO - Last Filed: 10/30/24 19:39> Vital Signs: 10/30/24 12:39 10/30/24 14:00 10/30/24 14:15 Temperature 98.5 F Temperature Source Oral Pulse Rate 81 77 Pulse Rate [Left Radial] 101 H Respiratory Rate 19 Blood Pressure 159/94 H 135/68 Blood Pressure [Right Arm] 197/108 H Blood Pressure Mean [Right Arm] 137 Blood Pressure Source Blood Pressure Position 02 Sat by Pulse Oximetry 97 95 97 Oxygen Delivery Method 10/30/24 16:42 Temperature 98.4 F Temperature Source Oral Pulse Rate 74 Pulse Rate [Left Radial] Respiratory Rate 18 Blood Pressure 130/70 Blood Pressure [Right Arm] Blood Pressure Mean [Right Arm] Blood Pressure Source Automatic Cuff Blood Pressure Position Supine 02 Sat by Pulse Oximetry Oxygen Delivery Method Room Air Lab Data Lab Results 10/30/24 12:45: WBC 7.1, RBC 4.50, Hgb 14.0, Hct 42.4, MCV 94.2, MCH 31.1, MCHC 33.0, RDW 12.9, Plt Count 236, MPV 10.4, Neut % (Auto) 51.2, Lymph % (Auto) 36.4, [place] % (Auto) 9.7 H, Eos % (Auto) 1.6, Baso % (Auto) 1.0, Neut # (Auto) 3.6, Lymph # (Auto) 2.6, [place] # (Auto) 0.7, Eos # (Auto) 0.1, Baso # (Auto) 0.1, Sodium 137, Potassium 3.3 L, Chloride 99, Carbon Dioxide 31 H, Anion Gap 10.3, BUN 11, Creatinine 0.70, Estimated Creat Clear 57, Estimated GFR 84, Est GFR ( Amer) 101, Glucose 97, Calcium 9.5, Total Bilirubin 0.5, AST 26, ALT 12, Alkaline Phosphatase 69, Troponin I < 0.01, NT-Pro-B Natriuret Pep 92.8, Total Protein 7.5, Albumin 4.6, Globulin 2.9, Albumin/Globulin Ratio 1.6 10/30/24 15:32: Troponin I < 0.01 Orders (Tests/Meds): ED MEDICATIONS Discontinued Medications Generic Name Dose Route Start Last Admin Trade Name Freq PRN Reason Stop Dose Admin Aspirin 324 mg 10/30/24 12:43 10/30/24 12:53 Aspirin 81mg Chewable Tablet PO 10/30/24 12:44 324 mg ONCE ONE Administration Iopamidol 80 ml 10/30/24 13:45 10/30/24 13:46 Iopamidol-370 (76%);100ml Bottle IV 10/30/24 13:46 80 ml ONCE ONE Administration Nitroglycerin 0.4 mg 10/30/24 12:43 Nitroglycerin 0.4mg Sl Tablet SL 10/31/24 12:44 Q5MINP PRN Chest Pain Sodium Chloride 50 ml 10/30/24 13:45 10/30/24 13:46 0.9 % Sodium Chloride 50 Ml Vial IV 10/30/24 13:46 50 ml ONCE ONE Administration Sodium Chloride 10 ml 10/30/24 13:45 10/30/24 13:46 Sodium Chloride 0.9% 10ml Syr (Rad Only) IV 10/30/24 13:46 10 ml ONCE ONE Administration ORDERS Category Date Time Status CT angio abdomen pelvis Stat Cat Scan 10/30/24 12:43 Completed CTA Chest [CT angio chest PE protocol] Stat Cat Scan 10/30/24 12:43 Completed XR chest portable Stat Exams 10/30/24 12:44 Completed Complete Blood Count Auto Diff Stat Lab 10/30/24 12:45 Completed Comprehensive Metabolic Panel Stat Lab 10/30/24 12:45 Completed NT Pro Brain Natriuretic Pep. Stat Lab 10/30/24 12:45 Completed Troponin I Q3H Lab 10/30/24 15:32 Completed Troponin I Stat Lab 10/30/24 12:45 Completed Medical Decision Narrative: MDM In summary, this 64-year-old female presents to the emergency department today with chest pain, abdominal pain, shortness of breath. Initial evaluation the patient the patient is mildly uncomfortable, hemodynamically stable. Differential diagnosis includes but is not limited to ACS, [place], pulmonary embolism, pneumothorax, pneumonia, appendicitis, mesenteric ischemia, constipation, gastroenteritis, CHF. Based on these concerns, I ordered a comprehensive laboratory and imaging workup. This patient has multiple medical comorbidities and appears to be in a generally poor state of health. On my initial exam the patient had borderline tachycardia with heart rates in the 90s to low 100s, was not in respiratory distress, and did not have appreciable leg swelling. She did have some mild redness of the toes but they were not erythematous to the touch and she had excellent pulses in both feet bilaterally. I had low concern for DVT or peripheral artery disease based on my exam. But given the patient's multiple medical comorbidities I decided to pursue an aggressive workup ECG personally interpreted by me demonstrates normal sinus rhythm, no ST elevations. Patient received nitro and aspirin for treatment. These interventions showed minimal improvement in symptoms. Labs personally reviewed and interpreted demonstrate no leukocytosis, no significant anemia, no major metabolic abnormalities. Initial troponin is not elevated however it was drawn approximately 2 hours after chest pain began and so serial troponin will be performed. X-rays personally interpreted by me demonstrate mild perihilar infiltrations indicating chronic cough. Unfortunately before CT scans could be read, the care of this patient was signed out to the oncoming attending, Dr. Garcias with a tentative plan of reassessing the patient after CT imaging and been read. Roseanne Garcias, DO I assumed care of the patient at 1500. Patient's second troponin was less than 0.01. Patient CT chest and CT abdomen showed no acute pathology. At this time I felt the patient was appropriate for discharge home. Patient was pain-free at the time of discharge was complaining of anxiety I recommended the patient go home and take her anxiety medications. Patient was otherwise discharged home in stable condition return precautions were discussed. Critical Care <Rafat Sol MD - Last Filed: 10/30/24 15:44> Critical Care Time Critical Care Time: No
--- OUTSIDE RECORDS SUMMARY | 2024-10-30 12:48 | XMS_ITS ---
Author Organization Unknown Medications Date Medication Dosage DosageUnit StartDate StopDate StopReason Active DoseQuantity DoseUnit Dispense DispenseUnit Refills NdcCode DrugCode PharmacyId IsPrescription MappedMedication Srcstatus Custom 08/31 00:00 :00 ALPRAZolam 0.5 MG Tablet 08/31/2024 00:00:00 1 60 Tablet 0 67439 202 910 P Refill 08/31 00:00 :00 ALPRAZolam 0.5 MG Tablet 08/03/2024 00:00:00 1 60 Tablet 0 32071 202 910 P Taking 08/03 00:00 :00 ALPRAZolam 0.5 MG Tablet 08/03/2024 00:00:00 1 60 Tablet 0 91931 202 910 P Start 08/31 00:00 :00 amLODIPine Besylate 5 MG Tablet 1 30 Tablet 2 92022633 705 Taking 08/03 00:00 :00 amLODIPine Besylate 5 MG Tablet 1 30 Tablet 2 42699889 705 Taking 06/29 00:00 :00 amLODIPine Besylate 5 MG Tablet 1 30 Tablet 2 25766829 705 Taking 06/27 00:00 :00 amLODIPine Besylate 5 MG Tablet 1 30 Tablet 2 92079338 705 Start 06/27 00:00 :00 amLODIPine Besylate 5 MG Tablet 0 30 Tablet 2 72246281 705 Stop 05/30 00:00 :00 amLODIPine Besylate 5 MG Tablet 1 30 Tablet 2 97349451 705 Taking 04/30 00:00 :00 amLODIPine Besylate 5 MG Tablet 1 30 Tablet 2 40053060 705 Taking 04/03 00:00 :00 amLODIPine Besylate 5 MG Tablet 1 30 Tablet 2 70423354 705 Taking 03/15 00:00 :00 amLODIPine Besylate 5 MG Tablet 1 30 Tablet 2 76899097 705 Start 03/15 00:00 :00 amLODIPine Besylate 5 MG Tablet 0 30 Tablet 2 02571290 705 Stop 01/01 00:00 :00 amLODIPine Besylate 5 MG Tablet 1 30 Tablet 2 16142596 705 Start 01/01 00:00 :00 amLODIPine Besylate 5 MG Tablet 0 30 Tablet 2 06346189 705 Stop 10/11 00:00 :00 amLODIPine Besylate 5 MG Tablet 1 30 Tablet 2 97419066 705 Start 10/11 00:00 :00 amLODIPine Besylate 5 MG Tablet 0 30 Tablet 2 36233666 705 Stop 08/31 00:00 :00 Aspirin Adult Low Strength 81 MG Tablet Delayed Release 1 30 Tablet 1 930725 06 610 P Taking 08/03 00:00 :00 Aspirin Adult Low Strength 81 MG Tablet Delayed Release 1 30 Tablet 1 715670 06 610 P Taking 06/29 00:00 :00 Aspirin Adult Low Strength 81 MG Tablet Delayed Release 1 30 Tablet 1 974542 06 610 P Taking 05/30 00:00 :00 Aspirin Adult Low Strength 81 MG Tablet Delayed Release 1 30 Tablet 1 945188 06 610 P Taking 04/30 00:00 :00 Aspirin Adult Low Strength 81 MG Tablet Delayed Release 1 30 Tablet 1 574944 06 610 P Taking 04/03 00:00 :00 Aspirin Adult Low Strength 81 MG Tablet Delayed Release 1 30 Tablet 1 742062 06 610 P Taking 09/14 00:00 :00 Atorvastati n Calcium 40 MG Tablet 1 30 Each 1 1 2709940 503 Start 09/14 00:00 :00 Atorvastati n Calcium 40 MG Tablet 0 30 Each 2 1 0738421 503 Stop 08/31 00:00 :00 Atorvastati n Calcium 40 MG Tablet 1 30 Each 2 1 2215973 503 Taking 08/03 00:00 :00 Atorvastati n Calcium 40 MG Tablet 1 30 Each 2 1 7658848 503 Taking 06/29 00:00 :00 Atorvastati n Calcium 40 MG Tablet 1 30 Each 2 1 3903332 503 Taking 06/18 00:00 :00 Atorvastati n Calcium 40 MG Tablet 1 30 Each 2 1 4068699 503 Start 06/18 00:00 :00 Atorvastati n Calcium 40 MG Tablet 0 30 Each 2 1 8707144 503 Stop 05/30 00:00 :00 Atorvastati n Calcium 40 MG Tablet 1 30 Each 2 1 7882086 503 Taking 04/30 00:00 :00 Atorvastati n Calcium 40 MG Tablet 1 30 Each 2 1 9377130 503 Taking 04/03 00:00 :00 Atorvastati n Calcium 40 MG Tablet 1 30 Each 2 1 3430101 503 Taking 03/15 00:00 :00 Atorvastati n Calcium 40 MG Tablet 1 30 Each 2 1 5457117 503 Start 03/15 00:00 :00 Atorvastati n Calcium 40 MG Tablet 0 30 Each 2 1 5482283 503 Stop 01/01 00:00 :00 Atorvastati n Calcium 40 MG Tablet 1 30 Each 2 1 0098084 503 Start 01/01 00:00 :00 Atorvastati n Calcium 40 MG Tablet 0 30 Each 2 1 2555848 503 Stop 10/11 00:00 :00 Atorvastati n Calcium 40 MG Tablet 1 30 Each 2 1 2693420 503 Start 10/11 00:00 :00 Atorvastati n Calcium 40 MG Tablet 0 30 Each 2 1 9255934 503 Stop 08/31 00:00 :00 Buprenorphi ne HCl-Naloxon e HCl 8-2 MG Tablet Sublingual 1 8 Tablet 0 6217 5045 832 P Taking 08/03 00:00 :00 Buprenorphi ne HCl-Naloxon e HCl 8-2 MG Tablet Sublingual 1 8 Tablet 0 6217 5045 832 P Taking 06/29 00:00 :00 Buprenorphi ne HCl-Naloxon e HCl 8-2 MG Tablet Sublingual 1 8 Tablet 0 6217 5045 832 P Taking 05/30 00:00 :00 Buprenorphi ne HCl-Naloxon e HCl 8-2 MG Tablet Sublingual 1 8 Tablet 0 6217 5045 832 P Taking 04/30 00:00 :00 Buprenorphi ne HCl-Naloxon e HCl 8-2 MG Tablet Sublingual 1 8 Tablet 0 6217 5045 832 P Taking 04/03 00:00 :00 Buprenorphi ne HCl-Naloxon e HCl 8-2 MG Tablet Sublingual 1 8 Tablet 0 6217 5045 832 P Taking 09/14 00:00 :00 Carvedilol 3.125 MG Tablet 1 60 Tablet 1 35699391 205 Start 09/14 00:00 :00 Carvedilol 3.125 MG Tablet 0 60 Tablet 2 39568728 205 Stop 08/31 00:00 :00 Carvedilol 3.125 MG Tablet 1 60 Tablet 2 62437371 205 Taking 08/03 00:00 :00 Carvedilol 3.125 MG Tablet 1 60 Tablet 2 73046319 205 Taking 06/29 00:00 :00 Carvedilol 3.125 MG Tablet 1 60 Tablet 2 16966363 205 Taking 06/18 00:00 :00 Carvedilol 3.125 MG Tablet 1 60 Tablet 2 69256192 205 Start 06/18 00:00 :00 Carvedilol 3.125 MG Tablet 0 60 Tablet 2 56465784 205 Stop 05/30 00:00 :00 Carvedilol 3.125 MG Tablet 1 60 Tablet 2 22444221 205 Taking 04/30 00:00 :00 Carvedilol 3.125 MG Tablet 1 60 Tablet 2 73475420 205 Taking 04/03 00:00 :00 Carvedilol 3.125 MG Tablet 1 60 Tablet 2 50932133 205 Taking 03/15 00:00 :00 Carvedilol 3.125 MG Tablet 1 60 Tablet 2 84980146 205 Start 03/15 00:00 :00 Carvedilol 3.125 MG Tablet 0 60 Tablet 2 22088486 205 Stop 01/01 00:00 :00 Carvedilol 3.125 MG Tablet 1 60 Tablet 2 77780766 205 Start 01/01 00:00 :00 Carvedilol 3.125 MG Tablet 0 60 Tablet 2 11193046 205 Stop 10/11 00:00 :00 Carvedilol 3.125 MG Tablet 1 60 Tablet 2 10810010 205 Start 10/11 00:00 :00 Carvedilol 3.125 MG Tablet 0 60 Tablet 3 89433570 Stop 08/03 00:00 :00 clonazePAM 1 MG Tablet 07/19/2024 00:00:00 0 60 Tablet 0 52299 040 711 Discontinu ed 07/19 00:00 :00 clonazePAM 1 MG Tablet 07/19/2024 00:00:00 1 60 Tablet 0 33366 040 711 Start 07/19 00:00 :00 clonazePAM 1 MG Tablet 0 60 Tablet 0 43 235252 711 Stop 06/29 00:00 :00 clonazePAM 1 MG Tablet 06/18/2024 00:00:00 1 60 Tablet 0 31040 040 711 Taking 06/18 00:00 :00 clonazePAM 1 MG Tablet 06/18/2024 00:00:00 1 60 Tablet 0 94192 040 711 Start 06/18 00:00 :00 clonazePAM 1 MG Tablet 0 60 Tablet 0 43 151664 711 Stop 05/30 00:00 :00 clonazePAM 1 MG Tablet 05/21/2024 00:00:00 1 60 Tablet 0 72839 040 711 Taking 05/21 00:00 :00 clonazePAM 1 MG Tablet 05/21/2024 00:00:00 1 60 Tablet 0 57959 040 711 Start 05/21 00:00 :00 clonazePAM 1 MG Tablet 0 60 Tablet 0 43 719946 711 Stop 04/30 00:00 :00 clonazePAM 1 MG Tablet 04/20/2024 00:00:00 1 60 Tablet 0 09405 040 711 Taking 04/20 00:00 :00 clonazePAM 1 MG Tablet 04/20/2024 00:00:00 1 60 Tablet 0 24505 040 711 Start 04/20 00:00 :00 clonazePAM 1 MG Tablet 0 60 Tablet 0 43 189747 711 Stop 04/03 00:00 :00 clonazePAM 1 MG Tablet 03/23/2024 00:00:00 1 60 Tablet 0 88222 040 711 P Taking 03/23 00:00 :00 clonazePAM 1 MG Tablet 03/23/2024 00:00:00 1 60 Tablet 0 15494 040 711 P Refill 02/19 00:00 :00 clonazePAM 1 MG Tablet 02/20/2024 00:00:00 1 60 Tablet 0 52830 040 711 Start 02/19 00:00 :00 clonazePAM 1 MG Tablet 0 60 Tablet 0 43 742161 711 Stop 01/18 00:00 :00 clonazePAM 1 MG Tablet 01/19/2024 00:00:00 1 60 Tablet 0 32694 040 711 Start 01/18 00:00 :00 clonazePAM 1 MG Tablet 0 60 Tablet 0 00 921825 205 Stop 12/20 00:00 :00 clonazePAM 1 MG Tablet 12/21/2023 00:00:00 1 60 Tablet 0 50775 321 205 Start 12/20 00:00 :00 clonazePAM 1 MG Tablet 0 60 Tablet 0 00 118131 205 Stop 11/13 00:00 :00 clonazePAM 1 MG Tablet 11/14/2023 00:00:00 1 60 Tablet 0 31748 321 205 Start 11/13 00:00 :00 clonazePAM 1 MG Tablet 0 60 Tablet 0 00 588871 205 Stop 10/11 00:00 :00 clonazePAM 1 MG Tablet 10/12/2023 00:00:00 1 60 Tablet 0 36288 321 205 Start 10/11 00:00 :00 clonazePAM 1 MG Tablet 0 60 Tablet 0 00 630961 205 Stop 08/31 00:00 :00 cloNIDine HCl 0.1 MG Tablet 1 30 Tablet 4 29 649313 810 Taking 08/03 00:00 :00 cloNIDine HCl 0.1 MG Tablet 1 30 Tablet 4 29 560259 810 Taking 06/29 00:00 :00 cloNIDine HCl 0.1 MG Tablet 1 30 Tablet 4 29 126139 810 Taking 05/30 00:00 :00 cloNIDine HCl 0.1 MG Tablet 1 30 Tablet 4 29 181633 810 Taking 04/30 00:00 :00 cloNIDine HCl 0.1 MG Tablet 1 30 Tablet 4 29 946005 810 Taking 04/06 00:00 :00 cloNIDine HCl 0.1 MG Tablet 1 30 Tablet 4 29 457742 810 Start 04/06 00:00 :00 cloNIDine HCl 0.1 MG Tablet 0 30 5 041881 46 810 Stop 04/03 00:00 :00 cloNIDine HCl 0.1 MG Tablet 1 30 5 943210 46 810 Taking 11/06 00:00 :00 cloNIDine HCl 0.1 MG Tablet 1 30 5 121465 46 810 Start 11/06 00:00 :00 cloNIDine HCl 0.1 MG Tablet 0 60 Tablet 0 29 571159 810 Stop 10/11 00:00 :00 cloNIDine HCl 0.1 MG Tablet 1 60 Tablet 0 29 420526 810 Start 10/11 00:00 :00 cloNIDine HCl 0.1 MG Tablet 0 60 Tablet 0 29 059287 810 Stop 09/20 00:00 :00 Combivent Respimat 20-100 MCG/ACT Aerosol Solution 1 4 Gram 0 [id number] 402 Start 09/20 00:00 :00 Combivent Respimat 20-100 MCG/ACT Aerosol Solution 0 4 Gram 0 73321575 402 Stop 08/31 00:00 :00 Combivent Respimat 20-100 MCG/ACT Aerosol Solution 1 4 Gram 0 09185006 402 Taking 08/20 00:00 :00 Combivent Respimat 20-100 MCG/ACT Aerosol Solution 1 4 Gram 0 [id number] 402 Start 08/20 00:00 :00 Combivent Respimat 20-100 MCG/ACT Aerosol Solution 0 4 Gram 0 [id number] 402 Stop 08/03 00:00 :00 Combivent Respimat 20-100 MCG/ACT Aerosol Solution 1 4 Gram 0 51441539 402 Taking 07/19 00:00 :00 Combivent Respimat 20-100 MCG/ACT Aerosol Solution 1 4 Gram 0 [id number] 402 Start 07/19 00:00 :00 Combivent Respimat 20-100 MCG/ACT Aerosol Solution 0 4 Gram 0 20868830 402 Stop 06/29 00:00 :00 Combivent Respimat 20-100 MCG/ACT Aerosol Solution 1 4 Gram 0 [id number] 402 Taking 05/30 00:00 :00 Combivent Respimat 20-100 MCG/ACT Aerosol Solution 1 4 Gram 0 [id number] 402 Taking 05/22 00:00 :00 Combivent Respimat 20-100 MCG/ACT Aerosol Solution 1 4 Gram 0 [id number] 402 Start 05/22 00:00 :00 Combivent Respimat 20-100 MCG/ACT Aerosol Solution 0 4 Gram 0 78075615 402 Stop 04/30 00:00 :00 Combivent Respimat 20-100 MCG/ACT Aerosol Solution 1 4 Gram 0 [id number] 402 Taking 04/06 00:00 :00 Combivent Respimat 20-100 MCG/ACT Aerosol Solution 1 4 Gram 0 [id number] 402 Start 04/06 00:00 :00 Combivent Respimat 20-100 MCG/ACT Aerosol Solution 0 4 Gram 0 [id number] 402 Stop 04/03 00:00 :00 Combivent Respimat 20-100 MCG/ACT Aerosol Solution 1 4 Gram 0 82554812 402 Taking 03/15 00:00 :00 Combivent Respimat 20-100 MCG/ACT Aerosol Solution 1 4 Gram 0 00105209 402 Start 03/15 00:00 :00 Combivent Respimat 20-100 MCG/ACT Aerosol Solution 0 4 Gram 0 [id number] 402 Stop 02/19 00:00 :00 Combivent Respimat 20-100 MCG/ACT Aerosol Solution 1 4 Gram 0 [id number] 402 Start 02/19 00:00 :00 Combivent Respimat 20-100 MCG/ACT Aerosol Solution 0 4 Gram 0 68514636 402 Stop 02/19 00:00 :00 Combivent Respimat 20-100 MCG/ACT Aerosol Solution 1 4 Gram 0 [id number] 402 Start 02/19 00:00 :00 Combivent Respimat 20-100 MCG/ACT Aerosol Solution 0 4 Gram 0 [id number] 402 Stop 01/26 00:00 :00 Combivent Respimat 20-100 MCG/ACT Aerosol Solution 1 4 Gram 0 31095153 402 Start 01/26 00:00 :00 Combivent Respimat 20-100 MCG/ACT Aerosol Solution 0 4 Gram 0 [id number] 402 Stop 01/01 00:00 :00 Combivent Respimat 20-100 MCG/ACT Aerosol Solution 1 4 Gram 0 [id number] 402 Start 01/01 00:00 :00 Combivent Respimat 20-100 MCG/ACT Aerosol Solution 0 1 1 [id number] 402 Stop 11/06 00:00 :00 Combivent Respimat 20-100 MCG/ACT Aerosol Solution 1 1 1 [id number] 402 Start 11/06 00:00 :00 Combivent Respimat 20-100 MCG/ACT Aerosol Solution 0 4 Gram 1 98503509 402 Stop 09/20 00:00 :00 Gabapentin 800 MG Tablet 09/20/2024 00:00:00 1 120 Tablet 0 62071805 202 Start 09/20 00:00 :00 Gabapentin 800 MG Tablet 0 120 Tablet 0 [id number] 202 Stop 08/31 00:00 :00 Gabapentin 800 MG Tablet 08/20/2024 00:00:00 1 120 Tablet 0 [id number] 202 Taking 08/20 00:00 :00 Gabapentin 800 MG Tablet 08/20/2024 00:00:00 1 120 Tablet 0 [id number] 202 Start 08/20 00:00 :00 Gabapentin 800 MG Tablet 0 120 Tablet 0 [id number] 202 Stop 08/03 00:00 :00 Gabapentin 800 MG Tablet 07/19/2024 00:00:00 1 120 Tablet 0 [id number] 202 Taking 07/19 00:00 :00 Gabapentin 800 MG Tablet 07/19/2024 00:00:00 1 120 Tablet 0 [id number] 202 Start 07/19 00:00 :00 Gabapentin 800 MG Tablet 0 120 Tablet 0 [id number] 202 Stop 06/29 00:00 :00 Gabapentin 800 MG Tablet 06/18/2024 00:00:00 1 120 Tablet 0 [id number] 202 Taking 06/18 00:00 :00 Gabapentin 800 MG Tablet 06/18/2024 00:00:00 1 120 Tablet 0 [id number] 202 Start 06/18 00:00 :00 Gabapentin 800 MG Tablet 0 120 Tablet 0 [id number] 202 Stop 05/30 00:00 :00 Gabapentin 800 MG Tablet 05/21/2024 00:00:00 1 120 Tablet 0 [id number] 202 Taking 05/21 00:00 :00 Gabapentin 800 MG Tablet 05/21/2024 00:00:00 1 120 Tablet 0 [id number] 202 Start 05/21 00:00 :00 Gabapentin 800 MG Tablet 0 120 Tablet 0 [id number] 202 Stop 04/30 00:00 :00 Gabapentin 800 MG Tablet 04/20/2024 00:00:00 1 120 Tablet 0 [id number] 202 Taking 04/20 00:00 :00 Gabapentin 800 MG Tablet 04/20/2024 00:00:00 1 120 Tablet 0 [id number] 202 Start 04/20 00:00 :00 Gabapentin 800 MG Tablet 0 120 Tablet 0 [id number] 202 Stop 04/03 00:00 :00 Gabapentin 800 MG Tablet 03/23/2024 00:00:00 1 120 Tablet 0 [id number] 202 P Taking 03/23 00:00 :00 Gabapentin 800 MG Tablet 03/23/2024 00:00:00 1 120 Tablet 0 [id number] 202 P Refill 02/19 00:00 :00 Gabapentin 800 MG Tablet 02/20/2024 00:00:00 1 120 Tablet 0 [id number] 202 Start 02/19 00:00 :00 Gabapentin 800 MG Tablet 0 120 Tablet 0 [id number] 202 Stop 01/18 00:00 :00 Gabapentin 800 MG Tablet 01/19/2024 00:00:00 1 120 Tablet 0 34571235 202 Start 01/18 00:00 :00 Gabapentin 800 MG Tablet 0 120 Tablet 0 [id number] 202 Stop 12/20 00:00 :00 Gabapentin 800 MG Tablet 12/21/2023 00:00:00 1 120 Tablet 0 [id number] 202 Start 12/20 00:00 :00 Gabapentin 800 MG Tablet 0 120 0 41776 033 202 Stop 11/13 00:00 :00 Gabapentin 800 MG Tablet 11/14/2023 00:00:00 1 120 0 4730772 3 202 Start 11/13 00:00 :00 Gabapentin 800 MG Tablet 0 120 Tablet 0 [id number] 202 Stop 10/11 00:00 :00 Gabapentin 800 MG Tablet 10/12/2023 00:00:00 1 120 Tablet 0 [id number] 202 Start 10/11 00:00 :00 Gabapentin 800 MG Tablet 0 120 Tablet 0 [id number] 202 Stop 09/14 00:00 :00 Lisinopril- hydroCHLORO thiazide 20-25 MG Tablet 1 30 Tablet 1 [id number] 250 Start 09/14 00:00 :00 Lisinopril- hydroCHLORO thiazide 20-25 MG Tablet 0 30 Tablet 2 36047086 250 Stop 08/31 00:00 :00 Lisinopril- hydroCHLORO thiazide 20-25 MG Tablet 1 30 Tablet 2 [id number] 250 Taking 08/03 00:00 :00 Lisinopril- hydroCHLORO thiazide 20-25 MG Tablet 1 30 Tablet 2 [id number] 250 Taking 06/29 00:00 :00 Lisinopril- hydroCHLORO thiazide 20-25 MG Tablet 1 30 Tablet 2 [id number] 250 Taking 06/18 00:00 :00 Lisinopril- hydroCHLORO thiazide 20-25 MG Tablet 1 30 Tablet 2 [id number] 250 Start 06/18 00:00 :00 Lisinopril- hydroCHLORO thiazide 20-25 MG Tablet 0 30 Tablet 2 [id number] 250 Stop 05/30 00:00 :00 Lisinopril- hydroCHLORO thiazide 20-25 MG Tablet 1 30 Tablet 2 [id number] 250 Taking 04/30 00:00 :00 Lisinopril- hydroCHLORO thiazide 20-25 MG Tablet 1 30 Tablet 2 [id number] 250 Taking 04/03 00:00 :00 Lisinopril- hydroCHLORO thiazide 20-25 MG Tablet 1 30 Tablet 2 84062632 250 Taking 03/15 00:00 :00 Lisinopril- hydroCHLORO thiazide 20-25 MG Tablet 1 30 Tablet 2 44147295 250 Start 03/15 00:00 :00 Lisinopril- hydroCHLORO thiazide 20-25 MG Tablet 0 30 Tablet 2 98701830 250 Stop 01/01 00:00 :00 Lisinopril- hydroCHLORO thiazide 20-25 MG Tablet 1 30 Tablet 2 02920460 250 Start 01/01 00:00 :00 Lisinopril- hydroCHLORO thiazide 20-25 MG Tablet 0 30 Tablet 2 05070137 250 Stop 10/11 00:00 :00 Lisinopril- hydroCHLORO thiazide 20-25 MG Tablet 1 30 Tablet 2 96891523 250 Start 10/11 00:00 :00 Lisinopril- hydroCHLORO thiazide 20-25 MG Tablet 0 30 Tablet 2 90852981 250 Stop 08/31 00:00 :00 Methylnaltr exone [place] 150 MG Tablet 08/31/2024 00:00:00 1 90 0 P Start 04/03 00:00 :00 Movantik 25 MG Tablet 0 35921398 201 P Stop 04/03 00:00 :00 Movantik 25 MG Tablet 1 30 Tablet 826 47707 201 P Taking 08/31 00:00 :00 Nicoderm CQ 21 MG/24HR Patch 24 Hour 06/27/2023 00:00:00 1 30 1 2501380 9 401 P Taking 08/03 00:00 :00 Nicoderm CQ 21 MG/24HR Patch 24 Hour 06/27/2023 00:00:00 1 30 1 2703392 9 401 P Taking 06/29 00:00 :00 Nicoderm CQ 21 MG/24HR Patch 24 Hour 06/27/2023 00:00:00 1 30 1 [id number] 9 401 P Taking 05/30 00:00 :00 Nicoderm CQ 21 MG/24HR Patch 24 Hour 06/27/2023 00:00:00 1 30 1 [id number] 9 401 P Taking 04/30 00:00 :00 Nicoderm CQ 21 MG/24HR Patch 24 Hour 06/27/2023 00:00:00 1 30 1 [id number] 9 401 P Taking 04/03 00:00 :00 Nicoderm CQ 21 MG/24HR Patch 24 Hour 06/27/2023 00:00:00 1 30 1 [id number] 9 401 P Taking 08/31 00:00 :00 Ozempic (0.25 or 0.5 MG/DOSE) 2 MG/3ML Solution Pen-injecto r 03/16/2023 00:00:00 0 4 1 [id number] 8 113 P Not Taking 08/03 00:00 :00 Ozempic (0.25 or 0.5 MG/DOSE) 2 MG/3ML Solution Pen-injecto r 03/16/2023 00:00:00 0 4 1 [id number] 8 113 P Not Taking 06/29 00:00 :00 Ozempic (0.25 or 0.5 MG/DOSE) 2 MG/3ML Solution Pen-injecto r 03/16/2023 00:00:00 0 4 1 [id number] 8 113 P Not Taking 05/30 00:00 :00 Ozempic (0.25 or 0.5 MG/DOSE) 2 MG/3ML Solution Pen-injecto r 03/16/2023 00:00:00 0 4 1 [id number] 8 113 P Not Taking 04/30 00:00 :00 Ozempic (0.25 or 0.5 MG/DOSE) 2 MG/3ML Solution Pen-injecto r 03/16/2023 00:00:00 0 4 1 [id number] 8 113 P Not Taking 04/03 00:00 :00 Ozempic (0.25 or 0.5 MG/DOSE) 2 MG/3ML Solution Pen-injecto r 03/16/2023 00:00:00 0 4 1 [id number] 8 113 P Not Taking 08/31 00:00 :00 Phentermine HCl 37.5 MG Tablet 08/31/2024 00:00:00 1 30 Tablet 0 63871 002 501 P Refill 08/31 00:00 :00 Phentermine HCl 37.5 MG Tablet 08/03/2024 00:00:00 1 30 Tablet 0 09281 002 501 P Taking 08/31 00:00 :00 Phentermine HCl 37.5 MG Capsule 05/30/2024 00:00:00 1 30 Capsule 0 25567386 901 P Taking 08/03 00:00 :00 Phentermine HCl 37.5 MG Tablet 08/03/2024 00:00:00 1 30 Tablet 0 48693 002 501 P Refill 08/03 00:00 :00 Phentermine HCl 37.5 MG Capsule 05/30/2024 00:00:00 1 30 Capsule 0 65574808 901 P Taking 08/03 00:00 :00 Phentermine HCl 37.5 MG Tablet 06/29/2024 00:00:00 1 30 Tablet 0 76892 002 501 P Taking 06/29 00:00 :00 Phentermine HCl 37.5 MG Tablet 06/29/2024 00:00:00 1 30 Tablet 0 64745 002 501 P Start 06/29 00:00 :00 Phentermine HCl 37.5 MG Capsule 05/30/2024 00:00:00 1 30 Capsule 0 91924006 901 P Taking 05/30 00:00 :00 Phentermine HCl 37.5 MG Capsule 05/30/2024 00:00:00 1 30 Capsule 0 73952358 901 P Refill 05/30 00:00 :00 Phentermine HCl 37.5 MG Capsule 04/30/2024 00:00:00 1 30 Capsule 0 57088556 901 P Taking 04/30 00:00 :00 Phentermine HCl 37.5 MG Capsule 04/30/2024 00:00:00 1 30 Capsule 0 12258016 901 P Refill 04/30 00:00 :00 Phentermine HCl 37.5 MG Capsule 04/03/2024 00:00:00 1 30 Capsule 0 45518239 901 P Taking 04/03 00:00 :00 Phentermine HCl 37.5 MG Capsule 04/03/2024 00:00:00 1 30 Capsule 0 64975265 901 P Refill 04/03 00:00 :00 Phentermine HCl 37.5 MG Capsule 1 30 Capsule 0 42695198 901 P Refill 04/03 00:00 :00 Phentermine HCl 37.5 MG Capsule 0 1070 2002 901 Not Taking 09/11 00:00 :00 Promethazin e HCl 25 MG Tablet 1 28 Tablet 2 683 66046 101 Start 09/11 00:00 :00 Promethazin e HCl 25 MG Tablet 0 28 Tablet 3 005 31782 710 Stop 08/31 00:00 :00 Promethazin e HCl 25 MG Tablet 0 28 Tablet 3 005 36275 710 P Not Taking 08/03 00:00 :00 Promethazin e HCl 25 MG Tablet 0 28 Tablet 3 005 42534 710 P Not Taking 06/29 00:00 :00 Promethazin e HCl 25 MG Tablet 0 28 Tablet 3 005 90313 710 P Not Taking 05/30 00:00 :00 Promethazin e HCl 25 MG Tablet 0 28 Tablet 3 005 98747 710 P Not Taking 04/30 00:00 :00 Promethazin e HCl 25 MG Tablet 0 28 Tablet 3 005 38123 710 P Not Taking 04/03 00:00 :00 Promethazin e HCl 25 MG Tablet 0 28 Tablet 3 005 68902 710 P Not Taking 08/31 00:00 :00 Senna 8.6 MG Tablet 08/31/2024 00:00:00 1 60 Tablet 5 68449 001 830 P Start 08/31 00:00 :00 Tirzepatide -Weight Management 2.5 MG/0.5M L Solution Auto-inject or 06/29/2024 00:00:00 0 2 0 P Discon lawrence ed 08/03 00:00 :00 Tirzepatide -Weight Management 2.5 MG/0.5M L Solution Auto-inject or 06/29/2024 00:00:00 1 2 0 P Taking 06/29 00:00 :00 Tirzepatide -Weight Management 2.5 MG/0.5M L Solution Auto-inject or 06/29/2024 00:00:00 1 2 0 P Start 09/11 00:00 :00 tiZANidine HCl 4 MG Tablet 1 90 Each 1 24164 017 202 Start 09/11 00:00 :00 tiZANidine HCl 4 MG Tablet 0 90 2 1946503 7 202 Stop 08/31 00:00 :00 tiZANidine HCl 4 MG Tablet 1 90 2 1145077 7 202 Taking 08/03 00:00 :00 tiZANidine HCl 4 MG Tablet 1 90 2 3104355 7 202 Taking 06/29 00:00 :00 tiZANidine HCl 4 MG Tablet 1 90 2 1759300 7 202 Taking 05/30 00:00 :00 tiZANidine HCl 4 MG Tablet 1 90 2 9834108 7 202 Taking 04/30 00:00 :00 tiZANidine HCl 4 MG Tablet 1 90 2 3606615 7 202 Taking 04/03 00:00 :00 tiZANidine HCl 4 MG Tablet 1 90 2 1639939 7 202 Taking 03/15 00:00 :00 tiZANidine HCl 4 MG Tablet 1 90 2 7351409 7 202 Start 03/15 00:00 :00 tiZANidine HCl 4 MG Tablet 0 90 Each 2 90621 017 202 Stop 08/31 00:00 :00 Trulance 3 MG Tablet 04/03/2024 00:00:00 0 30 3 8410604 0 303 P Discontinu ed 08/03 00:00 :00 Trulance 3 MG Tablet 04/03/2024 00:00:00 1 30 3 3386801 0 303 P Taking 06/29 00:00 :00 Trulance 3 MG Tablet 04/03/2024 00:00:00 1 30 3 [id number] 0 303 P Taking 05/30 00:00 :00 Trulance 3 MG Tablet 04/03/2024 00:00:00 1 30 3 8976069 0 303 P Taking 04/30 00:00 :00 Trulance 3 MG Tablet 04/03/2024 00:00:00 1 30 3 [id number] 0 303 P Taking 04/03 00:00 :00 Trulance 3 MG Tablet 04/03/2024 00:00:00 1 30 3 [id number] 0 303 P Start 08/31 00:00 :00 Vitamin D3 25 MCG (1000 UT) Capsule 1 90 Capsule 0 57144166 905 Taking 08/03 00:00 :00 Vitamin D3 25 MCG (1000 UT) Capsule 1 90 Capsule 0 21518059 905 Taking 06/29 00:00 :00 Vitamin D3 25 MCG (1000 UT) Capsule 1 90 Capsule 0 71057087 905 Taking 05/30 00:00 :00 Vitamin D3 25 MCG (1000 UT) Capsule 1 90 Capsule 0 59334642 905 Taking 04/30 00:00 :00 Vitamin D3 25 MCG (1000 UT) Capsule 1 90 Capsule 0 [id number] 905 Taking 04/03 00:00 :00 Vitamin D3 25 MCG (1000 UT) Capsule 1 90 Capsule 0 [id number] 905 Taking 01/12 00:00 :00 Vitamin D3 25 MCG (1000 UT) Capsule 1 90 Capsule 0 [id number] 905 Start 01/12 00:00 :00 Vitamin D3 0 90 Capsule 1 [id number] 905 Stop 10/11 00:00 :00 Vitamin D3 25 MCG (1000 UT) Capsule 1 90 Capsule 0 [id number] 905 Start 10/11 00:00 :00 Vitamin D3 25 MCG (1000 UT) Capsule 0 30 Capsule 3 [id number] 905 Stop
--- OUTSIDE RECORDS SUMMARY | 2024-10-30 12:48 | XMS_ITS | Clinical Summary ---
Author Organization [facility] Address [address] [place] [address] Care Team Providers Care Field Cane Scaler Name Role Phone Fer Moreau MD Primary Care Provider [phone] Social History Tobacco Use Types Packs/Day Years Used Date Smoking Tobacco: Never Assessed Comments Unknown Sex and Gender Information Value Date Recorded Sex Assigned at Not on file Legal Sex Female 7:28 PM EDT Gender Identity Not on file Sexual Orientation Not on file Plan of Treatment Health Maintenance Due Date Last Done Comments [facility]-Bone Density Scan 1960 [facility]-Depression Screening 1960 [facility]-Infant/Child/Adol SDOH Screenings 1960 [facility]- SDOH Screenings 1976 [facility]-Adult SDOH Screenings 1976 CT Colonography 05/20/2003 Colonoscopy 05/20/2003 FIT-DNA 05/20/2003 FIT 05/20/2003 FOBT 05/20/2003 Sigmoidoscopy 05/20/2003 [facility]-Colorectal Cancer Screening 05/20/2003 [facility]-DTaP,Tdap,and Td Vaccines (2 - Td or Tdap) 10/12/2016 10/12/2006 [facility]-Zoster Vaccines (2 of 2) 09/09/2021 07/15/2021 [id number]-[id number] Vaccine ( season) 2024 01/05/2023, 08/18/2021, 07/15/2021 [facility]-Influenza Vaccine (#1) 10/08/202401/05, [...] Narrative SUNQUEST - 09/18/2004 10:02 AM EDT [facility] MR #: [id number] [facility] [address] [place], [place] [address] 1960 (Age: 44) FW Collect Date: 09/11/2004 00:00 Receipt Date: 09/15/2004 15:00 Page 1 DEPARTMENT OF PATHOLOGY AND LABORATORY MEDICINE CYTOPATHOLOGY REPORT Email: [email or web address] ATTENDING MD/Practitioner: Corine Mary MD Service: [facility] Location: [facility] Reported: 09/18/2004 10:02 Collected: 09/11/2004 00:00 INTERPRETATION THIN PREP (CERVICAL/VAGINAL): NEGATIVE FOR INTRAEPITHELIAL LESION OR MALIGNANCY. SATISFACTORY FOR EVALUATION; ENDOCERVICAL/ TRANSFORMATION ZONE COMPONENT PRESENT. BORDERLINE SQUAMOUS CELLULARITY NOTED. Slide scanned and imaged by [employer]ox[employer] Imaging System with manual review of all [...] results is suggested (please call Microbiology at [phone] for results). CLINICAL INFORMATION: Menstrual History: Cyclic Date of Last Menstrual Period: 09/05/04 SPECIMEN DESCRIPTION: A: THIN PREP (CERVICAL/VAGINAL) THIN PREP PROCESS CELLULAR ENHANCEMENT ICD: V76.2 CERVIX, SPECIAL SCREENING FOR MALIGNANT NEOPLASM F: A; RT IMAGE [id number] SNOMED CODES: A; [id number] [id number] M-[id number] M-[id number] M-0911.02 In cases where a pathologist has signed out the report, the service has been rendered in part by a resident. The signing pathologist has performed and is responsible for the reported pathologic evaluation. us Historical Provider LAB PATHOLOGY ORDERABLES Fin al Result [employer] from Last 3 Months or Most Recently Relevant to Health Maintenance Insurance [employer] [facility] MEDICAID Care Teams Field Cane Scaler Relationship Specialty Start Date End Date Fer Moreau MD [address] [facility] [place] [address] PCP - General 06/20/20
--- OUTSIDE RECORDS SUMMARY | 2024-10-30 12:48 | XMS_ITS | Clinical Summary ---
Author Organization [facility] Address [address] [place] [address] Care Team Providers Care Instructor Private Name Role Phone Fer Moreau MD Primary Care Provider [phone] Allergies No known active allergies Medications lisinopril-hydr [...] ANNUAL PHYSICAL 09/21/2016 HEPATITIS C SCREENING 09/21/2016 INFLUENZA VACCINE 09/07/2024 COVID-19 Vaccine (1 - season) 2024 Insurance [facility] Care Teams Instructor Private Relationship Specialty Start Date End Date Fer Moreau MD [address] [facility] [address] ATTN: [place] [address] PCP - General Emergency Medicine 09/21/16
[2024-10-30] MEDS: ASPIRIN 81MG CHEWABLE TABLET 324 MG PO (12:53)
[2024-10-30 12:55] LABS: Hematocrit 42.4 % (37.0-47.0); Hemoglobin 14.0 g/dL (12.2-16.2); Immature Granulocytes % 0.1 %; Mean Corpuscular HGB Conc 33.0 g/dL (31.8-35.4); Mean Corpuscular Hemoglobin 31.1 pg (27.0-31.2); Mean Corpuscular Volume 94.2 fl (81-99); Nucleated Red Blood Cells % 0 %; Platelet Count 236 K/mm3 (142-424); Red Blood Count 4.50 M/mm3 (4.20-5.40); Red Cell Distribution Width-SD 45.1 fL; White Blood Count 7.1 K/mm3 (4.8-10.8)
[2024-10-30 13:05] LABS: Chloride 99 mmol/L (98-107)
[2024-10-30 13:06] LABS: Albumin Level 4.6 g/dl (3.5-5.0); Potassium 3.3 mmoL/L (3.5-5.1); Sodium 137 mmol/L (136-145)
[2024-10-30 13:08] LABS: Alanine Aminotransferase 12 U/L (12-78); Anion Gap 10.3 mEq/L (5-15); Aspartate Amino Transferase 26 U/L (14-36); Blood Urea Nitrogen 11 mg/dl (7-17); Carbon Dioxide 31 mmol/L (22.0-30.0); Creatinine Clearance Estimated 57 mL/min (50-200); Creatinine,Serum 0.70 mg/dl (0.52-1.04); Estimated Glomerular Filt Rate 84 ml/min (>60); GFR (African American) 101 ML/MIN (>60)
[2024-10-30 13:09] LABS: Albumin/Globulin Ratio 1.6 (1.1-1.8); Alkaline Phosphatase 69 U/L (38-126); Bilirubin,Total 0.5 mg/dl (0.2-1.3); Calcium 9.5 mg/dl (8.4-10.2); Globulin 2.9 g/dL (1.3-3.2); Glucose 97 mg/dl (74-100); Total Protein,Serum 7.5 g/dl (6.3-8.2)
[2024-10-30 13:18] LABS: NT Pro Brain Natriuretic Pep. 92.8 pg/mL (0-125)
[2024-10-30 13:23] LABS: Troponin I < 0.01 ng/ml (0.00-0.034)
[2024-10-30] MEDS: IOPAMIDOL-370 (76%);100ML BOTTLE 80 ML IV (13:46)
[2024-10-30] MEDS: SODIUM CHLORIDE 0.9% 10ML SYR (RAD ONLY) 10 ML IV (13:46)
[2024-10-30] MEDS: 0.9 % SODIUM CHLORIDE 50 ML VIAL IV (13:46)
[2024-10-30 14:00] VITALS: BP 159/94; PULSE 81; O2SAT 95
[2024-10-30 14:15] VITALS: BP 135/68; PULSE 77; O2SAT 97
[2024-10-30 16:16] LABS: Troponin I < 0.01 ng/ml (0.00-0.034)
[2024-10-30 16:42] VITALS: BP 130/70; PULSE 74; RESP 18; TEMP 36.9; O2SAT 99
== END 2024-10-30 16:45 | disposition home or self-care (01) ==
PROVIDERS: Emergency Provider Student in an Organized Health Care Education/Training Program; PCP Nurse Practitioner
DX: R07.9 Chest pain, unspecified (principal); R10.31 Right lower quadrant pain; R22.43 Localized swelling, mass and lump, lower limb, bilateral; I10 Essential (primary) hypertension; J44.9 Chronic obstructive pulmonary disease, unspecified; F17.210 Nicotine dependence, cigarettes, uncomplicated; F41.1 Generalized anxiety disorder
CPT/HCPCS: 71045; 71275; 74174; 80053; 83880; 84484; 85025; 93005; 99285; Q9967

== ENCOUNTER 2024-12-17 09:14 | Outpatient (CLI) | payer MEDICARE, OTHER, SELFPAY ==
--- NOTE | 2024-12-17 09:23 | XR_ITS ---
FINAL REPORT TECHNIQUE: Bone densitometry calculations of the lumbar spine and left hip were obtained. CLINICAL HISTORY: SCREENING FINDINGS: Using L1-4, the bone mineral density of the spine is 1.039 g/cm2, corresponding to T-score of -0.1. Using the left hip, the bone mineral density of the femoral neck is 0.761 g/cm2, corresponding to a T-score of -1.5. Using the right hip, the bone mineral density of the femoral neck is 0.590 g/cm2, corresponding to a T-score of -2.3. NOTE: T-score: Standard deviation compared with peak bone mass of young adult mean. *Following the recommendations of the International Society of Bone densitometry, classification of hip BMD is based on the lower of two T-scores; total hip or femoral neck. IMPRESSION: Normal bone mineral density of the lumbar spine. Diminished bone mineral density of both hips consistent with osteopenia. FRAX data was not provided. Reviewed, Interpreted and Dictated by Raffaele Rodríguez MD Transcribed by Amina Chavez Authenticated and [facility]
--- OUTSIDE RECORDS SUMMARY | 2024-12-17 09:28 | XMS_ITS | Continuity of Care Document ---
Author Organization [facility] & [facility] Address [address] [place] [address] Care Team Providers Care Commercial Cleaner Name Role Phone SUMEET HERNANDEZ Primary Care Provider Assessment Encounter Date Assessment Date Assessment LastModified by Organization Details LastModified Time 10/22/2024 10/22/2024 Ms. Pineda was referred by Dr. Addison for management of chronic neck pain. She denies DM or history of infection. Patient takes Aspirin daily. Patient takes Clonazepam for anxiety. The patient has MS with last MRI of the brain showing mild burden of white matter lesions with no enhancement. She is currently on Tecfidera for management. The patient takes Buprenorphine daily. The patient has underwent a SCS trial with Dr. Esquivel in 2020 which was unsuccessful. She has had a EMG/NCS of the BLE showing peripheral neuropathy. - F/u Reassess pain Not available 10/22/2024 08:54:50 Plan of Treatment Reminders Order Date Submit Date Provider Last Modified By Organization Details Last Modified Time Details Appointments None recorded. Lab None recorded. Referral None recorded. Procedures injection, transforami nal epidural, lumbar (PROC) - TFESI Bilateral L3 and L4. [id number]. [id number] 2024 025 [id number] Mart Mcconenll MD, [address], [address], [place], [address], 11:28:36 Surgeries None recorded. Imaging None recorded. Medication Orders None recorded. Patient TargetsNo targets recorded. Patient Instructions Encounter Date Encounter Id Patient Instructions Last Modified By Organization Details Last Modified Time 10/22/2024 [id number] I have discussed in great detail our potential treatment options which would include a rehabilitative approach to care. This program would include medication management, Physical Therapy, consideration for interventional procedures as appropriate, and lifestyle modification (diet, weight loss, exercise, smoking/tobacco cessation, holistic approach including meditation and yoga). The patient understands and agrees prior to proceeding with this plan. _ __ __ __ __ __ __ __ __ __ __ __ __ __ __ __ __ __ __ __ __ __ __ __ __ __ __ __ _ RECORDS REVIEW: As per clinic policy, we will have the patient sign a release to obtain previous imaging and clinical notes. PROCEDURE: I counseled the patient extensively and informed of the risks of the procedure, including the risk of paralysis, nerve damage, respiratory arrest, arrhythmias, stroke, weakness, and infection, which although very low, could result in or disability. The patient acknowledged to me that they understand and accept these risks. RN EDUCATION Extensive coordination of care provided by RN to educate patient on upcoming procedure and to coordinate obtaining extensive incoming medical records. _ __ __ __ __ __ __ __ __ __ __ __ __ __ __ __ __ __ __ __ __ __ __ __ __ __ __ __ _ PSYCH: Pain affecting Neuro-psych behavior was discussed. Discussed about pain psychological counseling as a part of the multimodal approach to pain treatment. _ __ __ __ __ __ __ __ __ __ __ __ __ __ __ __ __ __ __ __ __ __ __ __ __ __ __ __ _ REHABILITATION: Discussed with the patient the importance of diet, daily physical activity and PT. Discussed with the patient the need to be scheduled for physical therapy since physical therapy will prolong the benefits of the procedure and interventions. _ __ __ __ __ __ __ __ __ __ __ __ __ __ __ __ __ __ __ __ __ __ __ __ __ __ __ __ _ I have reviewed patient's HEBER report prior to prescribing Schedule II, III, and IV medications that require review by law. Not available 10/22/2024 08:42:45 Reason for Referral None Reported. Problems Name Problem SNOMED Code Status Onset Date Resolution Date Notes Provider Name and Address Organization Details Recorded Time Peripheral neuropathic pain 921344254 Active 2023 Gina Montgomery null, [place] - [facility] - [place] & [place] 4 08:00:37 Paresthesia of lower extremity 196621708 Active 2023 Vashti Addison DO [address], [place], [address] , [place] - [facility] - [facility] & [place] 4 12:03:13 Multiple sclerosis 15862629 Active 2023 Vashti Addison DO [address], [place], [address] , [place] - [facility] - [facility] & [place] 4 12:19:51 Idiopathic peripheral neuropathy 87895654 [place] 2023 [place], [address] , [place] [facility] [place] [facility] & [place] 4 10:04:04 Cervical spondylosis 957888190 Active 2023 Vashti Addison DO [address], [place], [address] , [place] - [facility] - [facility] & [place] 4 14:41:38 Spinal stenosis of lumbar region 73104240 Active 2023 Elham York null, [place] [facility] [place] 4 11:42:04 Peripheral nerve disease 967429791 Active 2023 Susi Beardswort h null, [place] [facility] [place] & [place] 4 11:43:33 Hypertensive disorder 69827533 Active 2023 [place] Beardswort h null, [place] [facility] [place] 4 11:43:42 Asthma 576220707 Active 2023 [place] Beard[place]ort h null, [place] [facility] [place] 4 11:43:48 Anxiety 85056700 Active 2023 [place] Beard[place] h null, [place] [facility] [place] & [place] 4 11:44:13 Malignant neoplastic disease 064410699 Active 2023 [place] Beardswort h [place], [place] [facility] [place] 4 11:44:19 Complex regional pain syndrome, type II, lower limb 212278485 Active 2023 Elham [place] null, [place] [facility] [place] 4 06:57:45 Radicular pain 50851268 Active 2023 Elham [place] null, [place] [facility] [place] 4 06:58:03 Degeneration of lumbar intervertebra l disc 53436474 Active 2023 Elham [place] [facility] [place] 4 06:58:04 Myofascial pain 085809274 Active 2023 Elham [place] [facility] [place] 4 06:58:09 Spinal stenosis in cervical region 97687578 Active 2023 Elham [place] [facility] [place] 4 07:14:38 Degeneration of cervical intervertebra l disc 69704674 Active 2023 Elham [place] null, [place] [facility] [place] 4 07:15:20 Lumbar spondylosis 696441480 Active 2023 Elham [place] null[place] [facility] [place] 15:36:14 Problem Notes None recorded. Procedures Surgical History Date Name Laterality Status Provider Name and Address Organization Details Recorded Time EMG/ Nerve Conduction Study completed Vashti Addison DO [address], [place], [address], [facility] & [place] 05/12/2023 11:20:30 [facility] [place] 05/06/2023 11:34:30 excision of melanoma [facility] [place] 05/06/2023 11:34:45 Imaging Results None recorded. Procedure Notes None recorded. Medical Equipment None Reported. Allergies No known drug allergies Medications Name Sig Start Date Stop Date Status Note LastModified by Organization Details LastModified Time atorvastati n 40 mg tablet Take 1 tablet every day by oral route. active Not Available Not Available No t Available clonidine HCl 0.1 mg tablet bid active Not Available Not Available Not Available ipratropium 0.5 mg-albutero l 3 mg (2.5 mg base)/3 mL nebulizatio n soln prn active Not Available Not Available Not Available Stool Softener 100 mg capsule Take 1 capsule every day by oral route for 1 day. 09/19 completed Not Available Not Available Not Available azithromyci n 250 mg tablet 05/05 completed Not Available Not Available Not Available tizanidine 4 mg tablet Take 1 tablet every 6 hours by oral route as needed. active Not Available Not Available No t Available Nicoderm CQ 21 mg/24 hr daily transdermal patch Apply 1 patch every day by transderm al route for 14 days. 2024 active Not Available Not Available Not Avai lable prednisone 20 mg tablet 05/05 completed Not Available Not Available Not Available clonazepam 1 mg tablet Take 1 tablet twice a day by oral route. active Not Available Not Available No t Available phentermine 37.5 mg tablet Take 1 tablet every day by oral route. active Not Available Not Available No t Available amlodipine 5 mg tablet Take 1 tablet every day by oral route for 30 days. active Not Available Not Available No t Available aspirin 81 mg tablet,jenny yed release Take 1 tablet every day by oral route for 30 days. active Not Available Not Available No t Available carvedilol 3.125 mg tablet Take 1 tablet twice a day by oral route. active Not Available Not Available No t Available Nicoderm CQ 7 mg/24 hr daily transdermal patch Apply 1 patch every day by transderm al route for 14 days. 2024 active Not Available Not Available Not Avai lable gabapentin 800 mg tablet Take 1 tablet 4 times a day by oral route. active Not Available Not Available No t Available Nicoderm CQ 14 mg/24 hr daily transdermal patch Apply 1 patch every day by transderm al route for 14 days. 2024 active Not Available Not Available Not Avai lable promethazin e 25 mg tablet Take 1 tablet every 4 hours by oral route as needed. 05/16 completed Not Available Not Available Not Available omeprazole 20 mg capsule,del ayed release 05/16 completed Not Available Not Available Not Available magnesium citrate oral solution Take by oral route as directed for 1 day. 09/19 completed Not Available Not Available Not Available lisinopril 20 mg-hydrochl orothiazide 25 mg tablet Take 1 tablet every day by oral route. active Not Available Not Available No t Available SB Low Dose ASA EC 81 mg tablet,jenny yed release Take 1 tablet every day by oral route. 05/05 completed Not Available Not Available Not Available methylpredn isolone 4 mg tablets in a dose pack 05/05 completed Not Available Not Available Not Available celecoxib 100 mg capsule TAKE 1 CAPSULE BY MOUTH EVERY DAY BY ORAL ROUTE DIRECTED active Not Available Not Available No t Available cholecalcif salvatore (vitamin D3) 25 mcg (1,000 unit) capsule Take 1 capsule every day by oral route for 30 days. active Not Available Not Available No t Available buprenorphi ne 8 mg-naloxone 2 mg sublingual tablet dissolve 2 tablets under the tongue once a day active Not Available Not Available No t Available Vitamin D3 1000 UT qd 05/16 completed Not Available Not Available Not Available diclofenac 1 % topical gel APPLY 2 GRAMS TOPICALLY FOUR TIMES A DAY, APPLY TO SINGLE ELBOW, WRIST OR HAND FOR HAND INCLUDES PALM/FING ERS/BACK OF HAND 08/14 completed Not Available Not Available Not Available amlodipine besylate (bulk) 5 mg qd 05/05 completed Not Available Not Available Not Available buprenorphi ne 8 mg-naloxone [address] 1 film every day by sublingua l route. 09/19 completed Not Available Not Available Not Available sodium,pota ssium,mag sulfates 17.5 gram-3.13 gram-1.6 gram oral soln 05/07 completed Not Available Not Available Not Available Combivent Respimat 20 mcg-100 mcg/actuati on solution for inhalation Inhale 1 puff 4 times a day by inhalatio n route. active Not Available Not Available No t Available Linzess 145 mcg capsule Take 1 capsule every day by oral route. active Not Available Not Available No t Available Linzess 290 mcg capsule 03/01 completed Not Available Not Available Not Available dimethyl fumarate 240 mg capsule,del ayed release after 7 days of 120mg dose of tecfidera , Start 240mg capsule twice a day 08/14 completed Not Available Not Available Not Available dimethyl fumarate 120 mg capsule,del ayed release Take 1 capsule twice a day by oral route for 7 days. 08/14 completed Not Available Not Available Not Available Movantik 25 mg tablet Take 1 tablet twice a day by oral route for 30 days. active Not Available Not Available No t Available Relistor 150 mg tablet TAKE 3 TABLETS BY MOUTH 30 MINUTES BEFORE FIRST MEAL active Not Available Not Available No t Available Trulance 3 mg tablet TAKE 1 TABLET BY MOUTH ONCE DAILY active Not Available Not Available No t Available Lucemyra 0.18 mg tablet TAKE 1-4 TABLETS BY MOUTH 4 TIMES A DAY NEEDED FOR WITHDRAWA L SYMPTOMS 09/19 completed Not Available Not Available Not Available Vitals Date Recorded Body height Body temperature Oxygen saturation Oxygen saturation in Arterial blood by Pulse oximetry Heart rate Systolic And Diastolic Provider Name and Address Organization Details Last Updated DateTime 5 165.1 cm 97.8 [degF] 97 % 97 % 91 /min 102/81 mm[Hg] Susi Nargis ROSAURA MORGAN [facility] & [place] 5 08:18:55 Social History Question Answer Notes LastModified by Organizat ion Details LastModified Time Tobacco Smoking Status Current Every Day Smoker ROSAURA Haynes [facility] & [place] 05/06/2023 11:33:45 What Is Your Level Of Caffeine Consumption? Occasional Information not available 05/06/2023 What Is Your Relationship Status? Sister Lives With Her Information not available 05/06/2023 At What Age Did You Start Smoking Tobacco? 19 Information not available 05/06/2023 Are You Currently In School? No GED Information not available 05/06/2023 Sex: Unknown Functional Status Question Answer Note LastModified by Organizat ion Details LastModified Time Do you use any illicit or recreational drugs? No oxycodone-P/H for 11 years clean Information not available 05/06/2023 Do you or have you ever used any other forms of tobacco or nicotine? No Information not available 05/06/2023 What is your level of alcohol consumption? None Information not available 05/06/2023 Are you currently employed? No Disabled Information not available 05/06/2023 Mental Status None recorded. Family History Relationship Description Onset Age of this Age Resolved Age Notes LastModified by Organization Details LastModified Time Father Malignant neoplastic disease 83 [email or web address] Not available 2024 08:10:01 Mother Malignant neoplastic disease 56 [email or web address] Not available 2024 08:10:01 Brother Malignant neoplastic disease 61 [email or web address] Not available 2024 08:10:01 Sister Congestive heart failure [email or web address] Not available 2024 08:10:01 Sister Diabetes mellitus [email or web address] Not available 2024 08:10:01 Sister Chronic obstructive pulmonary disease [email or web address] Not available 2023 11:41:03 Notes:strong H/O cancer both sides Medical History Condition Response Anxiety Disorder Y Arthritis Y Hyperlipidemia Y Back Problems Y Depression Y COPD Y GI Problems Y Multiple Sclerosis Y Back Pain Y Spine Problems Y Fibromyalgia Y Hypertension Y Neurological Problems Y Gynecological HistoryNo gynecological history recorded. Obstetrics History GPAL:G 0 P 0 0 0 0 Past Encounters Encounter ID Performer Location Encounter Start Date Encounter Closed Date Diagnosis/Indication Diagnosis SNOMED-CT Code Diagnosis ICD10 Code Diagnosis IMO Codes Diagnosis Note [id number] Mart Mcconnell MD [facility] [address] [place] [address] 10/22/2024 08:07:29 10/22/2024 08:35:17 Tobacco dependence caused by cigarettes [id number] F17.562 1598906 - The patient is working diligently toward smoking cessation, noting that she has made significan t progress.- The patient has failed Nicoderm, Chantix, and Wellbutrin , among other medication s.- Patient was seen by pain psych on 07/11/24 and was deemed an appropriat e candidate to move forward with smoking cessation strategies .- The patient voices that pain exacerbate s stress and anxiety/de pression, which prompts her to smoke. Degenerati on of lumbar intervertebral disc 65144717 M51.361 - The patient is S/P (05/2024) lumbar epidural, which was successful in decreasing non-radicu lar/radicu lar low back pain by greater than 50% in the short-term . Lumbar spondylosis 07349 0009 M47.896 - The patient is S/P (02/2024) bilateral lumbar RFA at L3-L5, which was successful in decreasing non-radicu lar low back pain by greater than 50% in the short-term .- Discussed repeating procedure in the near future, patient would like to repeat after her TFESI injections . Cervical spondylosis 387 672728 M47.812 - I think the patient could benefit from a bilateral cervical medial branch block with intention of pursuing a cervical RFA if successful . Degenerati on of cervical intervertebral disc 68655096 M50.30 - I have reviewed the cervical MRI, which revealed the multilevel spondylosi s with multiple levels of foraminal stenosis and nerve impingemen t. Peripheral neuropathic pain 736118396 M79.2 83002162 - The patient previously completed an EMG/NCS of the BLE, which reportedly revealed peripheral neuropathy . Lumbar spi ne instability 096990317 M53.2X6 [id number] - The patient complained of chronic low back and BLE pain, which worsens with prolonged sitting/st anding/wal cristela, yet improves with leaning forward.- The patient noted that pain limits them from standing longer than 10 minutes and limits them from walking further than 50 feet, both of which drasticall y impacts their ability to perform ADLs. The patient regularly uses a walking aid inside and/or outside the home. The patient has a history of falls and is at a risk of falling if the disease process is untreated. - Based on the history and physical exam it appears that the pain is associated with lumbar degenerati ve disc disease and spinal instabilit y.- Gema Clinical Instabilit y Gradin+- XR Lumbar spine flexion/ex tension showed stable mild anterolist hesis at L3-4 and L4-5. There are multilevel endplate degenerati ve changes of the lumbar spine. There is no acute fracture of the lumbar spine.- MRI lumbar spine showed significan t progressiv e degenerati ve changes identified at L3-L4 with new grade 1 anterolist hesis of L3 on L4. Severe worsening of the Right neuro foraminal stenosis at L3-L4 with impingemen t of exiting Right right L3 nerve root. There is also increased moderate spinal canal stenosis at L3-L4.- The patient has failed conservati ve treatment, including rest, heat/ice, physician- directed at-home exercises/ stretches, and PT.- The patient has failed pharmacolo gic treatment, including: Gabapentin , Celecoxib, Ibuprofen- The patient has failed interventi onal treatment, including: BLMBBs L4-S1, BLRF L4-S1, LEI X 2.- I think the patient is a good candidate for the posterior arthrodesi s procedure, which is an interspino us inter-lami simon fusion device intended for stabilizat ion/immobi lization of the lumbar spine via a lateral transverse approach with non-segmen jonh instrument ation.- Given the aforementi oned clinical and radiologic presentati on in conjunctio n with failure of prior treatment, my assessment is that the posterior arthrodesi s procedure is medically necessary to treat spinal instabilit y.- The patient doesn't have any of the following contraindi cations: Allergy to titanium/t itanium alloy, spinal anatomy or disease that would prevent implantati on of the device or cause the device to be unstable in situ, severe osteoporos is, active systemic infection or infection localized to the site of implantati on, insufficie nt quality or quantity of bone, incompeten t or missing posterior arch, and . - The risks/bene fits of the procedure, including failure to alleviate pain, infection, serious neurologic compromise , fracture of the spinous process, paralysis, and have been discussed. The patient has agreed to pursue the procedure. - I will submit for approval of the posterior arthrodesi s to be performed at L3 on L4.- Patients procedure was denied- she is in the process of changing medical insurances to straight Medicare. Once she changes insurance I will re send through her new carrier for approval. Stenosis o f spinal canal due to intervertebral disc 588661307 M99.53 [id number] - The patient complained of chronic low back and BLE pain, which worsens with prolonged sitting/st anding/wal cristela.- MRI lumbar spine showed significan t progressiv e degenerati ve changes identified at L3-L4 with new grade 1 anterolist hesis of L3 on L4. Severe worsening of the Right neuro foraminal stenosis at L3-L4 with impingemen t of exiting Right right L3 nerve root. There is also increased moderate spinal canal stenosis at L3-L4.- Based on her history, imaging and PE findings her pain is due to Lumbar stenosis with secondary radiculopa thy.- To address her pain I will proceed with a Bilateral TFESI - Right L3 and L4 first follow by Left L3 and L4 two weeks later.- Follow up 2 weeks post Left TFESI Health Concerns Section Related Observation LastModified by Organization Detai ls LastModified Time None Recorded Concern Status LastModified by Organization Details LastModified Time None Recorded Payers Encounter Date Sequence Insurance Name Policy Number Policy Khan Covered Member ID Khan Member ID Guarantor Name 10/22/2024 2 [employer] [facility] (MEDICAID HMO) Eleonora Miriam [id number] Eleonora Miriam 10/22/2024 1 [employer] (MEDICARE REPLACEMENT /ADVANTAGE - HMO) [id number] Eleonora G Miriam [id number] Eleonora Duboisarty Notes Date Note Type Note Provider Name and Address Organization Details Recorded Time 10/22/2024 text/html ROS as noted in the HPI Ms. Pineda was referred by Dr. Addison for management of chronic neck pain. She denies DM or history of infection. Patient takes Aspirin daily. Patient takes Clonazepam for anxiety. The patient has MS with last MRI of the brain showing mild burden of white matter lesions with no enhancement. She is currently on Tecfidera for management.The patient takes Buprenorphine daily. The patient has underwent a SCS trial with Dr. Esquivel in 2020 which was unsuccessful. She has had a EMG/NCS of the BLE showing peripheral neuropathy. The patient presents to the clinic today for pain reassessment. Patient was recently worked up for Posterior Arthrodesis which was denied by her insurance. Today she reports she will be changing insurance to straight Medicare so her procedure can get approved. Today she complains of low back pain with radiculopathy Right worse than Left. Her pain worsens with standing and sitting for prolonged time periods. She also endorses neck pain however states she wants to address her low back pain prior to her neck pain. Her pain level today is 10/10. TRIPP BURGER PA-C [address], [place], [address], [facility] - [place] & [place] 10/22/2024 08:56:15 OBGyn Episode No OBEpisode recorded.
--- OUTSIDE RECORDS SUMMARY | 2024-12-17 09:28 | XMS_ITS | Data Portability ---
Author Organization [place] - [facility] - [place] & EDDIE Bain ADMIN Address [address] [place] [address] Care Team Providers Care Security System Administrator Name Role Phone KEVINOHCALISTASUMEET Primary Care Provider Assessment Encounter Date Assessment Date Assessment LastModified by Organization Details LastModified Time 05/02/2024 05/02/2024 Ms. Pineda was referred by Dr. Addison [...] EMG/NCS of the BLE showing peripheral neuropathy. Status post L3-L5 radiofrequency ablation with only 2 weeks of benefit. Here for follow-up after radiofrequency ablation [email or web address] Not available 05/01/2024 15:53:36 05/30/2024 05/30/2024 Ms. Pineda was referred by Dr. Addison [...] EMG/NCS of the BLE showing peripheral neuropathy. Status post L3-L5 radiofrequency ablation with only 2 weeks of benefit. - working on smoking cessation [email or web address] Not available 06/04/2024 07:56:35 07/09/2024 07/09/2024 Ms. Pineda was referred by Dr. Addison for management of chronic neck pain. The patient has been diagnosed with MS (previous MRI of the brain revealed a mild burden of white matter lesions without enhancement), for which she is taking Tecfidera. The patient previously followed with Dr. Esquivel, whom performed a SCS trial, which was unsuccessful. The patient is on Buprenorphine therapy. The patient takes Aspirin daily. The patient denies DM and history of MRSA. The patient presents to the clinic today to follow up on pain. [email or web address] Not available 07/11/2024 14:05:40 07/30/2024 07/30/2024 Ms. Pineda was referred by Dr. Addison [...] EMG/NCS of the BLE showing peripheral neuropathy. -f/u post referral Not available 07/31/2024 07:23:14 10/22/2024 10/22/2024 Ms. Pineda was referred by [...] Details Last Modified Time Details Appointments None recorde d. Lab None recorde d. Referral [facility] N [facility] OGY REFERRA L - refer to pain psych for coping skills, managem ent of mental health and smoking cessati on 2024 025 MONO Aparicio PHD, [address], [place], [address], 14:33:06 Procedures injecti on, transfo raminal epidura l, lumbar (PROC) - TFESI Bilater al L3 and L4. [id number]. [id number] 2024 025 Mart Mcconnell MD, [address], [address], [place], [address], 11:28:36 Surgeries arthrod esis, lumbar, posteri or techniq ue (SURG) 2024 025 [email or web address] Not available 14:55:47 Imaging None francoise dTracey Medication Orders Nicoder m CQ 21 mg/24 hr daily transde rmal patch [address] [place] [address] Pharmacy, [address], [address], 5 08:19:39 Nicoder m CQ 14 mg/24 hr daily transde rmal patch [address] [place] [address], [address], [address], 5 08:19:39 Nicoder m CQ 7 mg/24 hr daily transde rmal patch [address] [place] [address], [address], [address], 5 08:19:40 Patient TargetsNo targets recorded. Patient Instructions Encounter Date Encounter Id Patient Instructions Last Modified By Organization Details Last Modified Time 05/02/2024 [id number] I have discussed in great detail our [...] __ __ __ __ __ __ _ HEBER: [id number] I have reviewed patient's HEBER report prior to prescribing Schedule II, III, and IV medications that require review by law. [email or web address] Not available 05/01/2024 15:53:40 05/30/2024 [id number] I have discussed in great detail our [...] IV medications that require review by law. [email or web address] Not available 06/04/2024 08:09:00 07/09/2024 [id number] I have discussed in great detail our [...] that require review by law. Not available 07/11/2024 13:23:22 07/30/2024 [id number] I have discussed in great detail our [...] that require review by law. Not available 07/30/2024 14:08:51 10/22/2024 [id number] I have discussed in great detail our [...] Not available 10/22/2024 08:42:45 Reason for Referral CLINICAL HEALTH PSYCHOLOGY/P AIN PSYCHOLOGY REFERRAL for Counseling for harmful pattern of substance use refer to pain psych for coping skills, management of mental health and smoking cessation Referring Physician: Mart Mcconnell, Pain Management, Encounter Date: 05/30/2024 Problems Name Problem SNOMED Code Status Onset Date Resolution Date Notes Provider Name and Address Organization Details Recorded Time Peripheral neuropathic pain 867447356 Active 2023 Gina Montgomery null, [place] - [facility] - [place] & [place] 4 08:00:37 Paresthesia of lower extremity 255216453 Active 2023 Vashti Addison DO [address], [place], [address] , [place] - [facility] - [facility] & [place] 4 12:03:13 Multiple sclerosis 86596988 Active 2023 Vashti Addison DO [address] , [place], [address] , [place] - [facility] - [facility] & [place] 4 12:19:51 Idiopathic peripheral neuropathy 16008618 Active 2023 Vashti Addison DO [address], [place], [address] , [place] - [facility] - [facility] & [place] 4 10:04:04 Cervical spondylosis 974100218 Active 2023 Vashti Addison DO [address], [place], [address] , [place] - [facility] - [facility] & [place] 4 14:41:38 Spinal stenosis of lumbar region 95524688 Active 2023 Elham York null, [place] - [facility] - [facility] & [place] 4 11:42:04 Peripheral nerve disease 000824746 Active 2023 Susi duffy null, [place] - [facility] - [facility] & [place] 4 11:43:33 Hypertensive disorder 37370079 Active 2023 Wisconsin Beardswort h null, [place] - [facility] - [place] & [place] 4 11:43:42 Asthma 167513024 Active 2023 [place] Beardswort h null, [place] - [facility] [place] & [place] 4 11:43:48 Anxiety 71716912 Active 2023 [place] Beardswort h null, [place] - [facility] [place] & [place] 4 11:44:13 Malignant neoplastic disease 607740302 Active 2023 [place] Beardswort h null, [place] - [facility] [place] & [place] 4 11:44:19 Complex regional pain syndrome, type II, lower limb 168666643 Active 2023 Elham York null, [place] - [facility] [place] & [place] 4 06:57:45 Radicular pain 11070873 Active 2023 Elham [place] null, [place] - [facility] [place] & [place] 4 06:58:03 Degeneration of lumbar intervertebra l disc 67475241 Active 2023 Elham York null, [place] - [facility] [place] & [place] 4 06:58:04 Myofascial pain 682648517 Active 2023 Elham [place] null, [place] - [facility] [place] & [place] 4 06:58:09 Spinal stenosis in cervical region 33462097 Active 2023 Elham [place] null, [place] - [facility] [place] & [place] 4 07:14:38 Degeneration of cervical intervertebra l disc 23477882 Active 2023 Elham [place] null[place] - [facility] [place] & [place] 4 07:15:20 Lumbar spondylosis 681342715 Active 2023 Elham [place] null, [place] - [facility] [place] & [place] 4 15:36:14 Problem Notes None recorded. Procedures Surgical History Date Name Laterality Status Provider Name and Address Organization Details Recorded Time EMG/ Nerve Conduction Study completed Vashti Addison, DO [address], [place], [address], [facility] & [place] 05/12/2023 11:20:30 ligation of fallopian tube completed Gina KAPLAN - [facility] & [place] 05/06/2023 11:34:30 excision of melanoma completed Gina Freda [facility] & [place] 05/06/2023 11:34:45 Imaging Results None recorded. Procedure [...] Details Last Updated DateTime 5 165.1 cm 97.7 [degF] 91 % 91 % 77 /min 144/77 mm[Hg] Estefania MORGAN - [place] & [place] 5 09:59:49 Date Recorded Body height Body temperature Oxygen saturation Oxygen saturation in Arterial blood by Pulse oximetry Heart rate Systolic And Diastolic Provider Name and Address Organization Details Last Updated DateTime 5 165.1 cm 97.6 [degF] 98 % 98 % 88 /min 139/65 mm[Hg] Estefania MORGAN [place] & [place] 5 11:09:52 Date Recorded Body height Body mass index (BMI) Body weight Body temperature Oxygen saturation Oxygen saturation in Arterial blood by Pulse oximetry Heart rate Systolic And Diastolic Provider Name and Address Organization Details Last Updated DateTime 5 165.1 cm 26.2 kg/m2 56712.7 2 g 97.3 [degF] 95 % 95 % 82 /min 152/92 mm[Hg] Estefaniabeltran KAPLAN [facility] & [place] 5 15:23:14 Date Recorded Body height Body temperature Oxygen saturation Oxygen saturation in Arterial blood by Pulse oximetry Heart rate Systolic And Diastolic Provider Name and Address Organization Details Last Updated DateTime 5 165.1 cm 97.2 [degF] 97 % 97 % 82 /min 150/84 mm[Hg] Estefania KAPLAN [facility] & [place] 5 13:55:51 Date Recorded Body height Body temperature Oxygen saturation Oxygen saturation in Arterial blood by Pulse oximetry Heart rate Systolic And Diastolic Provider Name and Address Organization Details Last Updated DateTime 5 165.1 cm 97.8 [degF] 97 % 97 % 91 /min 102/81 mm[Hg] Susi Nargis [facility] & [place] 5 08:18:55 Social History Question Answer Notes LastModified by [employer] Details LastModified Time Tobacco Smoking Status Current Every Day Smoker [facility] & [place] 05/06/2023 11:33:45 What Is Your Level Of Caffeine Consumption? Occasional Information not available 05/06/2023 What Is Your Relationship Status? Sister Lives With Her Information not available 05/06/2023 At What Age Did You Start Smoking Tobacco? 19 Information not available 05/06/2023 Are You Currently In School? No GED Information not available 05/06/2023 Sex: Unknown Functional Status Question Answer Note LastModified by Black Drummizat ion Details LastModified Time Do you use [...] cancer both sides Medical History Condition Response GI Problems Y COPD Y Depression Y Multiple Sclerosis Y Back Pain Y Spine Problems Y Neurological Problems Y Anxiety Disorder Y Arthritis Y Hyperlipidemia Y Back Problems Y Fibromyalgia Y Hypertension Y Gynecological HistoryNo gynecological history recorded. Obstetrics History GPAL:G 0 P 0 0 0 0 Past Encounters Encounter ID Performer Location Encounter Start Date Encounter Closed Date Diagnosis/Indication Diagnosis SNOMED-CT Code Diagnosis ICD10 Code Diagnosis IMO Codes Diagnosis Note [id number] Vashti AddisonDO ZZ [facility] [address] [facility],[address] [place] [address] 05/06/2023 11:28:21 05/06/2023 12:06:17 Paresthesia of lower extremity 270346069 R20.2 She has long standing pain and numbness in her BLE's. She has a presumed diagnosis of neuropathy . Her sensory exam is somewhat unusual today and I would recommend NCV/emg of the BLE to better assess for neuropathy or other source for her pain. If emg demonstrat ed neuropathy she likely needs lab work for potential etiologies of neuropathy .She is aware that I don't do any pain management and would not prescribe controlled substances . She will continue to follow with her PCP for management of her gabapentin . Multiple sclerosis 39004 007 G35 She reports a hx of MS diagnosed 30+ years ago but never on treatment or any regular monitoring . May be helpful to consider MRI's in the future to confirm the diagnosis and disease state. [id number] Vashti AddisonDO [facility] [address] [facility],[address] [place] [address] 05/12/2023 11:08:47 05/12/2023 11:56:59 Paresthesia of lower extremity 197789904 R20.2 She has long standing pain and numbness in her BLE's. She has a presumed diagnosis of neuropathy . Her sensory exam is somewhat unusual today and I would recommend NCV/emg of the BLE to better assess for neuropathy or other source for her pain. If emg demonstrat ed neuropathy she likely needs lab work for potential etiologies of neuropathy .She is aware that I don't do any pain management and would not prescribe controlled substances . She will continue to follow with her PCP for management of her gabapentin . [id number] Vashti AddisonDO SINGER [facility] [address] [facility],[address] [place] [address] 05/17/2023 09:42:34 05/17/2023 10:15:13 Multiple sclerosis 75150378 G35 She reports a hx of MS diagnosed 30+ years ago but never on treatment or any regular monitoring . Would recommend MRI's to evaluate disease state and consider potential treatment options. Idiopathic peripheral neuropathy 07216414 G60.9 Her EMG does demonstrat e a distal moderate peripheral neuropathy . Would recommend labs to evaluate for any reversible causes. She is stable with gabapentin which is managed by her PCP.I did fill out a form for her to obtain a handicap placard.Cu rrently she denies any need for therapies or equipment. [id number] Vashti [facility]DO [facility] [address] [facility],[address] [place] [address] 06/21/2023 13:29:32 06/21/2023 13:59:37 Multiple sclerosis 74452789 G35 She reports a hx of MS diagnosed 30+ years ago but never on treatment or any regular monitoring . The MRI brain shows a mild burden of white matter lesions but no enhancemen t. Her MRI cervical spine was void of any MS lesions.We discussed DMD therapies. She would really like to consider something like Tecfidera. She is due to see her PCP in a few days. She will see if they will draw a cbc w/diff and CMP for baseline studies. I gave her the MS society website to look up further education on tecfidera. Will plan to see her back for a short term follow up to potentialy start medication . Idiopathic peripheral neuropathy 73985141 G60.9 Her EMG does demonstrat e a distal moderate peripheral neuropathy . Her recent neuropathy labs were all normal.She is stable with gabapentin which is managed by her PCP.Curren tly she denies any need for therapies or equipment. Cervical spondylosis 387 098094 M47.812 Her recent MRI cervical spine shows a heavy burden of spondylosi s with multiple levels of foraminal stenosis and nerve impingemen t. She does have radicular type pain into her arms.I recommende d she consider referral to Dr Mcconnell to see if any types of injections may benefit her. She wants to discuss this with her PCP at her upcoming appointmen t. I gave her printed copies of her MRI reports to share with her PCP. [id number] Vashti Addison DO ZZ [facility] [address] [facility],[address] [place] [address] 07/19/2023 09:33:55 07/19/2023 10:34:54 Multiple sclerosis 34095984 G35 She reports a hx of MS diagnosed 30+ years ago but never on treatment or any regular monitoring . The MRI brain shows a mild burden of white matter lesions but no enhancemen t. Her MRI cervical spine was void of any MS lesions.We discussed DMD therapies. She would like to start Tecfidera. Will request her recent CBC and CMP from the PCP office for baseline labs. Idiopathic peripheral neuropathy 07385007 G60.9 Her EMG does demonstrat e a distal moderate peripheral neuropathy . Her recent neuropathy labs were all normal.She is stable with gabapentin which is managed by her PCP.Curren tly she denies any need for therapies or equipment. Cervical spondylosis 387 767528 M47.812 Her recent MRI cervical spine shows a heavy burden of spondylosi s with multiple levels of foraminal stenosis and nerve impingemen t. She does have radicular type pain into her arms.I recommende d she consider referral to Dr Mcconnell to see if any types of injections may benefit her. [id number] Mart Mcconnell MD [facility] [address] [address] 08/15/2023 10:20:47 08/15/2023 12:03:49 Spinal stenosis of lumbar region 35505820 M99.53 M48.061 Complex re gional pain syndrome, type II, lower limb 797068549 G57.71 Degenerati on of lumbar intervertebral disc 72538191 M51.36 Radicular pain 10482990 M54.10 Myofascial pain 54807399 9 M79.18 Spinal cooper nosis in cervical region 01331991 M99.51 Degenerati on of cervical intervertebral disc 44313118 M50.30 [id number] DYLAN CARPENTER PA-C [facility] [address] [address] 09/20/2023 13:47:40 09/20/2023 14:58:01 Spinal stenosis in cervical region 80381124 M99.51 Spinal cooper nosis of lumbar region 97489162 M99.53 M48.061 Complex re gional pain syndrome, type II, lower limb 821758619 G57.71 Degenerati on of lumbar intervertebral disc 54982542 M51.36 Radicular pain 94031426 M54.10 Myofascial pain 47788793 9 M79.18 Degenerati on of cervical intervertebral disc 19858690 M50.30 Cervical spondylosis 387 922063 M47.812 Peripheral neuropathic pain 579349755 M79.2 [id number] Mart Mcconnell MD [facility] [address] [address] 10/24/2023 08:56:50 10/24/2023 09:44:09 Spinal stenosis in cervical region 05170029 M99.51 - Based on the history and physical exam it appears that the pain is associated with cervical degenerati ve disc disease and cervical spondylosi s. I think that much of the pain is facetogeni c in origin.- I have reviewed the cervical MRI, which revealed multilevel spondylosi s with multiple levels of foraminal stenosis and nerve impingemen t.- I think that the patient could benefit from a bilateral cervical medial branch block with intention on pursuing a cervical RFA if successful , but she doesn't want to pursue at this time. Complex re gional pain syndrome, type II, lower limb 952023323 G57.71 Degenerati on of lumbar intervertebral disc 66780316 M51.36 - The patient is 3 weeks post LEI L5-S1 reporting minimal improvemen t in pain and function.- Based on the history and physical exam it appears that the pain is multifacto rial in origin, including lumbar radiculopa thy secondary to lumbar degenerati ve disc disease, as well as peripheral neuropathy . I think that the patient may be developing CRPS of the RLE.- I have reviewed the lumbar x-ray, which revealed significan t loss of disc space and degenerati ve endplate change at L3-L4, levocurvat ure, and slight anterolist hesis of L3 on L4 and L4 on L5.- Prior to considerin g further interventi ons, I will order a lumbar MRI to assess the degree of lumbar stenosis and rule out nerve impingemen t.- The patient will follow up 1 week post MRI for review. Degenerati on of cervical intervertebral disc 31754041 M50.30 Cervical spondylosis 387 490710 M47.812 Peripheral neuropathic pain 609484784 M79.2 Spinal cooper nosis of lumbar region 36180587 M99.53 M48.299 [id number] Mart Mcconnell MD [facility] [address] [place] [address] 12/05/2023 10:12:59 12/05/2023 11:23:54 Cervical spondylosis 984793520 M47.812 - Based on the history and physical exam it appears that the pain is associated with cervical degenerati ve disc disease and cervical spondylosi s. I think that much of the pain is facetogeni c in origin.- I have reviewed the cervical MRI, which revealed multilevel spondylosi s with multiple levels of foraminal stenosis and nerve impingemen t.- I think that the patient could benefit from a bilateral cervical medial branch block with intention on pursuing a cervical RFA if successful , but she doesn't want to pursue at this time. Degenerati on of cervical intervertebral disc 19831062 M50.30 Degenerati on of lumbar intervertebral disc 99456974 M51.361 - The patient is post LEI L5-S1 on 10/04 which provided minimal improvemen t in pain and function. Lumbar spondylosis 20846 0009 M47.896 - Based on the patient's history and physical exam, it appears her pain is likely associated with lumbar spondylosi s and lumbar DDD. I feel that much of the patient's pain is originatin g in the facet joints and is arthritic in nature.- I have reviewed the patient's lumbar MRI showing moderate to severe DDD at L3-4; multilevel facet arthropath y; mild-moder ate DDD at L4-5.- I will proceed with scheduling a BLMBB L3-5 with Bupivacain e and Depo-Medro l to help with the patient's exacerbate d pain. If the patient receives significan t (greater than 80% pain relief for at least 6 hours) benefit from the block, I will repeat based on insurance, and if the patient again receives significan t benefit, I will proceed with scheduling a lumbar RFA. The procedure will be fluoroscop y-guided.- Also, I feel the patient may benefit from another good round of PT. I will refer to PT 4-6 weeks with focus on the lumbar spine.- The patient was also given a lumbosacra l brace today for lumbar spondylosi s. This LSO is required to reduce pain by restrictin g mobility of the trunk and to support weak spinal muscles due to chronic low back pain. This patient requires stabilizat ion from this LSO to improve her function. She is to wear the brace for 1-2 hours in the morning.- The patient may be a good candidate for Minuteman at L3-4. In the meantime, I will order a lumbar x-ray (flexion/e xtension) to assess for instabilit y.- Regarding medication , in efforts to manage the patient's pain along with planned interventi ons, I will start her on Celebrex 100mg once daily for 1 month.- I will follow up with the patient 2 weeks post injection to assess efficacy. [id number] Mart Mcconnell MD [facility] [address] [facility] [address] [place] [address] 12/29/2023 08:40:30 12/29/2023 09:33:50 Lumbar spondylosis 234724703 M47.896 - Based on the patient's history and physical exam, it appears her pain is likely associated with lumbar spondylosi s and lumbar DDD. I feel that much of the patient's pain is originatin g in the facet joints and is arthritic in nature.- I have reviewed the patient's lumbar MRI showing moderate to severe DDD at L3-4; multilevel facet arthropath y; mild-moder ate DDD at L4-5.- S/p BLMBB L3-5 with Bupivacain e and Depo-Medro l- Patient states she received significan t benefit from the 1st block (greater than 80% pain relief for at least 6 hours) for the first day.- Due to patient receiving significan t (greater than 80% pain relief for at least 6 hours) benefit from the 1st block, I will repeat based on insurance, and if the patient again receives significan t benefit, I will proceed with scheduling a lumbar RFA. The procedure will be fluoroscop y-guided.- Patient has started in home PT and reports she is benefiting .- The patient was also given a lumbosacra l brace which she is wearing for 1-2 hours in the morning.- The patient may be a good candidate for Minuteman at L3-4. In the meantime, patient completed XR Lumbar spine however the flexion/ex tension was not completed. Next follow up visit consider re ordering XR Lumbar Spine (ORDER 5-7 VIEWS AND SPECIFIY FLEXION/ EXTENSION) .- Patient on Celebrex 100mg once daily and has benefited- continue- I will follow up with the patient 1 week post block. Cervical spondylosis 387 508094 M47.812 - Based on the history and physical exam it appears that the pain is associated with cervical degenerati ve disc disease and cervical spondylosi s. I think that much of the pain is facetogeni c in origin.- I have reviewed the cervical MRI, which revealed multilevel spondylosi s with multiple levels of foraminal stenosis and nerve impingemen t.- I think that the patient could benefit from a bilateral cervical medial branch block with intention on pursuing a cervical RFA if successful , but she doesn't want to pursue at this time. Degenerati on of cervical intervertebral disc 81170702 M50.30 Degenerati on of lumbar intervertebral disc 18326862 M51.361 - The patient is post LEI L5-S1 on 10/04 which provided minimal improvemen t in pain and function. [id number] Mart Mcconnell MD [facility] [address] [place] [address] 02/09/2024 09:06:00 02/09/2024 09:33:12 Lumbar spondylosis 535662233 M47.896 - Based on the patient's history and physical exam, it appears her pain is likely associated with lumbar spondylosi s and lumbar DDD. I feel that much of the patient's pain is originatin g in the facet joints and is arthritic in nature.- I have reviewed the patient's lumbar MRI showing moderate to severe DDD at L3-4; multilevel facet arthropath y; mild-moder ate DDD at L4-5.- S/p BLMBB L3-5 with Bupivacain e and Depo-Medro l- Patient states she received significan t benefit from the 1st block (greater than 80% pain relief for at least 6 hours) for the first day.- S/p (2nd) bilateral L3-L5 medial branch block on 01/17/24. Patient states she received significan t benefit from the 1st block (greater than 80% pain relief for at least 6 hours) for the first day.- Due to patient receiving significan t (greater than 80% pain relief for at least 6 hours) benefit from the 2nd block, I will proceed with scheduling a lumbar RFA L3-L5. The procedure will be fluoroscop y-guided.- Patient has started in home PT and reports she is benefiting .- The patient was also given a lumbosacra l brace which she is wearing for 1-2 hours in the morning.- The patient may be a good candidate for Minuteman at L3-4. In the meantime, patient completed XR Lumbar spine however the flexion/ex tension was not completed. She has an order for Lumbar Flexion and Extension from 12/05/23 and was asked to have the imaging completed prior to her next follow up visit. She verbalized understand ing.- Patient on Celebrex 100mg once daily and has benefited- continue- I will follow up with the patient 6 weeks post RFA. Cervical spondylosis [id number] M47.812 - Based on the history and physical exam it appears that the pain is associated with cervical degenerati ve disc disease and cervical spondylosi s. I think that much of the pain is facetogeni c in origin.- I have reviewed the cervical MRI, which revealed multilevel spondylosi s with multiple levels of foraminal stenosis and nerve impingemen t.- I think that the patient could benefit from a bilateral cervical medial branch block with intention on pursuing a cervical RFA if successful , but she doesn't want to pursue at this time. Degenerati on of cervical intervertebral disc [id number] M50.30 Degenerati on of lumbar intervertebral disc [id number] M51.361 - The patient is post LEI L5-S1 on 10/04 which provided minimal improvemen t in pain and function. [id number] Mart Mcconnell MD [facility] [address] [place] [address] 04/02/2024 09:07:08 04/02/2024 10:15:22 Lumbar spondylosis [id number] M47.896 - Based on the patient's history and physical exam, it appears her pain is likely associated with lumbar spondylosi s and lumbar DDD. I feel that much of the patient's pain is originatin g in the facet joints and is arthritic in nature.- I have reviewed the patient's lumbar MRI showing moderate to severe DDD at L3-4; multilevel facet arthropath y; mild-moder ate DDD at L4-5.- S/p BLMBB L3-5 with Bupivacain e and Depo-Medro l- Patient states she received significan t benefit from the 1st block (greater than 80% pain relief for at least 6 hours) for the first day.- S/p (2nd) bilateral L3-L5 medial branch block on 01/17/24. Patient states she received significan t benefit from the 1st block (greater than 80% pain relief for at least 6 hours) for the first day.- status post lumbar RFA L3-L5. With only 2 weeks of 70% pain relief.- Patient has been doing in home physical therapy and reports she is benefiting .- The patient was also given a lumbosacra l brace which she is wearing for 1-2 hours in the morning.- The patient may be a good candidate for Minuteman at L3-4. In the meantime, patient completed XR Lumbar spine however the flexion/ex tension was not completed. She has an order for Lumbar Flexion and Extension from 12/05/23 and was asked to have the imaging completed prior to her next follow up visit. She verbalized understand ing.- Patient on Celebrex 100mg once daily and has benefited- continue Cervical spondylosis [id number] M47.812 - Based on the history and physical exam it appears that the pain is associated with cervical degenerati ve disc disease and cervical spondylosi s. I think that much of the pain is facetogeni c in origin.- I have reviewed the cervical MRI, which revealed the multilevel spondylosi s with multiple levels of foraminal stenosis and nerve impingemen t.- I think that the patient could benefit from a bilateral cervical medial branch block with intention on pursuing a cervical RFA if successful , but she doesn't want to pursue at this time. Degenerati on of cervical intervertebral disc [id number] M50.30 Degenerati on of lumbar intervertebral disc [id number] M51.361 - The patient is post LEI L5-S1 on 10/04 which provided minimal improvemen t in pain and function. Lumbar spondylolisthesis [id number] 14423 M43.16 - The patient complains of chronic low back and BLE pain, which worsens with prolonged sitting/st anding/wal cristela, yet improves with leaning forward. - The patient notes that pain limits them from standing longer than 2 minutes and limits them from walking further than 10 feet, both of which drasticall y impacts [...] associated with lumbar degenerati ve disc disease with spinal stenosis (with neurogenic claudicati on) and lumbar spondylosi s/static spondyloli stheis with segmental instabilit y (vertical, angular rotation, and micro-julio on). - [employer] - I have reviewed the lumbar x-ray with flexion/ex tension, which revealed endplate angular difference s, grade 1 spondyloli sthesis (anterolis thesis) of L3 on L4 and facet joint effusion/g apping. - I have reviewed the lumbar MRI, which revealed a loss of disc height, posterior disc bulging, bilateral neuroforam inal narrowing, and facet hypertroph y.- significan t progressiv e degenerati ve changes identified at L3-L4 new grade 1 anterolist hesis of L3 on L4. New erosive changes also identified along with endplates and the mild edema along the endplates. - severe worsening of right neural foraminal stenosis at L3-L4 that is impingemen t of the exiting right L3 nerve root. There is also increased moderate spinal stenosis at L3-L4. - The patient has failed conservati ve treatment, including rest, heat/ice, physician- directed at-home exercises/ stretches, and PT. - The patient has failed pharmacolo gic treatment, . - The patient has failed interventi onal treatment. - I think the patient is a good candidate for the lumbar Posterior arthrodesi s via the lateral transverse technique procedure, which is an interspino us inter-lami simon fusion device intended for stablizati on/immobil ization of the lumbar spine via a lateral transverse approach with non-segmen jonh instrument ation. - Given the aforementi oned clinical and radiologic presentati on in conjunctio n with failure of prior treatment, my assessment is that the procedure is medically necessary. - The patient doesn't have any of the [...] I will submit for approval of the Posterior arthrodesi s via the lateral transverse techniquep rocedure to be performed at L3-L4. [id number] Mart Mcconnell MD [facility] [address] [place] [address] 05/02/2024 09:38:26 05/02/2024 10:06:16 Lumbar spondylolisthesis [id number] M43.16 - The patient complains of chronic low back and BLE pain, which worsens with prolonged sitting/st anding/wal cristela, yet improves with leaning forward. - The patient notes that pain limits them from standing longer than 2 minutes and limits them from walking further than 10 feet, both of which drasticall y impacts [...] associated with lumbar degenerati ve disc disease with spinal stenosis (with neurogenic claudicati on) and lumbar spondylosi s/static spondyloli stheis with segmental instabilit y (vertical, angular rotation, and micro-julio on). - [employer] - I have reviewed the lumbar x-ray with flexion/ex tension, which revealed endplate angular difference s, grade 1 spondyloli sthesis (anterolis thesis) of L3 on L4 and facet joint effusion/g apping. - I have reviewed the lumbar MRI, which revealed a loss of disc height, posterior disc bulging, bilateral neuroforam inal narrowing, and facet hypertroph y.- significan t progressiv e degenerati ve changes identified at L3-L4 new grade 1 anterolist hesis of L3 on L4. New erosive changes also identified along with endplates and the mild edema along the endplates. - severe worsening of right neural foraminal stenosis at L3-L4 that is impingemen t of the exiting right L3 nerve root. There is also increased moderate spinal stenosis at L3-L4. - The patient has failed conservati ve treatment, including rest, heat/ice, physician- directed at-home exercises/ stretches, and PT. - The patient has failed pharmacolo gic treatment, . - The patient has failed interventi onal treatment. - I think the patient is a good candidate for the lumbar Posterior arthrodesi s via the lateral transverse technique procedure, which is an interspino us inter-lami simon fusion device intended for stablizati on/immobil ization of the lumbar spine via a lateral transverse approach with non-segmen jonh instrument ation. - Given the aforementi oned clinical and radiologic presentati on in conjunctio n with failure of prior treatment, my assessment is that the procedure is medically necessary. - The patient doesn't have any of the [...] to pursue the procedure. - I will RE submit for approval of the Posterior arthrodesi s via the lateral transverse techniquep rocedure to be performed at L3-L4 once the patient is making significan t gains with her smoking cessation. Lumbar spondylosis [id number] M47.896 - Based on the patient's history and physical exam, it appears her pain is likely associated with lumbar spondylosi s and lumbar DDD. I feel that much of the patient's pain is originatin g in the facet joints and is arthritic in nature.- I have reviewed the patient's lumbar MRI showing moderate to severe DDD at L3-4; multilevel facet arthropath y; mild-moder ate DDD at L4-5.- S/p BLMBB L3-5 with Bupivacain e and Depo-Medro l- Patient states she received significan t benefit from the 1st block (greater than 80% pain relief for at least 6 hours) for the first day.- S/p (2nd) bilateral L3-L5 medial branch block on 01/17/24. Patient states she received significan t benefit from the 1st block (greater than 80% pain relief for at least 6 hours) for the first day.- status post lumbar RFA L3-L5. With only 2 weeks of 70% pain relief.- Patient has been doing in home physical therapy and reports she is benefiting .- The patient was also given a lumbosacra l brace which she is wearing for 1-2 hours in the morning.- The patient may be a good candidate for Minuteman at L3-4. In the meantime, patient completed XR Lumbar spine however the flexion/ex tension was not completed. She has an order for Lumbar Flexion and Extension from 12/05/23 and was asked to have the imaging completed prior to her next follow up visit. She verbalized understand ing.- Patient on Celebrex 100mg once daily and has benefited- continue Cervical spondylosis [id number] M47.812 - Based on the history and physical exam it appears that the pain is associated with cervical degenerati ve disc disease and cervical spondylosi s. I think that much of the pain is facetogeni c in origin.- I have reviewed the cervical MRI, which revealed the multilevel spondylosi s with multiple levels of foraminal stenosis and nerve impingemen t.- I think that the patient could benefit from a bilateral cervical medial branch block with intention on pursuing a cervical RFA if successful , but she doesn't want to pursue at this time. Degenerati on of cervical intervertebral disc [id number] M50.30 Degenerati on of lumbar intervertebral disc [id number] M51.361 - The patient is post LEI L5-S1 on 10/04 which provided improvemen t in pain and function.- since the patient has been waiting for her procedure of the posterior arthrodesi s to be through in the meantime to help with the radicular pain and stenosis pain I will go ahead and lumbar epidural steroid injection Tobacco de pendence caused by cigarettes [id number] F17.327 [id number] Counseling for harmful pattern of substance use [id number] Z71.6 [id number] - patient currently smokes 1 to half pack a day and she has been trying to decrease it.- She has tried Chantix and Wellbutrin in the past with failure.- patient is motivated to quit smoking because Cat being secondary to COPD- will go ahead and prescribe her with Bartolome L4 with the his smoking cessation. - Follow up in 4 weeks or tele video to discuss about smoking cessation- SMOKING:At least 10 minutes of Education was done to the patient regarding smoking.Qu itting smoking is one of the most significan t things they can do to help patient in the long run. I gave numerous examples of the typed of health issues they face if they continues to smoke. We discussed all the well known increased risks including substantia lly increased risks of CA, CVA, various different cancers and early . We also discussed that there is emerging literature to support that smoking actually worsens and intensifie s chronic pain. A plan for smoking cessation will be a requiremen t for treatment here in our center. The pateint understand and agree to comply. [id number] Mart Mcconnell MD [facility] [address] [place] [address] 05/30/2024 10:32:46 05/30/2024 11:19:06 Lumbar spondylolisthesis [id number] 69381 M43.16 - The patient complains of chronic low back and BLE pain, which worsens with prolonged sitting/st anding/wal cristela, yet improves with leaning forward.- The patient notes that pain limits them from standing longer than 2 minutes and limits them from walking further than 10 feet, both of which drasticall y impacts [...] associated with lumbar degenerati ve disc disease with spinal stenosis (with neurogenic claudicati on) and lumbar spondylosi s/static spondyloli stheis with segmental instabilit y (vertical, angular rotation, and micro-julio on).- [employer]+- I have reviewed the lumbar x-ray with flexion/ex tension, which revealed endplate angular difference s, grade 1 spondyloli sthesis (anterolis thesis) of L3 on L4 and facet joint effusion/g apping.- I have reviewed the lumbar MRI, which revealed a loss of disc height, posterior disc bulging, bilateral neuroforam inal narrowing, and facet hypertroph y.- significan t progressiv e degenerati ve changes identified at L3-L4 new grade 1 anterolist hesis of L3 on L4. New erosive changes also identified along with endplates and the mild edema along the endplates. - severe worsening of right neural foraminal stenosis at L3-L4 that is impingemen t of the exiting right L3 nerve root. There is also increased moderate spinal stenosis at L3-L4.- The patient has failed conservati ve treatment, including rest, heat/ice, physician- directed at-home exercises/ stretches, and PT.- The patient has failed pharmacolo gic treatment, .- The patient has failed interventi onal treatment. - I think the patient is a good candidate for the lumbar Posterior arthrodesi s via the lateral transverse technique procedure, which is an interspino us inter-lami simon fusion device intended for stablizati on/immobil ization of the lumbar spine via a lateral transverse approach with non-segmen jonh instrument ation.- Given the aforementi oned clinical and radiologic presentati on in conjunctio n with failure of prior treatment, my assessment is that the procedure is medically necessary. - The patient doesn't have any of the [...] to pursue the procedure. - I will RE submit for approval of the Posterior arthrodesi s via the lateral transverse techniquep rocedure to be performed at L3-L4 once the patient is making significan t gains with her smoking cessation. Counseling for harmful pattern of substance use [id number] Z71.6 [id number] - patient currently smokes 1 to half pack a day and she has been trying to decrease it.- She has tried Chantix and Wellbutrin in the past with failure.- Patient tried Nicoderm recently with failure as well.- patient is motivated to quit smoking because Cat being secondary to COPDAt least 10 minutes of Education was done to the patient regarding smoking.Qu itting smoking is one of the most significan t things they can do to help patient in the long run. I gave numerous examples of the typed of health issues they face if they continues to smoke. We discussed all the well known increased risks including substantia lly increased risks of CA, CVA, various different cancers and early . We also discussed that there is emerging literature to support that smoking actually worsens and intensifie s chronic pain. A plan for smoking cessation will be a requiremen t for treatment here in our center. The patient understand and agree to comply.- The patient is having trouble with progressin g on smoking cessation, so I will refer to pain psych for evaluation on more resources for coping skills, management of mental health, and smoking cessation. - follow up 1 month post pain psych. Tobacco de pendence caused by cigarettes [id number] F17.244 [id number] Degenerati on of lumbar intervertebral disc 33230466 M51.361 - The patient is post LEI L5-S1 on 10/04 which provided improvemen t in pain and function.- since the patient has been waiting for her procedure of the posterior arthrodesi s to be through in the meantime to help with the radicular pain and stenosis pain I will go ahead and lumbar epidural steroid injection Lumbar spondylosis 22439 0009 M47.896 - Based on the patient's history and physical exam, it appears her pain is likely associated with lumbar spondylosi s and lumbar DDD. I feel that much of the patient's pain is originatin g in the facet joints and is arthritic in nature.- I have reviewed the patient's lumbar MRI showing moderate to severe DDD at L3-4; multilevel facet arthropath y; mild-moder ate DDD at L4-5.- S/p BLMBB L3-5 with Bupivacain e and Depo-Medro l- Patient states she received significan t benefit from the 1st block (greater than 80% pain relief for at least 6 hours) for the first day.- S/p (2nd) bilateral L3-L5 medial branch block on 01/17/24. Patient states she received significan t benefit from the 1st block (greater than 80% pain relief for at least 6 hours) for the first day.- status post lumbar RFA L3-L5. With only 2 weeks of 70% pain relief.- Patient has been doing in home physical therapy and reports she is benefiting .- The patient was also given a lumbosacra l brace which she is wearing for 1-2 hours in the morning.- The patient may be a good candidate for Minuteman at L3-4. In the meantime, patient completed XR Lumbar spine however the flexion/ex tension was not completed. She has an order for Lumbar Flexion and Extension from 12/05/23 and was asked to have the imaging completed prior to her next follow up visit. She verbalized understand ing.- Patient on Celebrex 100mg once daily and has benefited- continue Cervical spondylosis [id number] M47.812 - Based on the history and physical exam it appears that the pain is associated with cervical degenerati ve disc disease and cervical spondylosi s. I think that much of the pain is facetogeni c in origin.- I have reviewed the cervical MRI, which revealed the multilevel spondylosi s with multiple levels of foraminal stenosis and nerve impingemen t.- I think that the patient could benefit from a bilateral cervical medial branch block with intention on pursuing a cervical RFA if successful , but she doesn't want to pursue at this time. Degenerati on of cervical intervertebral disc 59038505 M50.30 [id number] DYLAN CARPENTER PA-C [facility] [address] [place] [address] 07/09/2024 13:15:05 07/09/2024 14:17:58 Lumbar spondylolisthesis [id number] 98011 M43.16 - I hope the patient is able to cease smoking, after which I will submit for approval of a posterior arthrodesi s at L3-L4. Counseling for harmful pattern of substance use [id number] Z71.6 [id number] Tobacco de pendence caused by cigarettes [id number] 3643545 F17.777 4499335 - The patient is working diligently toward smoking cessation, noting that she has made significan t progress.- The patient has failed Nicoderm, Chantix, and Wellbutrin , among other medication s.- The patient is scheduled for a pain psych consult, at which time she intends on discussing smoking cessation further. I think pain psych is appropriat e, as there is a connection between pain, mental health, and addition.- The patient voices that pain exacerbate s stress and anxiety/de pression, which prompts her to smoke. Degenerati on of lumbar intervertebral disc 98309998 M51.361 - The patient is S/P (05/2024) lumbar epidural, which was successful in decreasing non-radicu lar/radicu lar low back pain by greater than 50% in the short-term . Lumbar spondylosis 61462 0009 M47.896 - The patient is S/P (02/2024) bilateral lumbar RFA at L3-L5, which was successful in decreasing non-radicu lar low back pain by greater than 50% in the short-term . Cervical spondylosis 387 202190 M47.812 - I think the patient could benefit from a bilateral cervical medial branch block with intention of pursuing a cervical RFA if successful . Degenerati on of cervical intervertebral disc 13029911 M50.30 - I have reviewed the cervical MRI, which revealed the multilevel spondylosi s with multiple levels of foraminal stenosis and nerve impingemen t. Peripheral neuropathic pain 089283499 M79.2 [id number] - The patient previously completed an EMG/NCS of the BLE, which reportedly revealed peripheral neuropathy . Low back pain 093719732 M54.50 [id number] - The patient takes Celecoxib 100 mg once daily prn [id number] Mart Mcconnell MD [facility] [address] [place] [address] 07/30/2024 13:36:23 07/30/2024 14:19:27 Tobacco dependence caused by cigarettes [id number] F17.828 [id number] - The patient is working diligently toward smoking cessation, noting that she has made significan t progress.- The patient has failed Nicoderm, Chantix, and Wellbutrin , among other medication s.- Patient was seen by pain psych on 07/11/24 and was deemed an appropriat e candidtae to move forward with smoking cessation strategies .- The patient voices that pain exacerbate s stress and anxiety/de pression, which prompts her to smoke. Degenerati on of lumbar intervertebral disc 27158323 M51.361 - The patient is S/P (05/2024) lumbar epidural, which was successful in decreasing non-radicu lar/radicu lar low back pain by greater than 50% in the short-term . Lumbar spondylosis 41582 0009 M47.896 - The patient is S/P (02/2024) bilateral lumbar RFA at L3-L5, which was successful in decreasing non-radicu lar low back pain by greater than 50% in the short-term . Cervical spondylosis 387 748084 M47.812 - I think the patient could benefit from a bilateral cervical medial branch block with intention of pursuing a cervical RFA if successful . Degenerati on of cervical intervertebral disc 74618875 M50.30 - I have reviewed the cervical MRI, which revealed the multilevel spondylosi s with multiple levels of foraminal stenosis and nerve impingemen t. Peripheral neuropathic pain 445883143 M79.2 [id number] - The patient previously completed an EMG/NCS of the BLE, which reportedly revealed peripheral neuropathy . Low back pain 674357520 M54.50 [id number] - The patient takes Celecoxib 100 mg once daily prn Lumbar spi ne instability [id number] M53.2X6 [id number] - The patient complained of chronic low [...] ve disc disease and spinal instabilit y.- [employer]+- XR Lumbar spine [...] s to be performed at L3 on L4. [id number] Mart Mcconnell MD [facility] [address] [facility] [address] [place] [address] 10/22/2024 08:07:29 10/22/2024 08:35:17 Tobacco dependence caused by cigarettes [id number] F17.346 [id number] - The patient is working diligently toward [...] smoke. Degenerati on of lumbar intervertebral disc 20470926 M51.361 - The patient is S/P (05/2024) lumbar epidural, which was successful in decreasing non-radicu lar/radicu lar low back pain by greater than 50% in the short-term . Lumbar spondylosis 20530 0009 M47.896 - The patient is S/P (02/2024) bilateral lumbar RFA at L3-L5, which was successful in decreasing non-radicu lar low back pain by greater than 50% in the short-term .- Discussed repeating procedure in the near future, patient would like to repeat after her TFESI injections . Cervical spondylosis [id number] M47.812 - I think the patient could benefit from a bilateral cervical medial branch block with intention of pursuing a cervical RFA if successful . Degenerati on of cervical intervertebral disc 98473778 M50.30 - I have reviewed the cervical MRI, which revealed the multilevel spondylosi s with multiple levels of foraminal stenosis and nerve impingemen t. Peripheral neuropathic pain 440763287 M79.2 [id number] - The patient previously completed an EMG/NCS of the BLE, which reportedly revealed peripheral neuropathy . Lumbar spi ne instability 849599950 M53.2X6 8538119 - The patient complained of chronic low [...] f spinal canal due to intervertebral disc 891562584 M99.53 1642540 - The patient complained of chronic low [...] by Organization Details LastModified Time None Recorded Advance Directives Directive None Recorded Payers Insurance Date Sequence Insurance Name Policy Number Policy Khan Covered Member ID Khan Member ID Guarantor Name 07/20/2024 2 AETNA [facility] (MEDICAID HMO) Eleonora Pineda [id number] Eelonora Pineda 07/20/2024 2 [employer] (HMO) Eleonora Pineda [id number] Eleonora Pineda 07/20/2024 1 [employer] (MEDICARE REPLACEMENT/A DVANTAGE - PPO) [id number] Y Eleonora Pineda [id number] Eleonora Pineda 11/28/2024 1 [employer] (MEDICARE REPLACEMENT/A DVANTAGE - HMO) [id number] Y Eleonora G Pineda [id number] Eleonora Pineda 07/20/2024 2 [employer]ET[employer] Eleonora Pineda [id number] Eleonora Pineda 07/20/2024 3 [employer] (HMO) Eleonora Pineda [id number] Eleonora Pineda 07/20/2024 1 [employer] Eleonora Pineda [id number] Eleonora Pineda 07/20/2024 3 [employer]ETNA [facility] (MEDICAID HMO) Eleonora Pineda [id number] Eleonora Pineda 07/20/2024 1 [employer]ETNA [facility] (MEDICAID HMO) Eleonora Pineda [id number] Eleonora Pineda 07/20/2024 2 [place]MED[place]AC[place] H[place] [id number] Eleonora Pineda [id number] Eleonora Pineda 07/20/2024 1 [employer]ETNA [facility] (MEDICAID HMO) Eleonora Pineda [id number] Eleonora Pineda 07/20/2024 1 [facility] (MEDICARE REPLACEMENT/A DVANTAGE - HMO) [id number] Eleonora Mobleyy [id number] Eleonora Pineda 11/12/2024 2 [employer]ETNA [facility] (MEDICAID HMO) Eleonora Mobleyy [id number] Eleonora Pineda 07/20/2024 1 [facility] (MEDICARE REPLACEMENT/A DVANTAGE - HMO) [id number] Eleonora Mobleyy [id number] Eleonora Mobleyy 07/20/2024 3 [place] Eleonora Mobleyy [id number] Eleonora Pineda 07/20/2024 1 [facility] (MEDICARE REPLACEMENT/A DVANTAGE - HMO) [id number] Eleonora Mobleyy [id number] Eleonora Pineda 07/20/2024 1 [employer] (MEDICARE REPLACEMENT/A DVANTAGE - HMO) [id number] Y Eleonora Mobleyy [id number] Eleonora Pineda Notes Date Note Type Note Provider Name and Address Organization Details Recorded Time 05/02/2024 text/html ROS as noted in the HPI [...] The patient presents to the clinic today to discuss about smoking cessation and for the management of for pain since her posterior lumbar fusion was denied due to smoking.Patient reports that she has tried to stop smoking in the past and has used Chantix and Wellbutrin which do not help her enough. She does however report that she is highly motivated to stop smoking because her Cat is very sick because of COPD.She reports that her daily function has decreased because of the pain and reports that she is pretty much glued to the wheelchair because of her low back painThe patient continues to complain of low back pain and BLE pain with sensational changes. She also complains of neck pain causing limited ROM, but her low back pain is most bothersome and she would like to address it first.. Her pain is worsening over time, affecting her daily function significantly. Pain today is a 08/16. Mart Mcconnell MD [address] [facility], [place], [address], [facility] - [place] - [place] & [place] 05/07/2024 13:36:53 05/30/2024 text/html ROS as noted in the HPI [...] The patient presents to the clinic today to discuss about smoking cessation and for the management of for pain since her posterior lumbar fusion was denied due to smoking.Patient reports that she has tried to stop smoking in the past and has used Chantix and Wellbutrin which do not help her enough. Patient reports the patches are not effective. She states the pain has decreased function which causes depression, thereby leading her to smoke. In the past she has reported that she is highly motivated to stop smoking because her Cat is very sick because of COPD.The patient continues to complain of low back pain and BLE pain with sensational changes. She also complains of neck pain causing limited ROM, but her low back pain is most bothersome and she would like to address it first.. Her pain is worsening over time, affecting her daily function significantly. Pain today is a 9/10. Mart Mcconnell MD [address] [facility], [place], [address], [facility] & [place] 06/04/2024 13:25:28 07/09/2024 text/html ROS as noted in the HPI [...] The patient presents to the clinic today to follow up on pain. The patient states that she is working toward smoking cessation, noting that she has made significant progress. The patient states that she is scheduled for a pain psych consult, at which time she intends on discussing smoking cessation further. The patient has failed Nicoderm, Chantix, and Wellbutrin, among other medications. The patient states that pain exacerbates stress and anxiety/depression, which prompts her to smoke. Today the pain level is a 8/10. DYLAN CARPENTER PA-C [address] , [place], [address], [facility] & [place] 07/11/2024 14:07:07 07/30/2024 text/html ROS as noted in the HPI [...] The patient presents to the clinic today to follow up post referral for smoking cessation. Patient was seen by pain psych on 07/11/24 and was deemed an appropriate candidate to move forward with smoking cessation strategies. She still complains of low back pain with bilateral lower extremity radiation. Her pain improves when leaning forward and supporting her weight on a table or chair. It worsens with walking, standing and sitting for long time periods. Today the pain level is a 10/10. TRIPP BURGER PA-C [address], [place], [address], [facility] & [place] 07/31/2024 07:26:20 10/22/2024 text/html ROS as noted in the [...] level today is 10/10. TRIPP BURGER PA-C [address], [place], [address], [facility] - [place] [facility] & [place] 10/22/2024 08:56:15 OBGyn Episode No OBEpisode recorded.
--- OUTSIDE RECORDS SUMMARY | 2024-12-17 09:28 | XMS_ITS | Clinical Summary ---
Author Organization [facility] Address [address] [id number] Care Team Providers Care Director Of Business Services Name Role Phone Fer Moreau MD Primary Care Provider [phone] Social History Tobacco Use Types Packs/Day Years [...] UKY-Zoster Vaccines (2 of 2) 09/09/2021 07/15/2021 [id number] Vaccine ( season) 2024 01/05/2023, 08/18/2021, 07/15/2021 [...] Narrative SUNQUEST - 09/18/2004 10:02 AM EDT [facility] MR #: [id number] [facility] [address] [place], [place] [address] 1960 (Age: 44) FW Collect Date: 09/11/2004 00:00 Receipt Date: 09/15/2004 15:00 Page 1 DEPARTMENT OF PATHOLOGY AND LABORATORY MEDICINE CYTOPATHOLOGY REPORT Email: [email or web address] [id number] ATTENDING MD/Practitioner: Corine Mary MD Service: [facility] Location: [facility] Reported: 09/18/2004 10:02 Collected: 09/11/2004 00:00 INTERPRETATION THIN PREP (CERVICAL/VAGINAL): NEGATIVE FOR INTRAEPITHELIAL LESION OR MALIGNANCY. SATISFACTORY FOR EVALUATION; ENDOCERVICAL/ TRANSFORMATION ZONE COMPONENT PRESENT. BORDERLINE SQUAMOUS CELLULARITY NOTED. Slide scanned and imaged by [employer] System with manual review of all [...] results is suggested (please call Microbiology at [phone] for results). CLINICAL INFORMATION: Menstrual History: Cyclic Date of Last Menstrual Period: 09/05/04 SPECIMEN DESCRIPTION: A: THIN PREP (CERVICAL/VAGINAL) THIN PREP PROCESS CELLULAR ENHANCEMENT ICD: V76.2 CERVIX, SPECIAL SCREENING FOR MALIGNANT NEOPLASM F: A; RT IMAGE [id number] SNOMED CODES: A; [id number] M-00362 M-53775 M-28180 M-0911.02 In cases where a pathologist has signed out the report, the service has been rendered in part by a resident. The signing pathologist has performed and is responsible for the reported pathologic evaluation. us Historical Provider LAB PATHOLOGY ORDERABLES Fin al Result [employer] from Last 3 Months or Most Recently Relevant to Health Maintenance Insurance AETNA [facility] MEDICAID Care Teams Director Of Business Services Relationship Specialty Start Date End Date Fer Moreau MD [address] [place] [address] PCP - General 06/20/20
--- OUTSIDE RECORDS SUMMARY | 2024-12-17 09:28 | XMS_ITS | Clinical Summary ---
Author Organization [facility] Address [address] [place] [address] Care Team Providers Care Paint Roller Covers Supervisor Name Role Phone Fer Moreau MD Primary Care Provider [phone] Allergies No known active allergies Medications lisinopril-hydr [...] COVID-19 Vaccine (1 - season) 2024 Insurance [id number] Care Teams Paint Roller Covers Supervisor Relationship Specialty Start Date End Date Fer Moreau MD [address] [facility] [address] ATTN: [place] [address] PCP - General Emergency Medicine 09/21/16
== END 2024-12-17 23:59 | disposition home or self-care (01) ==
LOC: RAD 09:14
PROVIDERS: PCP Nurse Practitioner; Visit Provider Nurse Practitioner
DX: M85.88 Other specified disorders of bone density and structure, other site
CPT/HCPCS: 77080